=== PATIENT | male | born 1945 | race Caucasian/White ===

== ENCOUNTER → 2017-12-07 12:45 | Outpatient (CLI) | payer MEDICARE, OTHER, SELFPAY ==
--- NOTE | 2017-12-08 08:48 | PFT ---
INTRODUCTION: The patient is a 72-year-old male currently under the care of Ely Esqueda NP that presents for pulmonary function testing secondary to a diagnosis of COPD. Respiratory therapy reports good patient effort and reports no other concerns. Bronchodilators were used during testing. INTERPRETATION: Forced expiration spirometry demonstrates the presence of a moderately severe large airways obstructive ventilatory defect. There was no significant response to aerosolized bronchodilators, based upon strict ATS criteria. Spirograms do not plateau indicating slow emptying of the lungs. The respiratory flow volume loop reveals decreased expiratory flow rates at all lung volumes consistent with airways obstruction. Body plethysmography was performed and reveals an increased TLC and RV, indicative of hyperinflation and air-trapping. Diffusing capacity by single breath CO is severely reduced at 47% of predicted. When compared to previous pulmonary function studies dated July 2016, there has been a 10% drop in the patient's FEV1, along with worsening hyperinflation and air-trapping. Diffusing capacity has decreased by 8%. IMPRESSION: These pulmonary function studies demonstrate the presence of an irreversible moderately severe large airways obstructive ventilatory defect with associated hyperinflation, air trapping and reduction in diffusing capacity. There has been worsening in the patient's PFTs since they were last completed in 2015, as noted above.
--- NOTE | 2017-12-08 08:52 | PFT_ITS ---
INTRODUCTION: The patient is a 72-year-old male currently under the care of Ely Esqueda NP that presents for pulmonary function testing secondary to a diagnosis of COPD. Respiratory therapy reports good patient effort and reports no other concerns. Bronchodilators were used during testing. INTERPRETATION: Forced expiration spirometry demonstrates the presence of a moderately severe large airways obstructive ventilatory defect. There was no significant response to aerosolized bronchodilators, based upon strict ATS criteria. Spirograms do not plateau indicating slow emptying of the lungs. The respiratory flow volume loop reveals decreased expiratory flow rates at all lung volumes consistent with airways obstruction. Body plethysmography was performed and reveals an increased TLC and RV, indicative of hyperinflation and air-trapping. Diffusing capacity by single breath CO is severely reduced at 47 % of predicted. When compared to previous pulmonary function studies dated July 2016, there has been a 10% drop in the patient's FEV1, along with worsening hyperinflation and air-trapping. Diffusing capacity has decreased by 8%. IMPRESSION: These pulmonary function studies demonstrate the presence of an irreversible moderately severe large airways obstructive ventilatory defect with associated hyperinflation, air trapping and reduction in diffusing capacity. There has been worsening in the patient's PFTs since they were last completed in 2015, as noted above.
== END ==
PROVIDERS: Family Provider Family Medicine; PCP Family Medicine; Visit Provider Nurse Practitioner Acute Care
DX: R06.00 Dyspnea, unspecified (principal); J44.9 Chronic obstructive pulmonary disease, unspecified
CPT/HCPCS: 94060; 94726; 94729

== ENCOUNTER → 2018-03-07 10:36 | Outpatient (CLI) | payer MEDICARE, OTHER, SELFPAY ==
--- NOTE | 2018-03-07 10:38 | ECHOCS_ITS ---
Reason For Study: PULMONARY HTN Procedure This was a 2D Doppler, Color Flow transthoracic echocardiogram. Exam performed in department. Left Ventricle Normal LV size. Moderate concentric left ventricular hypertrophy. Left ventricular systolic function is normal. The estimated ejection fraction is 65 %. Transmitral diastolic flow velocities suggest mild (stage 1) diastolic dysfunction (reversed pattern). No regional wall motion abnormalities noted. Right Ventricle Normal RV size. Normal systolic function. Atria Normal left atrium. Normal right atrium. Mitral Valve Normal mitral valve. Tricuspid Valve Normal tricuspid valve. Unable to estimate RV systolic pressure, pulmonary artery pressure probably normal. Aortic Valve Normal aortic valve. Pulmonic Valve The pulmonic valve is not well visualized. Great Vessels Normal aortic root. The pulmonary artery is normal size. Normal inferior vena cava. Pericardium/Pleural No pericardial effusion. Medication 22 gauge I.V. with prn adaptor inserted into right arm. Diluted definity 3ml given slow IV push to enhance endocardial definition. MMode/2D Measurements & Calculations LVIDd: 4.0 cm IVSd: 1.7 cm Ao root diam: 3.3 cm LVIDs: 2.5 cm LVPWd: 1.4 cm RVDd: 3.1 cm FS: 35.8 % LAV(MOD-bp): 40.4 ml LAV(MOD-bp) Indexed: 17.3 ml/m2 LA A4 area: 14.1 cm2 RA A4 area: 10.7 cm2 LAV(MOD-sp2): 45.7 ml LAV(MOD-sp4): 32.1 ml Time Measurements MV dec time: 0.25 sec Doppler Measurements & Calculations MV E max alessio: 72.3 cm/sec Lat Peak E' Alessio: 9.4 cm/sec Med Peak E' Alessio: 8.0 cm/sec MV A max alessio: 92.8 cm/sec E/E' lat: 7.7 E/E' med: 9.0 MV E/A: 0.78 Ao V2 max: 155.7 cm/sec LV V1 max: 127.1 cm/sec PA V2 max: 114.5 cm/sec Ao max P.7 mmHg LV V1 max P.5 mmHg Interpretation Summary Normal LV size. Moderate concentric left ventricular hypertrophy. Left ventricular systolic function is normal. The estimated ejection fraction is 65 %. Transmitral diastolic flow velocities suggest mild (stage 1) diastolic dysfunction (reversed pattern). Contrast injection was performed. Ordering Physician: Scot Talavera Referring Physician: CHESTER STEWARD Performed By: Cassidy Shields RDCS
== END ==
PROVIDERS: Family Provider Family Medicine; PCP Family Medicine; Visit Provider Internal Medicine Critical Care Medicine
DX: J44.9 Chronic obstructive pulmonary disease, unspecified (principal); J96.11 Chronic respiratory failure with hypoxia; Z98.890 Other specified postprocedural states
CPT/HCPCS: 93306; Q9957; A4216; C8929

== ENCOUNTER → 2018-11-22 15:37 | Outpatient (CLI) | payer MEDICARE, OTHER, SELFPAY ==
[2018-09-15 13:07] VITALS: BMI 33.6
--- NOTE | 2018-11-22 15:41 | RAD_ITS ---
STUDY: X-RAY - RIGHT HAND, ATTENTION FINGER REASON FOR EXAM: Male, 73 years old. Possible foreign body at the tip of the thumb TECHNIQUE: 4 view(s) of the finger were obtained. COMPARISON: None. FINDINGS: There are no radiopaque foreign bodies at the tip of the thumb. A 3.8 mm calcific density is seen at the dorsal aspect of the interphalangeal joint of the thumb. There are no fractures RAD/Finger(s) Min 2 Views IMPRESSION: No radiopaque foreign bodies are seen in the soft tissues at the tip of the thumb Electronically Signed: John Rubio MD at 5:04 EST Tel , Service support ,
== END ==
PROVIDERS: Family Provider Family Medicine; PCP Family Medicine; Referring Provider Family Medicine; Visit Provider Family Medicine
DX: T14.8XXA Other injury of unspecified body region, initial encounter (principal)
CPT/HCPCS: 73140

== ENCOUNTER → 2018-12-05 12:10 | Outpatient (CLI) | payer MEDICARE, OTHER, SELFPAY ==
[2018-12-05 12:40] VITALS: PULSE 64; PULSE 68; PULSE 71; PULSE 79; PULSE 81; PULSE 82; O2SAT 87; O2SAT 89; O2SAT 90; O2SAT 92; O2SAT 94; O2SAT 95; O2SAT 96
--- NOTE | 2018-12-06 11:13 | WT_ITS ---
PSN 6 Minute Walk Test - 6 Minute Walk Test 6 Minute Walk Test: 6 Minute Walk Test PSN:6-Minute Walk Test Start: 12/05/18 12:40 Freq: Status: Active Protocol: [id number] Document 12/05/18 12:40 [facility] (Rec: 12/05/18 12:45 [facility] [id number]) 6 Minute Walk Test Date Performed 12/05/18 Time Performed 12:30 Height 6 ft Weight: 240 lb Weight in Pounds 240.[address]: Ely Esquead Assistive device used: None Pre-test Oxygen Delivery Method Room Air Pulse Ox (%) 95 Pulse Rate (60-100 beats/min) 64 Dyspnea Marky Scale (0-10) 2 1st minute Oxygen Delivery Method Room Air Pulse Ox (%) 94 Pulse Rate (60-100 beats/min) 68 Dyspnea Marky Scale (0-10) 2 2nd minute Oxygen Delivery Method Room Air Pulse Ox (%) 89 Pulse Rate (60-100 beats/min) 71 Dyspnea Marky Scale (0-10) 3 Reported Symptoms Increased Work of Breathing 3rd minute Oxygen Delivery Method Room Air Pulse Ox (%) 87 Pulse Rate (60-100 beats/min) 82 Dyspnea Marky Scale (0-10) 3 Number of Rests Taken 1 Reported Symptoms Increased Work of Breathing 4th minute Oxygen Flow Rate (L/min) (L/min) 2 Oxygen Delivery Method Nasal Cannula Pulse Ox (%) 92 Pulse Rate (60-100 beats/min) 71 Dyspnea Marky Scale (0-10) 3 Reported Symptoms Increased Work of Breathing 5th minute Oxygen Flow Rate (L/min) (L/min) 2 Oxygen Delivery Method Nasal Cannula Pulse Ox (%) 90 Pulse Rate (60-100 beats/min) 79 Dyspnea Marky Scale (0-10) 3 Reported Symptoms Increased Work of Breathing 6th minute Oxygen Flow Rate (L/min) (L/min) 2 Oxygen Delivery Method Nasal Cannula Pulse Ox (%) 89 Pulse Rate (60-100 beats/min) 81 Dyspnea Marky Scale (0-10) 3 Reported Symptoms Increased Work of Breathing Post-test Oxygen Delivery Method Room Air Pulse Ox (%) 96 Pulse Rate (60-100 beats/min) 64 Dyspnea Marky Scale (0-10) 2 Full Laps Walked 19 Partial Lap, Number of Tiles Walked 42 Total Distance Walked (ft) 1163 - Interpretation Interpretation: The patient ambulated 1163 feet over the course of 6 minutes beginning on room air without assistive devices or breaks. Pretesting oxygen saturation was noted to be 95% on room air. With ambulation the jaylon oxygen saturation was 87%. 2 L/min of supplemental oxygen was applied and the patient was able to complete the remainder of the testing while maintaining appropriate oxygen saturations. - Recommendations Recommendations: 2 L/min of supplemental oxygen should be utilized with exertion.
== END ==
PROVIDERS: Family Provider Family Medicine; PCP Family Medicine; Referring Provider Nurse Practitioner Acute Care; Visit Provider Nurse Practitioner Acute Care
DX: J44.9 Chronic obstructive pulmonary disease, unspecified (principal); J96.11 Chronic respiratory failure with hypoxia
CPT/HCPCS: 94618

== ENCOUNTER 2018-12-06 15:57 | Emergency (ER) | payer MEDICARE, OTHER, SELFPAY ==
[2018-12-06 15:57] VITALS: BP 189/78; PULSE 61; RESP 15; TEMP 36.5; O2SAT 98; BMI 34.0
--- NOTE | 2018-12-06 17:13 | CT_ITS ---
STUDY: CT BRAIN WITHOUT CONTRAST REASON FOR EXAM: Male, 73 years old. Fall on ice. Hit back of the head. RADIATION DOSAGE (If Supplied By Facility): CTDIvol = ( 60.81 ) mGy, DLP = ( 1158.30 ) mGycm TECHNIQUE: Transaxial CT imaging of the brain was performed without administration of intravenous contrast material. Individualized dose optimization techniques were used for this CT. COMPARISON: None. FINDINGS: Normal soft tissue structures. Normal calvarium. Normal size ventricles and extra-axial spaces for the patient's age. There are areas of decreased attenuation within the white matter tracts of the supratentorial brain, consistent with microvascular disease changes. Normal right basal ganglia and bilateral thalami. There is a remote lacunar infarct in the left basal ganglia. Normal brainstem. Normal cerebellum. There is no intracranial hemorrhage. There are no findings of an acute ischemic infarction. Normal visualized paranasal sinuses. CT/Brain/Head without Contrast IMPRESSION: Chronic involutional changes without evidence of acute intracranial or calvarial abnormality. Electronically Signed: Dave Sam DO at 18:07 EST Tel [phone], Service support ,
[2018-12-06] MEDS: traMADol 50 MG Tablet PO (17:26)
--- NOTE | 2018-12-06 17:32 | CT_ITS ---
STUDY: CT THORACIC SPINE WITHOUT CONTRAST REASON FOR EXAM: Male, 73 years old. Fall on ice hitting back. RADIATION DOSAGE (If Supplied By Facility): CTDIvol = ( 38.55 ) mGy, DLP = ( 1406.71 ) mGycm TECHNIQUE: The patient was scanned in a multi detector CT scanner. High resolution imaging was performed. Images were obtained from to . Sagittal and coronal images were reconstructed. Individualized dose optimization techniques were used for this CT. COMPARISON: CT chest 08/03/2017. X-ray 12/06/2018. FINDINGS: Normal visualized cervical spine. Normal kyphosis of the thoracic spine. There is no substantial scoliosis. Mild thoracic spurring, otherwise unremarkable thoracic vertebrae and endplates. Normal disc spaces heights. There is moderate consolidation in the right lung base which is new compared to the prior study. This may represent pneumonia, contusion in the setting of significant trauma, or malignancy. CT/Spine Thoracic without Contras IMPRESSION: 1. No acute osseous abnormality. 2. Right lower lobe consolidation. Differential considerations include pneumonia, contusion, or malignancy. Short interval follow-up is advised. Electronically Signed: Cira Brady MD at 18:36 EST Tel , Service support ,
--- NOTE | 2018-12-06 17:32 | ED.DCSUM_ITS ---
- ER Visit Summary Date of Service: 12/06/18 Chief Complaint: Back injury History of Present Illness: The patient is a 73 M presents to the emergency department with rib pain after fall. The patient was in his normal state of health. He states he was walking out to get his newspaper this morning. He slipped on ice. He fell on his upper back and struck his head. He did not lose consciousness. Since then, he had pain in his right posterior ribs. He is also had a mild headache. He denies any fevers or chills. He states every time he twists or moves, he will have pain. The patient was recently on antibiotics for sinusitis. He finished these about 7 days ago. He has had a scant cough for the past 4 days. He denies any other systemic symptoms. He is not on anticoagulants. Physical Examination: Vital signs reviewed General: Well-nourished, well-developed Head: Normocephalic, atraumatic Eyes: Pupils equal and reactive, extraocular muscles intact Neck, supple, no lymphadenopathy Heart: Regular rate and rhythm Respiratory: No distress, diminished in the bases bilaterally Abdomen: Soft, nontender, nondistended, no peritoneal signs Back: Tenderness in the thoracic spine and over the right posterior ribs. No step-off. No deformity. Extremities: Nontender, no edema, no cords Skin: Normal color no rash Neuro: Alert and oriented, no focal or lateralizing deficits Test Results: [] Emergency Department Course and Treatment: I did obtain a rib series, CT of the head, and thoracic spine CT. CT of the head was unremarkable. Rib series shows no evidence of acute fracture or pneumothorax. There was questionable consolidation in his right base. CT of the thoracic spine does demonstrate this consolidation. A long discussion with the patient. He had a persistent cough. Is not had hemoptysis. My suspicion for lung contusion is rather low especially given his mechanism. Is not on anticoagulants. He has not had any hemoptysis. The patient was able to ambulate with no hypoxia. I am going to cover him with doxycycline, but I do feel that this is more of a chronic finding especially given his underlying history of lung disease. He also given a short course of analgesics. I do want him to follow-up with his primary care within the next 24-48 hours. He was also counseled on concerning symptoms and reasons to return. Treatment Plan: [] Disposition: Discharge Impression: 1. Thoracic strain status post fall 2. Rib contusion status post fall This note was generated with [email or web address] dictation software. It may contain incorrect words, spelling, and punctuation that were not noted in review of the chart prior to signing ED Disposition - Plan for ED Patient: Chief Complaint: Fall Instructions: ED Contusion Rib Prescriptions: traMADol [Ultram] 50 mg PO Q4H PRN PRN 3 Days #10 tab PRN Reason: Pain Doxycycline 100 mg PO BID #20 cap Referrals: Hung Hummel MD [Primary Care Provider] - 2 Days
--- NOTE | 2018-12-06 17:42 | RAD_ITS ---
STUDY: X-RAY - BILATERAL RIBS WITH CHEST REASON FOR EXAM: Male, 73 years old. Pain after fall. TECHNIQUE - RIBS: 8 view(s) of the ribs. TECHNIQUE - CHEST: Single PA view of the chest. COMPARISON: Chest, July 16, 2017. FINDINGS - RIBS : Normal visualized ribs without a demonstrated fracture. FINDINGS - CHEST: The lungs are well expanded. There is questionable patchy infiltrate in the right perihilar region not seen on the prior study. Minimal dependent changes are seen at the right lung base. There is no pneumothorax. There is no demonstrated pleural abnormality. Normal size heart. Normal mediastinum and rick. Normal visualized pulmonary arteries. Normal visualized aortic arch and descending thoracic aorta. There are diffuse degenerative changes of the visualized thoracic spine. There is degenerative osteoarthritis of the bilateral shoulders. There is no demonstrated abnormality of the visualized soft tissue structures of the upper abdomen. RAD/Ribs Stiven Min 4V w/PA Chest IMPRESSION: RIBS: Normal x-ray examination of the bilateral ribs. CHEST: Infiltrate versus contusion of the right midlung with right basilar atelectasis. Electronically Signed: Dave Sam DO at 18:13 EST Tel [phone], Service support ,
[2018-12-06 18:58] VITALS: O2SAT 96
== END 2018-12-06 19:15 | disposition home or self-care (01) ==
LOC: ED 17:19
PROVIDERS: Emergency Provider Emergency Medicine; Family Provider Family Medicine; PCP Family Medicine
DX: S20.221A Contusion of right back wall of thorax, initial encounter (principal); S29.012A Strain of muscle and tendon of back wall of thorax, initial encounter; R51 Headache; R05 Cough; W00.0XXA Fall on same level due to ice and snow, initial encounter; Y93.01 Activity, walking, marching and hiking; Y92.9 Unspecified place or not applicable; I10 Essential (primary) hypertension; Z79.82 Long term (current) use of aspirin; Z79.899 Other long term (current) drug therapy; Z87.891 Personal history of nicotine dependence
CPT/HCPCS: 70450; 71111; 72128; 99283

== ENCOUNTER → 2019-02-10 12:10 | Outpatient (CLI) | payer MEDICARE, OTHER, SELFPAY ==
[2019-02-13 16:08] LABS: PROEL- A/G Ratio 1.2 (0.7-1.7); PROEL- Albumin 3.7 g/dL (2.9-4.4); PROEL- Alpha-1 Globulin 0.3 g/dL (0.0-0.4); PROEL- Alpha-2 Globulin 0.8 g/dL (0.4-1.0); PROEL- Globulin, Total 3.1 g/dL (2.2-3.9); PROEL- TOTAL PROTEIN 6.8 g/dL (6.0-8.5)
[2019-02-14 14:07] LABS: PROELU- Albumin, Urine 75.2 % (.); PROELU- Alpha-1-Globulin,Ur 4.4 % (.); PROELU- Alpha-2-Globulin,Ur 5.6 % (.); PROELU- Beta Globulin, Ur 9.8 % (.); PROELU- Gamma Globulin, Ur 5.1 % (.); Total Protein, Ur 59.4 mg/dL (Not Estab.)
[2019-02-14 15:26] LABS: Angiotensin Convert Enzyme 54 U/L (14-82)
== END ==
PROVIDERS: Family Provider Family Medicine; PCP Family Medicine; Referring Provider Family Medicine; Visit Provider Family Medicine
DX: J44.9 Chronic obstructive pulmonary disease, unspecified (principal)
CPT/HCPCS: 36415; 82164; 84165; 84166

== ENCOUNTER → 2019-03-23 | Outpatient (CLI) | payer MEDICARE, OTHER, SELFPAY ==
--- NOTE | 2019-03-23 16:23 | PFTCOMP_ITS ---
COMPLETE PULMONARY FUNCTION TEST INTERPRETATION Brief HPI: Patient is a 74 year old male, currently under the care of myself, who presents to [facility] for complete pulmonary function tests secondary to diagnosis of COPD. Respiratory therapist reports good effort and reproducible results. Interpretation: Forced expiration spirometry shows a moderately severe large airways obstructive ventilatory defect with an FEV1 of 66% predicted. There is a significant bronchodilator response in FVC and FEV1 by strict ATS criteria. Spirograms are of good quality and plateau slowly, indicating slowly emptying areas of the lungs. The respiratory flow volume loop shows decreased expiratory flow rates at all lung volumes consistent with airway obstruction. Lung volumes by body plethysmography show a normal total lung capacity at 7.65 L, 111% predicted. All other lung volumes are within normal limits. Diffusion capacity by carbon monoxide is decreased at 54% predicted. The airway resistance is elevated. Compared to previous pulmonary function tests from 12/07/2017, there is been a significant improvement in FVC and FEV1 by 21% and 12% respectively. Impression: Partially reversible moderately severe large airways obstructive ventilatory defect with symmetric reduction diffusing capacity, in a pattern consistent with COPD/asthma overlap syndrome.
== END | disposition home or self-care (01) ==
LOC: PSN 10:39
PROVIDERS: Family Provider Family Medicine; PCP Family Medicine; Referring Provider Nurse Practitioner Acute Care; Visit Provider Nurse Practitioner Acute Care
DX: J44.9 Chronic obstructive pulmonary disease, unspecified (principal); J96.11 Chronic respiratory failure with hypoxia
CPT/HCPCS: 94060; 94726; 94729

== ENCOUNTER → 2019-03-28 | Outpatient (CLI) | payer MEDICARE, OTHER, SELFPAY ==
[2019-03-28 11:05] VITALS: BMI 33.5
== END | disposition home or self-care (01) ==
LOC: LABSPEC 12:47
PROVIDERS: Family Provider Family Medicine; PCP Family Medicine; Referring Provider Nurse Practitioner Acute Care; Visit Provider Nurse Practitioner Acute Care
DX: R06.02 Shortness of breath (principal)
CPT/HCPCS: 87070; 87205

== ENCOUNTER → 2019-04-14 | Outpatient (CLI) | payer MEDICARE, OTHER, SELFPAY ==
[2019-03-28 11:05] VITALS: BMI 33.5
--- NOTE | 2019-04-14 12:37 | ECHOCS_ITS ---
Reason For Study: DYSPNEA/SOB Procedure This was a 2D Doppler, Color Flow transthoracic echocardiogram. Exam performed in department. Left Ventricle Normal LV size. Left ventricular systolic function is normal. The estimated ejection fraction is 65 %. Stage 1 diastolic dysfunction. No regional wall motion abnormalities noted. Right Ventricle Normal RV size. Normal systolic function. Atria Normal left atrium. Normal right atrium. Mitral Valve Normal mitral valve. Tricuspid Valve Normal tricuspid valve. Aortic Valve The aortic valve is not well visualized. Pulmonic Valve Normal pulmonic valve. Great Vessels Normal aortic root. The pulmonary artery is normal size. Normal inferior vena cava. Pericardium/Pleural No pericardial effusion. Medication 22 gauge I.V. with prn adaptor inserted into right arm. Diluted definity 6ml given slow IV push to enhance endocardial definition. MMode/2D Measurements & Calculations LVIDd: 4.5 cm IVSd: 1.1 cm Ao root diam: 3.3 cm LVIDs: 3.0 cm LVPWd: 1.00 cm RVDd: 3.7 cm FS: 34.4 % LAV(MOD-bp): 40.9 ml LVAd ap4: 30.3 cm2 SV(MOD-sp4): 59.0 ml LAV(MOD-bp) Indexed: 17.8 ml/m2 EDV(MOD-sp4): 90.6 ml LAV(MOD-sp2): 39.2 ml EDV(sp4-el): 91.0 ml LAV(MOD-sp4): 37.4 ml LVAs ap4: 15.8 cm2 ESV(MOD-sp4): 31.6 ml ESV(sp4-el): 30.0 ml EF(MOD-sp4): 65.1 % EF(sp4-el): 67.0 % SV(sp4-el): 61.0 ml LA A4 area: 16.2 cm2 LA dimension(2D): 3.9 cm RA A4 area: 17.9 cm2 Time Measurements MV dec time: 0.38 sec Doppler Measurements & Calculations MV E max alessio: 54.2 cm/sec Lat Peak E' Alessio: 10.8 cm/sec Med Peak E' Alessio: 8.8 cm/sec MV A max alessio: 74.2 cm/sec E/E' lat: 5.0 E/E' med: 6.1 MV E/A: 0.73 Ao V2 max: 153.9 cm/sec LV V1 max: 125.1 cm/sec PA V2 max: 117.2 cm/sec Ao max P.5 mmHg LV V1 max P.3 mmHg Interpretation Summary Normal LV size. Left ventricular systolic function is normal. The estimated ejection fraction is 65 %. Stage 1 diastolic dysfunction. Contrast injection was performed. Ordering Physician: Ely Esqueda Referring Physician: CHESTER STEWARD Performed By: Cassidy Shields RDCS
--- NOTE | 2019-04-14 13:34 | CT_ITS ---
We are attempting to reach an attending provider to discuss findings. An addendum with communication details will be sent when the communication is complete. HISTORY: Dyspnea, follow-up right lung nodule. COMPARISON: CT chest 08/03/2017, chest x-ray 12/06/2018 TECHNIQUE: Helical CT axial images of the thorax without IV contrast. Multiplanar reconstruction. A radiation dose optimization technique was used for this scan. # of images incl. paperwork: [id number] FINDINGS: LUNGS: There has been interval progression of abnormality within the posterior aspect of right lower lobe now involving the entire posterior right lower lobe with masslike consolidation measuring 6.2 x 3.2 x 6.0 cm in greatest TV/AP/CC dimensions. Subjacent areas of interstitial density/scarring with subjacent cystic bronchiectasis extending into the subjacent posterior right upper lobe. Mild centrilobular emphysema more pronounced within the upper lobes. Some small focus of posterior left lower lobe pleural based parenchymal scarring measuring less than 1 cm, unchanged. Remainder of the lungs demonstrate no consolidation, or other pulmonary masses/nodules. MEDIASTINUM: No abnormally enlarged mediastinal or hilar lymph nodes. Subcentimeter mediastinal lymph nodes remain unchanged. PLEURA: No pleural effusion. No pneumothorax. CARDIAC: Normal heart size. No pericardial effusion. VASCULAR: Thoracic aorta is normal in caliber without aneurysm. The pulmonary vasculature demonstrates no significant dilatation. CHEST WALL: Chest wall is intact. No abnormal axillary lymphadenopathy. BONES: No suspicious osseous lytic or blastic lesions seen. UPPER ABDOMEN: The visualized upper abdomen demonstrates no acute abnormality. CT/Chest without Contrast IMPRESSION: 1. Interval progression of posterior right lower lobe chronic lung changes now involving the entire posterior aspect of the right lung with a somewhat masslike appearance which is somewhat ill-defined and difficult to measure; but approximating 6.2 x 3.2 x 6.0 cm in a pattern suspicious for bronchoalveolar adenocarcinoma. Alternatively this may represent pneumonia superimposed on focal area of chronic interstitial changes. Clinical correlation and follow-up and if warranted histologic diagnosis may be necessary. 2. Mild pulmonary emphysema. 3. No abnormal mediastinal lymphadenopathy. Individualized dose optimization techniques were used for this CT. at 0316 Reported and signed by: Brennan Jara MD Electronically Signed: Brennan Jara MD at 3:15 EDT Tel , Service support ,
== END | disposition home or self-care (01) ==
LOC: CT 12:36
PROVIDERS: Family Provider Family Medicine; PCP Family Medicine; Referring Provider Nurse Practitioner Acute Care; Visit Provider Nurse Practitioner Acute Care
DX: R06.02 Shortness of breath (principal)
CPT/HCPCS: 71250; 93306; Q9957; A4216; C8929

== ENCOUNTER → 2019-05-01 | Outpatient (CLI) | payer MEDICARE, OTHER, SELFPAY ==
[2019-04-28 10:50] VITALS: BMI 33.5
== END | disposition home or self-care (01) ==
PROVIDERS: Family Provider Family Medicine; PCP Family Medicine; Referring Provider Nurse Practitioner Acute Care; Visit Provider Nurse Practitioner Acute Care
DX: J18.9 Pneumonia, unspecified organism (principal)
CPT/HCPCS: 87070; 87205

== ENCOUNTER → 2019-05-15 | Outpatient (CLI) | payer MEDICARE, OTHER, SELFPAY ==
[2019-04-28 10:50] VITALS: BMI 33.5
--- NOTE | 2019-05-15 15:42 | CT_ITS ---
STUDY: CT CHEST WITHOUT CONTRAST REASON FOR EXAM: Male, 74 years old. Pneumonia follow-up. RADIATION DOSAGE (If Supplied By Facility): CTDIvol = ( 17.73 ) mGy, DLP = ( 668.88 ) mGycm TECHNIQUE: Transaxial imaging was performed without the administration of intravenous contrast material. Individualized dose optimization techniques were used for this CT. COMPARISON: April 14, 2019 FINDINGS: There is stable dependent consolidation associated with groundglass opacities within the right lower lobe. There are left pronounced stable groundglass and ill-defined opacity within the right upper lobe as well. There is a stable focal subpleural groundglass opacity within the left lower lobe. There are emphysematous changes. There are calcifications of the coronary arteries. Normal mediastinum. Normal hilar regions. Normal unenhanced pulmonary arteries. There is atherosclerosis of the aortic arch and descending thoracic aorta. There are multi-level degenerative changes of the thoracic spine. The limited images of the upper abdomen demonstrate stable well-circumscribed low-attenuation foci within the liver that likely reflect cysts and/or hemangiomas. There is a stable partially visualized low-attenuation focus within the left retroperitoneum that likely reflects underlying cyst. CT/Chest without Contrast IMPRESSION: Stable right lower lobe consolidation that likely reflects underlying pneumonia however a neoplastic process cannot be entirely excluded. Recommend follow-up chest CT in 4-8 weeks. Atherosclerosis. Emphysema. Electronically Signed: Michell Kim MD at 16:08 EDT Tel , Service support ,
== END | disposition home or self-care (01) ==
PROVIDERS: Family Provider Family Medicine; PCP Family Medicine; Referring Provider Nurse Practitioner Acute Care; Visit Provider Nurse Practitioner Acute Care
DX: J18.9 Pneumonia, unspecified organism (principal)
CPT/HCPCS: 71250

== ENCOUNTER 2019-05-26 11:23 | Day surgery (SDC) | payer MEDICARE, OTHER, SELFPAY ==
[2019-05-18 14:30] VITALS: BMI 32.8
[2019-05-26] VITALS (14 sets, daily range): BP systolic 112–160; BP diastolic 64–112; PULSE 60–80; RESP 16–18; TEMP 36.1–36.4; O2SAT 90–97; BMI 32.5
--- NOTE | 2019-05-26 | FLU_PTH ---
PATIENT: THERESA HALL LOC: EN U#:[id number] AGE/SX: 74/M ROOM: RE05/26/[address]: Dr. Scot Talavera MD : 1945 BED: DIS: 05/26/2019 SPEC #: [id number] RECD: 05/26/19 13:49 STATUS: FRED RAYMOND #: [id number] SILVA: 05/26/19 00:[address]: Scot Talavera DEPT: CYTOLOGY RECD BY: Bucky Dale ENTERED: 05/29/19 08:02 SP TYPE: Fluid OTHR DR: Dr. Hung Hummel MD Tissues: A - Lung, NOS B - Lung, NOS C - Lung, NOS D - Lung, NOS Procedures: Special Stain Group II Surgery Specimen Level IV Cytospin Fluid Cytology Other HEADER OPERATION: Bronchoscopy PRE-OP DIAGNOSIS: Pneumonia, abnormal CT scan, COPD TISSUE SUBMITTED: A - WASH right lung for cytology, B - BAL RLL for cytology, C - BRUSH RLL, D - Brushing slides x3 DIAGNOSIS CYTOLOGY A. Right lung washings for cytology (cytospin and cell block): Negative for malignant cells. B. Bronchioalveolar lavage, right lower lobe of lung (cytospin and cell block): Negative for malignant cells. C. [place], right lower lobe (cell block): Negative for malignant cells. D. Lung brushings (smears): Negative for malignant cells. AM:ulices 05/30/19 CYTOLOGY STUDY Slides are reviewed. CYTOLOGY GROSS A - Received is 8 ml of cloudy red fluid labeled with the patient's name and and designated per the requisition as WASH right lung. Submitted for cytology preparation including cell block. B - Received is 12 ml of cloudy pink fluid labeled with the patient's name and and designated per the requisition as BAL RLL. Submitted for cytology preparation including cell block. C - Received labeled with the patient's name and designated BRUSH RLL. The specimen is totally submitted for cell block preparation. D - Received are three smears labeled with the patient's name and designated per the requisition as brushing. Submitted for staining. 05/29/19 TC:5 CPT: 99206 x3, 63833 x3
[2019-05-26 11:53] LABS: Hematocrit 44.1 % (40-54); Hemoglobin 15.4 g/dL (13.0-16.5); Mean Corp Hgb Conc 34.9 g/dL (32-36); Mean Corpuscular Hgb 31.6 pg (27.0-32.0); Mean Corpuscular Volume 90.6 fL (80-94); Platelet Count 172 K/mm3 (150-450); RBC Distribution Width CV 12.5 % (11.6-14.6); RBC Distribution Width SD 41.1 fl (35.1-43.9); Red Blood Count 4.87 M/mm3 (4.6-6.2); White Blood Count 7.5 K/mm3 (4.4-11.0)
[2019-05-26 12:02] LABS: Partial Thromboplast Time 30.2 Seconds (24.1-36.2)
--- NOTE | 2019-05-26 13:32 | OP.ENDO_ITS ---
Patient Name: Jens Mendoza Procedure Date: 05/26/2019 11:41 AM Date of : 1945 Age: 74 Procedure: Bronchoscopy Indications: Unresolving right lower lobe infiltrate, Chronic cough with abnormal CT Providers: Scot Talavera MD Referring MD: Scot Talavera MD Medicines: Midazolam 4 mg IV, Fentanyl 50 mcg IV, Lidocaine 2% Nebulizer 2.5 mL, Oxygen 5 L/min Complications: No immediate complications. Estimated blood loss: None. No pneumothorax Procedure: Pre-Anesthesia Assessment: - A History and Physical has been performed. The patient's medications, allergies and sensitivities have been reviewed. - The risks and benefits of the procedure and the sedation options and risks were discussed with the patient. All questions were answered and informed consent was obtained. - Patient identification and proposed procedure were verified prior to the procedure by the physician and the nurse. The procedure was verified in the endoscopy suite. - The anesthesia plan was to use moderate sedation/analgesia. - Only local anesthesia, not conscious sedation, was planned for the procedure. - Pre-procedure physical examination revealed no contraindications to sedation. - Airway Examination: normal oropharyngeal airway. - Respiratory Examination: poor air movement. - ASA Grade Assessment: II - A patient with mild systemic disease. After I obtained informed consent, the scope was passed under direct vision. Throughout the procedure, the patient's blood pressure, pulse, and oxygen saturations were monitored continuously. The bronchoscope was introduced through the right nostril and advanced to the tracheobronchial tree of both lungs. The procedure was accomplished without difficulty. The patient tolerated the procedure well. The total duration of the procedure was 20 minutes. Moderate Sedation: Moderate (conscious) sedation was administered by the endoscopy nurse and supervised by the endoscopist. The following parameters were monitored: oxygen saturation, heart rate, blood pressure, respiratory rate, EKG, adequacy of pulmonary ventilation, and response to care. Total physician intraservice time was 20 minutes. Findings: Trachea/Sandy Abnormalities: Nodular mucosa was found in the upper trachea. 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 Right Lung Abnormalities: Partially obstructing (about 50% obstructed) bronchomalacia was found throughout the right tracheobronchial tree. Left Lung Abnormalities: Partially obstructing (about 50% obstructed) bronchomalacia was found throughout the left tracheobronchial tree. Bronchoalveolar lavage was performed in the RML medial segment (B5) and in the RLL posterior basal segment (B10) of the lung and sent for cell count, bacterial culture, viral smears & culture, and fungal & AFB analysis and cytology, aerobic culture, AFB analysis & culture, Mycoplasma and fungal analysis. 100 mL of fluid were instilled. 25 mL were returned. The return was turbid. There were no mucoid plugs in the return fluid. Multiple specimens were obtained and pooled into one specimen, which was sent for analysis. Brushings of an area of infiltration were obtained in the posterior basal segment of the right lower lobe with a cytology brush and sent for routine cytology. One sample was obtained. Impression: - Unresolving right lower lobe infiltrate - Chronic cough with abnormal CT - Nodular mucosa was visualized in the upper trachea. - Bronchomalacia was visualized in the upper trachea. - Bronchomalacia was visualized throughout the tracheobronchial tree. - Bronchomalacia was visualized throughout the tracheobronchial tree. - Bronchoalveolar lavage was performed. - Brushings were obtained. - Bronchomalacia was visualized throughout the tracheobronchial tree and in the upper trachea. Recommendation: - The patient will be observed post-procedure, until all discharge criteria are met. - Await BAL, brushing, cytology and washing results. - Patient has a contact number available for emergencies. The signs and symptoms of potential delayed complications were discussed with the patient. Return to normal activities tomorrow. Written discharge instructions were provided to the patient. - Follow up with bronchoscopist as previously scheduled. Procedure Code(s): --- Professional --- 14913, Bronchoscopy, rigid or flexible, including fluoroscopic guidance, when performed; with bronchial alveolar lavage 84000, Bronchoscopy, rigid or flexible, including fluoroscopic guidance, when performed; with brushing or protected brushings 11933, Moderate sedation services provided by the same physician or other qualified health career services director performing the diagnostic or therapeutic service that the sedation supports, requiring the presence of an independent trained observer to assist in the monitoring of the patient's level of consciousness and physiological status; initial 15 minutes of intraservice time, patient age 5 years or older Diagnosis Code(s): --- Professional --- R91.8, Other nonspecific abnormal finding of lung field R05, Cough J39.8, Other specified diseases of upper respiratory tract J98.09, Other diseases of bronchus, not elsewhere classified CPT copyright 2017 [employer]. All rights reserved. The codes documented in this report are preliminary and upon rd manager review may be revised to meet current compliance requirements. MD Scot Rayo MD 05/26/2019 1:32:05 PM This report has been signed electronically. Number of Addenda: 0 Note Initiated On: 05/26/2019 11:41 AM
[2019-05-26] MEDS: Albuterol 2.5 MG/3 ML VIAL.NEB. INHALATION (13:46)
[2019-05-26 13:57] LABS: Cytology, Body Fluid / CSF SEE PATHOLOGY REPORT; Cytology, Washings SEE PATHOLOGY REPORT
[2019-05-26 14:52] LABS: Appearance/Body Fluid SL CLDY; Color/Body Fluid SLIGHTLY PINK; Source- Body Fluid BRONCHIAL LAVAGE
[2019-05-26 14:53] LABS: Red Cell Count/Body Fluid 1597 /mm3; White Blood Count/Body Fluid 105 /mm3
[2019-05-26 15:15] LABS: Lymphocytes 16 %; Monocytes 2 %; Neutrophil (Segs) 9 %; Other Cell Type/BF 73 %
[2019-05-26 15:16] LABS: Body Fluid QC Type(s) BF1Q,BF2Q
[2019-05-29 12:00] LABS: Pathologist Comment/Body Fluid Reviewed
== END 2019-05-26 14:46 | disposition home or self-care (01) ==
LOC: EN 11:24 → AC 11:44
PROVIDERS: Family Provider Family Medicine; PCP Family Medicine; Referring Provider Internal Medicine Critical Care Medicine; Visit Provider Internal Medicine Critical Care Medicine
PROC: 0BJ08ZZ Inspection of Tracheobronchial Tree, Via Natural or Artificial Opening Endoscopic (ICD-10-PCS; CPT 31622; principal; 2019-05-26 12:15)
DX: R91.8 Other nonspecific abnormal finding of lung field (principal); J98.09 Other diseases of bronchus, not elsewhere classified; J44.9 Chronic obstructive pulmonary disease, unspecified; J96.11 Chronic respiratory failure with hypoxia; E78.00 Pure hypercholesterolemia, unspecified; M19.90 Unspecified osteoarthritis, unspecified site; E03.9 Hypothyroidism, unspecified; G47.33 Obstructive sleep apnea (adult) (pediatric); K21.9 Gastro-esophageal reflux disease without esophagitis; Z87.01 Personal history of pneumonia (recurrent); Z87.19 Personal history of other diseases of the digestive system; Z99.81 Dependence on supplemental oxygen; Z79.82 Long term (current) use of aspirin; Z79.899 Other long term (current) drug therapy; Z87.891 Personal history of nicotine dependence
CPT/HCPCS: 31623; 31624; 36415; 85027; 85610; 85730; 87015; 87070; 87116; 87205; 87206; 88108; 88161; 88305; 88313; 89050; 94640; 99152; 99153; J7120

== ENCOUNTER → 2019-08-15 13:00 | Outpatient (CLI) | payer MEDICARE, OTHER, SELFPAY ==
[2019-08-02 11:08] VITALS: BMI 32.9
== END ==
PROVIDERS: Family Provider Family Medicine; PCP Family Medicine; Referring Provider Internal Medicine Critical Care Medicine; Visit Provider Internal Medicine Critical Care Medicine
DX: G47.30 Sleep apnea, unspecified (principal)
CPT/HCPCS: 98960; G0463

== ENCOUNTER → 2019-09-07 15:20 | Outpatient (CLI) | payer MEDICARE, OTHER, SELFPAY ==
[2019-09-07 14:43] VITALS: BMI 32.9
== END ==
PROVIDERS: Family Provider Family Medicine; PCP Family Medicine; Referring Provider Nurse Practitioner Acute Care; Visit Provider Nurse Practitioner Acute Care
DX: J06.9 Acute upper respiratory infection, unspecified (principal)
CPT/HCPCS: 87633

== ENCOUNTER 2019-09-11 10:34 | Inpatient (IN) | payer MEDICARE, OTHER, SELFPAY ==
[2019-09-07 14:43] VITALS: BMI 32.9
[2019-09-11] VITALS (14 sets, daily range): BP systolic 118–163; BP diastolic 55–73; PULSE 65–88; RESP 16–93; TEMP 36.5–36.7; O2SAT 91–95; BMI 32.8; BMI 32.4
--- NOTE | 2019-09-11 10:54 | EKG12_ITS ---
Test Reason : WEAKNESS Blood Pressure : / mmHG Vent. Rate : 063 BPM Atrial Rate : 063 BPM P-R Int : 184 ms QRS Dur : 104 ms QT Int : 432 ms P-R-T Axes : 057 042 045 degrees QTc Int : 442 ms Normal sinus rhythm Normal ECG Confirmed by DEMETRIUS KIRKPATRICK, JAMESON ([id number]), makeup editor PARADISE ARAMBULA ([id number]) on 09/13/2019 11:00:58 AM Referred By: Ely Esqueda Confirmed By:JAMESON ROMO MD
--- NOTE | 2019-09-11 10:54 | RAD_ITS ---
STUDY: X-RAY CHEST REASON FOR EXAM: Male, 74 years old. Shortness of breath, weakness TECHNIQUE: PA and lateral views of the chest. COMPARISON: 12/06/2018 FINDINGS: There is hyperinflation of the lungs consistent with chronic obstructive lung disease (COPD). Alveolar opacity in the lower right lung consistent with right lower lobe pneumonia. There is no demonstrated pleural abnormality. Normal size heart. Normal mediastinum and rick. Normal visualized pulmonary arteries. Normal visualized aortic arch and descending thoracic aorta. Normal visualized thoracic spine. Normal visualized ribs, clavicles, and shoulders. There is no demonstrated abnormality of the visualized soft tissue structures of the upper abdomen. RAD/Chest PA and Lateral IMPRESSION: Emphysema with right lower lobe pneumonia. Electronically Signed: Everardo Lopez MD at 12:29 EST Tel , Service support ,
[2019-09-11] MEDS: Albuterol 2.5 MG/3 ML VIAL.NEB. INHALATION ×5 (11:15→23:23)
--- NOTE | 2019-09-11 11:18 | ED.VIS.GEN ---
History of Present Illness Chief Complaint: Weakness Onset: Days Context: Gradual Onset Timing: Continuous Current Severity: Moderate Maximum Severity: Severe Narrative: The patient is a 74-year-old male with medical history significant for COPD who is on home oxygen. He presents with increasing cough, shortness of breath, productive sputum, and generalized malaise. He states his symptoms began last week. He was actually seen as an outpatient by his field counsel. He had a viral panel done which was negative. He was started on prednisone. He states despite prednisone, he feels like his symptoms are worsening. He had a fever of 102 at home. He is also had chills and myalgias. He continues to have increasing dyspnea and productive sputum. He denies any chest pain, but does have tightness when he coughs. He has not had increase his oxygen requirement. Prior similar symptoms: No Recent Illness/Hospitalization: No Past Medical History - Allergies and Home Meds Allergies/Adverse Reactions: Allergies cefaclor [From Ceclor] Allergy (Verified 09/11/19 10:36) Rash codeine Allergy (Verified 09/11/19 10:36) Itching Sulfa (Sulfonamide Antibiotics) Allergy (Verified 09/11/19 10:36) Rash amoxicillin trihydrate [From Augmentin] Adverse Reaction (Verified 09/11/19 10:40) Upset Stomach STOMACH PAIN clarithromycin [From Biaxin] Adverse Reaction (Verified 09/11/19 10:40) Upset Stomach diphenhydramine HCl [From Benadryl] Adverse Reaction (Verified 09/11/19 10:36) Other DRIES MOUTH AND THROAT OUT hydrocodone Adverse Reaction (Verified 09/11/19 10:36) Itching lactose Adverse Reaction (Verified 09/11/19 10:36) Abd cramps/diarrhea LACTOSE INTOLERANCE potassium clavulanate [From Augmentin] Adverse Reaction (Verified 09/11/19 10:36) Other STOMACH PAIN Primary Care Physician: Hung Hummel MD [Primary Care Provider] - Prior records reviewed: Yes Past Medical History: - - COPD, hypertension Surgical History: - - Hernia repair Tonsillectomy Right pupil hip replacement right foot 4th toe fusion Appendectomy turp Smoking Status: Former smoker Review of Systems General: Reports: Chills, Fever. Denies: Sweats Eyes: Denies: Visual changes - bilaterally, Diplopia ENT: Denies: Rhinorrhea, Sore throat Cardiovascular: Denies: Chest pain, Palpitations Respiratory: Reports: Dyspnea, Cough, Sputum. Denies: Dyspnea on exertion Gastrointestinal: Denies: Abdominal pain, Nausea, Vomiting, Diarrhea, Melena, Hematochezia Genitourinary: Denies: Dysuria, Hematuria, Frequency Musculoskeletal: Denies: Back pain, Extremity Pain Skin: Denies: Rash, Wounds Neurological: Denies: Headache, Weakness, Numbness Physical Exam Vital Signs/Narrative: Vital Signs Temp Pulse Resp BP Pulse Ox 09/11/19 10:36 98.0 F 70 20 H 163/72 H 91 Inital Vital Signs reviewed: Yes General: Well nourished, Well developed, No Acute Distress Head: Normocephalic, Atraumatic Eyes: Perrl, EOMI ENT: Moist mucous membranes, No rhinorrhea Neck: Supple, Nontender Cardiovascular: Regular rate, Regular rhythm, No murmurs Respiratory: No distress, Chest nontender, Wheezing, Decreased Air Movement Abdomen: Soft, Nontender, Nondistended, Normal bowel sounds Back: Nontender, Normal Inspection Extremities: Nontender, No edema Skin: Normal color, No rash Neurological: Alert, Oriented x3, Cranial nerves II-XII grossly intact, Normal Strength, Normal Sensation Psychological: Normal affect, Normal Mood Diagnostic/Tx/Re-eval Chest X-Ray - ED: 2 View, Chronic Changes, Right Infiltrate Clinical Impression(s) from Imaging Studies Chest X-Ray 09/11/19 10:54 IMPRESSION: Emphysema with right lower lobe pneumonia. Electronically Signed: Everardo Lopez MD at 12:29 EST Tel , Service support , Abnormal Lab Results 09/11/19 09/11/19 09/11/19 11:15 11:15 11:15 WBC 11.9 H RBC 4.40 L Hgb 13.7 Hct 39.9 L MCV 90.7 MCH 31.1 MCHC 34.3 RDW Std Deviation 41.7 RDW Coeff of Eliecer 12.6 Plt Count 225 MPV 9.2 Immature Gran % (Auto) 4.100 H Neut % (Auto) 77.2 H Lymph % (Auto) 8.8 L [place] % (Auto) 8.7 Eos % (Auto) 0.3 Baso % (Auto) 0.9 Absolute Neuts (auto) 9.2 H Absolute Lymphs (auto) 1.05 Nucleated RBC % 0 Sodium 138 Potassium 3.0 L Chloride 105 Carbon Dioxide 26.0 Anion Gap 7 BUN 21 H Creatinine 1.30 Estim Creat Clear Calc 53.06 Est GFR (MDRD) Af Amer 69 Est GFR (MDRD) Non-Af 57 L BUN/Creatinine Ratio 16.2 Glucose 159 H Lactic Acid 2.4 H Calcium 9.1 Troponin I < 0.015 B-Natriuretic Peptide 09/11/19 11:15 WBC RBC Hgb Hct MCV MCH MCHC RDW Std Deviation RDW Coeff of Eliecer Plt Count MPV Immature Gran % (Auto) Neut % (Auto) Lymph % (Auto) [place] % (Auto) Eos % (Auto) Baso % (Auto) Absolute Neuts (auto) Absolute Lymphs (auto) Nucleated RBC % Sodium Potassium Chloride Carbon Dioxide Anion Gap BUN Creatinine Estim Creat Clear Calc Est GFR (MDRD) Af Amer Est GFR (MDRD) Non-Af BUN/Creatinine Ratio Glucose Lactic Acid Calcium Troponin I B-Natriuretic Peptide 58.1 - Rhythm Strip Rhythm Strip: Sinus Rhythm Rate: 60 Ectopy: None - EKG Initial EKG Interpretation: Sinus Rhythm, No Acute Injury Pattern Prior: Unchanged - Medical Decision Making Patient has diminished lung sounds in his right base with wheezing. He does have productive sputum and fever. Metabolic work-up was pursued. His chest x-ray does show a right lower lobe infiltrative process. He has a leukocytosis and a mild elevation of his lactic acid. The patient does have evidence of severe sepsis, and is started on broad-spectrum antibiotics. He was hypokalemic which was replaced orally. After his treatments he is resting more comfortably. He is on his home oxygen. Given his pneumonia I do feel that he is going to require admission. The patient was discussed with the hospitalist who agrees with plan of care. Impression 1. Right lower lobe pneumonia 2. Sepsis 3. Hypokalemia ED Disposition - Plan for ED Patient: Referrals: Hung Hummel MD [Primary Care Provider] -
--- NOTE | 2019-09-11 11:20 | CPS ---
Addendum entered by Jerel Elliott 09/11/19 11:23: PATIENT INFORMED RT THAT HE HAS A REACTION TO ATROVENT. DR. PARKER INFORMED AND STATED HE WOULD DC [facility]. DR. PARKER STATED TO JUST GIVE THE 3 ALBUTEROL TX. Original Note: PATIENT INFORMED RT THAT HE HAS A REACTION TO ATROVENT. DR. CLEMONS INFORMED AND STATED HE WOULD DC [facility]. DR. CLEMONS STATED TO JUST GIVE THE 3 ALBUTEROL TREATMENTS
[2019-09-11] MEDS: MethylPREDNISolone 125 MG/2 ML Vial IV (11:27)
[2019-09-11 11:28] LABS: Absolute Lymphocyte Count 1.05 X10^3/uL (0.83-4.51); Absolute Neutrophil Count 9.2 X10^3/uL (2.0-7.7); Basophil# 0.11 X10^3/uL; Basophil% 0.9 % (0-1); Eosinophil# 0.04 X10^3/uL; Eosinophils% 0.3 % (0-5); Hematocrit 39.9 % (40-54); Hemoglobin 13.7 g/dL (13.0-16.5); Lymphocyte # 1.05 X10^3/ul (4.0); Lymphocyte % 8.8 % (19-41); Mean Corp Hgb Conc 34.3 g/dL (32-36); Mean Corpuscular Hgb 31.1 pg (27.0-32.0); Mean Corpuscular Volume 90.7 fL (80-94); Mean Platelet Vol. 9.2 fl (6.2-12.0); Monocyte# 1.04 X10^3/uL; Monocyte% 8.7 % (0-10); NRBC Flagged by Analyzer 0 % (0-5); Neutrophil # 9.18 X10^3/uL (2.7-7.7); Neutrophil % 77.2 % (47-70); Platelet Count 225 K/mm3 (150-450); RBC Distribution Width CV 12.6 % (11.6-14.6); RBC Distribution Width SD 41.7 fl (35.1-43.9); White Blood Count 11.9 K/mm3 (4.4-11.0)
[2019-09-11] MEDS: 0.9% Normal Saline 1,000 ML 150 ML IV (11:29)
[2019-09-11 11:43] LABS: Anion Gap 7 (5-15); BUN 21 mg/dL (7-18); BUN/Creat Ratio 16.2 RATIO (10-20); Calcium,Total 9.1 mg/dL (8.5-10.1); Chloride 105 mmol/L (98-107); EST Glomerular Filtration Rate 57 mL/min (>60); Est Glom Filt Rate - Afr Amer 69 mL/min (>60); Estimated Creatinine Clearance 53.06 ml/min; Glucose 159 mg/dL (74-106); Sodium Level 138 mmol/L (136-145)
[2019-09-11 11:59] LABS: Lactic Acid 2.4 mmol/L (0.4-2.0)
[2019-09-11 12:03] LABS: BNP,B-Type NATRIURETIC PEPTIDE 58.1 pg/mL (0-100)
--- NOTE | 2019-09-11 12:43 | NURSING ---
DR CASTILLO FOR DR SELF
--- NOTE | 2019-09-11 12:48 | NURSING ---
MED SURG PNEUMONIA ASHELFAH
[2019-09-11] MEDS: levoFLOXacin IV 750 MG/150 ML BAG 100 MG IV (12:49)
--- NOTE | 2019-09-11 13:30 | HP.PCM_ITS ---
Problem List (1) Bronchiectasis Status: Chronic Qualifiers: Bronchiectasis type: uncomplicated Qualified Code(s): J47.9 - Bronchiectasis, uncomplicated (2) Hypercholesterolemia Status: Chronic (3) Colitis Status: Chronic (4) Hypothyroidism Status: Chronic (5) BRADY (obstructive sleep apnea) Status: Chronic Comment: bipap 19/12 cm H20 (6) Stage 2 moderate COPD by GOLD classification Status: Chronic Comment: FEV1 55% (7) Chronic hypoxemic respiratory failure Status: Chronic History of Present Illness Date of Admission: 09/11/19 Chief Complaint: Shortness of breath, cough. The patient is a 74 year old M patient with past medical history as mentioned above presented to the emergency room because of productive cough, shortness of breath and fever. His illness started 6 days ago with cough, productive with blood in the sputum for couple of days and then turning to cough with green spu zohaib, associated with shortness of breath and fever as well as wheezing. He states that he has been getting short of breath on minimal exertion even bending forward make him short of breath, aggravated by any type of activity, relieved by rest, associated with wheezing and productive cough as mentioned above as well as fever of 102 Fahrenheit at home. 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 He took prednisone and he mentioned that his symptoms did not get any better. He denied chest pain, palpitation, dizziness or lightheadedness. He denied abdominal pain, nausea, vomiting, constipation or diarrhea. He denies urinary symptoms. In the emergency department, he was afebrile, blood pressure was stable, heart rate was stable, pulse ox was 92% on room air. His routine blood work was remarkable for mild leukocytosis, potassium of 3, otherwise normal. Lactic acid was 2.4. EKG revealed normal sinus rhythm without evidence of acute ischemic changes or cardiac arrhythmias. Troponin was negative as well as BNP. Chest x-ray revealed right lower lobe infiltrate with chronic COPD changes. He is being admitted for acute right lower lobe community-acquired pneumonia and hypokalemia. Past Medical History Past Medical History (Chronic Problems): Chronic Problems (Last Updated 09/11/19 @ 12:47 by Christofer Santiago MD) Bronchomalacia, acquired (Chronic) Bronchiectasis (Chronic) Hypercholesterolemia (Chronic) Colitis (Chronic) Arthritis (Chronic) Hypothyroidism (Chronic) Asthma (Chronic) Back pain (Chronic) Hemorrhoids (Chronic) BRADY (obstructive sleep apnea) (Chronic) bipap 19/12 cm H20 Asbestos exposure (Chronic) Tuberculosis exposure (Chronic) Stage 2 moderate COPD by GOLD classification (Chronic) FEV1 55% Acid reflux (Chronic) Chronic hypoxemic respiratory failure (Chronic) Medical History: Medical History (Last Updated 09/11/19 @ 12:47 by Christofer Santiago MD) Bronchomalacia, acquired (Chronic) J98.09 Bronchiectasis (Chronic) J47.9 Hypercholesterolemia (Chronic) E78.00 Colitis (Chronic) K52.9 Arthritis (Chronic) M19.90 Hypothyroidism (Chronic) E03.9 Asthma (Chronic) J45.909 Back pain (Chronic) M54.9 Hemorrhoids (Chronic) K64.9 BRADY (obstructive sleep apnea) (Chronic) G47.33 bipap 19/12 cm H20 Asbestos exposure (Chronic) Z77.090 Tuberculosis exposure (Chronic) Z20.1 Stage 2 moderate COPD by GOLD classification (Chronic) J44.9 FEV1 55% Acid reflux (Chronic) K21.9 Chronic hypoxemic respiratory failure (Chronic) J96.11 Laceration without foreign body of left index finger with damage to nail, initial encounter (Inactive) S61.311A Allergies cefaclor [From Ceclor] Allergy (Verified 09/11/19 10:36) Rash codeine Allergy (Verified 09/11/19 10:36) Itching Sulfa (Sulfonamide Antibiotics) Allergy (Verified 09/11/19 10:36) Rash amoxicillin trihydrate [From Augmentin] Adverse Reaction (Verified 09/11/19 10:40) Upset Stomach STOMACH PAIN clarithromycin [From Biaxin] Adverse Reaction (Verified 09/11/19 10:40) Upset Stomach diphenhydramine HCl [From Benadryl] Adverse Reaction (Verified 09/11/19 10:36) Other DRIES MOUTH AND THROAT OUT hydrocodone Adverse Reaction (Verified 09/11/19 10:36) Itching lactose Adverse Reaction (Verified 09/11/19 10:36) Abd cramps/diarrhea LACTOSE INTOLERANCE potassium clavulanate [From Augmentin] Adverse Reaction (Verified 09/11/19 10:36) Other STOMACH PAIN Home Medications: Ambulatory Orders Medication Instructions Recorded Albuterol Inhaler [Ventolin Hfa] 1 - 2 puff INHALATION Q4H PRN PRN 01/03/14 Mesalamine [Asacol] 1,200 mg PO BID 01/03/14 Metoprolol(XL)Succ [Toprol Xl 100 mg PO DAILY 01/03/14 (Beta Sukhi)] Omeprazole [Prilosec] 20 mg PO BID 01/03/14 Simvastatin [Zocor] 20 mg PO QHS 01/03/14 Tamsulosin HCl [Flomax] 0.4 mg PO DAILY 01/03/14 Albuterol Aerosols [Ventolin 2.5 mg INHALATION Q6H PRN PRN 10/18/15 Aerosols] Disability Placard 1 ea MISCELLANEOUS ONCE #1 10/27/17 dispunits Disability Placard 0 .ROUTE .MEDSUPPLY #1 ea 10/28/17 budesonide 0.25 mg/2 mL suspension 0.25 mg INHALATION Q12H 11/05/17 for nebulization indapamide 1.25 mg tablet 1.25 mg PO QAM 11/15/17 losartan 100 mg tablet 100 mg PO QDAY 11/15/17 fluticasone propionate 50 2 spray INTRANASAL QDAY 02/16/18 mcg/actuation nasal spray,suspension amlodipine 5 mg tablet 5 mg PO DAILY 04/28/19 prednisone 10 mg tablet 10 mg PO QDAY #30 tab 09/07/19 Montelukast Sodium [Singulair] 10 mg PO DAILY 09/11/19 Sertraline HCl 100 mg PO DAILY 09/11/19 Surgical History: Surgical History (Last Updated 09/11/19 @ 12:46 by Christofer Santiago MD) History of appendectomy (Inactive) Z98.890, Z90.49 History of hernia repair (Inactive) Z98.890, Z87.19 History of left knee replacement (Inactive) Z96.652 History of tonsillectomy (Inactive) Z98.890, Z90.89 S/P TURP (Inactive) Z90.79 Surgical History: appendectomy, total hip arthroplasty, total knee arthroplasty, - Psychiatric History: No pertinent psych hx Lives: Spouse/ Significant Other Smoking Status: Former smoker Alcohol: None Drugs: None - *Family History Maternal Family History: Family History (Last Reviewed 09/07/19 @ 14:43 by Shima Edwards) Mother Heart disease Brother Cancer COPD (chronic obstructive pulmonary disease) History Items: No pertinent history Paternal Family History: Family History (Last Reviewed 09/07/19 @ 14:43 by Shima Edwards) Mother Heart disease Brother Cancer COPD (chronic obstructive pulmonary disease) History Items: No pertinent history Review of Systems Constitutional: Reports: Fever, Weakness. Denies: Anorexia, Chills Eyes: Denies: Blurred vision, Double vision, Drainage, Redness HEENT: Reports: Nasal Congestion, Sinus Drainage. Denies: Difficulty Hearing, Ear Pain, Eye Pain, Sore Throat Cardiovascular: Denies: Chest Pain, Chest Pressure, Heaviness, Light Headedness, Palpitations, Syncope Respiratory: Reports: Cough, Hemoptysis, Shortness of breath upon exertion, Sputum production, Wheezing. Denies: Pleuritic Pain Gastrointestinal: Denies: Abdominal Pain, Constipation, Diarrhea, Nausea, Vomiting Genitourinary: Denies: Dysuria, Frequency, Hematuria Musculoskeletal: Denies: Arm Pain, Back Pain, Foot Pain Skin: Denies: Dryness, Rash Neurological: Denies: Balance problems, Blurred vision, Double vision, Change in Speech, Slurred speech, Confusion, Headaches, Incoordination, Numbness Psychiatric: Denies: Anxiety, Depression Endocrine: Denies: Change in Body Habitus, Polydipsia, Polyuria VTE Information - Inpt Only VTE Present on Admission: No VTE Mechan Device Prophylaxis: None VTE Pharm Prophylaxis ordered?: Yes - Physical Exam Vitals/I&O's: Vital Signs Temp Pulse Resp BP Pulse Ox 97.8 F 80 93 H 118/55 L 92 09/11/19 12:28 09/11/19 12:28 09/11/19 12:28 09/11/19 12:28 09/11/19 12:28 Oxygen Flow Rate (L/min) 2 Oxygen Delivery Method Nasal Cannula Weight: 242 lb 8.136 oz Body Mass Index (BMI) 32.8 Intake and Output for Last 24 Hours 09/10/19 09/10/19 09/11/19 00:59 23:59 23:59 Intake Total 200 / 200 Balance 200 / 200 General: Alert, Oriented x3, Cooperative, - - Mildly short of breath. HEENT: Atraumatic, PERRLA, EOMI, Normocephalic Oral: Moist Mucosa, No Gingival or Mucosal Lesions/ Ulcerations Neck: Supple, No JVD, Negative Carotid Bruits, Trachea Midline, Thyroid Normal Size and Texture Lungs: No rales, Diminished, Rhonchi, Short of Breath, Wheezes, - - Decreased with sounds bilateral, bilateral expiratory wheezes, scattered rhonchi. Cardiovascular: Regular rate, Regular Rhythm, Normal S1, Normal S2, No murmurs, PMI Normal Abdomen: Bowel Sounds Present, Soft, Non Tender, Non-Distended, No Hepato- splenomegaly, Obese Extremities: No clubbing, No cyanosis, No edema Skin: No rashes, No breakdown Lymphatic: No Cervical, Supraclavicular, or Inguinal Adenopathy Neurological: Cranial nerves II-XII grossly intact, Motor Exam 5/5 strength throughout Psych/Mental Status: Normal Affect, Appropriate, Alert and oriented to time, place, person, mood and affect Laboratory Results 09/11/19 11:15: WBC 11.9 H, RBC 4.40 L, Hgb 13.7, Hct 39.9 L, MCV 90.7, MCH 31.1, MCHC 34.3, RDW Std Deviation 41.7, RDW Coeff of Eliecer 12.6, Plt Count 225, MPV 9.2, Immature Gran % (Auto) 4.100 H, Neut % (Auto) 77.2 H, Lymph % (Auto) 8.8 L, [place] % (Auto) 8.7, Eos % (Auto) 0.3, Baso % (Auto) 0.9, Absolute Neuts (auto) 9.2 H, Absolute Lymphs (auto) 1.05, Nucleated RBC % 0 09/11/19 11:15: Sodium 138, Potassium 3.0 L, Chloride 105, Carbon Dioxide 26.0, Anion Gap 7, BUN 21 H, Creatinine 1.30, Estim Creat Clear Calc 53.06, Est GFR (MDRD) Af Amer 69, Est GFR (MDRD) Non-Af 57 L, BUN/Creatinine Ratio 16.2, Glucose 159 H, Calcium 9.1, Troponin I < 0.015 09/11/19 11:15: Lactic Acid 2.4 H 09/11/19 11:15: B-Natriuretic Peptide 58.1 Clinical Impression(s) from Imaging Studies Chest X-Ray 09/11/19 10:54 IMPRESSION: Emphysema with right lower lobe pneumonia. Electronically Signed: Everardo Lopez MD at 12:29 EST Tel , Service support , Current Medications Sodium Chloride () 1,000 mls @ 150 mls/hr IV .Q6H40M ONE Stop: 09/11/19 17:33 Last Infusion: 09/11/19 12:49 Dose: 0 mls/hr Documented by: Levofloxacin (Levaquin Iv) 750 mg in 150 mls @ 100 mls/hr IV X1 ONE Stop: 09/11/19 14:05 Last Admin: 09/11/19 12:49 Dose: 100 mls/hr Documented by: Assessment/Plan This is a 74 years old male patient presented to the medicine because of productive cough with hemoptysis, exertional shortness of breath and fever and he was found to have right lower lobe infiltrate consistent with community- acquired pneumonia as well as probable mild acute COPD exacerbation. #1 acute right lower lobe community-acquired pneumonia: Chest x-ray reviewed. Patient is afebrile, not tachycardic, WBC is less than 12,000. Lactic acid is elevated. No evidence of sepsis or severe sepsis. Respiratory panel for viruses were negative for days ago. Plan: Admit to [facility] floor, telemetry, blood culture, sputum culture, urinalysis, urine culture, start IV Levaquin, repeat respiratory panel for viruses, IV fluids, repeat lactic acid in 3 hours, bronchodilators, repeat CBC and BMP tomorrow morning, PT OT evaluation and treatment. #2 probable mild acute COPD exacerbation: Plan for IV steroids, IV Levaquin, DuoNeb every 6 hours, albuterol as needed, chest physiotherapy, incentive spirometer. #3 hypokalemia: Probably due to indapamide. He was given 60 mEq of oral potassium chloride in the ED. Plan to repeat BMP tomorrow morning. #4 COPD/chronic respiratory failure: On home oxygen at 2 L as needed during daytime and with CPAP at night. Plan as above. #5 obstructive sleep apnea: Continue CPAP at night with same previous home settings. #6 hypertension: Blood pressure stable, continue Norvasc, losartan, metoprolol and indapamide. #7 hyperlipidemia: Continue statins. #8 colitis: Stable, no diarrhea or bloody diarrhea. Continue mesalamine. #9 benign prostatic hypertrophy: Continue Flomax. #10 DVT prophylaxis: Subcu Lovenox. This note was generated with [employer] dictation software. It may contain incorrect words, spelling, and punctuation that were not noted in checking the note before signing. Code Visit Inpatient E&M: 51383 Init Hosp L3
[2019-09-11 15:22] LABS: Reflex Lactate? Y
[2019-09-11] MEDS: 0.9% Normal Saline 1,000 ML 100 ML IV (15:24)
[2019-09-11] MEDS: 0.9% Normal Saline 1,000 ML 999 ML IV ×3 (16:54→19:22)
[2019-09-11 17:05] LABS: Bacteria 0 SEEN /hpf (None Seen); Mucous, Urine 0 SEEN /hpf (<or=2+); Red Blood Cells-Urine 0 SEEN /hpf (0-5); Squamous Epithelial Cells - UA 0 SEEN /hpf (0-5)
[2019-09-11 17:08] LABS: Color, Urine Yellow (Yellow); Glucose, Dipstick Normal (Normal); Ketone-Dipstick Negative (Negative); Leukocyte Esterase-Dipstick Negative /ul (Negative); Nitrite-Dipstick Negative (Negative); Occult Blood-Urine 10 /ul (Negative); Protein-Dipstick 30 mg/dl (Negative); Urine Bilirubin Dipstick Negative (Negative); Urine Clarity Clear (Clear); Urine Urobilinogen Normal (Normal)
[2019-09-11 18:09] LABS: White Blood Cells 0-5 SEEN /hpf (0-5)
[2019-09-11 19:12] LABS: Lactic Acid 4.1 mmol/L (0.4-2.0)
--- NOTE | 2019-09-11 20:58 | NURSING ---
Carmen CHAIDEZ was in contact with Dr. Gonzalez at end of day shift and he is aware of pt's lactic acid. An order for another draw was ordered but no more fluids.
[2019-09-11] MEDS: Acetaminophen 325 MG Tablet 650 MG PO (21:32)
[2019-09-11] MEDS: guaiFENesin 1,200 MG Tablet 1200 MG PO (21:32)
[2019-09-11] MEDS: Pantoprazole Sodium 20 MG Tablet PO (21:32)
[2019-09-11] MEDS: Atorvastatin Calcium 10 MG Tablet PO (21:32)
[2019-09-11 22:51] LABS: Reflex Lactate? Y
[2019-09-12] VITALS (16 sets, daily range): BP systolic 140–170; BP diastolic 72–95; PULSE 70–94; RESP 16–18; TEMP 36.5–36.8; O2SAT 90–95
[2019-09-12] MEDS: 0.9% Saline Lock 10 ML Syringe IV ×5 (01:01→22:34)
[2019-09-12 03:22] LABS: Lactic Acid 2.5 mmol/L (0.4-2.0)
[2019-09-12] MEDS: Albuterol 2.5 MG/3 ML VIAL.NEB. INHALATION ×5 (04:38→23:58)
[2019-09-12 06:46] LABS: Hematocrit 37.6 % (40-54); Hemoglobin 12.6 g/dL (13.0-16.5); Mean Corp Hgb Conc 33.5 g/dL (32-36); Mean Corpuscular Hgb 30.8 pg (27.0-32.0); Mean Corpuscular Volume 91.9 fL (80-94); Mean Platelet Vol. 9.2 fl (6.2-12.0); POSITIVE COUNT YES; POSITIVE MORPHOLOGY YES; Platelet Count 204 K/mm3 (150-450); RBC Distribution Width CV 12.7 % (11.6-14.6); RBC Distribution Width SD 42.9 fl (35.1-43.9); Red Blood Count 4.09 M/mm3 (4.6-6.2); White Blood Count 10.7 K/mm3 (4.4-11.0)
[2019-09-12 07:02] LABS: Differential Indicated MANUAL DIFF
[2019-09-12 07:08] LABS: Anion Gap 9 (5-15); BUN 21 mg/dL (7-18); Calcium,Total 8.8 mg/dL (8.5-10.1); Chloride 109 mmol/L (98-107); Creatinine, Serum 1.31 mg/dL (0.70-1.30); EST Glomerular Filtration Rate 57 mL/min (>60); Est Glom Filt Rate - Afr Amer 68 mL/min (>60); Estimated Creatinine Clearance 52.65 ml/min; Glucose 170 mg/dL (74-106); Potassium 3.4 mmol/L (3.5-5.1); Sodium Level 144 mmol/L (136-145)
[2019-09-12 07:38] LABS: Lymphocyte 5 % (19-41); Monocyte 4 % (0-10); Neutrophil-Band 1 % (0-5); Neutrophil-Segmented 90 % (47-70); Total Cells Counted 100 (MANUAL DIFF)
[2019-09-12 07:40] LABS: Platelet Estimate ADEQUATE (ADEQ); Red Cell Morphology NORM C+C NORMAL (NORM C&C)
[2019-09-12 07:41] LABS: Platelet Morphology LARGE
[2019-09-12 07:43] LABS: Absolute Neutrophil Count 9.7 X10^3/uL (2.0-7.7)
[2019-09-12 07:44] LABS: Absolute Lymphocyte Count 0.54 X10^3/uL (0.83-4.51)
[2019-09-12 08:15] LABS: Lactic Acid 1.9 mmol/L (0.4-2.0)
[2019-09-12] MEDS: Tamsulosin HCl 0.4 MG Capsule PO (08:21)
[2019-09-12] MEDS: Indapamide 2.5 MG Tablet PO (08:21)
[2019-09-12] MEDS: Montelukast 10 MG Tablet PO (08:21)
[2019-09-12] MEDS: Metoprolol(XL)Succ 100 MG Tablet PO (08:21)
[2019-09-12] MEDS: guaiFENesin 1,200 MG Tablet 1200 MG PO ×2 (08:22→22:34)
[2019-09-12] MEDS: Enoxaparin 30 MG/0.3 ML Syringe SC (08:22)
[2019-09-12] MEDS: Pantoprazole Sodium 20 MG Tablet PO ×2 (08:23→22:34)
[2019-09-12] MEDS: Sertraline 100 MG Tablet PO (08:23)
[2019-09-12] MEDS: amLODIPine 5 MG Tablet PO ×2 (08:23→11:49)
[2019-09-12] MEDS: Losartan Potassium 100 MG Tablet PO (08:23)
--- NOTE | 2019-09-12 08:37 | PN_ITS ---
Subjective: Overall, patient feels better than yesterday. No fever or chills overnight. Patient still has cough, mucus sputum,postnasal drip. No chest pain. Patient on 2 L of home oxygen at night with BiPAP. Patient also uses portable oxygen on ambulation. Vitals/I&O's: Vital Signs Temp Pulse Resp BP Pulse Ox 97.7 F L 87 18 170/90 H 94 09/12/19 08:16 09/12/19 08:21 09/12/19 08:16 09/12/19 08:16 09/12/19 08:16 Oxygen Flow Rate (L/min) 3 Oxygen Delivery Method Nasal Cannula Weight: 239 lb 3.225 oz Body Mass Index (BMI) 32.4 Intake and Output for Last 24 Hours 09/10/19 09/11/19 09/12/19 23:59 23:59 23:59 Intake Total 4586.67 / 4586.67 813.33 / 813.33 Output Total 600 / 600 2700 / 2700 Balance 3986.67 / 3986.67 -1886.67 / -1886.67 General: Alert, Oriented x3, Cooperative HEENT: Atraumatic, PERRLA, EOMI, Normocephalic Neck: Supple, No JVD, Negative Carotid Bruits Lungs: Diminished - Air entry is diminished but bilaterally equal., Rhonchi, Short of Breath Cardiovascular: Regular rate, Regular Rhythm, Normal S1, Normal S2, No murmurs Abdomen: Bowel Sounds Present, Soft, Non Tender, Non-Distended Extremities: No edema, Capillary Refill Less than 3 Seconds Skin: No rashes, No breakdown Musculoskeletal: No Tenderness to Palpation of Joints or Extremities, Arthritic Changes Neurological: Cranial nerves II-XII grossly intact Psych/Mental Status: Normal Affect, Appropriate Microbiology Past 72 Hours 09/11/19 14:20 Mucosa - Nasopharyngeal Respiratory Panel (PCR) - Final 09/11/19 16:00 Urine, Clean Catch Streptococcus pneumoniae Antigen (M - Final 09/11/19 16:00 Urine, Clean Catch Legionella Antigen - Final Laboratory Results 09/11/19 11:15: WBC 11.9 H, RBC 4.40 L, Hgb 13.7, Hct 39.9 L, MCV 90.7, MCH 31.1, MCHC 34.3, RDW Std Deviation 41.7, RDW Coeff of Eliecer 12.6, Plt Count 225, MPV 9.2, Immature Gran % (Auto) 4.100 H, Neut % (Auto) 77.2 H, Lymph % (Auto) 8.8 L, [place] % (Auto) 8.7, Eos % (Auto) 0.3, Baso % (Auto) 0.9, Absolute Neuts (auto) 9.2 H, Absolute Lymphs (auto) 1.05, Nucleated RBC % 0 09/11/19 11:15: Sodium 138, Potassium 3.0 L, Chloride 105, Carbon Dioxide 26.0, Anion Gap 7, BUN 21 H, Creatinine 1.30, Estim Creat Clear Calc 53.06, Est GFR (MDRD) Af Amer 69, Est GFR (MDRD) Non-Af 57 L, BUN/Creatinine Ratio 16.2, Glucose 159 H, Calcium 9.1, Troponin I < 0.015 09/11/19 11:15: Lactic Acid 2.4 H 09/11/19 11:15: B-Natriuretic Peptide 58.1 09/11/19 15:34: Lactic Acid 4.0 H* 09/11/19 16:00: Urine Color Yellow, Urine Clarity Clear, Urine pH 6.0, Ur Specific [place] 1.010, Urine Protein 30 H, Urine Glucose (UA) Normal, Urine Ketones Negative, Urine Occult Blood 10 H, Urine Nitrite Negative, Urine Bilirubin Negative, Urine Urobilinogen Normal, Ur Leukocyte Esterase Negative, Urine RBC 0 SEEN, Urine WBC 0-5 SEEN, Ur Squamous Epith Cells 0 SEEN, Urine Bacteria 0 SEEN, Urine Mucus 0 SEEN 09/11/19 18:34: Lactic Acid 4.1 H* 09/11/19 22:38: Lactic Acid Cancelled 09/11/19 22:38: Lactic Acid 2.5 H 09/12/19 06:25: Sodium 144, Potassium 3.4 L, Chloride 109 H, Carbon Dioxide 26.0, Anion Gap 9, BUN 21 H, Creatinine 1.31 H, Estim Creat Clear Calc 52.65, Est GFR (MDRD) Af Amer 68, Est GFR (MDRD) Non-Af 57 L, BUN/Creatinine Ratio 16.0, Glucose 170 H, Calcium 8.8 09/12/19 06:25: WBC 10.7, RBC 4.09 L, Hgb 12.6 L, Hct 37.6 L, MCV 91.9, MCH 30.8, MCHC 33.5, RDW Std Deviation 42.9, RDW Coeff of Eliecer 12.7, Plt Count 204, MPV 9.2, Neut % (Auto) Not Reportable, Absolute Neuts (auto) 9.7 H, Absolute Lymphs (auto) 0.54 L, Total Counted 100, Neutrophils % (Manual) 90 H, Band Neutrophils % 1, Lymphocytes % (Manual) 5 L, Monocytes % (Manual) 4, Diff Path Review March, Platelet Estimate ADEQUATE, Plt Morphology Comment LARGE, RBC Morphology NORM C+C 09/12/19 07:43: Lactic Acid 1.9 Current Medications Acetaminophen (Tylenol) 650 mg PO Q6H PRN PRN PRN Reason: Pain Score 1-3/Temp > 100.7 F Last Admin: 09/11/19 21:32 Dose: 650 mg Documented by: Albuterol Sulfate (Ventolin Aerosols) 2.5 mg INHALATION Q2H PRN PRN PRN Reason: SHORTNESS OF BREATH Last Admin: 09/12/19 04:38 Dose: 2.5 mg Documented by: Albuterol Sulfate (Ventolin Aerosols) 2.5 mg INHALATION Q6H.RT [facility] Last Admin: 09/12/19 06:50 Dose: 2.5 mg Documented by: Amlodipine Besylate (Norvasc) 5 mg PO DAILY [facility] Last Admin: 09/12/19 08:23 Dose: 5 mg Documented by: Atorvastatin Calcium (Lipitor) 10 mg PO QHS [facility] Last Admin: 09/11/19 21:32 Dose: 10 mg Documented by: Docusate Sodium (Colace) 200 mg PO BID PRN PRN PRN Reason: Constipation Enoxaparin Sodium (Lovenox) 30 mg SC DAILY@1000 [facility] Last Admin: 09/12/19 08:22 Dose: 30 mg Documented by: Guaifenesin (Mucinex) 1,200 mg PO BID [facility] Last Admin: 09/12/19 08:22 Dose: 1,200 mg Documented by: Levofloxacin (Levaquin Iv) 750 mg in 150 mls @ 100 mls/hr IV Q24 [facility] Sodium Chloride () 250 mls @ 15 mls/hr IV .[id number] PRN PRN Reason: Saline Flush Indapamide (Lozol) 2.5 mg PO DAILY@0800 [facility] Last Admin: 09/12/19 08:21 Dose: 2.5 mg Documented by: Losartan Potassium (Cozaar) 100 mg PO DAILY [facility] Last Admin: 09/12/19 08:23 Dose: 100 mg Documented by: Methylprednisolone (Solu-Medrol) 40 mg IV Q8 [facility] Last Admin: 09/12/19 06:31 Dose: 40 mg Documented by: Metoprolol Succinate (Toprol Xl (Beta Sukhi)) 100 mg PO DAILY [facility] Last Admin: 09/12/19 08:21 Dose: 100 mg Documented by: Montelukast Sodium (Singulair) 10 mg PO DAILY [facility] Last Admin: 09/12/19 08:21 Dose: 10 mg Documented by: Non-Formulary Medication (Mesalamine [Asacol]) 1,200 mg PO BID [facility] Ondansetron HCl (Zofran) 4 mg IV Q8H PRN PRN PRN Reason: NAUSEA/VOMITING Pantoprazole Sodium (Protonix) 20 mg PO BID [facility] Last Admin: 09/12/19 08:23 Dose: 20 mg Documented by: Pseudoephedrine HCl (Sudafed) 30 mg PO Q6H PRN PRN PRN Reason: Sinus or nasal congestion Sertraline HCl (Zoloft) 100 mg PO DAILY [facility] Last Admin: 09/12/19 08:23 Dose: 100 mg Documented by: Sodium Chloride () 10 - 40 ml IV UD PRN PRN Reason: SALINE FLUSH Last Admin: 09/12/19 06:31 Dose: 10 ml Documented by: Tamsulosin HCl (Flomax) 0.4 mg PO DAILY@0830 [facility] Last Admin: 09/12/19 08:21 Dose: 0.4 mg Documented by: STROKE Vital Signs/Narrative: Vital Signs Temp Pulse Resp BP Pulse Ox 09/12/19 08:21 87 09/12/19 08:16 97.7 F L 87 18 170/90 H 94 09/12/19 06:50 79 18 90 09/12/19 04:38 75 16 Medical Necessity - Tobacco Use Smoking Status: Former smoker Tobacco Use: Cigarettes Assessment/Plan This is a 74 years old male patient who was admitted through ER because of productive cough with hemoptysis, exertional shortness of breath and fever and chest x-ray showed right lower lobe infiltrate consistent with community- acquired pneumonia as well and mild acute COPD exacerbation. #1 acute right lower lobe community-acquired pneumonia: On 09/12/2019: Chest x-ray reviewed. Patient is afebrile, not tachycardic, WBC is less than 12,000. Lactic acid was elevated but last 1 came normal 1.9. Patient received 2 L of IV fluid normal saline. No evidence of sepsis or severe sepsis. Repeat respiratory panel negative and was negative on 09/07. Continue bronchodilator, IV Levaquin, and Mucinex. Blood cultures x2 are pending. Previous sputum culture grew presumptive Reba albicans with mixed flavia. telemetry, blood culture, sputum culture, urinalysis, urine culture, start IV Levaquin, repeat respiratory panel for viruses, IV fluids, repeat lactic acid in 3 hours, bronchodilators, repeat CBC and BMP tomorrow morning, PT OT evaluation and treatment. #2 mild acute COPD exacerbation, mostly secondary to pneumonia: Continue IV Levaquin, DuoNeb every 6 hours, albuterol as needed, chest physiotherapy, incentive spirometer. #3 hypokalemia: Potassium is replaced. Repeat K3.4. Probably due to indapamide. Repeat BMP and magnesium tomorrow a.m. #4 COPD/chronic respiratory failure: Patient on 2 L oxygen at night with BiPAP and also portable oxygen during daytime. Need walking pulse oximetry before discharge. FEV1 55% suggestive of stage II COPD by gold classification #5 obstructive sleep apnea: As mentioned above. BiPAP at night. #6 hypertension: Blood pressure is elevated 170/90. continue Norvasc, losartan, metoprolol and indapamide. #7 hyperlipidemia: Continue statins. #8 Chronic colitis: Stable, no diarrhea or bloody diarrhea. Continue mesalamine. #9 benign prostatic hypertrophy: Continue Flomax. #10 DVT prophylaxis: Subcut Lovenox. Code Visit Inpatient E&M: 99672 [facility] Hosp L3
[2019-09-12] MEDS: levoFLOXacin IV 750 MG/150 ML BAG 100 MG IV (09:15)
--- NOTE | 2019-09-12 11:23 | CASEMGMT ---
RN CM Assessment Introduced role of RN CM to patient.? Patient is alert, oriented and able?to participate in RN CM Assessment. ?Care providers, pharmacy, and demographics verified. Presentation: Increased cough, SOB, Generalized Malaise, fever- symptoms began last week. Seen by outpatient Pulm and had a viral panel done-Negative and started on Prednisone. H/o COPD. Admit Dx: CAP Re-Admit: None Barriers/Issues: None. Patient is a and service connected- thinks 10%. Seen by Dr Hernandes (PCP) at [facility]. Refuses [facility] Transfer and wants insurance billed, [facility] declination form signed and faxed, patient given a copy. States that his is suppose to have knee surgery in a couple weeks and wants to get better so that he can help her. PCP: Hung Hummel Specialists: Pulm- Dr Talavera, ENT- Dr Rodriguez Preferred Pharmacy: [facility]. Does get some medications from the [facility]. Insurance: [employer], [employer] Benefit:?Yes ?LNOK: Paris Mendoza LW/HPOA: Yes both and will bring in to place on file. HPOA- Paris Mendoza Living Arrangements:? Lives with in a SS home, 1 step to enter ADL?s: Independent with ambulation and ADLs Transportation: Both patient and drive DME: Has a FWW with waist strap, cane and crutches- does not use any of these but has if ever needed. Nebulizer, Home O2 2L at night bled into [employer], Portable O2. HHC: None SNF: None Goal: Home and does not think will have any needs. Denies any issues, concerns, or questions with DC planning at this time. Aware CM remains available for any emerging needs. DC PLAN: Home, CM to follow ambulatory walking test to see if new O2 order is needed. CIERA Mccloud
--- NOTE | 2019-09-12 11:50 | CASEMGMT ---
As per admitting RN, pt has LW and POA forms but unable to bring them into the hospital. Pt had indicated his , Felisha Mendoza is his POA. CARLY Briggs
[2019-09-12 12:45] LABS: Pathologist Review Reviewed
--- NOTE | 2019-09-12 13:53 | CPS ---
PT STATES HE WEARS BIPAP AT HOME Q BUT DECLINING HOSPITALS DUE TO SOMEONE TELLING HIM IT IS TOO EXPENSIVE TO USE AND HE DOES NOT WANT TO BE STUCK WITH A BILL. ENCOURAGED PATIENT TO HAVE HIS BRING IN HOME PAP UNIT BUT DECLINING AT THIS TIME.
[2019-09-12] MEDS: hydrALAZINE 50 MG Tablet PO (22:34)
[2019-09-12] MEDS: Atorvastatin Calcium 10 MG Tablet PO (22:34)
[2019-09-13] VITALS (11 sets, daily range): BP systolic 153–173; BP diastolic 86–91; PULSE 70–87; RESP 12–20; TEMP 36.5–36.6; O2SAT 93–96
[2019-09-13] MEDS: 0.9% Saline Lock 10 ML Syringe IV ×2 (05:59→09:38)
[2019-09-13] MEDS: Albuterol 2.5 MG/3 ML VIAL.NEB. INHALATION (07:04)
[2019-09-13] MEDS: Indapamide 2.5 MG Tablet PO (08:13)
[2019-09-13] MEDS: guaiFENesin 1,200 MG Tablet 1200 MG PO (08:13)
[2019-09-13] MEDS: Montelukast 10 MG Tablet PO (08:13)
[2019-09-13] MEDS: Metoprolol(XL)Succ 100 MG Tablet PO (08:13)
[2019-09-13] MEDS: Pantoprazole Sodium 20 MG Tablet PO (08:13)
[2019-09-13] MEDS: Sertraline 100 MG Tablet PO (08:14)
[2019-09-13] MEDS: Enoxaparin 30 MG/0.3 ML Syringe SC (08:15)
[2019-09-13] MEDS: Tamsulosin HCl 0.4 MG Capsule PO (08:15)
[2019-09-13] MEDS: Losartan Potassium 100 MG Tablet PO (08:19)
[2019-09-13] MEDS: hydrALAZINE 50 MG Tablet PO (08:19)
[2019-09-13] MEDS: amLODIPine 10 MG Tablet PO (08:19)
[2019-09-13] MEDS: levoFLOXacin IV 750 MG/150 ML BAG 100 MG IV (09:38)
--- NOTE | 2019-09-13 11:20 | PCM.DC ---
You will use the following diet at home:: Cardiac Your food should be the consistency of: Regular Discharge Activity: May Not Drive Call your doctor if you observe: Fever of 101 or Higher, Coldness, Increased Pain, Numbness or Tingling, Inability to urinate, Inability to have a bowel movement, Shortness of breath, Dizziness, Swelling in the ankles, Prolonged hiccoughing, Increased palpitations (irregular heartbeat) Allergies/Adverse Reactions: Allergies cefaclor [From Ceclor] Allergy (Verified 09/11/19 10:36) Rash codeine Allergy (Verified 09/11/19 10:36) Itching Sulfa (Sulfonamide Antibiotics) Allergy (Verified 09/11/19 10:36) Rash amoxicillin trihydrate [From Augmentin] Adverse Reaction (Verified 09/11/19 10:40) Upset Stomach STOMACH PAIN clarithromycin [From Biaxin] Adverse Reaction (Verified 09/11/19 10:40) Upset Stomach diphenhydramine HCl [From Benadryl] Adverse Reaction (Verified 09/11/19 13:43) DRIES MOUTH AND THROAT OUT hydrocodone Adverse Reaction (Verified 09/11/19 10:36) Itching lactose Adverse Reaction (Verified 09/11/19 10:36) Abd cramps/diarrhea LACTOSE INTOLERANCE potassium clavulanate [From Augmentin] Adverse Reaction (Verified 09/11/19 13:43) STOMACH PAIN Medications to take at Discharge Albuterol Inhaler [Ventolin Hfa] 1 - 2 puff INHALATION Q4H PRN PRN 01/03/14 Mesalamine [Asacol] 1,200 mg PO BID 01/03/14 Metoprolol(XL)Succ [Toprol Xl (Beta Sukhi)] 100 mg PO DAILY 01/03/14 Omeprazole [Prilosec] 20 mg PO BID 01/03/14 Simvastatin [Zocor] 20 mg PO QHS 01/03/14 Tamsulosin HCl [Flomax] 0.4 mg PO DINNER 01/03/14 Albuterol Aerosols [Ventolin Aerosols] 2.5 mg INHALATION Q6H PRN PRN 10/18/15 Disability Placard 1 ea MISCELLANEOUS ONCE #1 dispunits 10/27/17 Disability Placard 0 .ROUTE .MEDSUPPLY #1 ea 10/28/17 budesonide 0.25 mg/2 mL suspension for nebulization 0.25 mg INHALATION Q12H 11/05/17 indapamide 1.25 mg tablet 1.25 mg PO QAM 11/15/17 losartan 100 mg tablet 100 mg PO QHS 11/15/17 fluticasone propionate 50 mcg/actuation nasal spray,suspension 2 spray INTRANASAL QDAY 02/16/18 Montelukast Sodium [Singulair] 10 mg PO DAILY 09/11/19 Sertraline HCl 100 mg PO DAILY 09/11/19 Amlodipine [Norvasc] 10 mg PO DAILY #30 tab 09/13/19 Levofloxacin [Levaquin] 500 mg PO DAILY #4 tab 09/13/19 Prednisone 10 mg PO QDAY #30 tab 09/13/19 hydrALAZINE [Apresoline] 50 mg PO TID #90 tab 09/13/19 The following prescriptions were given: hydrALAZINE [Apresoline] 50 mg PO TID #90 tab [id number] Levofloxacin [Levaquin] 500 mg PO DAILY #4 tab Transmission Status[id number] Amlodipine [Norvasc] 10 mg PO DAILY #30 tab Transmission Status[id number] Prednisone 10 mg PO QDAY #30 tab Prescription Printed Primary Care Physician: Hung Hummel MD [Primary Care Provider] - Please follow up with your Primary Care Physician in: IN 1-2 week Test Results: Test results from this visit will be discussed in further detail at your follow-up appointment, if applicable. Please Follow Up With: Scot Talavera MD When: in 3-4 weeks
--- NOTE | 2019-09-13 11:26 | DS.PCM_ITS ---
Discharge Date and Diagnosis Date of Admission: 09/11/19 Date of Discharge: 09/13/19 - Secondary Discharge Diagnosis Chronic Problems (Last Updated 09/11/19 @ 12:47 by Christofer Santiago MD) Bronchomalacia, acquired (Chronic) Bronchiectasis (Chronic) Hypercholesterolemia (Chronic) Colitis (Chronic) Arthritis (Chronic) Hypothyroidism (Chronic) Asthma (Chronic) Back pain (Chronic) Hemorrhoids (Chronic) BRADY (obstructive sleep apnea) (Chronic) bipap 19/12 cm H20 Asbestos exposure (Chronic) Tuberculosis exposure (Chronic) Stage 2 moderate COPD by GOLD classification (Chronic) FEV1 55% Acid reflux (Chronic) Chronic hypoxemic respiratory failure (Chronic) Hospital Course and Treatment Operations: None Summary of Care Provided: [] This is a 74 years old male patient who was admitted through ER because of productive cough with hemoptysis, exertional shortness of breath and fever and chest x-ray showed right lower lobe infiltrate consistent with community- acquired pneumonia as well and mild acute COPD exacerbation. #1 acute right lower lobe community-acquired pneumonia: On 09/12/2019: Chest x-ray reviewed. Patient is afebrile, not tachycardic, WBC is less than 12,000. Lactic acid was elevated but last 1 came normal 1.9. Patient received 2 L of IV fluid normal saline. No evidence of sepsis or severe sepsis. Repeat respiratory panel negative and was negative on 09/07. Continue bronchodilator, IV Levaquin, and Mucinex. Blood cultures x2 are pending. Previous sputum culture grew presumptive Reba albicans with mixed flavia. Continue telemetry, follow blood culture, sputum culture, urine culture, IV Levaquin, repeat respiratory panel for viruses, IV fluids, repeat lactic acid in 3 hours, bronchodilators, repeat CBC and BMP tomorrow morning, PT OT evaluation and treatment. 09/13/2019. Urinary antigens are negative. Respiratory panel is negative. Blood cultures negative for 48 hours preliminary Gram stain appears to be normal respiratory flavia. Urine culture pending. UA is negative. Patient had 3 days of IV antibiotic Levaquin. Discharged on 4 more days of Levaquin. #2 mild acute COPD exacerbation, mostly secondary to pneumonia: Continue IV Levaquin, DuoNeb every 6 hours, albuterol as needed, chest physiotherapy, incentive spirometer. 09/13/2019 COPD exacerbation is improved. Sitting on the chair on baseline oxygen 2 L. #3 hypokalemia: Potassium is replaced. Repeat K3.4. Probably due to indapamide. Repeat BMP and magnesium tomorrow a.m. #4 COPD/chronic respiratory failure: Patient on 2 L oxygen at night with BiPAP and also portable oxygen during daytime. Need walking pulse oximetry before discharge. FEV1 55% suggestive of stage II COPD by gold classification in 11/2017. As per PFT done on March [address] Talavera, FEV1 66% predicted and total lung capacity 311% predicted. DLCO 54% predicted. Airway resistance is elevated. Overall suggestive of partially reversible moderately severe large airways obstructive ventilatory defect with symmetric reduction diffusing capacity consistent with COPD/asthma overlap syndrome #5 obstructive sleep apnea: As mentioned above. BiPAP at night. #6 hypertension: Blood pressure is elevated 170/90. continue Norvasc, losartan, metoprolol and indapamide. #7 hyperlipidemia: Continue statins. #8 Chronic colitis: Stable, no diarrhea or bloody diarrhea. Continue mesalamine. #9 benign prostatic hypertrophy: Continue Flomax. #10 DVT prophylaxis: Subcut Lovenox. Discharge medication reconciliation done. Discharge follow-up instructions completed. Discharge process discussed with the patient and all questions were answered to patient's satisfaction. Prescription for Levaquin and tapering dose of prednisone given. Follow-up with Dr. Talavera in 2 to 4 weeks. Total time spent, exact 35 minutes on discharge meds reconciliation, examination, review of imaging and blood test and discussion with the patient on follow-up instructions. Subjective: Seen and examined. Patient sitting on the chair. Feels breathing comfortable. Used BiPAP at night. On baseline 2 L of oxygen. Patient has history of smoking cigarettes for about 20 to 30 years and quit 20 years ago. Objective: General: Alert, Oriented x3, Cooperative HEENT: Atraumatic, PERRLA, EOMI, Normocephalic Neck: Supple, No JVD, Negative Carotid Bruits Lungs: Air entry is diminished in all lung soares but bilaterally equal. Lateral rhonchi, Short of Breath resolved. Cardiovascular: Regular rate, Regular Rhythm, Normal S1, Normal S2, No murmurs Abdomen: Bowel Sounds Present, Soft, Non Tender, Non-Distended Extremities: No edema, Capillary Refill Less than 3 Seconds Skin: No rashes, No breakdown Musculoskeletal: No Tenderness to Palpation of Joints or Extremities, Arthritic Changes Neurological: Cranial nerves II-XII grossly intact Psych/Mental Status: Normal Affect, Appropriate - Physical Exam Vitals/I&O's: Vital Signs Temp Pulse Resp BP Pulse Ox 97.8 F 77 18 173/91 H 93 09/13/19 08:15 09/13/19 08:19 09/13/19 08:15 09/13/19 08:15 09/13/19 08:15 Oxygen Flow Rate (L/min) 2 Oxygen Delivery Method Nasal Cannula Weight: 239 lb 3.225 oz Body Mass Index (BMI) 32.4 Intake and Output for Last 24 Hours 09/11/19 09/12/19 09/13/19 23:59 23:59 23:59 Intake Total 4586.67 / 4586.67 2763.33 / 2963.33 300 / 300 Output Total 600 / 600 4250 / 5050 1950 / 1950 Balance 3986.67 / 3986.67 -1486.67 / -2086.67 -1650 / -1650 Microbiology Past 72 Hours 09/11/19 11:07 Blood Culture (Wb) #2 - Anticubital Left Blood Culture - Preliminary No growth in 48 hours. 09/11/19 11:15 Blood Culture (Wb) - Left Wrist Blood Culture - Preliminary No growth in 48 hours. 09/11/19 14:40 Sputum, Expectorated/Coughed Gram Stain - Final 09/11/19 14:40 Sputum, Expectorated/Coughed Respiratory Culture - Preliminary Appears to be normal respiratory flavia. Further studies to follow. 09/11/19 14:20 Mucosa - Nasopharyngeal Respiratory Panel (PCR) - Final 09/11/19 16:00 Urine, Clean Catch Streptococcus pneumoniae Antigen (M - Final 09/11/19 16:00 Urine, Clean Catch Legionella Antigen - Final Laboratory Results 09/12/19 06:25: Diff Path Review Reviewed Current Medications Acetaminophen (Tylenol) 650 mg PO Q6H PRN PRN PRN Reason: Pain Score 1-3/Temp > 100.7 F Last Admin: 09/11/19 21:32 Dose: 650 mg Documented by: Albuterol Sulfate (Ventolin Aerosols) 2.5 mg INHALATION Q2H PRN PRN PRN Reason: SHORTNESS OF BREATH Last Admin: 09/12/19 04:38 Dose: 2.5 mg Documented by: Albuterol Sulfate (Ventolin Aerosols) 2.5 mg INHALATION Q6H.RT [facility] [place] Last Admin: 09/13/19 07:04 Dose: 2.5 mg Documented by: Amlodipine Besylate (Norvasc) 10 mg PO DAILY [facility] [place] Last Admin: 09/13/19 08:19 Dose: 10 mg Documented by: Atorvastatin Calcium (Lipitor) 10 mg PO QHS [facility] [place] Last Admin: 09/12/19 22:34 Dose: 10 mg Documented by: Docusate Sodium (Colace) 200 mg PO BID PRN PRN PRN Reason: Constipation Enoxaparin Sodium (Lovenox) 30 mg SC DAILY@1000 [facility] [place] Last Admin: 09/13/19 08:15 Dose: 30 mg Documented by: Guaifenesin (Mucinex) 1,200 mg PO BID [facility] Last Admin: 09/13/19 08:13 Dose: 1,200 mg Documented by: Hydralazine HCl (Apresoline Iv) 10 mg IV Q4H PRN PRN PRN Reason: SBP>180 mmhg Hydralazine HCl (Apresoline) 50 mg PO BID [facility] Last Admin: 09/13/19 08:19 Dose: 50 mg Documented by: Levofloxacin (Levaquin Iv) 750 mg in 150 mls @ 100 mls/hr IV Q24 [facility] [place] Last Admin: 09/13/19 09:38 Dose: 100 mls/hr Documented by: Sodium Chloride () 250 mls @ 15 mls/hr IV .[id number] PRN PRN Reason: Saline Flush Last Infusion: 09/12/19 09:15 Dose: 0 mls/hr Documented by: Indapamide (Lozol) 2.5 mg PO DAILY@0800 [facility] [place] Last Admin: 09/13/19 08:13 Dose: 2.5 mg Documented by: Losartan Potassium (Cozaar) 100 mg PO DAILY [facility] Last Admin: 09/13/19 08:19 Dose: 100 mg Documented by: Methylprednisolone (Solu-Medrol) 40 mg IV Q8 [facility] Last Admin: 09/13/19 05:59 Dose: 40 mg Documented by: Metoprolol Succinate (Toprol Xl (Beta Sukhi)) 100 mg PO DAILY [facility] Last Admin: 09/13/19 08:13 Dose: 100 mg Documented by: Montelukast Sodium (Singulair) 10 mg PO DAILY [facility] [place] Last Admin: 09/13/19 08:13 Dose: 10 mg Documented by: Non-Formulary Medication (Mesalamine [Asacol]) 1,200 mg PO BID [facility] Ondansetron HCl (Zofran) 4 mg IV Q8H PRN PRN PRN Reason: NAUSEA/VOMITING Pantoprazole Sodium (Protonix) 20 mg PO BID [facility] [place] Last Admin: 09/13/19 08:13 Dose: 20 mg Documented by: Pseudoephedrine HCl (Sudafed) 30 mg PO Q6H PRN PRN PRN Reason: Sinus or nasal congestion Sertraline HCl (Zoloft) 100 mg PO DAILY [facility] Last Admin: 09/13/19 08:14 Dose: 100 mg Documented by: Sodium Chloride () 10 - 40 ml IV UD PRN PRN Reason: SALINE FLUSH Last Admin: 09/13/19 09:38 Dose: 10 ml Documented by: Tamsulosin HCl (Flomax) 0.4 mg PO DAILY@0830 [facility] Last Admin: 09/13/19 08:15 Dose: 0.4 mg Documented by: Discharge Activity: May Not Drive Call your doctor if you observe: Fever of 101 or Higher, Coldness, Increased Pain, Numbness or Tingling, Inability to urinate, Inability to have a bowel movement, Shortness of breath, Dizziness, Swelling in the ankles, Prolonged hiccoughing, Increased palpitations (irregular heartbeat) Home Medications: Medications to take at Discharge Albuterol Inhaler [Ventolin Hfa] 1 - 2 puff INHALATION Q4H PRN PRN 01/03/14 Mesalamine [Asacol] 1,200 mg PO BID 01/03/14 Metoprolol(XL)Succ [Toprol Xl (Beta Sukhi)] 100 mg PO DAILY 01/03/14 Omeprazole [Prilosec] 20 mg PO BID 01/03/14 Simvastatin [Zocor] 20 mg PO QHS 01/03/14 Tamsulosin HCl [Flomax] 0.4 mg PO DINNER 01/03/14 Albuterol Aerosols [Ventolin Aerosols] 2.5 mg INHALATION Q6H PRN PRN 10/18/15 Disability Placard 1 ea MISCELLANEOUS ONCE #1 dispunits 10/27/17 Disability Placard 0 .ROUTE .MEDSUPPLY #1 ea 10/28/17 budesonide 0.25 mg/2 mL suspension for nebulization 0.25 mg INHALATION Q12H 11/05/17 indapamide 1.25 mg tablet 1.25 mg PO QAM 11/15/17 losartan 100 mg tablet 100 mg PO QHS 11/15/17 fluticasone propionate 50 mcg/actuation nasal spray,suspension 2 spray INTRANASAL QDAY 02/16/18 Montelukast Sodium [Singulair] 10 mg PO DAILY 09/11/19 Sertraline HCl 100 mg PO DAILY 09/11/19 Amlodipine [Norvasc] 10 mg PO DAILY #30 tab 09/13/19 Levofloxacin [Levaquin] 500 mg PO DAILY #4 tab 09/13/19 Prednisone 10 mg PO QDAY #30 tab 09/13/19 hydrALAZINE [Apresoline] 50 mg PO TID #90 tab 09/13/19 Following Prescrptions Were Given to Patient: hydrALAZINE [Apresoline] 50 mg PO TID #90 tab [id number] Levofloxacin [Levaquin] 500 mg PO DAILY #4 tab Transmission Status: Received by [facility]12 Amlodipine [Norvasc] 10 mg PO DAILY #30 tab Transmission Status: Received by [facility] 1812 Prednisone 10 mg PO QDAY #30 tab Prescription Printed Primary Care Physician: Hung Hummel MD [Primary Care Provider] - Please follow up with your Primary Care Physician in: IN 1-2 week Please Follow Up With: Scot Talavera MD When: in 3-4 weeks Medical Necessity - Tobacco Use Smoking Status: Former smoker Tobacco Use: Cigarettes Meaningful Use Info Meaningful Use Diagnoses (Choose all that apply): None applicable Code Visit Inpatient E&M: 35983 Disch Hosp
--- NOTE | 2019-09-15 12:27 | CASEMGMT ---
DM CM Discharge Follow-up Phone Call: JALYN: Poonam Strata: 3 Call Date: 09/15/19 Discharge Date: 09/13/19 Time of Call: 1225 Duration: 0 ? Admitting Diagnosis: Pneumonia, COPD exac Discharge follow-up call attempted. Nondescript voicemail received. Message without patient identifying information left requesting a return call. Del Macedo RN
--- NOTE | 2019-09-15 15:29 | CASEMGMT ---
Pt returned discharge follow-up call. Pt states he has been doing well since discharge. Is feeling better today than yesterday with less fatigue. Denies any difficulty with breathing. States he has been wearing his O2 at 2l/min and has been wearing his home bipap at night. States he is working with Lex in the sleep lab on best mask type and fit. States he currently has a full face mask which makes it difficult when coughing. States he has also been using the pickle, IS, and percussion vest (2x/day for 30min each time). Pt states he received his medications without difficulty. Discussed new blood pressure medications. Pt states he has been taking his blood pressure three times a day and taking the hydralazine if the SBP is greater than 130 per his instructions. States his SBP has been around 137. Pt states he has made his follow-up appointments with Dr. Hummel and Dr. Talavera. Pt states he has been doing well with daily activities and denied any concerns. No further questions or concerns noted. Del Macedo RN
== END 2019-09-13 13:10 | disposition home or self-care (01) | DRG 190 ==
LOC: ED 11:19 → MS3 09-12 06:30
PROVIDERS: Admitting Provider Hospitalist; Emergency Provider Emergency Medicine; Family Provider Family Medicine; PCP Family Medicine; Visit Provider Internal Medicine
DX: J44.0 Chronic obstructive pulmonary disease with (acute) lower respiratory infection (principal); J18.9 Pneumonia, unspecified organism; J96.11 Chronic respiratory failure with hypoxia; Z99.81 Dependence on supplemental oxygen; J44.1 Chronic obstructive pulmonary disease with (acute) exacerbation; G47.33 Obstructive sleep apnea (adult) (pediatric); E78.5 Hyperlipidemia, unspecified; N40.0 Benign prostatic hyperplasia without lower urinary tract symptoms; E87.6 Hypokalemia; I10 Essential (primary) hypertension; Z77.090 Contact with and (suspected) exposure to asbestos; K21.9 Gastro-esophageal reflux disease without esophagitis; E03.9 Hypothyroidism, unspecified; E78.00 Pure hypercholesterolemia, unspecified; M19.90 Unspecified osteoarthritis, unspecified site; Z87.891 Personal history of nicotine dependence; K52.9 Noninfective gastroenteritis and colitis, unspecified
CPT/HCPCS: 36415; 71046; 80048; 81001; 83605; 83880; 84484; 85025; 87040; 87070; 87086; 87205; 87449; 87633; 93005; 94002; 94640; 94667; 94668; 97162; 97165; 97530; 99285; J7030; J7050; A4216

== ENCOUNTER → 2019-12-01 13:56 | Outpatient (CLI) | payer MEDICARE, OTHER, SELFPAY ==
[2019-11-30 15:15] VITALS: BMI 32.5
--- NOTE | 2019-12-01 14:20 | RAD_ITS ---
STUDY: X-RAY CHEST REASON FOR EXAM: Male, 74 years old. PERSISTENT COUGH, INCREASED SOB X 2 WEEKS; -- H/O RECENT PNEUMONIA TECHNIQUE: PA and lateral views of the chest. COMPARISON: Comparison is made with prior study dated September 11, 2019. FINDINGS: Since prior study, there has been progressive infiltrate in the superior segment of the right lower lobe. This is superimposed on chronic scarring. Hyperinflation. Normal size heart. Normal mediastinum and rick. Normal visualized pulmonary arteries. There is atherosclerotic calcification of the aortic arch with tortuosity. There are diffuse degenerative changes of the visualized thoracic spine. Normal visualized ribs, clavicles, and shoulders. There is no demonstrated abnormality of the visualized soft tissue structures of the upper abdomen. RAD/Chest PA and Lateral IMPRESSION: Progressive infiltrate in the superior segment of the right lower lobe superimposed on chronic scarring. Electronically Signed: Dereck Crum, at 15:01 EST , Service support ,
[2019-12-01 14:32] LABS: Hematocrit 45.6 % (40-54); Hemoglobin 14.6 g/dL (13.0-16.5); Mean Corpuscular Hgb 29.8 pg (27.0-32.0); Mean Corpuscular Volume 93.1 fL (80-94); Mean Platelet Vol. 9.4 fl (6.2-12.0); Platelet Count 177 K/mm3 (150-450); RBC Distribution Width SD 47.9 fl (35.1-43.9); White Blood Count 6.2 K/mm3 (4.4-11.0)
[2019-12-01 14:57] LABS: Anion Gap 6 (5-15); BUN 22 mg/dL (7-18); BUN/Creat Ratio 15.4 RATIO (10-20); Calcium,Total 9.5 mg/dL (8.5-10.1); Chloride 106 mmol/L (98-107); Creatinine, Serum 1.43 mg/dL (0.70-1.30); EST Glomerular Filtration Rate 51 mL/min (>60); Est Glom Filt Rate - Afr Amer 62 mL/min (>60); Glucose 127 mg/dL (74-106); Potassium 3.4 mmol/L (3.5-5.1); Sodium Level 140 mmol/L (136-145)
[2019-12-01 15:00] LABS: BNP,B-Type NATRIURETIC PEPTIDE 26.8 pg/mL (0-100)
[2019-12-04 17:09] LABS: Adrenocorticotropic Hormone 8.6 pg/mL (7.2-63.3)
== END ==
PROVIDERS: Internal Medicine Endocrinology, Diabetes & Metabolism; PCP Family Medicine; Referring Provider Nurse Practitioner Acute Care; Visit Provider Nurse Practitioner Acute Care
DX: R05 Cough (principal); E27.40 Unspecified adrenocortical insufficiency; R06.02 Shortness of breath
CPT/HCPCS: 36415; 71046; 80048; 82024; 82533; 83880; 85027; 87070; 87205

== ENCOUNTER → 2019-12-06 09:22 | Outpatient (CLI) | payer MEDICARE, OTHER, SELFPAY ==
[2019-11-30 15:15] VITALS: BMI 32.5
[2019-12-05 14:21] VITALS: BMI 32.5
[2019-12-06 09:33] VITALS: BP 161/73; PULSE 63; RESP 18; TEMP 36; O2SAT 94; BMI 30.6
[2019-12-06] MEDS: Cosyntropin 0.25 MG Vial IM (09:39)
== END ==
PROVIDERS: PCP Family Medicine; Referring Provider Internal Medicine Endocrinology, Diabetes & Metabolism; Visit Provider Internal Medicine Endocrinology, Diabetes & Metabolism
DX: E27.40 Unspecified adrenocortical insufficiency (principal)
CPT/HCPCS: 36415; 82533; 96372; J0834

== ENCOUNTER → 2019-12-21 | Outpatient (CLI) | payer MEDICARE, OTHER, SELFPAY ==
[2019-12-06 09:33] VITALS: BMI 30.6
== END | disposition home or self-care (01) ==
LOC: LABSPEC 15:41
PROVIDERS: PCP Family Medicine; Referring Provider Otolaryngology; Visit Provider Otolaryngology
DX: J01.90 Acute sinusitis, unspecified (principal)
CPT/HCPCS: 87070; 87205

== ENCOUNTER → 2020-04-23 16:43 | Outpatient (CLI) | payer MEDICARE, OTHER, SELFPAY ==
[2020-02-21 10:09] VITALS: BMI 30.6
--- NOTE | 2020-04-23 17:00 | RAD_ITS ---
STUDY: X-RAY CHEST REASON FOR EXAM: Male, 75 years old. Shortness of breath, Hx CHF TECHNIQUE: PA and lateral views of the chest. COMPARISON: 12/01/2019 FINDINGS: Lungs are expanded. Previous study described opacification in the inferior half of the right hemithorax is worsened since the previous study. Opacifications have become more dense and consolidated and there is an enlarged right pleural effusion with likely associated atelectasis. Left lung is free of superimposed process. There is no demonstrated pleural abnormality. Normal size heart. Normal mediastinum and rick. Normal visualized pulmonary arteries. Normal visualized aortic arch and descending thoracic aorta. There are diffuse degenerative changes of the visualized thoracic spine. There is degenerative osteoarthritis of the bilateral shoulders. There is no demonstrated abnormality of the visualized soft tissue structures of the upper abdomen. RAD/Chest PA and Lateral IMPRESSION: Worsening infiltrate/effusion/atelectasis in the right lung base since the previous study. Follow-up recommended to ensure resolution Electronically Signed: Roverto Flores MD at 17:19 EDT , Service support ,
[2020-04-23 17:29] LABS: BNP,B-Type NATRIURETIC PEPTIDE 15.9 pg/mL (0-100)
[2020-04-23 17:30] LABS: Anion Gap 8 (5-15); BUN 22 mg/dL (7-18); BUN/Creat Ratio 17.1 RATIO (10-20); Calcium,Total 9.3 mg/dL (8.5-10.1); Chloride 100 mmol/L (98-107); Creatinine, Serum 1.29 mg/dL (0.70-1.30); EST Glomerular Filtration Rate 57 mL/min (>60); Est Glom Filt Rate - Afr Amer 69 mL/min (>60); Glucose 150 mg/dL (74-106); Sodium Level 136 mmol/L (136-145)
== END ==
PROVIDERS: PCP Family Medicine; Referring Provider Nurse Practitioner Acute Care; Visit Provider Nurse Practitioner Acute Care
DX: R06.02 Shortness of breath (principal)
CPT/HCPCS: 36415; 71046; 80048; 83880; 87070; 87205

== ENCOUNTER 2020-04-25 12:21 | Inpatient (IN) | payer MEDICARE, OTHER, SELFPAY ==
[2020-02-21 10:09] VITALS: BMI 30.6
[2020-04-25] VITALS (22 sets, daily range): BP systolic 103–186; BP diastolic 50–107; PULSE 65–89; RESP 11–27; TEMP 36.5–36.9; O2SAT 83–94; BMI 32.6; BMI 32.2; BMI 32.7
--- NOTE | 2020-04-25 12:39 | EKG12_ITS ---
Test Reason : SOB Blood Pressure : / mmHG Vent. Rate : 083 BPM Atrial Rate : 083 BPM P-R Int : 166 ms QRS Dur : 100 ms QT Int : 372 ms P-R-T Axes : 053 040 039 degrees QTc Int : 437 ms Normal sinus rhythm Normal ECG Confirmed by CHAGO KIRKPATRICK, HARDIK ([id number]), online content editor PARADISE ARAMBULA ([id number]) on 04/30/2020 10:54:00 AM Referred By: RU Confirmed By:HARDIK ANDERS MD
--- NOTE | 2020-04-25 12:41 | ED.DCSUM_ITS ---
History of Present Illness Chief Complaint: Shortness of Breath Narrative: 75-year-old male with a history of severe COPD on 2 L of continuous nasal cannula oxygen at home and percussion vest as needed presents with essentially 3 weeks of worsening shortness of breath and wheezing. He has been on prednisone for 3 weeks, currently on 10 mg a day and is currently on Zithromax as well. No improvement. Continuing to get worse. Denies fever or chills. Cough is nonproductive. No lower extremity swelling. No history of DVT or PE. He reports severe shortness of breath now, worse with exertion. Capacity - Capacity Assessment Tool Can the patient make a choice & communicate that choice?: Yes Past Medical History - Allergies and Home Meds Allergies/Adverse Reactions: Allergies cefaclor [From Ceclor] Allergy (Verified 04/25/20 12:22) Rash codeine Allergy (Verified 04/25/20 12:22) Itching Sulfa (Sulfonamide Antibiotics) Allergy (Verified 04/25/20 12:22) Rash amoxicillin trihydrate [From Augmentin] Adverse Reaction (Verified 04/25/20 12:22) Upset Stomach STOMACH PAIN clarithromycin [From Biaxin] Adverse Reaction (Verified 04/25/20 12:22) Upset Stomach diphenhydramine HCl [From Benadryl] Adverse Reaction (Verified 04/25/20 12:22) DRIES MOUTH AND THROAT OUT hydrocodone Adverse Reaction (Verified 04/25/20 12:22) Itching lactose Adverse Reaction (Verified 04/25/20 12:22) Abd cramps/diarrhea LACTOSE INTOLERANCE potassium clavulanate [From Augmentin] Adverse Reaction (Verified 04/25/20 12:22) STOMACH PAIN Primary Care Physician: Hung Hummel MD [Primary Care Provider] - Prior records reviewed: Yes Surgical History: appendectomy, total hip arthroplasty, total knee arthroplasty, - Smoking Status: Former smoker - Family History Maternal Family History: Family History (Last Reviewed 03/28/20 @ 13:23 by GIULIANO Art) Mother Heart disease Brother Cancer COPD (chronic obstructive pulmonary disease) Family History: Reports: No pertinent history Paternal Family History: Family History (Last Reviewed 03/28/20 @ 13:23 by GIULIANO Art) Mother Heart disease Brother Cancer COPD (chronic obstructive pulmonary disease) Family History: Reports: No pertinent history Review of Systems General: Denies: Chills, Fever, Sweats Eyes: Denies: Visual changes - bilaterally, Diplopia ENT: Denies: Rhinorrhea, Sore throat Cardiovascular: Denies: Chest pain, Palpitations Respiratory: Reports: Dyspnea, Cough, Sputum. Denies: Dyspnea on exertion Gastrointestinal: Denies: Abdominal pain, Nausea, Vomiting, Diarrhea, Melena, Hematochezia Genitourinary: Denies: Dysuria, Hematuria, Frequency Musculoskeletal: Denies: Back pain, Extremity Pain Skin: Denies: Rash, Wounds Neurological: Denies: Headache, Weakness, Numbness Hematologic: Denies: Easy bleeding Physical Exam Vital Signs/Narrative: Vital Signs Temp Pulse Resp BP Pulse Ox 04/25/20 12:27 98.4 F 84 20 H 168/74 H 91 04/25/20 12:22 98.4 F 88 26 H 168/74 H 83 General: Acute Distress Head: Normocephalic, Atraumatic Eyes: Perrl, EOMI ENT: No rhinorrhea, Dry mucous membranes Neck: Supple, Nontender Cardiovascular: Regular rhythm, No murmurs, Tachycardia Respiratory: Wheezing, Decreased Air Movement Abdomen: Soft, Nontender, Nondistended, Normal bowel sounds Back: Nontender, Normal Inspection Extremities: Nontender, No edema Skin: Normal color, No rash Neurological: Alert, Oriented x3, Cranial nerves II-XII grossly intact, Normal Strength, Normal Sensation Psychological: Normal affect, Normal Mood Diagnostic/Tx/Re-eval - Medical Decision Making He has a worsening right lower lobe infiltrate on chest x-ray and new development of a left lower lobe infiltrate. He was treated with vancomycin and Zosyn since he is already on Zithromax, to add Pseudomonas coverage. He is requiring much more oxygen than his baseline but still protecting his airway and does not appear to require intubation or BiPAP. He does have an elevated lactic acid consistent with sepsis. He appears to require ICU admission. I spoke with Dr. Higginbotham and he was admitted to the ICU. - Critical Care Time Critical care time (excluding procedures): 30-74 minutes, Discussing w/Patient &/or Family/Digital Account Coordinator, Discussing w/Consultants, Arranging Admission or Transfer, Performing Direct Patient Care at Bedside ED Disposition - Plan for ED Patient: Disposition: Acute Care Hospital [facility] Diagnosis: Sepsis, Acute and chronic respiratory failure, Community acquired pneumonia Referrals: Hung Hummel MD [Primary Care Provider] -
[2020-04-25] MEDS: Ipratropium/Albuterol Sulfate 3 ML AMPUL.NEB INHALATION ×3 (12:57→22:19)
[2020-04-25 13:03] LABS: Absolute Lymphocyte Count 0.64 X10^3/uL (0.83-4.51); Absolute Neutrophil Count 7.9 X10^3/uL (2.0-7.7); Basophil# 0.04 X10^3/uL; Basophil% 0.4 % (0-1); Eosinophil# 0.04 X10^3/uL; Eosinophils% 0.4 % (0-5); Hemoglobin 14.2 g/dL (13.0-16.5); Lymphocyte # 0.64 X10^3/ul (4.0); Lymphocyte % 6.6 % (19-41); Mean Corp Hgb Conc 33.8 g/dL (32-36); Mean Corpuscular Hgb 31.6 pg (27.0-32.0); Mean Corpuscular Volume 93.3 fL (80-94); Mean Platelet Vol. 9.2 fl (6.2-12.0); Monocyte% 10.3 % (0-10); NRBC Flagged by Analyzer 0 % (0-5); Neutrophil # 7.92 X10^3/uL (2.7-7.7); Neutrophil % 81.4 % (47-70); Platelet Count 180 K/mm3 (150-450); RBC Distribution Width CV 13.9 % (11.6-14.6); RBC Distribution Width SD 47.4 fl (35.1-43.9); White Blood Count 9.7 K/mm3 (4.4-11.0)
[2020-04-25] MEDS: MethylPREDNISolone 125 MG/2 ML Vial IV (13:11)
[2020-04-25 13:21] LABS: BNP,B-Type NATRIURETIC PEPTIDE 17.4 pg/mL (0-100)
[2020-04-25 13:22] LABS: Anion Gap 6 (5-15); BUN 24 mg/dL (7-18); Calcium,Total 9.1 mg/dL (8.5-10.1); Chloride 104 mmol/L (98-107); Creatinine, Serum 1.33 mg/dL (0.70-1.30); EST Glomerular Filtration Rate 55 mL/min (>60); Est Glom Filt Rate - Afr Amer 67 mL/min (>60); Estimated Creatinine Clearance 51.05 ml/min; Glucose 160 mg/dL (74-106); Potassium 3.5 mmol/L (3.5-5.1); Sodium Level 136 mmol/L (136-145)
[2020-04-25 13:32] LABS: Lactic Acid 2.4 mmol/L (0.4-1.9)
--- NOTE | 2020-04-25 13:38 | RAD_ITS ---
STUDY: X-RAY CHEST REASON FOR EXAM: Male, 75 years old. COUGH and INCREASED SOB. HX OF COPD TECHNIQUE: Single AP portable view of the chest. COMPARISON: 07/16/2017, 09/11/2019, 12/01/2019, 04/23/2020. FINDINGS: There is hyperexpansion of the lungs. There is continuing increased infiltrate of the mid and lower right lung. There is a small right pleural effusion that is increasing. Mild atelectasis or infiltrate developing in the left lung base. Normal size heart. Normal mediastinum and rick. There is prominence of the pulmonary hilar arteries without peripheral pulmonary vascular congestion, suggesting pulmonary hypertension. Normal visualized aortic arch and descending thoracic aorta. There are diffuse degenerative changes of the visualized thoracic spine. There is degenerative osteoarthritis of the bilateral shoulders. There is no demonstrated abnormality of the visualized soft tissue structures of the upper abdomen. RAD/Chest 1 View (Portable) IMPRESSION: Worsening of infiltrate of the mid and lower right lung. Worsening of small right pleural effusion. Atelectasis or infiltrate developing in the left lung base. Electronically Signed: Dale Mendoza MD at 14:27 EDT , Service support ,
--- NOTE | 2020-04-25 14:20 | ED.RN ---
lactic 2.4, area is grayed out, unable to chart.
[2020-04-25 16:59] LABS: Reflex Lactate? Y
--- NOTE | 2020-04-25 17:20 | CT_ITS ---
STUDY: CT CHEST WITH CONTRAST REASON FOR EXAM: Male, 75 years old. SOB, COPD, BRONCHIECTASIS RADIATION DOSAGE (If Supplied By Facility): CTDIvol = ( 18.10 ) mGy, DLP = ( 786.14 ) mGycm TECHNIQUE: Transaxial imaging was performed following intravenous administration of IV 100mL Isovue-370. Individualized dose optimization techniques were used for this CT. COMPARISON: 05/15/2019. FINDINGS: Lungs are hyperexpanded with evidence of fibrotic COPD/centrilobular emphysema. There is a moderate right pleural effusion. There is prominent consolidation of most of the right lower lobe. There is primarily interstitial infiltrate in the posterior segment of the right upper lobe. Increased interstitial and nodular densities seen in the posterior aspect of the left lower lobe most suggestive of inflammatory process. Stable 1.3 cm nodule of the right thyroid lobe. Normal heart and pericardium. Normal mediastinum. Normal hilar regions. Normal enhanced pulmonary arteries. Normal aorta arch and descending thoracic aorta. There are multi-level degenerative changes of the thoracic spine. Stable appearance of probable 2.7 cm cyst left lobe of the liver. CT/Chest WITH Contrast IMPRESSION: Significant worsening. Moderate right pleural effusion. Almost complete consolidation of the right lower lobe. Prominent primarily interstitial infiltrate in the posterior segment of the right upper lobe. Cystic, nodular and interstitial changes in the posterior left lower lobe most consistent with inflammatory process. Electronically Signed: Dale Mendoza MD at 19:03 EDT , Service support ,
--- NOTE | 2020-04-25 17:30 | PCM.HP.STD ---
Problem List (1) SOB (shortness of breath) Status: Acute History of Present Illness Date of Admission: 04/25/20 Chief Complaint: Dyspnea The patient is a 75 year old M with a marked h/o COPD who at baseline requires 2 L nasal cannula and had been on BIPAP at HS until recently when he was placed on a trilogy, which he has not been tolerating. He states that over about the last 2 mos he has had to increase his home O2 to about 4 L and has been on prednisone which has been tapered slowly (no on 10 mg daily) and he was placed on Azithromycin for anti-inflammatory purposes 3 times per week by his model maker apprentice, Dr. Talavera. Pt has known COPD stage 2 per GOLD classification, Bronchiectasis and BRADY. He has been on aggressive therapy for postnasal ggt. He denies fever, chills, sig cough or sputum production. He is COVID-19 neg today. His VS are stable. He does not have a white count but has SWATI and an elevated lactic acid. His CXR shows worsening infiltrates R and atelectasis vs a ? developing LLL infiltrate. He was given Vanc and Zosyn in the ED and on 6 L O2.. Past Medical History Past Medical History (Chronic Problems): Chronic Problems (Last Reviewed 03/28/20 @ 13:23 by Ely Esqueda, AIR PUMPER-C) Acute and chronic respiratory failure (Chronic) Bronchomalacia, acquired (Chronic) Bronchiectasis (Chronic) Hypercholesterolemia (Chronic) Colitis (Chronic) Arthritis (Chronic) Hypothyroidism (Chronic) Asthma (Chronic) Back pain (Chronic) Hemorrhoids (Chronic) BRADY (obstructive sleep apnea) (Chronic) bipap 19/12 cm H20 Asbestos exposure (Chronic) Tuberculosis exposure (Chronic) Stage 2 moderate COPD by GOLD classification (Chronic) FEV1 55% Acid reflux (Chronic) Chronic hypoxemic respiratory failure (Chronic) Medical History: Medical History (Last Reviewed 04/25/20 @ 17:[address] Margarita Higginbotham DO) Bronchomalacia, acquired (Chronic) J98.09 Bronchiectasis (Chronic) J47.9 Hypercholesterolemia (Chronic) E78.00 Colitis (Chronic) K52.9 Arthritis (Chronic) M19.90 Hypothyroidism (Chronic) E03.9 Asthma (Chronic) J45.909 Back pain (Chronic) M54.9 Hemorrhoids (Chronic) K64.9 BRADY (obstructive sleep apnea) (Chronic) G47.33 bipap 19/12 cm H20 Asbestos exposure (Chronic) Z77.090 Tuberculosis exposure (Chronic) Z20.1 Stage 2 moderate COPD by GOLD classification (Chronic) J44.9 FEV1 55% Acid reflux (Chronic) K21.9 Chronic hypoxemic respiratory failure (Chronic) J96.11 Laceration without foreign body of left index finger with damage to nail, initial encounter (Inactive) S61.311A Allergies cefaclor [From Ceclor] Allergy (Verified 04/25/20 12:22) Rash codeine Allergy (Verified 04/25/20 12:22) Itching Sulfa (Sulfonamide Antibiotics) Allergy (Verified 04/25/20 12:22) Rash amoxicillin trihydrate [From Augmentin] Adverse Reaction (Verified 04/25/20 12:22) Upset Stomach STOMACH PAIN clarithromycin [From Biaxin] Adverse Reaction (Verified 04/25/20 12:22) Upset Stomach diphenhydramine HCl [From Benadryl] Adverse Reaction (Verified 04/25/20 12:22) DRIES MOUTH AND THROAT OUT hydrocodone Adverse Reaction (Verified 04/25/20 12:22) Itching lactose Adverse Reaction (Verified 04/25/20 12:22) Abd cramps/diarrhea LACTOSE INTOLERANCE potassium clavulanate [From Augmentin] Adverse Reaction (Verified 04/25/20 12:22) STOMACH PAIN Home Medications: Ambulatory Orders Medication Instructions Recorded Metoprolol(XL)Succ [Toprol Xl 100 mg PO DAILY 01/03/14 (Beta Sukhi)] Omeprazole [Prilosec] 20 mg PO DAILY 01/03/14 Simvastatin [Zocor] 20 mg PO QHS 01/03/14 Tamsulosin HCl [Flomax] 0.4 mg PO DINNER 01/03/14 indapamide 1.25 mg tablet 1.25 mg PO QAM 11/15/17 fluticasone propionate 50 2 spray INTRANASAL QHS 02/16/18 mcg/actuation nasal spray,suspension Montelukast Sodium [Singulair] 10 mg PO DAILY 09/11/19 Sertraline HCl 100 mg PO DAILY 09/11/19 amlodipine 5 mg tablet 5 mg PO DAILY 10/02/19 azelastine 137 mcg (0.1 %) nasal 1 spray INTRANASAL DAILY 10/02/19 spray aerosol albuterol sulfate 2.5 mg INHALATION Q6H PRN PRN #180 04/02/20 ml Albuterol IH (ProAir) [Proair Hfa 1 - 2 puff INHALATION Q4H PRN PRN 04/25/20 (SP)Vent Pts] Azithromycin 250 mg PO MOWEFR 04/25/20 Budesonide/Formoterol 160/4.5 2 puff INHALATION BID 04/25/20 [Symbicort 160/4.5 Mcg Inhaler (SP)] Losartan Potassium 100 mg PO QHS 04/25/20 Magnesium Oxide 400 mg PO DAILY 04/25/20 Mesalamine 1.2 gm PO BID 04/25/20 Potassium Citrate [Potassium 10 meq PO BID 04/25/20 Citrate ER] Prednisone 10 mg PO QDAY 04/25/20 Surgical History: Surgical History (Last Reviewed 04/25/20 @ 17:[address] Margarita Higginbotham DO) History of appendectomy (Inactive) Z98.890, Z90.49 History of hernia repair (Inactive) Z98.890, Z87.19 History of left knee replacement (Inactive) Z96.652 History of tonsillectomy (Inactive) Z98.890, Z90.89 S/P TURP (Inactive) Z90.79 Surgical History: appendectomy, total hip arthroplasty, total knee arthroplasty, - Psychiatric History: No pertinent psych hx Smoking Status: Former smoker - *Family History Maternal Family History: Family History (Last Reviewed 04/25/20 @ 17:[address] Margarita Higginbotham DO) Mother Heart disease Brother Cancer COPD (chronic obstructive pulmonary disease) History Items: No pertinent history Paternal Family History: Family History (Last Reviewed 04/25/20 @ 17:[address] Margarita Higginbotham DO) Mother Heart disease Brother Cancer COPD (chronic obstructive pulmonary disease) History Items: No pertinent history Review of Systems Constitutional: Denies: Anorexia, Chills, Fever, Night Sweats, Malaise, Weakness, Weight Change, Fatigue Eyes: Denies: Blurred vision, Cataracts, Conjunctivae Inflammation, Double vision, Drainage, Eyelid Inflammation, Pain, Redness, Vision Change HEENT: Reports: Nasal Congestion, Post Nasal Drip, Sinus Drainage. Denies: Difficulty Hearing, Dysphasia, Ear Pain, Head Aches, Sore Throat Cardiovascular: Denies: Chest Pain, Claudication, Chest Pressure, Chest Tightness, Edema, Heaviness, Light Headedness, Orthopnea, Palpitations, Paroxysmal Noc. Dyspnea, Syncope Respiratory: Reports: Shortness of Breath, Shortness of breath at rest, Shortness of breath upon exertion, Wheezing - intermittent. Denies: Cough, Hemoptysis, Pleuritic Pain, Sputum production Gastrointestinal: Denies: Abdominal Pain, Constipation, Diarrhea, Dyspepsia, Hematemesis, Hematochezia, Nausea, Melena, Vomiting Genitourinary: Denies: Dysuria, Frequency, Hematuria, Hesitancy, Incontinence, Nocturia, Retention, Urgency Musculoskeletal: Denies: Back Pain, Joint Pain, Joint stiffness, Joint swelling, Joint Tenderness, Muscle pain, Neck Pain Skin: Denies: Dryness, Jaundice, Lesions, Pruritis, Rash, Skin Changes, Wounds Neurological: Denies: Balance problems, Blurred vision, Double vision, Change in Speech, Slurred speech, Confusion, Difficulty swallowing, Focal weakness, Headaches, Incoordination, Tingling, Tremor, Seizures Psychiatric: Denies: Anxiety, Depression Endocrine: Denies: Change in Body Habitus, Heat/ Cold Intolerance, Polydipsia, Polyuria Hematologic/ Lymphatic: Denies: Adenopathy, Anemia, Easy Bruising, Easy Bleeding, Petechiae, Purpura VTE Information - Inpt Only VTE Present on Admission: No VTE Mechan Device Prophylaxis: None VTE Pharm Prophylaxis ordered?: Yes Patient Problems: Active and Suspected Problems (Last Reviewed 03/28/20 @ 13:23 by Ely Esqueda NP-C) Sepsis (Acute) Community acquired pneumonia (Acute) SOB (shortness of breath) (Acute) - Physical Exam Vitals/I&O's: Vital Signs Temp Pulse Resp BP Pulse Ox 97.8 F 69 19 H 132/60 H 92 04/25/20 16:17 04/25/20 17:02 04/25/20 17:02 04/25/20 17:02 04/25/20 16:47 Oxygen Flow Rate (L/min) 2 Oxygen Delivery Method Nasal Cannula Weight: 107.7 kg Body Mass Index (BMI) 32.2 Intake and Output for Last 24 Hours 06/16/20 06/17/20 06/18/20 23:59 23:59 23:59 Intake Total 600 / 600 Balance 600 / 600 General: Alert, Oriented x3, Cooperative, Well developed, Well nourished, - - dyspnea with conversation, WM sitting up on EOB, at bedside HEENT: Atraumatic, PERRLA, EOMI, Normocephalic, EAC Clear Oral: Moist Mucosa, No Gingival or Mucosal Lesions/ Ulcerations, - - no thrush, Mallampati 3 Neck: Supple, No JVD, Negative Carotid Bruits, Negative Hepatojugular Reflux, No Nodes, No Nuchal Rigidity, Trachea Midline, Thyroid Normal Size and Texture Lungs: No rhonchi, No wheeze, No rales, Diminished - B bases, Short of Breath, Tachypneic Cardiovascular: Regular rate, Regular Rhythm, Normal S1, Normal S2, No murmurs, No Ectopic Activity, No rub noted, No Gallop Abdomen: Bowel Sounds Present, Soft, Non Tender, Non-Distended, No Hepato-splenomegaly, Obese, No hernias noted Extremities: No clubbing, No cyanosis, No edema, Capillary Refill Less than 3 Seconds, Peripheral Pulses Normal Skin: No rashes, No breakdown Musculoskeletal: No Tenderness to Palpation of Joints or Extremities, No Muscle Wasting, Arthritic Changes Lymphatic: No Cervical, Supraclavicular, or Inguinal Adenopathy Neurological: Cranial nerves II-XII grossly intact, Deep Tendon Reflexes 2+/4 and Symmetrical, Neuro grossly intact, Motor Exam 5/5 strength throughout, Muscle tone normal, Sensory exam intact to light touch and pain, Coordination normal Psych/Mental Status: Normal Affect, Appropriate, Alert and oriented to time, place, person, mood and affect Laboratory Results 04/25/20 12:52: WBC 9.7, RBC 4.50 L, Hgb 14.2, Hct 42.0, MCV 93.3, MCH 31.6, MCHC 33.8, RDW Std Deviation 47.4 H, RDW Coeff of Eliecer 13.9, Plt Count 180, MPV 9.2, Immature Gran % (Auto) 0.900, Neut % (Auto) 81.4 H, Lymph % (Auto) 6.6 L, Thomas % (Auto) 10.3 H, Eos % (Auto) 0.4, Baso % (Auto) 0.4, Absolute Neuts (auto) 7.9 H, Absolute Lymphs (auto) 0.64 L, Nucleated RBC % 0 04/25/20 12:52: Sodium 136, Potassium 3.5, Chloride 104, Carbon Dioxide 26.0, Anion Gap 6, BUN 24 H, Creatinine 1.33 H, Estim Creat Clear Calc 51.05, Est GFR (MDRD) Af Amer 67, Est GFR (MDRD) Non-Af 55 L, BUN/Creatinine Ratio 18.0, Glucose 160 H, Calcium 9.1, Troponin I < 0.015 04/25/20 12:52: Lactic Acid 2.4 H* 04/25/20 12:52: B-Natriuretic Peptide 17.4 04/25/20 12:53: COVID-19 ([facility]ALL) Not Detected Current Medications Acetaminophen (Tylenol) 650 mg PO Q6H PRN PRN PRN Reason: Pain Score 1-10/Temp > 100.7 F Al Hydroxide/Mg Hydroxide (Mylanta Ii) 30 ml PO Q6H PRN PRN PRN Reason: Gastric Burning Albuterol Sulfate (Ventolin Aerosols) 2.5 mg INHALATION Q2H PRN PRN PRN Reason: SOB/Wheezing Albuterol/Ipratropium (Duoneb) 3 ml INHALATION Q4H.RT K[facility]LI Amlodipine Besylate (Norvasc) 5 mg PO DAILY KARLI Azelastine HCl (Astelin) 1 spray NASAL DAILY K[facility]LI Azithromycin (Zithromax) 250 mg PO MOWEFR [facility] Dextrose (D50w Syringe) 0 gm IV X1 PRN; Protocol PRN Reason: Hypoglycemia Fluticasone Propionate (Flonase Nasal [place]) 2 spray NASAL QHS KARLI Glucagon () 1 mg IM .X1 PRN PRN Reason: Hypoglycemia Heparin Sodium (Porcine) (Heparin Na) 5,000 unit SC Q8 KARLI Sodium Chloride () 500 mls @ 999 mls/hr IV .Q31M ONE Last Infusion: 04/25/20 15:37 Dose: Infused Documented by: Lactated Ringer's () 1,000 mls @ 100 mls/hr IV .Q10H KARLI Cefepime HCl 2 gm/ Sodium (Chloride) 100 mls @ 200 mls/hr IV Q8 [facility] Stop: 05/02/20 22:01 Vancomycin IV Pharmacy to Dose (1 ea/ Sodium Chloride) 500 mls @ 250 mls/hr IV X1 PRN; Protocol PRN Reason: Rx to Dose Iopamidol (Contrast Allergy Check) 0 ml IV X1 KARLI Losartan Potassium (Cozaar) 100 mg PO QHS KARLI Magnesium Oxide (Mag-Ox 400) 400 mg PO DAILY KARLI Melatonin (Melatonin) 3 mg PO QHS PRN PRN PRN Reason: INSOMNIA Mesalamine (Lialda) 1.2 gm PO BID K[facility] Methylprednisolone (Solu-Medrol) 40 mg IV Q8 KAR[facility] Metoprolol Succinate (Toprol Xl (Beta Sukhi)) 100 mg PO DAILY [facility] Montelukast Sodium (Singulair) 10 mg PO DAILY [facility] Non-Formulary Medication (Budesonide/Formoterol 160/4.5) 2 puff inhalation BID K[facility]LI Non-Formulary Medication (Indapamide) 1.25 mg PO QAM [facility] Non-Formulary Medication (Omeprazole) 20 mg PO DAILY [facility] Non-Formulary Medication (Simvastatin) 20 mg PO QHS [facility] Polyethylene Glycol (Miralax) 17 gm PO DAILY [facility] Sertraline HCl (Zoloft) 100 mg PO DAILY K[facility] Sodium Chloride () 10 - 40 ml IV UD PRN PRN Reason: SALINE FLUSH Tamsulosin HCl (Flomax) 0.4 mg PO DINNER [facility] Assessment/Plan All Active Problems (Last Reviewed 03/28/20 @ 13:23 by Ely Esqueda AIR PUMPER-C) Sepsis (Acute) Community acquired pneumonia (Acute) SOB (shortness of breath) (Acute) Acute on Chronic Hypoxic Respiratory Failure -baseline is on 2 L now on 6L--> will admit to ICU -wean as able -Start Cefepime and Vanc -vanc level in am -Solumedrol -Check CT chest with IV contrast as this has been a progressively worsening problem -consider ECHO if CT not helpful -BIPAP at hs--> 16/12 (pt thinks these are his settings) -urine antigens -sputum cx if able -Pulmonary toilet -continue home inhalers -Pulm consulted Severe Sepsis (lactate/SWATI/Source) -ABX as above -cx pending -cycle lactates--> suspect up 2/2 hypoxemia -IVF -check MRSA PCR SWATI -hydration with IVF -repeat in am Post Nasal GGT -continue home regimen HTN/HPL -continue BB/ARB/Norvasc -continue statin GERD -continue PPI Hypothyroidism -check TSH BRADY -BIPAP at HS H/O colitis -continue home meds DVT prophylaxis -heparin TID Code status -Full Procedures: 14846 Critial Care 1st Hr
[2020-04-25] MEDS: Lactated Ringers 1,000 ML 100 ML IV (19:51)
[2020-04-25] MEDS: Acetaminophen 325 MG Tablet 650 MG PO (20:14)
--- NOTE | 2020-04-25 20:45 | PCM.RX.CS ---
Consult Pharmacy has been consulted to manage selected antiobiotic: Vancomycin Type of Consult: New start Suspected Infection: Sepsis Prior Doses of Antibiotics Received/Current Regimen: Received 2000mg iv x 1 in ED. Labs: Sodium 136 mmol/L (136-145) 04/25/20 12:52 Potassium 3.5 mmol/L (3.5-5.1) 04/25/20 12:52 Chloride 104 mmol/L (98-107) 04/25/20 12:52 Carbon Dioxide 26.0 mmol/L (21.0-32.0) 04/25/20 12:52 Anion Gap 6 (5-15) 04/25/20 12:52 BUN 24 mg/dL (7-18) H 04/25/20 12:52 Creatinine 1.33 mg/dL (0.70-1.30) H 04/25/20 12:52 Est GFR (MDRD) Af Amer 67 mL/min (>60) 04/25/20 12:52 Est GFR (MDRD) Non-Af 55 mL/min (>60) L 04/25/20 12:52 BUN/Creatinine Ratio 18.0 RATIO (10-20) 04/25/20 12:52 Glucose 160 mg/dL (74-106) H 04/25/20 12:52 Weight used for dosin.7 kg Estimated Creatinine Clearance: 51 ml/min Goal Trough: 15-20 mcg/mL Pharmacy Plan for Drug Dosing: Will begin 1gm iv q12h starting 12 hrs after loading dose of 2gm. Trough level ordered for before 4th total dose on 04.27.20. Pharmacy Service will continue to monitor and adjust dosing as required. Follow-Up Labs: Trough Vancomycin - 04.27.20 @0330 before 0400 dose
[2020-04-25] MEDS: Atorvastatin Calcium 10 MG Tablet PO (21:03)
[2020-04-25] MEDS: Heparin Injection (Vial) 5,000 UNIT/ML VIAL 5000 UNIT SC (21:03)
[2020-04-25] MEDS: Losartan Potassium 100 MG Tablet PO (21:04)
[2020-04-25] MEDS: Fluticasone 0.05% 1 SPRAY NASAL.SRY 2 SPRAY NASAL (21:17)
[2020-04-25] MEDS: Mesalamine 1.2 GM Tablet PO (21:18)
[2020-04-25] MEDS: amLODIPine 5 MG Tablet PO (21:22)
[2020-04-25 22:13] LABS: M R Staph aureus DNA By PCR Negative (Negative); Probe Check PASS; Specimen Processing Control PASS
--- NOTE | 2020-04-25 23:33 | NURSING ---
Pt having c/o back pain that causes coughing spells. Pt assisted up to reclining chair, pillow placed at back, covers over legs; call light within reach. Pt instructed to call staff when ready for sleep and help placing home PAP unit on. Pt agrees.
[2020-04-26] VITALS (35 sets, daily range): BP systolic 104–179; BP diastolic 45–94; PULSE 76–107; RESP 10–29; TEMP 36.6–38.2; O2SAT 5–96
--- NOTE | 2020-04-26 | IMM_PTH ---
PATIENT: THERESA HALL LOC: PCU U#:[id number] AGE/SX: 75/M ROOM: [facility] RE04/25/[address]: Dr. Enmanuel Spencer MD : 1945 BED: 1 DIS: 05/10/2020 SPEC #: [id number] RECD: 04/30/20 11:29 STATUS: FRED REQ #: [id number] SILVA: 04/26/20 00:[address]: Yared Mckeon DEPT: IMMUNOHISTOCHEMISTRY RECD BY: Sandra Worthington ENTERED: 04/30/20 11:30 SP TYPE: IMMUNO OTHR DR: DO Dr. Hung Rojas MD Dr. Kathryn Lee, DO Tissues: THORACIC FLUID Procedures: Evangelista Ret (add) CK20 (add) CK8 (add) MACRO (add) TTF1 (add) Vimentin (add) CK7 (initial) PHYSICIAN & INSTITUTION [place] [address] SPECIMEN INFORMATION: Tissue Source: Thoracentesis fluid Clinical Info: Acute respiratory failure Specimen Number: [id number] CPT code: 36039, 55785 x6 METHODOLOGY: Deparaffinized sections of prefer/formalin-fixed tissue or PAP/DQ stained slides are incubated with monoclonal/polyclonal antibodies/oligonucleotide probes. Localization is made via biotin free immunoperoxidase method. Appropriate controls are performed and reacted as expected. Results on target cell population are indicated in the following table: RESULTS: ANTIBODY / CLONE RESULT CK7 (OV-TL12/30) positive CK8 ([id number]) positive CK20 (KS20.8) negative Vimentin (V9) negative Macro (HAM-56) negative TTF-1 (8G7G3/1) negative CALRET (polyclonal) negative These tests were developed and their performance characteristics determined by [facility]. They may not have been cleared or approved by the U.S. Food and Drug Administration. The FDA has determined that such clearance or approval is not necessary. The above immunohistochemical/dualISH markers are ordered and reviewed by the Pathologist. 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 See comment. SJ:ulices 05/01/20 Comment: Immunohistochemistry profile favors but not limited to upper gastrointestinal tract or pancreatic primary. Case has been reviewed in consultation with Dr. Alvarez who concurs with the above diagnosis. IDC:AM
--- NOTE | 2020-04-26 | FLU_PTH ---
PATIENT: THERESA HALL LOC: [facility] U#:[id number] AGE/SX: 75/M ROOM: [facility] RE04/25/[address]: Dr. Enmanuel Spencer MD : 1945 BED: 1 DIS: 05/10/2020 SPEC #: [id number] RECD: 04/26/20 14:23 STATUS: FRED REQ #: [id number] SILVA: 04/26/20 00:[address]: Yared Mckeon DEPT: CYTOLOGY RECD BY: Daniel Lane ENTERED: 04/29/20 09:07 SP TYPE: Fluid OTHR DR: DO Dr. Hung Rojas MD Dr. 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 See comment. ADRIANA:ulices 05/01/20 COMMENT Mucin stain with matched control is used in the evaluation of the specimen and shows a few cells positive for mucin. Immunohistochemistry ([id number]) supports the above diagnosis and favors but not limited to upper gastrointestinal tract or pancreatic primary. Correlation with clinical, radiologic findings and appropriate follow up are necessary. Case has been reviewed in consultation with Dr. Alvarez who concurs with the above diagnosis. IDC:AM CYTOLOGY STUDY Slides are reviewed. CYTOLOGY GROSS Received is 90 ml of dark red, turbid fluid labeled with the patient's name and and designated per the requisition as thoracentesis. Submitted for cytology preparation including cell block. / ulices 04/29/20 TC:0 CPT: 89448, 34841, 59922 ADDENDUM ADDENDUM ADDENDUM ADDENDUM ADDENDUM ADDENDUM ADDENDUM 05/30/2020 09:33 ADDENDUM 05/30/2020 09:33 ADDENDUM 05/30/2020 09:33 ADDENDUM 05/30/2020 09:33 ADDENDUM 05/30/2020 09:33 PD-L1 (KEYTRUDA) IMMUNOHISTOCHEMISTRY ANALYSIS FROM [facility] INTERPRETATION: Expression Tumor proportion score: 10% Please see complete report in e-chart or EMR for complete details
[2020-04-26] MEDS: Acetaminophen 325 MG Tablet 650 MG PO ×3 (02:04→19:50)
[2020-04-26] MEDS: Vancomycin IV 1,000 MG/200 ML BAG 200 MG IV ×2 (04:00→15:21)
[2020-04-26 04:59] LABS: Absolute Lymphocyte Count 0.78 X10^3/uL (0.83-4.51); Absolute Neutrophil Count 10.4 X10^3/uL (2.0-7.7); Basophil# 0.02 X10^3/uL; Basophil% 0.2 % (0-1); Hemoglobin 13.2 g/dL (13.0-16.5); Lymphocyte # 0.78 X10^3/ul (4.0); Lymphocyte % 6.5 % (19-41); Mean Corp Hgb Conc 33.8 g/dL (32-36); Mean Corpuscular Hgb 31.7 pg (27.0-32.0); Mean Corpuscular Volume 93.8 fL (80-94); Mean Platelet Vol. 9.3 fl (6.2-12.0); Monocyte# 0.66 X10^3/uL; Monocyte% 5.5 % (0-10); NRBC Flagged by Analyzer 0 % (0-5); Neutrophil # 10.39 X10^3/uL (2.7-7.7); POSITIVE MORPHOLOGY YES; Platelet Count 169 K/mm3 (150-450); RBC Distribution Width SD 47.6 fl (35.1-43.9); Red Blood Count 4.16 M/mm3 (4.6-6.2); White Blood Count 11.9 K/mm3 (4.4-11.0)
[2020-04-26 05:11] LABS: Differential Indicated SCAN CRITERIA MET
[2020-04-26 05:27] LABS: Anion Gap 10 (5-15); BUN 29 mg/dL (7-18); BUN/Creat Ratio 22.7 RATIO (10-20); Calcium,Total 9.3 mg/dL (8.5-10.1); Chloride 105 mmol/L (98-107); Creatinine, Serum 1.28 mg/dL (0.70-1.30); EST Glomerular Filtration Rate 58 mL/min (>60); Est Glom Filt Rate - Afr Amer 70 mL/min (>60); Estimated Creatinine Clearance 53.05 ml/min; Glucose 151 mg/dL (74-106); Magnesium 2.2 mg/dL (1.6-2.6); Phosphorus 3.1 mg/dL (2.5-4.9); Potassium 3.4 mmol/L (3.5-5.1); Sodium Level 139 mmol/L (136-145); Thyroid Stim Hormone (TSH) 0.25 uIU/mL (0.358-3.74)
[2020-04-26] MEDS: Lactated Ringers 1,000 ML 100 ML IV (06:22)
[2020-04-26] MEDS: 0.9% Saline Lock 10 ML Syringe IV ×4 (06:22→23:36)
[2020-04-26] MEDS: Heparin Injection (Vial) 5,000 UNIT/ML VIAL 5000 UNIT SC (06:23)
--- NOTE | 2020-04-26 06:40 | PCM.CON.CC ---
Reason for Consult Date of Consultation: 04/26/20 Reason for Consultation: Acute respiratory failure History of Present Illness: The patient is a 75-year-old male, with a history as outlined below, who presented to the emergency department on April 25 with complaints of shortness of breath. The patient is currently followed by Dr. Talavera in the pulmonary medicine clinic due to a history of bronchiectasis, obstructive sleep apnea, COPD and chronic hypoxemic respiratory failure. Pulmonary function studies from March 2019 revealed evidence of a partially reversible moderately severe large airways obstructive ventilatory defect. The patient has a baseline supplemental oxygen requirement of 2 L/min with exertion. He also has known obstructive sleep apnea, for which she is currently prescribed nocturnal BiPAP with a pressure support of 20/14 centimeters of water. The patient is on chronic prednisone 10 mg daily along with azithromycin 250 mg Wednesday, Wednesday and Wednesday each week. The patient also has known heart failure with preserved ejection fraction based upon echocardiogram from June 2019. On presentation to the emergency department, the patient was noted to be afebrile and hypertensive. He was saturating 83% on 5 L/min via nasal cannula. Initial laboratory evaluation revealed a normal white blood cell count. Chemistry profile was notable for a creatinine of 1.33. Lactate was elevated to 2.4. Troponin was negative. BNP was within normal limits. Coronavirus PCR was negative. MRSA screen was negative. Initial chest x-ray revealed infiltrate in the right mid and lower lung along with a pleural effusion. Follow-up chest CT revealed evidence of a moderate sized right-sided pleural effusion with associated consolidation and atelectasis. Past Medical History Past Medical History (Chronic Problems): Chronic Problems (Last Reviewed 04/25/20 @ 17:[address] Margarita Higginbotham DO) Acute and chronic respiratory failure (Chronic) Bronchomalacia, acquired (Chronic) Bronchiectasis (Chronic) Hypercholesterolemia (Chronic) Colitis (Chronic) Arthritis (Chronic) Hypothyroidism (Chronic) Asthma (Chronic) Back pain (Chronic) Hemorrhoids (Chronic) BRADY (obstructive sleep apnea) (Chronic) bipap 19/12 cm H20 Asbestos exposure (Chronic) Tuberculosis exposure (Chronic) Stage 2 moderate COPD by GOLD classification (Chronic) FEV1 55% Acid reflux (Chronic) Chronic hypoxemic respiratory failure (Chronic) Medical History: Medical History (Last Reviewed 04/25/20 @ 17:[address] 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) Z20.1 Stage 2 moderate COPD by GOLD classification (Chronic) J44.9 FEV1 55% Acid reflux (Chronic) K21.9 Chronic hypoxemic respiratory failure (Chronic) J96.11 Laceration without foreign body of left index finger with damage to nail, initial encounter (Inactive) S61.311A Allergies cefaclor [From Ceclor] Allergy (Verified 04/25/20 12:22) Rash codeine Allergy (Verified 04/25/20 12:22) Itching Sulfa (Sulfonamide Antibiotics) Allergy (Verified 04/25/20 12:22) Rash amoxicillin trihydrate [From Augmentin] Adverse Reaction (Verified 04/25/20 12:22) Upset Stomach STOMACH PAIN clarithromycin [From Biaxin] Adverse Reaction (Verified 04/25/20 12:22) Upset Stomach diphenhydramine HCl [From Benadryl] Adverse Reaction (Verified 04/25/20 12:22) DRIES MOUTH AND THROAT OUT hydrocodone Adverse Reaction (Verified 04/25/20 12:22) Itching lactose Adverse Reaction (Verified 04/25/20 12:22) Abd cramps/diarrhea LACTOSE INTOLERANCE potassium clavulanate [From Augmentin] Adverse Reaction (Verified 04/25/20 12:22) STOMACH PAIN Home Medications: Ambulatory Orders Medication Instructions Recorded Metoprolol(XL)Succ [Toprol Xl 100 mg PO DAILY 01/03/14 (Beta Sukhi)] Omeprazole [Prilosec] 20 mg PO DAILY 01/03/14 Simvastatin [Zocor] 20 mg PO QHS 01/03/14 Tamsulosin HCl [Flomax] 0.4 mg PO DINNER 01/03/14 indapamide 1.25 mg tablet 1.25 mg PO QAM 11/15/17 fluticasone propionate 50 2 spray INTRANASAL QHS 02/16/18 mcg/actuation nasal spray,suspension Montelukast Sodium [Singulair] 10 mg PO DAILY 09/11/19 Sertraline HCl 100 mg PO DAILY 09/11/19 amlodipine 5 mg tablet 5 mg PO DAILY 10/02/19 azelastine 137 mcg (0.1 %) nasal 1 spray INTRANASAL DAILY 10/02/19 spray aerosol albuterol sulfate 2.5 mg INHALATION Q6H PRN PRN #180 04/02/20 ml Albuterol IH (ProAir) [Proair Hfa 1 - 2 puff INHALATION Q4H PRN PRN 04/25/20 (SP)Vent Pts] Azithromycin 250 mg PO MOWEFR 04/25/20 Budesonide/Formoterol 160/4.5 2 puff INHALATION BID 04/25/20 [Symbicort 160/4.5 Mcg Inhaler (SP)] Losartan Potassium 100 mg PO QHS 04/25/20 Magnesium Oxide 400 mg PO DAILY 04/25/20 Mesalamine 1.2 gm PO BID 04/25/20 Potassium Citrate [Potassium 10 meq PO BID 04/25/20 Citrate ER] Prednisone 10 mg PO QDAY 04/25/20 Surgical History: Surgical History (Last Reviewed 04/25/20 @ 17:[address] Margarita Higginbotham DO) History of appendectomy (Inactive) Z98.890, Z90.49 History of hernia repair (Inactive) Z98.890, Z87.19 History of left knee replacement (Inactive) Z96.652 History of tonsillectomy (Inactive) Z98.890, Z90.89 S/P TURP (Inactive) Z90.79 Surgical History: appendectomy, total hip arthroplasty, total knee arthroplasty, - Psychiatric History: No pertinent psych hx Smoking Status: Former smoker - *Family History Maternal Family History: Family History (Last Reviewed 04/25/20 @ 17:[address] Margarita Higginbotham DO) Mother Heart disease Brother Cancer COPD (chronic obstructive pulmonary disease) History Items: No pertinent history Paternal Family History: Family History (Last Reviewed 04/25/20 @ 17:[address] Margarita Higginbotham DO) Mother Heart disease Brother Cancer COPD (chronic obstructive pulmonary disease) History Items: No pertinent history Review of Systems Constitutional: Denies: Chills, Fever, Night Sweats Eyes: Denies: Blurred vision, Double vision HEENT: Denies: Head Aches, Sinus Congestion, Sinus Drainage Cardiovascular: Denies: Chest Pain, Palpitations Respiratory: Reports: Cough, Shortness of Breath. Denies: Sputum production Gastrointestinal: Denies: Abdominal Pain, Nausea, Vomiting Genitourinary: Denies: Dysuria Musculoskeletal: Denies: Joint Pain, Joint Tenderness Skin: Denies: Rash, Wounds Neurological: Denies: Numbness, Tingling, Focal weakness Psychiatric: Denies: Anxiety, Depression, Homicidal Ideations, Suicidal Ideations Hematologic/ Lymphatic: Denies: Easy Bruising, Easy Bleeding Patient Problems: Active and Suspected Problems (Last Reviewed 04/25/20 @ 17:[address] Margarita Higginbotham DO) Sepsis (Acute) Community acquired pneumonia (Acute) SOB (shortness of breath) (Acute) Objective: The patient's most recent lab work, culture data and imaging studies have all been personally reviewed. Surface echocardiogram dated June 2019 revealed stage I diastolic dysfunction with an ejection fraction of 65%. Strep and urine Legionella antigens were negative. Respiratory viral panel was negative. - Physical Exam Vitals/I&O's: Vital Signs Temp Pulse Resp BP Pulse Ox 98 F 84 19 H 144/93 H 93 04/26/20 00:00 04/26/20 03:00 04/26/20 03:00 04/26/20 03:00 04/26/20 03:00 Oxygen Flow Rate (L/min) 4 Oxygen Delivery Method Nasal Cannula Weight: 239 lb 3.225 oz Body Mass Index (BMI) 32.2 Intake and Output for Last 24 Hours 04/24/20 04/25/20 04/26/20 23:59 23:59 23:59 Intake Total 2313.33 / 2438.33 995 / 995 Output Total 850 / 1075 425 / 425 Balance 1463.33 / 1363.33 570 / 570 General: Alert, Oriented x3, Cooperative, No apparent distress HEENT: Atraumatic, PERRLA, Normocephalic Oral: Moist Mucosa, - - Poor dentition Neck: Supple, No Nodes, Trachea Midline Lungs: - - Diminished bilaterally with wheezing noted on forced exhalation. No conversational dyspnea. Cardiovascular: Regular rate, Regular Rhythm Abdomen: Bowel Sounds Present, Soft, Non Tender, Obese Extremities: No clubbing, No cyanosis, No edema Skin: No breakdown Musculoskeletal: No Tenderness to Palpation of Joints or Extremities Lymphatic: No Cervical, Supraclavicular, or Inguinal Adenopathy Neurological: Cranial nerves II-XII grossly intact, Neuro grossly intact Psych/Mental Status: Alert and oriented to time, place, person, mood and affect L Labs (Last 48 Hours) 04/25/20 04/25/20 04/25/20 12:52 12:52 12:52 WBC 9.7 RBC 4.50 L Hgb 14.2 Hct 42.0 MCV 93.3 MCH 31.6 MCHC 33.8 RDW Std Deviation 47.4 H RDW Coeff of Eliecer 13.9 Plt Count 180 MPV 9.2 Immature Gran % (Auto) 0.900 Neut % (Auto) 81.4 H Lymph % (Auto) 6.6 L Evans % (Auto) 10.3 H Eos % (Auto) 0.4 Baso % (Auto) 0.4 Absolute Neuts (auto) 7.9 H Absolute Lymphs (auto) 0.64 L Nucleated RBC % 0 Sodium 136 Potassium 3.5 Chloride 104 Carbon Dioxide 26.0 Anion Gap 6 BUN 24 H Creatinine 1.33 H Estim Creat Clear Calc 51.05 Est GFR (MDRD) Af Amer 67 Est GFR (MDRD) Non-Af 55 L BUN/Creatinine Ratio 18.0 Glucose 160 H Lactic Acid 2.4 H* Calcium 9.1 Phosphorus Magnesium Troponin I < 0.015 B-Natriuretic Peptide TSH COVID-19 ([facility]) MRSA (PCR) 04/25/20 04/25/20 04/25/20 12:52 12:53 17:45 WBC RBC Hgb Hct MCV MCH MCHC RDW Std Deviation RDW Coeff of Eliecer Plt Count MPV Immature Gran % (Auto) Neut % (Auto) Lymph % (Auto) Evans % (Auto) Eos % (Auto) Baso % (Auto) Absolute Neuts (auto) Absolute Lymphs (auto) Nucleated RBC % Sodium Potassium Chloride Carbon Dioxide Anion Gap BUN Creatinine Estim Creat Clear Calc Est GFR (MDRD) Af Amer Est GFR (MDRD) Non-Af BUN/Creatinine Ratio Glucose Lactic Acid 1.0 Calcium Phosphorus Magnesium Troponin I B-Natriuretic Peptide 17.4 TSH COVID-19 ([facility]) Not Detected MRSA (PCR) 04/25/20 04/26/20 04/26/20 20:00 04:50 04:50 WBC 11.9 H RBC 4.16 L Hgb 13.2 Hct 39.0 L MCV 93.8 MCH 31.7 MCHC 33.8 RDW Std Deviation 47.6 H RDW Coeff of Eliecer 14.0 Plt Count 169 MPV 9.3 Immature Gran % (Auto) 0.800 Neut % (Auto) 87.0 H Lymph % (Auto) 6.5 L Evans % (Auto) 5.5 Eos % (Auto) 0.0 Baso % (Auto) 0.2 Absolute Neuts (auto) 10.4 H Absolute Lymphs (auto) 0.78 L Nucleated RBC % 0 Sodium 139 Potassium 3.4 L Chloride 105 Carbon Dioxide 24.0 Anion Gap 10 BUN 29 H Creatinine 1.28 Estim Creat Clear Calc 53.05 Est GFR (MDRD) Af Amer 70 Est GFR (MDRD) Non-Af 58 L BUN/Creatinine Ratio 22.7 H Glucose 151 H Lactic Acid Calcium 9.3 Phosphorus 3.1 Magnesium 2.2 Troponin I B-Natriuretic Peptide TSH 0.25 L COVID-19 ([facility]) MRSA (PCR) Negative Microbiology 04/25/20 17:40 Interface Orders Respiratory Panel (PCR) - Final 04/25/20 20:00 Urine, Clean Catch Legionella Antigen - Final 04/25/20 20:00 Urine, Clean Catch Streptococcus pneumoniae Antigen (M - Final Clinical Impression(s) from Imaging Studies Chest X-Ray 04/25/20 13:38 IMPRESSION: Worsening of infiltrate of the mid and lower right lung. Worsening of small right pleural effusion. Atelectasis or infiltrate developing in the left lung base. Electronically Signed: Dale Mendoza MD at 14:27 EDT , Service support , Chest CT 04/25/20 17:20 IMPRESSION: Significant worsening. Moderate right pleural effusion. Almost complete consolidation of the right lower lobe. Prominent primarily interstitial infiltrate in the posterior segment of the right upper lobe. Cystic, nodular and interstitial changes in the posterior left lower lobe most consistent with inflammatory process. Electronically Signed: Dale Mendoza MD at 19:03 EDT , Service support , Current Medications Acetaminophen (Tylenol) 650 mg PO Q6H PRN PRN PRN Reason: Pain Score 1-10/Temp > 100.7 F Last Admin: 04/26/20 02:04 Dose: 650 mg Documented by: Al Hydroxide/Mg Hydroxide (Mylanta Ii) 30 ml PO Q6H PRN PRN PRN Reason: Gastric Burning Albuterol Sulfate (Ventolin Aerosols) 2.5 mg INHALATION Q2H PRN PRN PRN Reason: SOB/Wheezing Albuterol/Ipratropium (Duoneb) 3 ml INHALATION Q4H.RT [facility] Last Admin: 04/26/20 03:05 Dose: Not Given Documented by: Amlodipine Besylate (Norvasc) 5 mg PO DAILY [facility] Last Admin: 04/25/20 21:22 Dose: 5 mg Documented by: Atorvastatin Calcium (Lipitor) 10 mg PO QHS [facility] Last Admin: 04/25/20 21:03 Dose: 10 mg Documented by: Azelastine HCl (Astelin) 1 spray NASAL DAILY [facility] Azithromycin (Zithromax) 250 mg PO MOWEFR [facility] Dextrose (D50w Syringe) 0 gm IV X1 PRN; Protocol PRN Reason: Hypoglycemia Fluticasone Propionate (Flonase Nasal Manti) 2 spray NASAL QHS [facility] Last Admin: 04/25/20 21:17 Dose: 2 spray Documented by: Glucagon () 1 mg IM .X1 PRN PRN Reason: Hypoglycemia Heparin Sodium (Porcine) (Heparin Na) 5,000 unit SC Q8 [facility] Last Admin: 04/26/20 06:23 Dose: 5,000 unit Documented by: Sodium Chloride () 500 mls @ 999 mls/hr IV .Q31M ONE Last Infusion: 04/25/20 15:37 Dose: Infused Documented by: Lactated Ringer's () 1,000 mls @ 100 mls/hr IV .Q10H [facility] Last Admin: 04/26/20 06:22 Dose: 100 mls/hr Documented by: Cefepime HCl 2 gm/ Sodium (Chloride) 100 mls @ 200 mls/hr IV Q8 [facility] Stop: 05/02/20 22:01 Last Admin: 04/26/20 06:22 Dose: 200 mls/hr Documented by: Vancomycin IV Pharmacy to Dose (1 ea/ Sodium Chloride) 500 mls @ 250 mls/hr IV PRN PRN; Protocol PRN Reason: Rx to Dose Vancomycin HCl (Vancomycin) 1,000 mg in 200 mls @ 200 mls/hr IV Q12H [facility] Last Admin: 04/26/20 04:00 Dose: 200 mls/hr Documented by: Indapamide (Lozol) 1.25 mg PO DAILYCM [facility] Losartan Potassium (Cozaar) 100 mg PO QHS [facility] Last Admin: 04/25/20 21:04 Dose: 100 mg Documented by: Magnesium Oxide (Mag-Ox 400) 400 mg PO DAILY [facility] Melatonin (Melatonin) 3 mg PO QHS PRN PRN PRN Reason: INSOMNIA Mesalamine (Lialda) 1.2 gm PO BID [facility] Last Admin: 04/25/20 21:18 Dose: 1.2 gm Documented by: Methylprednisolone (Solu-Medrol) 40 mg IV Q8 [facility] Last Admin: 04/26/20 06:23 Dose: 40 mg Documented by: Metoprolol Succinate (Toprol Xl (Beta Sukhi)) 100 mg PO DAILY [facility] Montelukast Sodium (Singulair) 10 mg PO DAILY [facility] Pantoprazole Sodium (Protonix) 20 mg PO DAILY [facility] Polyethylene Glycol (Miralax) 17 gm PO DAILY [facility] Sertraline HCl (Zoloft) 100 mg PO DAILY [facility] Sodium Chloride () 10 - 40 ml IV UD PRN PRN Reason: SALINE FLUSH Last Admin: 04/26/20 06:22 Dose: 10 ml Documented by: Tamsulosin HCl (Flomax) 0.4 mg PO DINNER [facility] Assessment/Plan Active and Suspected Problems (Last Reviewed 04/25/20 @ 17:[address] Margarita Higginbotham, DO) Sepsis (Acute) Community acquired pneumonia (Acute) SOB (shortness of breath) (Acute) RECOMMENDATIONS: 1. Check PT/INR. 2. Orders placed for ultrasound-guided thoracentesis. Pleural fluid studies have also been placed. 3. Continue empiric antimicrobials. 4. Continue scheduled bronchodilator therapy and IV steroids. 5. Wean supplemental oxygen as tolerated. IMPRESSIONS: 1. Acute on chronic hypoxemic respiratory failure The patient typically has a baseline oxygen requirement of 2 to 3 L/min. He has had progressive right sided interstitial changes on prior chest imaging, which appears to have progressed. CT scan did reveal evidence of a moderate size right-sided pleural effusion with associated consolidation and atelectasis. Accordingly, I would recommend that an ultrasound-guided thoracentesis be completed. Send pleural fluid studies for LDH, total protein, cell count, cytology and cultures. In the interim, plan to continue empiric antimicrobials. Continue bronchodilator therapy per home regimen along with IV steroids. Wean supplemental oxygen and mobilize patient as tolerated. 2. Hypokalemia Electrolyte repletion as indicated. Recheck levels in the morning. 3. History of obstructive sleep apnea Continue nocturnal Pap therapy as ordered. 4. Heart failure with preserved ejection fraction The patient does not appear overtly volume overloaded at this time. Continue outpatient medication regimen. 5. Obesity/hyperlipidemia/GERD/allergic rhinitis/hypertension/chronic steroid dependency Complicates care, management, recovery and prognosis. Continue home medications as indicated. The patient will need to resume his baseline 10 mg prednisone dose on a daily basis upon discharge from the hospital. This note was generated with [employer] dictation software. It may contain incorrect words, spelling, and punctuation that were not noted in checking the note before signing. Inpatient E&M: 14619 Init Hosp L3
--- NOTE | 2020-04-26 06:46 | US_ITS ---
PROCEDURE: ULTRASOUND GUIDED THORACENTESIS. DATE: April 26, 2020. INDICATION: Male, 75 years old. Right pleural effusion. PHYSICIAN: Dereck Crum M.D. PROCEDURE: The risks, benefits, and alternatives to the procedure were explained to the patient. The specific risks of bleeding, infection, and pneumothorax requiring chest tube insertion were discussed and accepted. Written informed consent was obtained. Ultrasonographic evaluation of the right lower pleural space was carried out. An adequate pocket was identified. The patient was placed in the sitting, upright position. The overlying skin was prepped and draped in sterile fashion. 1% lidocaine was administered subcutaneously for local anesthesia. Under ultrasound guidance, a 5 Mongolian thoracentesis needle/catheter system was advanced into the right posterior lower pleural fluid collection. Approximately 900 mL of bloody fluid was drained. The catheter was removed, and a sterile dressing was applied. A specimen was collected and sent to the laboratory for analysis, as requested by the referring clinician. The patient tolerated the procedure well. A chest x-ray was ordered. US/Thoracentesis W US IMPRESSION: Ultrasound-guided right thoracentesis. Electronically Signed: Dereck Crum, at 14:57 EDT , Service support ,
[2020-04-26 07:10] LABS: Differential Comment SCANNED
[2020-04-26] MEDS: Ipratropium/Albuterol Sulfate 3 ML AMPUL.NEB INHALATION ×5 (07:20→22:29)
--- NOTE | 2020-04-26 07:26 | PCM.PN.HOSP ---
Patient Problems: Active and Suspected Problems (Last Reviewed 04/25/20 @ 17:[address] Margarita Higginbotham, DO) Sepsis (Acute) Community acquired pneumonia (Acute) SOB (shortness of breath) (Acute) Reason for Visit: Acute on chronic hypoxic respiratory failure and severe sepsis Objective: Patient is admitted with progressive worsening of cough, shortness of breath, inability to cough or secretions for 2 weeks. Denies fever or chills at home. Patient had a history of chronic hypoxic respiratory failure on 2 L of oxygen, COPD, bronchiectasis and obstructive sleep apnea. He has home BiPAP machine, at 20/14 cm water pressure settings. PFT from March 2019 shows partially reversible moderately severe large airways obstructive ventilatory defect. Patient also had bronchoscopy in May 2019 which shows bronchomalacia from upper trachea to bronchial bronchial tree along with nodular mucosa. At that time, respiratory culture from BAL right lower lobe does not show growth. He is also on chronic prednisone 10 mg daily and azithromycin 250 mg 3 times a week. Patient also complains of mild right musculoskeletal superficial pain mostly from vest therapy Vitals/I&O's: Vital Signs Temp Pulse Resp BP Pulse Ox 98.3 F 76 19 H 147/51 H 92 04/26/20 04:00 04/26/20 06:00 04/26/20 06:00 04/26/20 06:00 04/26/20 06:00 Oxygen Flow Rate (L/min) 4 Oxygen Delivery Method Nasal Cannula Weight: 239 lb 3.225 oz Body Mass Index (BMI) 32.2 Intake and Output for Last 24 Hours 04/24/20 04/25/20 04/26/20 23:59 23:59 23:59 Intake Total 2313.33 / 2438.33 1050.00 / 1050.00 Output Total 850 / 1075 850 / 850 Balance 1463.33 / 1363.33 200.00 / 200.00 General: Alert, Oriented x3, Cooperative HEENT: Atraumatic, PERRLA, EOMI, Normocephalic Neck: Supple, No JVD, Negative Carotid Bruits Lungs: Diminished - Air entry diffusely diminished in all lung soares, predominantly in the right lung base, Rhonchi, Short of Breath Cardiovascular: Regular rate, Regular Rhythm, Normal S1, Normal S2, No murmurs, Tachycardic Abdomen: Bowel Sounds Present, Soft, Non Tender, Non-Distended Extremities: Capillary Refill Less than 3 Seconds, Edema - Mild pitting edema right ankle Skin: No rashes, No breakdown Musculoskeletal: No Tenderness to Palpation of Joints or Extremities, Arthritic Changes Neurological: Cranial nerves II-XII grossly intact Psych/Mental Status: Normal Affect, Appropriate Microbiology Past 72 Hours 04/25/20 17:40 Interface Orders Respiratory Panel (PCR) - Final 04/25/20 20:00 Urine, Clean Catch Legionella Antigen - Final 04/25/20 20:00 Urine, Clean Catch Streptococcus pneumoniae Antigen (M - Final Laboratory Results 04/25/20 12:52: WBC 9.7, RBC 4.50 L, Hgb 14.2, Hct 42.0, MCV 93.3, MCH 31.6, MCHC 33.8, RDW Std Deviation 47.4 H, RDW Coeff of Eliecer 13.9, Plt Count 180, MPV 9.2, Immature Gran % (Auto) 0.900, Neut % (Auto) 81.4 H, Lymph % (Auto) 6.6 L, [place] % (Auto) 10.3 H, Eos % (Auto) 0.4, Baso % (Auto) 0.4, Absolute Neuts (auto) 7.9 H, Absolute Lymphs (auto) 0.64 L, Nucleated RBC % 0 04/25/20 12:52: Sodium 136, Potassium 3.5, Chloride 104, Carbon Dioxide 26.0, Anion Gap 6, BUN 24 H, Creatinine 1.33 H, Estim Creat Clear Calc 51.05, Est GFR (MDRD) Af Amer 67, Est GFR (MDRD) Non-Af 55 L, BUN/Creatinine Ratio 18.0, Glucose 160 H, Calcium 9.1, Troponin I < 0.015 04/25/20 12:52: Lactic Acid 2.4 H* 04/25/20 12:52: B-Natriuretic Peptide 17.4 04/25/20 12:53: COVID-19 ([facility]) Not Detected 04/25/20 17:45: Lactic Acid 1.0 04/25/20 20:00: MRSA (PCR) Negative 04/26/20 04:50: WBC 11.9 H, RBC 4.16 L, Hgb 13.2, Hct 39.0 L, MCV 93.8, MCH 31.7, MCHC 33.8, RDW Std Deviation 47.6 H, RDW Coeff of Eliecer 14.0, Plt Count 169, MPV 9.3, Immature Gran % (Auto) 0.800, Neut % (Auto) 87.0 H, Lymph % (Auto) 6.5 L, [place] % (Auto) 5.5, Eos % (Auto) 0.0, Baso % (Auto) 0.2, Absolute Neuts (auto) 10.4 H, Absolute Lymphs (auto) 0.78 L, Nucleated RBC % 0, Differential Comment SCANNED 04/26/20 04:50: Sodium 139, Potassium 3.4 L, Chloride 105, Carbon Dioxide 24.0, Anion Gap 10, BUN 29 H, Creatinine 1.28, Estim Creat Clear Calc 53.05, Est GFR (MDRD) Af Amer 70, Est GFR (MDRD) Non-Af 58 L, BUN/Creatinine Ratio 22.7 H, Glucose 151 H, Calcium 9.3, Phosphorus 3.1, Magnesium 2.2, TSH 0.25 L Current Medications Acetaminophen (Tylenol) 650 mg PO Q6H PRN PRN PRN Reason: Pain Score 1-10/Temp > 100.7 F Last Admin: 04/26/20 02:04 Dose: 650 mg Documented by: Al Hydroxide/Mg Hydroxide (Mylanta Ii) 30 ml PO Q6H PRN PRN PRN Reason: Gastric Burning Albuterol Sulfate (Ventolin Aerosols) 2.5 mg INHALATION Q2H PRN PRN PRN Reason: SOB/Wheezing Albuterol/Ipratropium (Duoneb) 3 ml INHALATION Q4H.RT [facility] Last Admin: 04/26/20 07:20 Dose: 3 ml Documented by: Amlodipine Besylate (Norvasc) 5 mg PO DAILY [facility] Last Admin: 04/25/20 21:22 Dose: 5 mg Documented by: Atorvastatin Calcium (Lipitor) 10 mg PO QHS [facility] Last Admin: 04/25/20 21:03 Dose: 10 mg Documented by: Azelastine HCl (Astelin) 1 spray NASAL DAILY [facility] Dextrose (D50w Syringe) 0 gm IV X1 PRN; Protocol PRN Reason: Hypoglycemia Fluticasone Propionate (Flonase Nasal [place]) 2 spray NASAL QHS [facility] Last Admin: 04/25/20 21:17 Dose: 2 spray Documented by: Glucagon () 1 mg IM .X1 PRN PRN Reason: Hypoglycemia Heparin Sodium (Porcine) (Heparin Na) 5,000 unit SC Q8 [facility] Last Admin: 04/26/20 06:23 Dose: 5,000 unit Documented by: Cefepime HCl 2 gm/ Sodium (Chloride) 100 mls @ 200 mls/hr IV Q8 [facility] Stop: 05/02/20 22:01 Last Admin: 04/26/20 06:22 Dose: 200 mls/hr Documented by: Vancomycin IV Pharmacy to Dose (1 ea/ Sodium Chloride) 500 mls @ 250 mls/hr IV PRN PRN; Protocol PRN Reason: Rx to Dose Vancomycin HCl (Vancomycin) 1,000 mg in 200 mls @ 200 mls/hr IV Q12H [facility] Last Infusion: 04/26/20 05:05 Dose: Infused Documented by: [facility] Losartan Potassium (Cozaar) 100 mg PO QHS [facility] Last Admin: 04/25/20 21:04 Dose: 100 mg Documented by: Magnesium Oxide (Mag-Ox 400) 400 mg PO DAILY [facility] Mesalamine (Lialda) 1.2 gm PO BID [facility] Last Admin: 04/25/20 21:18 Dose: 1.2 gm Documented by: Methylprednisolone (Solu-Medrol) 40 mg IV Q8 [facility] Last Admin: 04/26/20 06:23 Dose: 40 mg Documented by: Metoprolol Succinate (Toprol Xl (Beta Sukhi)) 100 mg PO DAILY [facility] Montelukast Sodium (Singulair) 10 mg PO DAILY [facility] Pantoprazole Sodium (Protonix) 20 mg PO DAILY [facility] Polyethylene Glycol (Miralax) 17 gm PO DAILY [facility] Sertraline HCl (Zoloft) 100 mg PO DAILY [facility] Sodium Chloride () 10 - 40 ml IV UD PRN PRN Reason: SALINE FLUSH Last Admin: 04/26/20 06:22 Dose: 10 ml Documented by: Tamsulosin HCl (Flomax) 0.4 mg PO DINNER [facility] STROKE Vital Signs/Narrative: Vital Signs Temp Pulse Resp BP Pulse Ox 04/26/20 06:00 76 19 H 147/51 H 92 04/26/20 05:00 81 16 146/61 H 95 04/26/20 04:00 98.3 F 91 29 H 113/73 89 Medical Necessity - Tobacco Use Smoking Status: Former smoker Assessment/Plan All Active Problems (Last Reviewed 04/25/20 @ 17:[address] Margarita Higginbotham DO) Sepsis (Acute) Community acquired pneumonia (Acute) SOB (shortness of breath) (Acute) This is a 75-year-old male with history of severe COPD, bronchiectasis with bronchomalacia, shortness sleep apnea on home BiPAP, chronic hypoxic respiratory failure on 2 L of oxygen and home BiPAP and vest therapy admitted with worsening of shortness of breath, nonproductive cough and increased functional capacity. 1. Acute on chronic hypoxic respiratory failure secondary to pneumonia, moderate pleural effusion, COPD/bronchiectasis exacerbation: Patient is admitted in ICU on 6 L of oxygen, increased from 2 L of baseline requirement. On IV Solu-Medrol, bronchodilator, incentive spirometry, pep. Contact Center Director is consulted and discussed. Respiratory support on BiPAP. CT chest and chest x-ray shows moderate right pleural effusion, right lower lobe consolidation with underlying atelectasis, interstitial, cystic and nodular progression mainly in right upper lung. 2. Severe sepsis (tachypnea, hypoxia, increased creatinine and lactic acidosis 2.4) most probably from right lower lobe pneumonia: On IV cefepime and vancomycin. Urinary antigens are negative. Respiratory panel negative. Blood cultures x2 are pending. COVID-19 PCR negative and MRSA nasal screen negative. Repeat lactic acid normal. Blood pressure is elevated. Intake and output 3600/3000 mL. Discontinue IV fluid. 3. Mild dehydration with prerenal azotemia: Patient baseline creatinine is around 1.2 to 1.3 and admitted with creatinine 1.33. BUN elevated 24. CO2 24, anion gap 6. Patient was resuscitated. Patient creatinine and urine output does not meet criteria for SWATI. 4. Pulmonary conditions: COPD and bronchiectasis exacerbation, diffuse bronchomalacia, obstructive sleep apnea on BiPAP and right moderate pleural effusion: Patient has BiPAP machine. Patient going to have ultrasound-guided thoracocentesis and pleural fluid analysis 5. Hypothyroidism and history of colitis: TSH low at 0.25. Treat empirically ordered. Most probably, TSH low secondary to euthyroid sick syndrome. 6. Other comorbidities include hypertension, dyslipidemia, GERD and history of colitis: Home medication reconciliation done. 7. DVT prophylaxis: On Lovenox 40 mg subcu daily. Total time of the visit including total time spent in counseling or coordination of care, (more than 50% of the total time, spent in obtaining medical information from nurses and other ancillary care providers), discussion with assessment consultant, review of labs and imaging is 30 minutes Microbiology Past 72 Hours 04/25/20 17:40 Interface Orders Respiratory Panel (PCR) - Final 04/25/20 20:00 Urine, Clean Catch Legionella Antigen - Final 04/25/20 20:00 Urine, Clean Catch Streptococcus pneumoniae Antigen (M - Final Clinical Impression(s) from Imaging Studies Chest X-Ray 04/25/20 13:38 IMPRESSION: Worsening of infiltrate of the mid and lower right lung. Worsening of small right pleural effusion. Atelectasis or infiltrate developing in the left lung base. Chest CT 04/25/20 17:20 IMPRESSION: Significant worsening. Moderate right pleural effusion. Almost complete consolidation of the right lower lobe. Prominent primarily interstitial infiltrate in the posterior segment of the right upper lobe. Cystic, nodular and interstitial changes in the posterior left lower lobe most consistent with inflammatory process. Inpatient E&M: [id number] [facility] Hosp L3
[2020-04-26 08:21] LABS: International Normalized Ratio 1.1; Prothrombin Time (Protime)PT. 13.2 SECONDS (11.7-14.9)
[2020-04-26 08:32] LABS: Rheumatoid Factor < 10.0 IU/mL (<15)
[2020-04-26 08:34] LABS: ALB/GLOB Ratio 0.8 RATIO (0.9-2.4); Globulin 3.6 g/dL (2.2-4.2); LDH 154 U/L (87-241); Protein, Total 6.5 g/dL (6.4-8.2)
[2020-04-26 08:39] LABS: T4 Free Direct 1.11 ng/dL (0.76-1.46)
[2020-04-26] MEDS: Azelastine HCl NASAL.SRY 1 SPRAY NASAL (10:01)
[2020-04-26] MEDS: Pantoprazole Sodium 20 MG Tablet PO (10:02)
[2020-04-26] MEDS: Indapamide 2.5 MG Tablet 1.25 MG PO (10:02)
[2020-04-26] MEDS: Mesalamine 1.2 GM Tablet PO ×2 (10:02→21:06)
[2020-04-26] MEDS: Sertraline 100 MG Tablet PO (10:02)
[2020-04-26] MEDS: Montelukast 10 MG Tablet PO (10:02)
[2020-04-26] MEDS: Metoprolol(XL)Succ 100 MG Tablet PO (10:02)
[2020-04-26] MEDS: Magnesium Oxide 400 MG Tablet PO (10:02)
--- NOTE | 2020-04-26 11:41 | CASEMGMT ---
DM BALLESTEROS assessment: Face to Face with patient for initial transition planning/care coordination assessment. DM BALLESTEROS introduced self and role at [facility], pt voices understanding and consents to assessment at this time. Pt is lying in bed on 5liters nc at this time and pt awaiting thoracentesis at 1330 today. Pt is A/Ox4 at this time and answers all questions appropriately at this time. Care providers, pharmacy, and demographics verified at this time. Presentation: Increased SOB/cough over the last couple weeks-hx COPD-saw pulmonology on 04/23 Admitting dx: Acute resp failure PCP: Hung Hummel Specialists: edwardo Talavera Preferred [facility]acy: [facility] Insurance: MCR A/B, [employer] Prescription Benefit: Yes Living Will/HPOA: Pt states he has LW/HPOA and is aware that they are not on file at [facility] at this time. Pt states that his , Paris Mendoza, is HPOA. LNOK: Paris Mendoza, /HPOA; Polly Mendoza, daughter Living Arrangements: Pt states lives with in 1 story home and states no concerns at home at this time. Pt states is independent with ADL's. Transportation: Pt states drives self and states no transportation concerns at this time. DME/HHC: Pt states has the following DME: walker, grab bars, shower chair, NIV, and 3 liters home oxygen during sleep and with ambulation thru [employer]. Pt states no need for any further DME at this time. Pt states no hx of HHC or SNF at this time. Pt states no concerns with going home at time of discharge. Pt states is retired. Pt states quit smoking in 1993 and does not drink ETOH. Pt states no further concerns/needs at this time. CM to follow for home oxygen need and any further discharge planning/needs. Advised pt to ask for CM if any further discharge planning/needs arise, voices understanding. Pt Goal: Home Plan: [place] DM BALLE[place]
[2020-04-26] MEDS: Ketorolac 15 MG/ML Vial IV (13:25)
[2020-04-26] MEDS: BENZOCAINE/MENTHOL 1 LOZENGE MUCOUS MEM (13:27)
--- NOTE | 2020-04-26 14:00 | RAD_ITS ---
STUDY: X-RAY CHEST REASON FOR EXAM: Male, 75 years old. POST THORA TECHNIQUE: AP inspiration and expiration views. COMPARISON: Comparison is made with prior examination dated April 25, 2020. FINDINGS: The patient is status post right thoracentesis. There is no evidence of pneumothorax. Mild residual pleural parenchymal changes are seen at the right base. RAD/Chest Insp/Exp 2 View IMPRESSION: Status post right thoracentesis. No evidence of pneumothorax. Electronically Signed: Dereck Crum, at 14:41 EDT , Service support ,
[2020-04-26 14:52] LABS: Cytology, Body Fluid / CSF SEE PATHOLOGY REPORT
[2020-04-26 15:18] LABS: Body Fluid Mononuclear WBC # 0.407 10^3/uL; Body Fluid Polynuclear WBC # 1.051 10^3/uL; Body Fluid Total Cells Counted 1.521 10^3/ul; White Blood Count/Body Fluid 1.458 10^3/uL
[2020-04-26 16:06] LABS: Glucose, Body Fluid 86 mg/dL (40-70); LDH,Body Fluid 998 Units/l (Not Establ.); Protein, Body Fluid 4.8 g/dL (Not Establ.)
[2020-04-26 16:11] LABS: Appearance/Body Fluid TURBID; Auto B Fluid Analyzer BKGD Ct COUNTS W/IN LIMITS (W/IN LIMITS); Color/Body Fluid RED; Source- Body Fluid THORACENTESIS
[2020-04-26 16:33] LABS: Lymphocytes 1 %; Monocytes 7 %; Neutrophil (Segs) 70 %
[2020-04-26 16:34] LABS: Mesothelial Cells 6 %
[2020-04-26 16:35] LABS: Body Fluid QC Type(s) BF2Q
[2020-04-26 16:36] LABS: Other Cell Type/BF 16 %
[2020-04-26] MEDS: Atorvastatin Calcium 10 MG Tablet PO (21:06)
[2020-04-26] MEDS: Tamsulosin HCl 0.4 MG Capsule PO (21:06)
[2020-04-26] MEDS: Losartan Potassium 100 MG Tablet PO (21:06)
[2020-04-26] MEDS: Fluticasone 0.05% 1 SPRAY NASAL.SRY 2 SPRAY NASAL (21:07)
[2020-04-27] VITALS (36 sets, daily range): BP systolic 100–181; BP diastolic 45–94; PULSE 74–102; RESP 15–27; TEMP 36.7–37.7; O2SAT 88–96
[2020-04-27] MEDS: Ipratropium/Albuterol Sulfate 3 ML AMPUL.NEB INHALATION ×6 (03:35→22:50)
--- NOTE | 2020-04-27 04:29 | PCM.RX.CS ---
Consult Pharmacy has been consulted to manage selected antiobiotic: Vancomycin Type of Consult: Follow-up Suspected Infection: Sepsis Labs: Sodium 139 mmol/L (136-145) 04/26/20 04:50 Potassium 3.4 mmol/L (3.5-5.1) L 04/26/20 04:50 Chloride 105 mmol/L (98-107) 04/26/20 04:50 Carbon Dioxide 24.0 mmol/L (21.0-32.0) 04/26/20 04:50 Anion Gap 10 (5-15) 04/26/20 04:50 BUN 29 mg/dL (7-18) H 04/26/20 04:50 Creatinine 1.28 mg/dL (0.70-1.30) 04/26/20 04:50 Est GFR (MDRD) Af Amer 70 mL/min (>60) 04/26/20 04:50 Est GFR (MDRD) Non-Af 58 mL/min (>60) L 04/26/20 04:50 BUN/Creatinine Ratio 22.7 RATIO (10-20) H 04/26/20 04:50 Glucose 151 mg/dL (74-106) H 04/26/20 04:50 Vancomycin Trough 14.0 ug/mL (5.0-15.0) 04/27/20 03:15 Microbiology: Microbiology 04/26/20 14:50 Fluid - Thoracentesis Fluid Gram Stain - Preliminary 04/26/20 08:15 Sputum, Expectorated/Coughed Gram Stain - Final 04/25/20 17:40 Interface Orders Respiratory Panel (PCR) - Final 04/25/20 20:00 Urine, Clean Catch Legionella Antigen - Final 04/25/20 20:00 Urine, Clean Catch Streptococcus pneumoniae Antigen (M - Final Goal Trough: 15-20 mcg/mL Pharmacy Plan for Drug Dosing: Pharmacy Service will continue to monitor and adjust dosing as required. TROUGH 14 NO CHANGES Follow-Up Labs: Trough Vancomycin Labs to be done on [date and time ordered]: 05/01 @ 9937
[2020-04-27] MEDS: Vancomycin IV 1,000 MG/200 ML BAG 200 MG IV (05:10)
--- NOTE | 2020-04-27 06:07 | PN_ITS ---
Subjective: The patient was seen and examined at the bedside this morning. Events from the last 24 hours have been reviewed. The patient is currently afebrile, hemodynamically stable and maintaining appropriate oxygen saturations on 4 to 5 L/min via nasal cannula. The patient underwent successful right-sided ultrasound-guided thoracentesis yesterday with 900 mL's of bloody fluid drained. Autoimmune work-up is pending. Pleural fluid was exudative in nature and neutrophil predominant. The patient does report some improvement in his overall breathing quality following the thoracentesis. Objective: The patient's most recent lab work, culture data and imaging studies have all been personally reviewed. Surface echocardiogram dated June 2019 revealed stage I diastolic dysfunction with an ejection fraction of 65%. Strep and urine Legionella antigens were negative. Respiratory viral panel was negative. Sputum and pleural fluid cultures are pending. General: Alert, Cooperative, No apparent distress HEENT: Atraumatic, PERRLA, Normocephalic Oral: No Gingival or Mucosal Lesions/ Ulcerations Neck: Supple, No Nodes, Trachea Midline Lungs: Diminished Cardiovascular: Regular rate, Regular Rhythm Abdomen: Bowel Sounds Present, Soft, Non Tender, Obese Extremities: No clubbing, No cyanosis, No edema Skin: No breakdown Musculoskeletal: No Muscle Wasting Lymphatic: No Cervical, Supraclavicular, or Inguinal Adenopathy Neurological: Cranial nerves II-XII grossly intact, Neuro grossly intact Psych/Mental Status: Normal Affect, Appropriate Vital Signs Temp Pulse Resp BP Pulse Ox 98.4 F 82 20 H 146/68 H 92 04/27/20 04:00 04/27/20 05:00 04/27/20 05:00 04/27/20 05:00 04/27/20 05:00 Oxygen Flow Rate (L/min) [2] 5 Oxygen Flow Rate (L/min) [1 ( 5 Initial Baseline)] Oxygen Flow Rate (L/min) 5 Oxygen Delivery Method [2] Nasal Cannula Oxygen Delivery Method [1 ( Nasal Cannula Initial Baseline)] Oxygen Delivery Method CPAP Weight: 239 lb 3.225 oz Body Mass Index (BMI) 32.2 Intake and Output for Last 24 Hours 04/25/20 04/26/20 04/27/20 23:59 23:59 23:59 Intake Total 2313.33 / 2438.33 2111.67 / 2231.67 120 / 120 Output Total 850 / 1075 2900 / 3180 780 / 780 Balance 1463.33 / 1363.33 -788.33 / -948.33 -660 / -660 Labs (Last 48 Hours) 04/25/20 04/25/20 04/25/20 12:52 12:52 12:52 WBC 9.7 RBC 4.50 L Hgb 14.2 Hct 42.0 MCV 93.3 MCH 31.6 MCHC 33.8 RDW Std Deviation 47.4 H RDW Coeff of Eliecer 13.9 Plt Count 180 MPV 9.2 Immature Gran % (Auto) 0.900 Neut % (Auto) 81.4 H Lymph % (Auto) 6.6 L Dodge % (Auto) 10.3 H Eos % (Auto) 0.4 Baso % (Auto) 0.4 Absolute Neuts (auto) 7.9 H Absolute Lymphs (auto) 0.64 L Nucleated RBC % 0 Differential Comment PT INR Sodium 136 Potassium 3.5 Chloride 104 Carbon Dioxide 26.0 Anion Gap 6 BUN 24 H Creatinine 1.33 H Estim Creat Clear Calc 51.05 Est GFR (MDRD) Af Amer 67 Est GFR (MDRD) Non-Af 55 L BUN/Creatinine Ratio 18.0 Glucose 160 H Lactic Acid 2.4 H* Calcium 9.1 Phosphorus Magnesium Lactate Dehydrogenase Troponin I < 0.015 B-Natriuretic Peptide Total Protein Globulin Albumin/Globulin Ratio TSH Free T4 Fluid Source Fluid Color Fluid Appearance Fluid WBC Fluid RBC Fluid Tot Cell Count Fld Polynuclear WBCs # Fld Polynuclear WBCs % Fluid Mononuclear WBCs Fld Mononuclear WBCs % Fluid Neutrophils Fluid Lymphocytes Fluid Monocytes Fld Mesothelial Cells Fluid Other Cells Fl Pathologist Comment Fluid Glucose Fluid Total Protein Fluid LDH Fluid Comment 2 Vancomycin Trough Rheumatoid Factor Cycl Citrul Peptide IgG [place] Screen RASHAWN-1 Antibody SS-A/Ro IgG Antibody SS-B/La IgG Antibody Sm (Hummel) Antibody [employer] Antibody Scl-70 Scleroderma Ab Double Strand DNA Ab Centromere B Antibody COVID-19 (RANDALL) MRSA (PCR) Miscellaneous Cytology 04/25/20 04/25/20 04/25/20 12:52 12:53 17:45 WBC RBC Hgb Hct MCV MCH MCHC RDW Std Deviation RDW Coeff of Eliecer Plt Count MPV Immature Gran % (Auto) Neut % (Auto) Lymph % (Auto) Dodge % (Auto) Eos % (Auto) Baso % (Auto) Absolute Neuts (auto) Absolute Lymphs (auto) Nucleated RBC % Differential Comment PT INR Sodium Potassium Chloride Carbon Dioxide Anion Gap BUN Creatinine Estim Creat Clear Calc Est GFR (MDRD) Af Amer Est GFR (MDRD) Non-Af BUN/Creatinine Ratio Glucose Lactic Acid 1.0 Calcium Phosphorus Magnesium Lactate Dehydrogenase Troponin I B-Natriuretic Peptide 17.4 Total Protein Globulin Albumin/Globulin Ratio TSH Free T4 Fluid Source Fluid Color Fluid Appearance Fluid WBC Fluid RBC Fluid Tot Cell Count Fld Polynuclear WBCs # Fld Polynuclear WBCs % Fluid Mononuclear WBCs Fld Mononuclear WBCs % Fluid Neutrophils Fluid Lymphocytes Fluid Monocytes Fld Mesothelial Cells Fluid Other Cells Fl Pathologist Comment Fluid Glucose Fluid Total Protein Fluid LDH Fluid Comment 2 Vancomycin Trough Rheumatoid Factor Cycl Citrul Peptide IgG [place] Screen RASHAWN-1 Antibody SS-A/Ro IgG Antibody SS-B/La IgG Antibody Sm (Hummel) Antibody [employer] Antibody Scl-70 Scleroderma Ab Double Strand DNA Ab Centromere B Antibody COVID-19 (RANDALL) Not Detected MRSA (PCR) Miscellaneous Cytology 04/25/20 04/26/20 04/26/20 20:00 04:50 04:50 WBC 11.9 H RBC 4.16 L Hgb 13.2 Hct 39.0 L MCV 93.8 MCH 31.7 MCHC 33.8 RDW Std Deviation 47.6 H RDW Coeff of Eliecer 14.0 Plt Count 169 MPV 9.3 Immature Gran % (Auto) 0.800 Neut % (Auto) 87.0 H Lymph % (Auto) 6.5 L Dodge % (Auto) 5.5 Eos % (Auto) 0.0 Baso % (Auto) 0.2 Absolute Neuts (auto) 10.4 H Absolute Lymphs (auto) 0.78 L Nucleated RBC % 0 Differential Comment SCANNED PT INR Sodium 139 Potassium 3.4 L Chloride 105 Carbon Dioxide 24.0 Anion Gap 10 BUN 29 H Creatinine 1.28 Estim Creat Clear Calc 53.05 Est GFR (MDRD) Af Amer 70 Est GFR (MDRD) Non-Af 58 L BUN/Creatinine Ratio 22.7 H Glucose 151 H Lactic Acid Calcium 9.3 Phosphorus 3.1 Magnesium 2.2 Lactate Dehydrogenase Troponin I B-Natriuretic Peptide Total Protein Globulin Albumin/Globulin Ratio TSH 0.25 L Free T4 Fluid Source Fluid Color Fluid Appearance Fluid WBC Fluid RBC Fluid Tot Cell Count Fld Polynuclear WBCs # Fld Polynuclear WBCs % Fluid Mononuclear WBCs Fld Mononuclear WBCs % Fluid Neutrophils Fluid Lymphocytes Fluid Monocytes Fld Mesothelial Cells Fluid Other Cells Fl Pathologist Comment Fluid Glucose Fluid Total Protein Fluid LDH Fluid Comment 2 Vancomycin Trough Rheumatoid Factor Cycl Citrul Peptide IgG [place] Screen RASHAWN-1 Antibody SS-A/Ro IgG Antibody SS-B/La IgG Antibody Sm (Hummel) Antibody [employer] Antibody Scl-70 Scleroderma Ab Double Strand DNA Ab Centromere B Antibody COVID-19 (RANDALL) MRSA (PCR) Negative Miscellaneous Cytology 04/26/20 04/26/20 04/26/20 04:50 04:50 04:50 WBC RBC Hgb Hct MCV MCH MCHC RDW Std Deviation RDW Coeff of Eliecer Plt Count MPV Immature Gran % (Auto) Neut % (Auto) Lymph % (Auto) Dodge % (Auto) Eos % (Auto) Baso % (Auto) Absolute Neuts (auto) Absolute Lymphs (auto) Nucleated RBC % Differential Comment PT INR Sodium Potassium Chloride Carbon Dioxide Anion Gap BUN Creatinine Estim Creat Clear Calc Est GFR (MDRD) Af Amer Est GFR (MDRD) Non-Af BUN/Creatinine Ratio Glucose Lactic Acid Calcium Phosphorus Magnesium Lactate Dehydrogenase 154 Troponin I B-Natriuretic Peptide Total Protein 6.5 Globulin 3.6 Albumin/Globulin Ratio 0.8 L TSH Free T4 1.11 Fluid Source Fluid Color Fluid Appearance Fluid WBC Fluid RBC Fluid Tot Cell Count Fld Polynuclear WBCs # Fld Polynuclear WBCs % Fluid Mononuclear WBCs Fld Mononuclear WBCs % Fluid Neutrophils Fluid Lymphocytes Fluid Monocytes Fld Mesothelial Cells Fluid Other Cells Fl Pathologist Comment Fluid Glucose Fluid Total Protein Fluid LDH Fluid Comment 2 Vancomycin Trough Rheumatoid Factor < 10.0 Cycl Citrul Peptide IgG [place] Screen RASHAWN-1 Antibody SS-A/Ro IgG Antibody SS-B/La IgG Antibody Sm (Hummel) Antibody [employer] Antibody Scl-70 Scleroderma Ab Double Strand DNA Ab Centromere B Antibody COVID-19 (RANDALL) MRSA (PCR) Miscellaneous Cytology 04/26/20 04/26/20 04/26/20 07:55 09:55 09:55 WBC RBC Hgb Hct MCV MCH MCHC RDW Std Deviation RDW Coeff of Eliecer Plt Count MPV Immature Gran % (Auto) Neut % (Auto) Lymph % (Auto) Dodge % (Auto) Eos % (Auto) Baso % (Auto) Absolute Neuts (auto) Absolute Lymphs (auto) Nucleated RBC % Differential Comment PT 13.2 INR 1.1 Sodium Potassium Chloride Carbon Dioxide Anion Gap BUN Creatinine Estim Creat Clear Calc Est GFR (MDRD) Af Amer Est GFR (MDRD) Non-Af BUN/Creatinine Ratio Glucose Lactic Acid Calcium Phosphorus Magnesium Lactate Dehydrogenase Troponin I B-Natriuretic Peptide Total Protein Globulin Albumin/Globulin Ratio TSH Free T4 Fluid Source Fluid Color Fluid Appearance Fluid WBC Fluid RBC Fluid Tot Cell Count Fld Polynuclear WBCs # Fld Polynuclear WBCs % Fluid Mononuclear WBCs Fld Mononuclear WBCs % Fluid Neutrophils Fluid Lymphocytes Fluid Monocytes Fld Mesothelial Cells Fluid Other Cells Fl Pathologist Comment Fluid Glucose Fluid Total Protein Fluid LDH Fluid Comment 2 Vancomycin Trough Rheumatoid Factor Cycl Citrul Peptide IgG Pending LIBERTY Screen Pending RASHAWN-1 Antibody Pending SS-A/Ro IgG Antibody Pending SS-B/La IgG Antibody Pending Sm (Hummel) Antibody Pending [employer] Antibody Pending Scl-70 Scleroderma Ab Pending Double Strand DNA Ab Pending Centromere B Antibody Pending COVID-19 (RANDALL) MRSA (PCR) Miscellaneous Cytology 04/26/20 04/26/20 04/26/20 14:50 14:50 14:50 WBC RBC Hgb Hct MCV MCH MCHC RDW Std Deviation RDW Coeff of Eliecer Plt Count MPV Immature Gran % (Auto) Neut % (Auto) Lymph % (Auto) Dodge % (Auto) Eos % (Auto) Baso % (Auto) Absolute Neuts (auto) Absolute Lymphs (auto) Nucleated RBC % Differential Comment PT INR Sodium Potassium Chloride Carbon Dioxide Anion Gap BUN Creatinine Estim Creat Clear Calc Est GFR (MDRD) Af Amer Est GFR (MDRD) Non-Af BUN/Creatinine Ratio Glucose Lactic Acid Calcium Phosphorus Magnesium Lactate Dehydrogenase Troponin I B-Natriuretic Peptide Total Protein Globulin Albumin/Globulin Ratio TSH Free T4 Fluid Source THORACENTESIS Fluid Color RED Fluid Appearance TURBID Fluid WBC 1.458 Fluid RBC 0.600 Fluid Tot Cell Count 1.521 Fld Polynuclear WBCs # 1.051 Fld Polynuclear WBCs % 72.0 Fluid Mononuclear WBCs 0.407 Fld Mononuclear WBCs % 28.0 Fluid Neutrophils 70 Fluid Lymphocytes 1 Fluid Monocytes 7 Fld Mesothelial Cells 6 Fluid Other Cells 16 Fl Pathologist Comment May follow Fluid Glucose 86 H Fluid Total Protein 4.8 Fluid LDH 998 Fluid Comment 2 SEE COMMENT Vancomycin Trough Rheumatoid Factor Cycl Citrul Peptide IgG [place] Screen RASHAWN-1 Antibody SS-A/Ro IgG Antibody SS-B/La IgG Antibody Sm (Hummel) Antibody [employer] Antibody Scl-70 Scleroderma Ab Double Strand DNA Ab Centromere B Antibody COVID-19 (RANDALL) MRSA (PCR) Miscellaneous Cytology Pending 04/27/20 03:15 WBC RBC Hgb Hct MCV MCH MCHC RDW Std Deviation RDW Coeff of Eliecer Plt Count MPV Immature Gran % (Auto) Neut % (Auto) Lymph % (Auto) Dodge % (Auto) Eos % (Auto) Baso % (Auto) Absolute Neuts (auto) Absolute Lymphs (auto) Nucleated RBC % Differential Comment PT INR Sodium Potassium Chloride Carbon Dioxide Anion Gap BUN Creatinine Estim Creat Clear Calc Est GFR (MDRD) Af Amer Est GFR (MDRD) Non-Af BUN/Creatinine Ratio Glucose Lactic Acid Calcium Phosphorus Magnesium Lactate Dehydrogenase Troponin I B-Natriuretic Peptide Total Protein Globulin Albumin/Globulin Ratio TSH Free T4 Fluid Source Fluid Color Fluid Appearance Fluid WBC Fluid RBC Fluid Tot Cell Count Fld Polynuclear WBCs # Fld Polynuclear WBCs % Fluid Mononuclear WBCs Fld Mononuclear WBCs % Fluid Neutrophils Fluid Lymphocytes Fluid Monocytes Fld Mesothelial Cells Fluid Other Cells Fl Pathologist Comment Fluid Glucose Fluid Total Protein Fluid LDH Fluid Comment 2 Vancomycin Trough 14.0 Rheumatoid Factor Cycl Citrul Peptide IgG [place] Screen RASHAWN-1 Antibody SS-A/Ro IgG Antibody SS-B/La IgG Antibody Sm (Hummel) Antibody [employer] Antibody Scl-70 Scleroderma Ab Double Strand DNA Ab Centromere B Antibody COVID-19 (RANDALL) MRSA (PCR) Miscellaneous Cytology Microbiology 04/26/20 14:50 Fluid - Thoracentesis Fluid Gram Stain - Preliminary 04/26/20 08:15 Sputum, Expectorated/Coughed Gram Stain - Final 04/25/20 17:40 Interface Orders Respiratory Panel (PCR) - Final 04/25/20 20:00 Urine, Clean Catch Legionella Antigen - Final 04/25/20 20:00 Urine, Clean Catch Streptococcus pneumoniae Antigen (M - Final Clinical Impression(s) from Imaging Studies Chest X-Ray 04/25/20 13:38 IMPRESSION: Worsening of infiltrate of the mid and lower right lung. Worsening of small right pleural effusion. Atelectasis or infiltrate developing in the left lung base. Electronically Signed: Dale Mendoza MD at 14:27 EDT , Service support , Chest CT 04/25/20 17:20 IMPRESSION: Significant worsening. Moderate right pleural effusion. Almost complete consolidation of the right lower lobe. Prominent primarily interstitial infiltrate in the posterior segment of the right upper lobe. Cystic, nodular and interstitial changes in the posterior left lower lobe most consistent with inflammatory process. Electronically Signed: Dale Mendoza MD at 19:03 EDT , Service support , Thoracentesis Ultrasound 04/26/20 06:46 IMPRESSION: Ultrasound-guided right thoracentesis. Electronically Signed: Dereck Crum, at 14:57 EDT , Service support , Chest X-Ray 04/26/20 14:00 IMPRESSION: Status post right thoracentesis. No evidence of pneumothorax. Electronically Signed: Dereck Crum, at 14:41 EDT , Service support , Medical Necessity - Tobacco Use Smoking Status: Former smoker Assessment/Plan All Active Problems (Last Reviewed 04/25/20 @ 17:[address] Margarita Higginbotham, DO) Sepsis (Acute) Community acquired pneumonia (Acute) SOB (shortness of breath) (Acute) RECOMMENDATIONS: 1. Continue empiric antimicrobial therapy, while awaiting finalized infectious work-up. However, vancomycin can be discontinued. 2. Continue scheduled bronchodilators and IV steroids. 3. Wean oxygen to maintain saturations at or above 90%. 4. Given improvement in pleural effusion, obtain high-resolution chest CT. 5. Autoimmune work-up is pending. IMPRESSIONS: 1. Acute on chronic hypoxemic respiratory failure The patient typically has a baseline oxygen requirement of 2 to 3 L/min. He has had progressive right sided interstitial changes on prior chest imaging, which appears to have progressed. CT scan did reveal evidence of a moderate size right-sided pleural effusion with associated consolidation and atelectasis. The patient subsequently underwent an ultrasound-guided thoracentesis on April 26 with just under 1 L of fluid removed. Per traditional Light's criteria, if at least one of the following three is fulfilled, the fluid would be considered an exudate: 1. Pleural fluid protein/serum protein ratio greater than 0.5 2. Pleural fluid LDH/serum LDH ratio greater than 0.6 3. Pleural fluid LDH greater than two thirds the upper limits of the laboratories normal serum LDH Based upon my review of the patient's pleural fluid analysis, along with serum LDH and total protein levels, the pleural fluid would be considered exudative in nature. At this time, given improvement in the patient's effusion, I would recommend that a high-resolution chest CT be obtained to evaluate for progression in the right sided interstitial changes that were being followed on an outpatient basis in the pulmonary medicine clinic. Empiric antimicrobials will be continued, pending infectious work-up. 2. History of obstructive sleep apnea Continue nocturnal Pap therapy as ordered. 3. Heart failure with preserved ejection fraction The patient does not appear overtly volume overloaded at this time. Continue outpatient medication regimen. 4. Obesity/hyperlipidemia/GERD/allergic rhinitis/hypertension/chronic steroid dependency Complicates care, management, recovery and prognosis. Continue home medications as indicated. The patient will need to resume his baseline 10 mg prednisone dose on a daily basis upon discharge from the hospital. This note was generated with MD-ITation software. It may contain incorrect words, spelling, and punctuation that were not noted in checking the note before signing. Inpatient E&M: 32394 [facility] Hosp L3
[2020-04-27 06:29] LABS: Absolute Lymphocyte Count 0.48 X10^3/uL (0.83-4.51); Absolute Neutrophil Count 11.3 X10^3/uL (2.0-7.7); Anion Gap 7 (5-15); BUN 34 mg/dL (7-18); BUN/Creat Ratio 26.4 RATIO (10-20); Basophil# 0.02 X10^3/uL; Basophil% 0.2 % (0-1); Calcium,Total 9.6 mg/dL (8.5-10.1); Chloride 105 mmol/L (98-107); Creatinine, Serum 1.29 mg/dL (0.70-1.30); Differential Indicated SCAN CRITERIA MET; EST Glomerular Filtration Rate 57 mL/min (>60); Est Glom Filt Rate - Afr Amer 69 mL/min (>60); Estimated Creatinine Clearance 52.64 ml/min; Glucose 156 mg/dL (74-106); Hematocrit 39.3 % (40-54); Lymphocyte # 0.48 X10^3/ul (4.0); Lymphocyte % 3.8 % (19-41); Magnesium 2.4 mg/dL (1.6-2.6); Mean Corp Hgb Conc 33.1 g/dL (32-36); Mean Corpuscular Hgb 31.8 pg (27.0-32.0); Mean Corpuscular Volume 96.1 fL (80-94); Mean Platelet Vol. 9.9 fl (6.2-12.0); Monocyte# 0.83 X10^3/uL; Monocyte% 6.5 % (0-10); NRBC Flagged by Analyzer 0 % (0-5); Neutrophil # 11.32 X10^3/uL (2.7-7.7); Neutrophil % 88.7 % (47-70); POSITIVE DIFFERENTIAL YES; Platelet Count 180 K/mm3 (150-450); Potassium 3.6 mmol/L (3.5-5.1); RBC Distribution Width CV 13.7 % (11.6-14.6); RBC Distribution Width SD 48.8 fl (35.1-43.9); Red Blood Count 4.09 M/mm3 (4.6-6.2); Sodium Level 138 mmol/L (136-145); White Blood Count 12.8 K/mm3 (4.4-11.0)
--- NOTE | 2020-04-27 07:14 | CT_ITS ---
STUDY: CT CHEST WITHOUT CONTRAST REASON FOR EXAM: Male, 75 years old with shortness of breath. Patient has asthma and/or COPD. Recent thoracentesis on April 26, 2020. RADIATION DOSAGE (If Supplied By Facility): CTDIvol = ( 23.58 ) mGy, DLP = ( 945.25 ) mGycm TECHNIQUE: Transaxial imaging was performed without the administration of intravenous contrast material. Multiplanar coronal and sagittal images were reformatted. Individualized dose optimization techniques were used for this CT. COMPARISON: CT of the chest dated April 25, 2020. FINDINGS: CT of the chest dated April 25, 2020. The lungs are hyperexpanded. There is right lower lobe airspace consolidation with air bronchograms. There is a right-sided pleural effusion. There are peripheral interstitial opacities within the left lower lobe and additional may represent some patchy airspace disease. There is lingular airspace disease. There is no evidence for pneumothorax. Normal heart and pericardium. There are calcifications of the coronary arteries. There are multiple small lymph nodes within the mediastinum, which are normal in size and morphology. Normal hilar regions. There is prominence of the pulmonary hilar arteries without peripheral pulmonary vascular congestion, suggesting pulmonary hypertension. There is mild atherosclerotic calcification of the aortic arch with tortuosity and elongation of the aortic arch and descending thoracic aorta. There is an increased kyphosis of the thoracic spine. The bones appear osteopenic. There are multilevel degenerative changes of the thoracic spine. There is a hepatic cyst in the right lobe of the liver measuring approximately 2.4 cm. This is unchanged since the previous study. There are smaller cysts in the right lobe of the liver as well. There is a mass located posterior to the left kidney that may represent a cyst. This mass measures approximately at least 5.9 cm in cephalocaudal dimension by 6.5 cm in transverse dimension by 3.8 cm in AP dimension. This is incompletely imaged on the current study and appears unchanged since the previous CT. This is also unchanged since previous CT dated May 15, 2019. This has attenuation of -11.3 Hounsfield units suggesting enhancement may represent a cyst. There are multiple colonic diverticula. CT/Chest without Contrast IMPRESSION: 1. Essentially unchanged appearance to right lower lobe airspace consolidation possibly representing a pneumonia and pleural effusion. 2. Mild patchy left basilar airspace disease appears unchanged. 3. Hepatic cyst and left-sided pararenal cyst. Electronically Signed: Fernanda London MD at 9:46 EDT , Service support ,
[2020-04-27 07:25] LABS: Atypical Lymphocyte RARE %; Differential Comment SCANNED
[2020-04-27] MEDS: Magnesium Oxide 400 MG Tablet PO (09:22)
[2020-04-27] MEDS: Indapamide 2.5 MG Tablet 1.25 MG PO (09:23)
[2020-04-27] MEDS: Sertraline 100 MG Tablet PO (09:24)
[2020-04-27] MEDS: Pantoprazole Sodium 20 MG Tablet PO (09:24)
[2020-04-27] MEDS: Mesalamine 1.2 GM Tablet PO ×2 (09:24→21:08)
[2020-04-27] MEDS: Montelukast 10 MG Tablet PO (09:24)
[2020-04-27] MEDS: amLODIPine 5 MG Tablet PO (09:24)
[2020-04-27] MEDS: Metoprolol(XL)Succ 100 MG Tablet PO (09:24)
[2020-04-27] MEDS: Azelastine HCl NASAL.SRY 1 SPRAY NASAL (09:27)
--- NOTE | 2020-04-27 11:26 | PCM.PN.HOSP ---
Patient Problems: Active and Suspected Problems (Last Reviewed 04/25/20 @ 17:[address] Margarita Higginbotham DO) Sepsis (Acute) Community acquired pneumonia (Acute) SOB (shortness of breath) (Acute) Subjective: Feeling better after the thoracentesis. Breathing little bit better. Vitals/I&O's: Vital Signs Temp Pulse Resp BP Pulse Ox 98.8 F 93 15 151/65 H 92 04/27/20 07:44 04/27/20 10:49 04/27/20 10:49 04/27/20 09:24 04/27/20 08:00 Oxygen Flow Rate (L/min) [2] 5 Oxygen Flow Rate (L/min) [1 ( 5 Initial Baseline)] Oxygen Flow Rate (L/min) 5 Oxygen Delivery Method [2] Nasal Cannula Oxygen Delivery Method [1 ( Nasal Cannula Initial Baseline)] Oxygen Delivery Method Nasal Cannula Weight: 239 lb 13.807 oz Body Mass Index (BMI) 32.2 Intake and Output for Last 24 Hours 04/25/20 04/26/20 04/27/20 23:59 23:59 23:59 Intake Total 2313.33 / 2438.33 2111.67 / 2231.67 420 / 420 Output Total 850 / 1075 2900 / 3180 1205 / 1205 Balance 1463.33 / 1363.33 -788.33 / -948.33 -785 / -785 General: Alert, Oriented x3, Cooperative, No apparent distress HEENT: Atraumatic, PERRLA, EOMI, Normocephalic Oral: Moist Mucosa Neck: Supple, No JVD Lungs: Normal air movement, No rhonchi, No wheeze, No rales, Diminished - Right base greater than left Cardiovascular: Regular rate, Regular Rhythm, Normal S1, Normal S2, No murmurs Abdomen: Soft, Non Tender, Non-Distended, No Hepato-splenomegaly Extremities: No edema, Capillary Refill Less than 3 Seconds Skin: No rashes, No breakdown Neurological: Neuro grossly intact, Sensory exam intact to light touch and pain Psych/Mental Status: Normal Affect, Appropriate Microbiology Past 72 Hours 04/25/20 12:55 Blood Culture (Wb) #2 - Right Forearm Blood Culture - Preliminary No growth in 48 hours. 04/25/20 12:52 Blood Culture (Wb) - Left Forearm Blood Culture - Preliminary No growth in 48 hours. 04/26/20 14:50 Fluid - Thoracentesis Fluid Gram Stain - Preliminary 04/26/20 08:15 Sputum, Expectorated/Coughed Gram Stain - Final 04/25/20 17:40 Interface Orders Respiratory Panel (PCR) - Final 04/25/20 20:00 Urine, Clean Catch Legionella Antigen - Final 04/25/20 20:00 Urine, Clean Catch Streptococcus pneumoniae Antigen (M - Final Laboratory Results 04/26/20 14:50: Fluid Glucose 86 H, Fluid Total Protein 4.8, Fluid LDH 998 04/26/20 14:50: Fluid Source THORACENTESIS, Fluid Color RED, Fluid Appearance TURBID, Fluid WBC 1.458, Fluid RBC 0.600, Fluid Tot Cell Count 1.521, Fld Polynuclear WBCs # 1.051, Fld Polynuclear WBCs % 72.0, Fluid Mononuclear WBCs 0.407, Fld Mononuclear WBCs % 28.0, Fluid Neutrophils 70, Fluid Lymphocytes 1, Fluid Monocytes 7, Fld Mesothelial Cells 6, Fluid Other Cells 16, Fl Pathologist Comment May follow, Fluid Comment 2 SEE COMMENT 04/26/20 14:50: Miscellaneous Cytology Pending 04/27/20 03:15: Vancomycin Trough 14.0 04/27/20 03:15: WBC 12.8 H, RBC 4.09 L, Hgb 13.0, Hct 39.3 L, MCV 96.1 H, MCH 31.8, MCHC 33.1, RDW Std Deviation 48.8 H, RDW Coeff of Eliecer 13.7, Plt Count 180, MPV 9.9, Immature Gran % (Auto) 0.800, Neut % (Auto) 88.7 H, Lymph % (Auto) 3.8 L, [place] % (Auto) 6.5, Eos % (Auto) 0.0, Baso % (Auto) 0.2, Absolute Neuts (auto) 11.3 H, Absolute Lymphs (auto) 0.48 L, Nucleated RBC % 0, Differential Comment SCANNED, Atypical Lymphocytes RARE 04/27/20 03:15: Sodium 138, Potassium 3.6, Chloride 105, Carbon Dioxide 26.0, Anion Gap 7, BUN 34 H, Creatinine 1.29, Estim Creat Clear Calc 52.64, Est GFR (MDRD) Af Amer 69, Est GFR (MDRD) Non-Af 57 L, BUN/Creatinine Ratio 26.4 H, Glucose 156 H, Calcium 9.6, Magnesium 2.4 Current Medications Acetaminophen (Tylenol) 650 mg PO Q6H PRN PRN PRN Reason: Pain Score 1-10/Temp > 100.7 F Last Admin: 04/26/20 19:50 Dose: 650 mg Documented by: Al Hydroxide/Mg Hydroxide (Mylanta Ii) 30 ml PO Q6H PRN PRN PRN Reason: Gastric Burning Albuterol Sulfate (Ventolin Aerosols) 2.5 mg INHALATION Q2H PRN PRN PRN Reason: SOB/Wheezing Albuterol/Ipratropium (Duoneb) 3 ml INHALATION Q4H.RT [facility] Last Admin: 04/27/20 10:49 Dose: 3 ml Documented by: Amlodipine Besylate (Norvasc) 5 mg PO DAILY [facility] Last Admin: 04/27/20 09:24 Dose: 5 mg Documented by: Atorvastatin Calcium (Lipitor) 10 mg PO QHS [facility] Last Admin: 04/26/20 21:06 Dose: 10 mg Documented by: Azelastine HCl (Astelin) 1 spray NASAL DAILY [facility] Last Admin: 04/27/20 09:27 Dose: 1 spray Documented by: Dextrose (D50w Syringe) 0 gm IV X1 PRN; Protocol PRN Reason: Hypoglycemia Enoxaparin Sodium (Lovenox) 40 mg SC DAILY [facility] Last Admin: 04/27/20 09:28 Dose: Not Given Documented by: Fluticasone Propionate (Flonase Nasal [place]) 2 spray NASAL QHS [facility] Last Admin: 04/26/20 21:07 Dose: 2 spray Documented by: Glucagon () 1 mg IM .X1 PRN PRN Reason: Hypoglycemia Cefepime HCl 2 gm/ Sodium (Chloride) 100 mls @ 200 mls/hr IV Q8 [facility] Stop: 05/02/20 22:01 Last Infusion: 04/27/20 06:54 Dose: Infused Documented by: Indapamide (Lozol) 1.25 mg PO DAILYCM [facility] Last Admin: 04/27/20 09:23 Dose: 1.25 mg Documented by: Losartan Potassium (Cozaar) 100 mg PO QHS [facility] Last Admin: 04/26/20 21:06 Dose: 100 mg Documented by: Magnesium Oxide (Mag-Ox 400) 400 mg PO DAILY [facility] Last Admin: 04/27/20 09:22 Dose: 400 mg Documented by: Mesalamine (Lialda) 1.2 gm PO BID [facility] Last Admin: 04/27/20 09:24 Dose: 1.2 gm Documented by: Methylprednisolone (Solu-Medrol) 40 mg IV Q8 [facility] Last Admin: 04/27/20 06:15 Dose: 40 mg Documented by: Metoprolol Succinate (Toprol Xl (Beta Sukhi)) 100 mg PO DAILY [facility] Last Admin: 04/27/20 09:24 Dose: 100 mg Documented by: Montelukast Sodium (Singulair) 10 mg PO DAILY [facility] Last Admin: 04/27/20 09:24 Dose: 10 mg Documented by: Pantoprazole Sodium (Protonix) 20 mg PO DAILY [facility] Last Admin: 04/27/20 09:24 Dose: 20 mg Documented by: Polyethylene Glycol (Miralax) 17 gm PO DAILY [facility] Last Admin: 04/27/20 09:27 Dose: Not Given Documented by: Sertraline HCl (Zoloft) 100 mg PO DAILY [facility] Last Admin: 04/27/20 09:24 Dose: 100 mg Documented by: Sodium Chloride () 10 - 40 ml IV UD PRN PRN Reason: SALINE FLUSH Last Admin: 04/26/20 23:36 Dose: 10 ml Documented by: Tamsulosin HCl (Flomax) 0.4 mg PO DINNER [facility] Last Admin: 04/26/20 21:06 Dose: 0.4 mg Documented by: Throat Lozenges (Cepacol Sore Throat Lozenge) 1 lozenge MUCOUS MEM Q2H PRN PRN PRN Reason: SORE THROAT Last Admin: 04/26/20 13:27 Dose: 1 lozenge Documented by: STROKE Vital Signs/Narrative: Vital Signs Temp Pulse Resp BP BP Pulse Ox 04/27/20 10:49 93 15 04/27/20 09:24 94 151/65 H 04/27/20 08:00 92 04/27/20 07:44 98.8 F 97 15 165/74 H 88 Medical Necessity - Tobacco Use Smoking Status: Former smoker Assessment/Plan All Active Problems (Last Reviewed 04/25/20 @ 17:[address] Margarita Higginbotham DO) Sepsis (Acute) Community acquired pneumonia (Acute) SOB (shortness of breath) (Acute) 1. Acute on chronic hypoxic respiratory failure secondary to right sedated pleural effusion and COPD with possible pneumonia and severe sepsis/possible interstitial lung disease/BRADY -Pleural fluid is exudative, however negative for any bacteria -Still awaiting evaluation by pathologist to determine if there are any malignant cells -Continue with antibiotics as well as steroids and breathing treatments -CT scan this morning is fairly unchanged from prior -Continue with nocturnal CPAP -Sepsis has resolved, continue with cefepime -He will have a prolonged taper back down to his baseline prednisone of 10 as well as continue with his azithromycin -Autoimmune work-up is pending 2. Chronic diastolic CHF/HLD/HTN -Blood pressure is stable, continue with his home blood pressure medications -Continue with his indapamide with diuresis as well as his metoprolol -Continue with his statin 3. GERD -Stable -Continue with PPI 4. Anxiety/depression -Stable -Continue with Zoloft 5. BPH -Stable -Continue with Flomax DVT: Lovenox Inpatient E&M: 48767 Subs Hosp L2
[2020-04-27] MEDS: Tamsulosin HCl 0.4 MG Capsule PO (21:08)
[2020-04-27] MEDS: Fluticasone 0.05% 1 SPRAY NASAL.SRY 2 SPRAY NASAL (21:09)
[2020-04-27] MEDS: 0.9% Saline Lock 10 ML Syringe IV (21:09)
[2020-04-27] MEDS: Losartan Potassium 100 MG Tablet PO (21:09)
[2020-04-27] MEDS: Atorvastatin Calcium 10 MG Tablet PO (21:09)
[2020-04-27] MEDS: Acetaminophen 325 MG Tablet 650 MG PO (23:27)
[2020-04-28] VITALS (31 sets, daily range): BP systolic 128–188; BP diastolic 62–100; PULSE 71–97; RESP 14–24; TEMP 36.8–37.3; O2SAT 87–94
[2020-04-28] MEDS: Ipratropium/Albuterol Sulfate 3 ML AMPUL.NEB INHALATION ×6 (03:48→22:41)
[2020-04-28] MEDS: 0.9% Saline Lock 10 ML Syringe IV (05:05)
--- NOTE | 2020-04-28 06:05 | PCM.PN.PUL ---
Patient Problems: Active and Suspected Problems (Last Reviewed 04/25/20 @ 17:[address] Margarita Higginbotham, DO) Sepsis (Acute) Community acquired pneumonia (Acute) SOB (shortness of breath) (Acute) Subjective: The patient was seen and examined at the bedside this morning. Events from the last 24 hours have been reviewed. The patient is currently afebrile, hemodynamically stable and maintaining appropriate oxygen saturations on 5 L/min via nasal cannula. The patient did complete a CT chest yesterday which revealed some residual right-sided effusion along with a right lower lobe consolidation with air bronchograms and left lower lobe peripheral ground glass changes. The patient tolerated his home BiPAP without issue overnight. While he does report some interval improvement in his overall breathing quality, he does admit that he readily desaturates with exertion and movement. He does have a residual cough, but has not produced any further sputum. Objective: The patient's most recent lab work, culture data and imaging studies have all been personally reviewed. Surface echocardiogram dated June 2019 revealed stage I diastolic dysfunction with an ejection fraction of 65%. Strep and urine Legionella antigens were negative. Respiratory viral panel was negative. Sputum and pleural fluid cultures are pending. - Physical Exam Vitals/I&O's: Vital Signs Temp Pulse Resp BP Pulse Ox 98.8 F 79 20 H 153/69 H 92 04/28/20 04:00 04/28/20 06:00 04/28/20 06:00 04/28/20 06:00 04/28/20 06:00 Oxygen Flow Rate (L/min) [2] 5 Oxygen Flow Rate (L/min) [1 ( 5 Initial Baseline)] Oxygen Flow Rate (L/min) 5 Oxygen Delivery Method [2] Nasal Cannula Oxygen Delivery Method [1 ( Nasal Cannula Initial Baseline)] Oxygen Delivery Method CPAP Weight: 240 lb 8.389 oz Body Mass Index (BMI) 32.2 Intake and Output for Last 24 Hours 04/26/20 04/27/20 04/28/20 23:59 23:59 23:59 Intake Total 2111.67 / 2231.67 2220 / 2220 100 / 100 Output Total 2900 / 3180 4845 / 4845 785 / 785 Balance -788.33 / -948.33 -2625 / -2625 -685 / -685 General: Alert, Cooperative, No apparent distress HEENT: Atraumatic, PERRLA, Normocephalic Oral: Moist Mucosa, No Gingival or Mucosal Lesions/ Ulcerations Neck: Supple, No Nodes, Trachea Midline Lungs: Diminished, - - Wheezing noted on forced exhalation. Residual right basilar rales present. Cardiovascular: Regular rate, Regular Rhythm Abdomen: Bowel Sounds Present, Soft, Non Tender, Obese Extremities: No clubbing, No cyanosis, No edema Skin: No breakdown Musculoskeletal: No Tenderness to Palpation of Joints or Extremities, No Muscle Wasting Lymphatic: No Cervical, Supraclavicular, or Inguinal Adenopathy Neurological: Cranial nerves II-XII grossly intact, Neuro grossly intact Psych/Mental Status: Alert and oriented to time, place, person, mood and affect Labs (Last 48 Hours) 04/26/20 04/26/20 04/26/20 04:50 04:50 04:50 WBC RBC Hgb Hct MCV MCH MCHC RDW Std Deviation RDW Coeff of Eliecer Plt Count MPV Immature Gran % (Auto) Neut % (Auto) Lymph % (Auto) [place] % (Auto) Eos % (Auto) Baso % (Auto) Absolute Neuts (auto) Absolute Lymphs (auto) Nucleated RBC % Differential Comment SCANNED Atypical Lymphocytes PT INR Sodium Potassium Chloride Carbon Dioxide Anion Gap BUN Creatinine Estim Creat Clear Calc Est GFR (MDRD) Af Amer Est GFR (MDRD) Non-Af BUN/Creatinine Ratio Glucose Calcium Magnesium Lactate Dehydrogenase 154 Total Protein 6.5 Globulin 3.6 Albumin/Globulin Ratio 0.8 L Free T4 Fluid Source Fluid Color Fluid Appearance Fluid WBC Fluid RBC Fluid Tot Cell Count Fld Polynuclear WBCs # Fld Polynuclear WBCs % Fluid Mononuclear WBCs Fld Mononuclear WBCs % Fluid Neutrophils Fluid Lymphocytes Fluid Monocytes Fld Mesothelial Cells Fluid Other Cells Fl Pathologist Comment Fluid Glucose Fluid Total Protein Fluid LDH Fluid Comment 2 Vancomycin Trough Rheumatoid Factor < 10.0 Cycl Citrul Peptide IgG LIBERTY Screen RASHAWN-1 Antibody SS-A/Ro IgG Antibody SS-B/La IgG Antibody Sm (Hummel) Antibody [employer] GARMENT Antibody Scl-70 Scleroderma Ab Double Strand DNA Ab Centromere B Antibody Miscellaneous Cytology 04/26/20 04/26/20 04/26/20 04:50 07:55 09:55 WBC RBC Hgb Hct MCV MCH MCHC RDW Std Deviation RDW Coeff of Eliecer Plt Count MPV Immature Gran % (Auto) Neut % (Auto) Lymph % (Auto) [place] % (Auto) Eos % (Auto) Baso % (Auto) Absolute Neuts (auto) Absolute Lymphs (auto) Nucleated RBC % Differential Comment Atypical Lymphocytes PT 13.2 INR 1.1 Sodium Potassium Chloride Carbon Dioxide Anion Gap BUN Creatinine Estim Creat Clear Calc Est GFR (MDRD) Af Amer Est GFR (MDRD) Non-Af BUN/Creatinine Ratio Glucose Calcium Magnesium Lactate Dehydrogenase Total Protein Globulin Albumin/Globulin Ratio Free T4 1.11 Fluid Source Fluid Color Fluid Appearance Fluid WBC Fluid RBC Fluid Tot Cell Count Fld Polynuclear WBCs # Fld Polynuclear WBCs % Fluid Mononuclear WBCs Fld Mononuclear WBCs % Fluid Neutrophils Fluid Lymphocytes Fluid Monocytes Fld Mesothelial Cells Fluid Other Cells Fl Pathologist Comment Fluid Glucose Fluid Total Protein Fluid LDH Fluid Comment 2 Vancomycin Trough Rheumatoid Factor Cycl Citrul Peptide IgG LIBERTY Screen Pending RASHAWN-1 Antibody Pending SS-A/Ro IgG Antibody Pending SS-B/La IgG Antibody Pending Sm (Hummel) Antibody Pending [employer] Antibody Pending Scl-70 Scleroderma Ab Pending Double Strand DNA Ab Pending Centromere B Antibody Pending Miscellaneous Cytology 04/26/20 04/26/20 04/26/20 09:55 14:50 14:50 WBC RBC Hgb Hct MCV MCH MCHC RDW Std Deviation RDW Coeff of Eliecer Plt Count MPV Immature Gran % (Auto) Neut % (Auto) Lymph % (Auto) [place] % (Auto) Eos % (Auto) Baso % (Auto) Absolute Neuts (auto) Absolute Lymphs (auto) Nucleated RBC % Differential Comment Atypical Lymphocytes PT INR Sodium Potassium Chloride Carbon Dioxide Anion Gap BUN Creatinine Estim Creat Clear Calc Est GFR (MDRD) Af Amer Est GFR (MDRD) Non-Af BUN/Creatinine Ratio Glucose Calcium Magnesium Lactate Dehydrogenase Total Protein Globulin Albumin/Globulin Ratio Free T4 Fluid Source THORACENTESIS Fluid Color RED Fluid Appearance TURBID Fluid WBC 1.458 Fluid RBC 0.600 Fluid Tot Cell Count 1.521 Fld Polynuclear WBCs # 1.051 Fld Polynuclear WBCs % 72.0 Fluid Mononuclear WBCs 0.407 Fld Mononuclear WBCs % 28.0 Fluid Neutrophils 70 Fluid Lymphocytes 1 Fluid Monocytes 7 Fld Mesothelial Cells 6 Fluid Other Cells 16 Fl Pathologist Comment May follow Fluid Glucose 86 H Fluid Total Protein 4.8 Fluid LDH 998 Fluid Comment 2 SEE COMMENT Vancomycin Trough Rheumatoid Factor Cycl Citrul Peptide IgG Pending LIBERTY Screen RASHAWN-1 Antibody SS-A/Ro IgG Antibody SS-B/La IgG Antibody Sm (Hummel) Antibody [employer]MENT Antibody Scl-70 Scleroderma Ab Double Strand DNA Ab Centromere B Antibody Miscellaneous Cytology 04/26/20 04/27/20 04/27/20 14:50 03:15 03:15 WBC 12.8 H RBC 4.09 L Hgb 13.0 Hct 39.3 L MCV 96.1 H MCH 31.8 MCHC 33.1 RDW Std Deviation 48.8 H RDW Coeff of Eliecer 13.7 Plt Count 180 MPV 9.9 Immature Gran % (Auto) 0.800 Neut % (Auto) 88.7 H Lymph % (Auto) 3.8 L [place] % (Auto) 6.5 Eos % (Auto) 0.0 Baso % (Auto) 0.2 Absolute Neuts (auto) 11.3 H Absolute Lymphs (auto) 0.48 L Nucleated RBC % 0 Differential Comment SCANNED Atypical Lymphocytes RARE PT INR Sodium Potassium Chloride Carbon Dioxide Anion Gap BUN Creatinine Estim Creat Clear Calc Est GFR (MDRD) Af Amer Est GFR (MDRD) Non-Af BUN/Creatinine Ratio Glucose Calcium Magnesium Lactate Dehydrogenase Total Protein Globulin Albumin/Globulin Ratio Free T4 Fluid Source Fluid Color Fluid Appearance Fluid WBC Fluid RBC Fluid Tot Cell Count Fld Polynuclear WBCs # Fld Polynuclear WBCs % Fluid Mononuclear WBCs Fld Mononuclear WBCs % Fluid Neutrophils Fluid Lymphocytes Fluid Monocytes Fld Mesothelial Cells Fluid Other Cells Fl Pathologist Comment Fluid Glucose Fluid Total Protein Fluid LDH Fluid Comment 2 Vancomycin Trough 14.0 Rheumatoid Factor Cycl Citrul Peptide IgG [place] Screen RASHAWN-1 Antibody SS-A/Ro IgG Antibody SS-B/La IgG Antibody Sm (Hummel) Antibody [employer]MENT Antibody Scl-70 Scleroderma Ab Double Strand DNA Ab Centromere B Antibody Miscellaneous Cytology Pending 04/27/20 03:15 WBC RBC Hgb Hct MCV MCH MCHC RDW Std Deviation RDW Coeff of Eliecer Plt Count MPV Immature Gran % (Auto) Neut % (Auto) Lymph % (Auto) [place] % (Auto) Eos % (Auto) Baso % (Auto) Absolute Neuts (auto) Absolute Lymphs (auto) Nucleated RBC % Differential Comment Atypical Lymphocytes PT INR Sodium 138 Potassium 3.6 Chloride 105 Carbon Dioxide 26.0 Anion Gap 7 BUN 34 H Creatinine 1.29 Estim Creat Clear Calc 52.64 Est GFR (MDRD) Af Amer 69 Est GFR (MDRD) Non-Af 57 L BUN/Creatinine Ratio 26.4 H Glucose 156 H Calcium 9.6 Magnesium 2.4 Lactate Dehydrogenase Total Protein Globulin Albumin/Globulin Ratio Free T4 Fluid Source Fluid Color Fluid Appearance Fluid WBC Fluid RBC Fluid Tot Cell Count Fld Polynuclear WBCs # Fld Polynuclear WBCs % Fluid Mononuclear WBCs Fld Mononuclear WBCs % Fluid Neutrophils Fluid Lymphocytes Fluid Monocytes Fld Mesothelial Cells Fluid Other Cells Fl Pathologist Comment Fluid Glucose Fluid Total Protein Fluid LDH Fluid Comment 2 Vancomycin Trough Rheumatoid Factor Cycl Citrul Peptide IgG [place]ERTY Screen RASHAWN-1 Antibody SS-A/Ro IgG Antibody SS-B/La IgG Antibody Sm (Hummel) Antibody [employer]MENT Antibody Scl-70 Scleroderma Ab Double Strand DNA Ab Centromere B Antibody Miscellaneous Cytology Microbiology 04/26/20 14:50 Fluid - Thoracentesis Fluid Gram Stain - Final 04/26/20 14:50 Fluid - Thoracentesis Fluid Body Fluid Culture - Preliminary No growth-Final to follow 04/26/20 08:15 Sputum, Expectorated/Coughed Gram Stain - Final 04/26/20 08:15 Sputum, Expectorated/Coughed Respiratory Culture - Preliminary Appears to be normal respiratory flavia. Further studies to follow. 04/25/20 12:55 Blood Culture (Wb) #2 - Right Forearm Blood Culture - Preliminary No growth in 48 hours. 04/25/20 12:52 Blood Culture (Wb) - Left Forearm Blood Culture - Preliminary No growth in 48 hours. Clinical Impression(s) from Imaging Studies Chest X-Ray 04/25/20 13:38 IMPRESSION: Worsening of infiltrate of the mid and lower right lung. Worsening of small right pleural effusion. Atelectasis or infiltrate developing in the left lung base. Electronically Signed: Dale Mendoza MD at 14:27 EDT , Service support , Chest CT 04/25/20 17:20 IMPRESSION: Significant worsening. Moderate right pleural effusion. Almost complete consolidation of the right lower lobe. Prominent primarily interstitial infiltrate in the posterior segment of the right upper lobe. Cystic, nodular and interstitial changes in the posterior left lower lobe most consistent with inflammatory process. Electronically Signed: Dale Mendoza MD at 19:03 EDT , Service support , Thoracentesis Ultrasound 04/26/20 06:46 IMPRESSION: Ultrasound-guided right thoracentesis. Electronically Signed: Dereck Radames, at 14:57 EDT , Service support , Chest X-Ray 04/26/20 14:00 IMPRESSION: Status post right thoracentesis. No evidence of pneumothorax. Electronically Signed: Dereck Crum, at 14:41 EDT , Service support , Chest CT 04/27/20 07:14 IMPRESSION: 1. Essentially unchanged appearance to right lower lobe airspace consolidation possibly representing a pneumonia and pleural effusion. 2. Mild patchy left basilar airspace disease appears unchanged. 3. Hepatic cyst and left-sided pararenal cyst. Electronically Signed: Fernanda London MD at 9:46 EDT , Service support , Current Medications Acetaminophen (Tylenol) 650 mg PO Q6H PRN PRN PRN Reason: Pain Score 1-10/Temp > 100.7 F Last Admin: 04/27/20 23:27 Dose: 650 mg Documented by: Al Hydroxide/Mg Hydroxide (Mylanta Ii) 30 ml PO Q6H PRN PRN PRN Reason: Gastric Burning Albuterol Sulfate (Ventolin Aerosols) 2.5 mg INHALATION Q2H PRN PRN PRN Reason: SOB/Wheezing Albuterol/Ipratropium (Duoneb) 3 ml INHALATION Q4H.RT [facility] Last Admin: 04/28/20 03:48 Dose: 3 ml Documented by: Amlodipine Besylate (Norvasc) 5 mg PO DAILY [facility] Last Admin: 04/27/20 09:24 Dose: 5 mg Documented by: Atorvastatin Calcium (Lipitor) 10 mg PO QHS [facility] Last Admin: 04/27/20 21:09 Dose: 10 mg Documented by: Azelastine HCl (Astelin) 1 spray NASAL DAILY [facility] Last Admin: 04/27/20 09:27 Dose: 1 spray Documented by: Dextrose (D50w Syringe) 0 gm IV X1 PRN; Protocol PRN Reason: Hypoglycemia Enoxaparin Sodium (Lovenox) 40 mg SC DAILY [facility] Last Admin: 04/27/20 09:28 Dose: Not Given Documented by: Fluticasone Propionate (Flonase Nasal Moira) 2 spray NASAL QHS [facility] Last Admin: 04/27/20 21:09 Dose: 2 spray Documented by: Glucagon () 1 mg IM .X1 PRN PRN Reason: Hypoglycemia Cefepime HCl 2 gm/ Sodium (Chloride) 100 mls @ 200 mls/hr IV Q8 [facility] Stop: 05/02/20 22:01 Last Infusion: 04/28/20 05:35 Dose: Infused Documented by: [facility]apamide ([facility]) [facility] Last Admin: 04/27/20 09:23 Dose: 1.25 mg Documented by: Losartan Potassium (Cozaar) 100 mg PO QHS [facility] Last Admin: 04/27/20 21:09 Dose: 100 mg Documented by: Magnesium Oxide (Mag-Ox 400) 400 mg PO DAILY [facility] Last Admin: 04/27/20 09:22 Dose: 400 mg Documented by: Mesalamine (Lialda) 1.2 gm PO BID [facility] Last Admin: 04/27/20 21:08 Dose: 1.2 gm Documented by: Methylprednisolone (Solu-Medrol) 40 mg IV Q8 [facility] Last Admin: 04/28/20 05:05 Dose: 40 mg Documented by: Metoprolol Succinate (Toprol Xl (Beta Sukhi)) 100 mg PO DAILY [facility] Last Admin: 04/27/20 09:24 Dose: 100 mg Documented by: Montelukast Sodium (Singulair) 10 mg PO DAILY [facility] Last Admin: 04/27/20 09:24 Dose: 10 mg Documented by: Pantoprazole Sodium (Protonix) 20 mg PO DAILY [facility] Last Admin: 04/27/20 09:24 Dose: 20 mg Documented by: Polyethylene Glycol (Miralax) 17 gm PO DAILY [facility] Last Admin: 04/27/20 09:27 Dose: Not Given Documented by: Sertraline HCl (Zoloft) 100 mg PO DAILY [facility] Last Admin: 04/27/20 09:24 Dose: 100 mg Documented by: Sodium Chloride () 10 - 40 ml IV UD PRN PRN Reason: SALINE FLUSH Last Admin: 04/28/20 05:05 Dose: 10 ml Documented by: Tamsulosin HCl (Flomax) 0.4 mg PO DINNER [facility] Last Admin: 04/27/20 21:08 Dose: 0.4 mg Documented by: Throat Lozenges (Cepacol Sore Throat Lozenge) 1 lozenge MUCOUS MEM Q2H PRN PRN PRN Reason: SORE THROAT Last Admin: 04/26/20 13:27 Dose: 1 lozenge Documented by: Medical Necessity - Tobacco Use Smoking Status: Former smoker Assessment/Plan All Active Problems (Last Reviewed 04/25/20 @ 17:[address] Margarita Higginbotham, DO) Sepsis (Acute) Community acquired pneumonia (Acute) SOB (shortness of breath) (Acute) RECOMMENDATIONS: 1. Continue empiric antimicrobial therapy. 2. Continue scheduled bronchodilators and IV steroids. 3. Wean oxygen to maintain saturations at or above 90%. 4. Autoimmune work-up is pending. 5. Encourage incentive spirometer use and mobilize patient as tolerated. 6. Await pleural fluid cytology results. IMPRESSIONS: 1. Acute on chronic hypoxemic respiratory failure The patient typically has a baseline oxygen requirement of 2 to 3 L/min. He has had progressive right sided interstitial changes on prior chest imaging, which appears to have progressed. CT scan did reveal evidence of a moderate size right-sided pleural effusion with associated consolidation and atelectasis. The patient subsequently underwent an ultrasound-guided thoracentesis on April 26 with just under 1 L of fluid removed. Per traditional Light's criteria, if at least one of the following three is fulfilled, the fluid would be considered an exudate: 1. Pleural fluid protein/serum protein ratio greater than 0.5 2. Pleural fluid LDH/serum LDH ratio greater than 0.6 3. Pleural fluid LDH greater than two thirds the upper limits of the laboratories normal serum LDH Based upon my review of the patient's pleural fluid analysis, along with serum LDH and total protein levels, the pleural fluid would be considered exudative in nature. Follow-up chest CT did reveal some residual right-sided pleural effusion following thoracentesis along with a right basilar airspace consolidation with air bronchograms. There is also some left lower lobe peripheral ground glass changes noted. For now, empiric antimicrobials will be continued, pending infectious work-up. Autoimmune work-up is pending. Pleural fluid cytology results are pending. 2. History of obstructive sleep apnea Continue nocturnal Pap therapy as ordered. 3. Heart failure with preserved ejection fraction The patient does not appear overtly volume overloaded at this time. Continue outpatient medication regimen. 4. Obesity/hyperlipidemia/GERD/allergic rhinitis/hypertension/chronic steroid dependency Complicates care, management, recovery and prognosis. Continue home medications as indicated. The patient will need to resume his baseline 10 mg prednisone dose on a daily basis upon discharge from the hospital. This note was generated with [employer] dictation software. It may contain incorrect words, spelling, and punctuation that were not noted in checking the note before signing. Inpatient E&M: 07716 Subs Hosp L2
--- NOTE | 2020-04-28 09:21 | PN_ITS ---
Patient Problems: Active and Suspected Problems (Last Reviewed 04/25/20 @ 17:[address] Margarita Higginbotham, DO) Sepsis (Acute) Community acquired pneumonia (Acute) SOB (shortness of breath) (Acute) Subjective: Feeling better, breathing a little bit better Vitals/I&O's: Vital Signs Temp Pulse Resp BP Pulse Ox 98.8 F 88 18 149/71 H 89 04/28/20 04:00 04/28/20 07:06 04/28/20 07:06 04/28/20 07:00 04/28/20 07:06 Oxygen Flow Rate (L/min) [2] 5 Oxygen Flow Rate (L/min) [1 ( 5 Initial Baseline)] Oxygen Flow Rate (L/min) 5 Oxygen Delivery Method [2] Nasal Cannula Oxygen Delivery Method [1 ( Nasal Cannula Initial Baseline)] Oxygen Delivery Method Nasal Cannula Weight: 240 lb 8.389 oz Body Mass Index (BMI) 32.2 Intake and Output for Last 24 Hours 04/26/20 04/27/20 04/28/20 23:59 23:59 23:59 Intake Total 2111.67 / 2231.67 2220 / 2220 100 / 100 Output Total 2900 / 3180 4845 / 4845 785 / 785 Balance -788.33 / -948.33 -2625 / -2625 -685 / -685 General: Alert, Oriented x3, Cooperative, No apparent distress HEENT: Atraumatic, PERRLA, EOMI, Normocephalic Oral: Moist Mucosa Neck: Supple, No JVD Lungs: Normal air movement, No rhonchi, bilateral wheezing greater on the right than on the left, much improved air movement on the right Cardiovascular: Regular rate, Regular Rhythm, Normal S1, Normal S2, No murmurs Abdomen: Soft, Non Tender, Non-Distended, No Hepato-splenomegaly Extremities: No edema, Capillary Refill Less than 3 Seconds Skin: No rashes, No breakdown Neurological: Neuro grossly intact, Sensory exam intact to light touch and pain Psych/Mental Status: Normal Affect, Appropriate Microbiology Past 72 Hours 04/26/20 08:15 Sputum, Expectorated/Coughed Gram Stain - Final 04/26/20 08:15 Sputum, Expectorated/Coughed Respiratory Culture - Final Presumptive C albicans 04/26/20 14:50 Fluid - Thoracentesis Fluid Gram Stain - Final 04/26/20 14:50 Fluid - Thoracentesis Fluid Body Fluid Culture - Preliminary No growth-Final to follow 04/25/20 12:55 Blood Culture (Wb) #2 - Right Forearm Blood Culture - Preliminary No growth in 48 hours. 04/25/20 12:52 Blood Culture (Wb) - Left Forearm Blood Culture - Preliminary No growth in 48 hours. 04/25/20 17:40 Interface Orders Respiratory Panel (PCR) - Final 04/25/20 20:00 Urine, Clean Catch Legionella Antigen - Final 04/25/20 20:00 Urine, Clean Catch Streptococcus pneumoniae Antigen (M - Final Current Medications Acetaminophen (Tylenol) 650 mg PO Q6H PRN PRN PRN Reason: Pain Score 1-10/Temp > 100.7 F Last Admin: 04/27/20 23:27 Dose: 650 mg Documented by: Al Hydroxide/Mg Hydroxide (Mylanta Ii) 30 ml PO Q6H PRN PRN PRN Reason: Gastric Burning Albuterol Sulfate (Ventolin Aerosols) 2.5 mg INHALATION Q2H PRN PRN PRN Reason: SOB/Wheezing Albuterol/Ipratropium (Duoneb) 3 ml INHALATION Q4H.RT [facility] Last Admin: 04/28/20 07:06 Dose: 3 ml Documented by: Amlodipine Besylate (Norvasc) 5 mg PO DAILY [facility] Last Admin: 04/27/20 09:24 Dose: 5 mg Documented by: Atorvastatin Calcium (Lipitor) 10 mg PO QHS [facility] Last Admin: 04/27/20 21:09 Dose: 10 mg Documented by: Azelastine HCl (Astelin) 1 spray NASAL DAILY [facility] Last Admin: 04/27/20 09:27 Dose: 1 spray Documented by: Dextrose (D50w Syringe) 0 gm IV X1 PRN; Protocol PRN Reason: Hypoglycemia Enoxaparin Sodium (Lovenox) 40 mg SC DAILY [facility] Last Admin: 04/27/20 09:28 Dose: Not Given Documented by: Fluticasone Propionate (Flonase Nasal [place]) 2 spray NASAL QHS [facility] Last Admin: 04/27/20 21:09 Dose: 2 spray Documented by: Glucagon () 1 mg IM .X1 PRN PRN Reason: Hypoglycemia Cefepime HCl 2 gm/ Sodium (Chloride) 100 mls @ 200 mls/hr IV Q8 [facility] Stop: 05/02/20 22:01 Last Infusion: 04/28/20 05:35 Dose: Infused Documented by: Indapamide (Lozol) 1.25 mg PO DAILYCM [facility] Last Admin: 04/27/20 09:23 Dose: 1.25 mg Documented by: Losartan Potassium (Cozaar) 100 mg PO QHS [facility] Last Admin: 04/27/20 21:09 Dose: 100 mg Documented by: Magnesium Oxide (Mag-Ox 400) 400 mg PO DAILY [facility] Last Admin: 04/27/20 09:22 Dose: 400 mg Documented by: Mesalamine (Lialda) 1.2 gm PO BID [facility] Last Admin: 04/27/20 21:08 Dose: 1.2 gm Documented by: Methylprednisolone (Solu-Medrol) 40 mg IV Q8 [facility] Last Admin: 04/28/20 05:05 Dose: 40 mg Documented by: Metoprolol Succinate (Toprol Xl (Beta Sukhi)) 100 mg PO DAILY [facility] Last Admin: 04/27/20 09:24 Dose: 100 mg Documented by: Montelukast Sodium (Singulair) 10 mg PO DAILY [facility] Last Admin: 04/27/20 09:24 Dose: 10 mg Documented by: Pantoprazole Sodium (Protonix) 20 mg PO DAILY [facility] Last Admin: 04/27/20 09:24 Dose: 20 mg Documented by: Polyethylene Glycol (Miralax) 17 gm PO DAILY [facility] Last Admin: 04/27/20 09:27 Dose: Not Given Documented by: Sertraline HCl (Zoloft) 100 mg PO DAILY [facility] Last Admin: 04/27/20 09:24 Dose: 100 mg Documented by: Sodium Chloride () 10 - 40 ml IV UD PRN PRN Reason: SALINE FLUSH Last Admin: 04/28/20 05:05 Dose: 10 ml Documented by: Tamsulosin HCl (Flomax) 0.4 mg PO DINNER [facility] Last Admin: 04/27/20 21:08 Dose: 0.4 mg Documented by: Throat Lozenges (Cepacol Sore Throat Lozenge) 1 lozenge MUCOUS MEM Q2H PRN PRN PRN Reason: SORE THROAT Last Admin: 04/26/20 13:27 Dose: 1 lozenge Documented by: STROKE Vital Signs/Narrative: Vital Signs Pulse Resp BP Pulse Ox 04/28/20 07:06 88 18 89 04/28/20 07:00 80 19 H 149/71 H 87 04/28/20 06:00 79 20 H 153/69 H 92 Medical Necessity - Tobacco Use Smoking Status: Former smoker Assessment/Plan All Active Problems (Last Reviewed 04/25/20 @ 17:[address] Margarita Higginbotham, DO) Sepsis (Acute) Community acquired pneumonia (Acute) SOB (shortness of breath) (Acute) 1. Acute on chronic hypoxic respiratory failure secondary to right sedated pleural effusion and COPD with possible pneumonia and severe sepsis/possible interstitial lung disease/BRADY -Pleural fluid is exudative, however negative for any bacteria -Still awaiting evaluation by pathologist to determine if there are any malignant cells -Continue with antibiotics as well as steroids and breathing treatments -CT scan yesterday was fairly unchanged from prior -Continue with nocturnal CPAP -Sepsis has resolved, continue with cefepime -He will have a prolonged taper back down to his baseline prednisone of 10 as well as continue with his azithromycin -Autoimmune work-up is pending 2. Chronic diastolic CHF/HLD/HTN -Blood pressure is stable, continue with his home blood pressure medications -Continue with his indapamide with diuresis as well as his metoprolol -Continue with his statin 3. GERD -Stable -Continue with PPI 4. Anxiety/depression -Stable -Continue with Zoloft 5. BPH -Stable -Continue with Flomax DVT: Lovenox Inpatient E&M: 15044 Subs Hosp L2
[2020-04-28] MEDS: Pantoprazole Sodium 20 MG Tablet PO (10:05)
[2020-04-28] MEDS: amLODIPine 5 MG Tablet PO (10:05)
[2020-04-28] MEDS: Mesalamine 1.2 GM Tablet PO ×2 (10:05→21:16)
[2020-04-28] MEDS: Indapamide 2.5 MG Tablet 1.25 MG PO (10:06)
[2020-04-28] MEDS: Sertraline 100 MG Tablet PO (10:07)
[2020-04-28] MEDS: Metoprolol(XL)Succ 100 MG Tablet PO (10:07)
[2020-04-28] MEDS: Montelukast 10 MG Tablet PO (10:07)
[2020-04-28] MEDS: Magnesium Oxide 400 MG Tablet PO (10:08)
[2020-04-28] MEDS: Enoxaparin 40 MG/0.4 ML Syringe SC (10:08)
[2020-04-28] MEDS: Azelastine HCl NASAL.SRY 1 SPRAY NASAL (10:08)
[2020-04-28] MEDS: Acetaminophen 325 MG Tablet 650 MG PO (21:14)
[2020-04-28] MEDS: Tamsulosin HCl 0.4 MG Capsule PO (21:15)
[2020-04-28] MEDS: Fluticasone 0.05% 1 SPRAY NASAL.SRY 2 SPRAY NASAL (21:15)
[2020-04-28] MEDS: Losartan Potassium 100 MG Tablet PO (21:16)
[2020-04-28] MEDS: Atorvastatin Calcium 10 MG Tablet PO (21:16)
--- NOTE | 2020-04-28 21:55 | NURSING ---
Patient taken to PCU 109 and Report given to Nirali CHAIDEZ.
[2020-04-29] VITALS (16 sets, daily range): BP systolic 132–151; BP diastolic 63–73; PULSE 72–93; RESP 18–20; TEMP 36.5–36.7; O2SAT 88–93
[2020-04-29] MEDS: Ipratropium/Albuterol Sulfate 3 ML AMPUL.NEB INHALATION ×6 (03:30→23:22)
[2020-04-29] MEDS: 0.9% Saline Lock 10 ML Syringe IV ×2 (05:35→21:33)
[2020-04-29 05:54] LABS: Absolute Lymphocyte Count 0.51 X10^3/uL (0.83-4.51); Absolute Neutrophil Count 10.1 X10^3/uL (2.0-7.7); Basophil# 0.02 X10^3/uL; Basophil% 0.2 % (0-1); Hemoglobin 12.4 g/dL (13.0-16.5); Lymphocyte # 0.51 X10^3/ul (4.0); Lymphocyte % 4.3 % (19-41); Mean Corp Hgb Conc 33.5 g/dL (32-36); Mean Corpuscular Hgb 31.4 pg (27.0-32.0); Mean Corpuscular Volume 93.7 fL (80-94); Mean Platelet Vol. 9.4 fl (6.2-12.0); Monocyte# 0.96 X10^3/uL; Monocyte% 8.1 % (0-10); NRBC Flagged by Analyzer 0 % (0-5); Neutrophil # 10.14 X10^3/uL (2.7-7.7); Neutrophil % 85.8 % (47-70); POSITIVE DIFFERENTIAL YES; Platelet Count 174 K/mm3 (150-450); RBC Distribution Width CV 13.5 % (11.6-14.6); RBC Distribution Width SD 46.2 fl (35.1-43.9); Red Blood Count 3.95 M/mm3 (4.6-6.2); White Blood Count 11.8 K/mm3 (4.4-11.0)
[2020-04-29 06:41] LABS: Differential Indicated SCAN CRITERIA MET
[2020-04-29 07:14] LABS: Differential Comment SCANNED
--- NOTE | 2020-04-29 07:34 | PN_ITS ---
Patient Problems: Active and Suspected Problems (Last Reviewed 04/25/20 @ 17:[address] Margarita Higginbotham, DO) Sepsis (Acute) Community acquired pneumonia (Acute) SOB (shortness of breath) (Acute) Subjective: Patient feels improved compared to yesterday. Patient still requiring increased oxygen to maintain saturations. Patient tolerated CPAP overnight. Patient reports the cough is improving. No epistaxis or worsening sinus congestion reported. - Physical Exam Vitals/I&O's: Vital Signs Temp Pulse Resp BP Pulse Ox 36.6 C 79 18 140/73 H 93 04/29/20 03:42 04/29/20 03:42 04/29/20 03:42 04/29/20 03:42 04/29/20 03:42 Oxygen Flow Rate (L/min) [2] 5 Oxygen Flow Rate (L/min) [1 ( 5 Initial Baseline)] Oxygen Flow Rate (L/min) 5 Oxygen Delivery Method [2] Nasal Cannula Oxygen Delivery Method [1 ( Nasal Cannula Initial Baseline)] Oxygen Delivery Method CPAP Weight: 109 kg Body Mass Index (BMI) 32.2 Intake and Output for Last 24 Hours 04/27/20 04/28/20 04/29/20 23:59 23:59 23:59 Intake Total 2220 / 2220 900 / 900 310 / 310 Output Total 4845 / 4845 3235 / 3235 600 / 600 Balance -2625 / -2625 -2335 / -2335 -290 / -290 General: Alert, Oriented x3, Cooperative, No apparent distress, - - Obese. Speaking in full sentences. HEENT: Atraumatic, PERRLA, EOMI, Normocephalic, - - No scleral icterus or injection Oral: Moist Mucosa, No Gingival or Mucosal Lesions/ Ulcerations Neck: Supple, No JVD, No Nodes, Trachea Midline Lungs: Diminished, Rales - Right base, Wheezes Cardiovascular: Regular rate, Regular Rhythm, Normal S1, Normal S2, No murmurs, No rub noted, No Gallop Abdomen: Bowel Sounds Present, Soft, Non Tender, Non-Distended Extremities: No clubbing, No cyanosis, No edema, Capillary Refill Less than 3 Seconds Skin: No rashes, No breakdown Musculoskeletal: No Tenderness to Palpation of Joints or Extremities Lymphatic: No Cervical, Supraclavicular, or Inguinal Adenopathy Neurological: Cranial nerves II-XII grossly intact, Neuro grossly intact, Motor Exam 5/5 strength throughout Psych/Mental Status: Alert and oriented to time, place, person, mood and affect Microbiology Past 72 Hours 04/26/20 08:15 Sputum, Expectorated/Coughed Gram Stain - Final 04/26/20 08:15 Sputum, Expectorated/Coughed Respiratory Culture - Final Presumptive C albicans 04/26/20 14:50 Fluid - Thoracentesis Fluid Gram Stain - Final 04/26/20 14:50 Fluid - Thoracentesis Fluid Body Fluid Culture - Preliminary No growth-Final to follow 04/25/20 12:55 Blood Culture (Wb) #2 - Right Forearm Blood Culture - Preliminary No growth in 48 hours. 04/25/20 12:52 Blood Culture (Wb) - Left Forearm Blood Culture - Preliminary No growth in 48 hours. Laboratory Results 04/29/20 05:40: WBC 11.8 H, RBC 3.95 L, Hgb 12.4 L, Hct 37.0 L, MCV 93.7, MCH 31.4, MCHC 33.5, RDW Std Deviation 46.2 H, RDW Coeff of Eliecer 13.5, Plt Count 174, MPV 9.4, Immature Gran % (Auto) 1.600 H, Neut % (Auto) 85.8 H, Lymph % (Auto) 4.3 L, [place] % (Auto) 8.1, Eos % (Auto) 0.0, Baso % (Auto) 0.2, Absolute Neuts (auto) 10.1 H, Absolute Lymphs (auto) 0.51 L, Nucleated RBC % 0, Differential Comment SCANNED Current Medications Acetaminophen (Tylenol) 650 mg PO Q6H PRN PRN PRN Reason: Pain Score 1-10/Temp > 100.7 F Last Admin: 04/28/20 21:14 Dose: 650 mg Documented by: Al Hydroxide/Mg Hydroxide (Mylanta Ii) 30 ml PO Q6H PRN PRN PRN Reason: Gastric Burning Albuterol Sulfate (Ventolin Aerosols) 2.5 mg INHALATION Q2H PRN PRN PRN Reason: SOB/Wheezing Albuterol/Ipratropium (Duoneb) 3 ml INHALATION Q4H.RT [facility] Last Admin: 04/29/20 07:01 Dose: 3 ml Documented by: Amlodipine Besylate (Norvasc) 5 mg PO DAILY [facility] Last Admin: 04/28/20 10:05 Dose: 5 mg Documented by: Atorvastatin Calcium (Lipitor) 10 mg PO QHS [facility] Last Admin: 04/28/20 21:16 Dose: 10 mg Documented by: Azelastine HCl (Astelin) 1 spray NASAL DAILY [facility] Last Admin: 04/28/20 10:08 Dose: 1 spray Documented by: Dextrose (D50w Syringe) 0 gm IV X1 PRN; Protocol PRN Reason: Hypoglycemia Enoxaparin Sodium (Lovenox) 40 mg SC DAILY [facility] Last Admin: 04/28/20 10:08 Dose: 40 mg Documented by: Fluticasone Propionate (Flonase Nasal [place]) 2 spray NASAL QHS [facility] Last Admin: 04/28/20 21:15 Dose: 2 spray Documented by: Glucagon () 1 mg IM .X1 PRN PRN Reason: Hypoglycemia Cefepime HCl 2 gm/ Sodium (Chloride) 100 mls @ 200 mls/hr IV Q8 [facility] Stop: 05/02/20 22:01 Last Infusion: 04/29/20 06:02 Dose: Infused Documented by: [facility] Last Admin: 04/28/20 10:06 Dose: 1.25 mg Documented by: Losartan Potassium (Cozaar) 100 mg PO QHS [facility] Last Admin: 04/28/20 21:16 Dose: 100 mg Documented by: Magnesium Oxide (Mag-Ox 400) 400 mg PO DAILY [facility] Last Admin: 04/28/20 10:08 Dose: 400 mg Documented by: Mesalamine (Lialda) 1.2 gm PO BID [facility] Last Admin: 04/28/20 21:16 Dose: 1.2 gm Documented by: Methylprednisolone (Solu-Medrol) 40 mg IV Q8 [facility] Last Admin: 04/29/20 05:35 Dose: 40 mg Documented by: Metoprolol Succinate (Toprol Xl (Beta Sukhi)) 100 mg PO DAILY [facility] Last Admin: 04/28/20 10:07 Dose: 100 mg Documented by: Montelukast Sodium (Singulair) 10 mg PO DAILY [facility] Last Admin: 04/28/20 10:07 Dose: 10 mg Documented by: Pantoprazole Sodium (Protonix) 20 mg PO DAILY [facility] Last Admin: 04/28/20 10:05 Dose: 20 mg Documented by: Polyethylene Glycol (Miralax) 17 gm PO DAILY [facility] Last Admin: 04/28/20 10:08 Dose: Not Given Documented by: Sertraline HCl (Zoloft) 100 mg PO DAILY [facility] Last Admin: 04/28/20 10:07 Dose: 100 mg Documented by: Sodium Chloride () 10 - 40 ml IV UD PRN PRN Reason: SALINE FLUSH Last Admin: 04/29/20 05:35 Dose: 30 ml Documented by: Sodium Chloride ([place] Nasal [place]) 2 spray NASAL TID PRN PRN PRN Reason: NASAL DRYNESS Tamsulosin HCl (Flomax) 0.4 mg PO DINNER [facility] Last Admin: 04/28/20 21:15 Dose: 0.4 mg Documented by: Throat Lozenges (Cepacol Sore Throat Lozenge) 1 lozenge MUCOUS MEM Q2H PRN PRN PRN Reason: SORE THROAT Last Admin: 04/26/20 13:27 Dose: 1 lozenge Documented by: Medical Necessity - Tobacco Use Smoking Status: Former smoker Assessment/Plan All Active Problems (Last Reviewed 04/25/20 @ 17:[address] Margarita Higginbotham, DO) Sepsis (Acute) Community acquired pneumonia (Acute) SOB (shortness of breath) (Acute) RECOMMENDATIONS: 1. Continue empiric antimicrobial therapy. 2. Continue scheduled bronchodilators and IV steroids. 3. Wean oxygen to maintain saturations at or above 90%. 4. Autoimmune work-up is pending. 5. Encourage incentive spirometer use and mobilize patient as tolerated. 6. Await pleural fluid cytology results. IMPRESSIONS: 1. Acute on chronic hypoxemic respiratory failure The patient typically has a baseline oxygen requirement of 2 to 3 L/min. Significant pleural effusion noted on original presentation. Thoracentesis with 1 L fluid removed is consistent with an exudate. Continues on empiric antimicrobials. Cytology and cultures are still pending. Continue to wean oxygen as tolerated. Will attempt to wean steroids today. Repeat CT scan shows significant infiltrate of the right lower lobe. Parapneumonic effusion is suspected. 2. History of obstructive sleep apnea Continue nocturnal Pap therapy as ordered. 3. Heart failure with preserved ejection fraction The patient does not appear overtly volume overloaded at this time. Continue outpatient medication regimen. 4. Obesity/hyperlipidemia/GERD/allergic rhinitis/hypertension/chronic steroid dependency Complicates care, management, recovery and prognosis. Continue home medications as indicated. The patient will need to resume his baseline 10 mg prednisone dose on a daily basis upon discharge from the hospital. Inpatient E&M: 62994 Subs Hosp L2
[2020-04-29] MEDS: Polyethylene Glycol 3350 17 GM PACKET PO (08:29)
[2020-04-29] MEDS: Metoprolol(XL)Succ 100 MG Tablet PO (08:29)
[2020-04-29] MEDS: Enoxaparin 40 MG/0.4 ML Syringe SC (08:29)
[2020-04-29] MEDS: Sertraline 100 MG Tablet PO (08:30)
[2020-04-29] MEDS: Indapamide 2.5 MG Tablet 1.25 MG PO (08:30)
[2020-04-29] MEDS: Montelukast 10 MG Tablet PO (08:30)
[2020-04-29] MEDS: Mesalamine 1.2 GM Tablet PO ×2 (08:31→21:33)
[2020-04-29] MEDS: Magnesium Oxide 400 MG Tablet PO (08:31)
[2020-04-29] MEDS: amLODIPine 5 MG Tablet PO (08:32)
[2020-04-29] MEDS: Pantoprazole Sodium 20 MG Tablet PO (08:32)
--- NOTE | 2020-04-29 12:30 | PCM.PN.HOSP ---
Patient Problems: Active and Suspected Problems (Last Reviewed 04/25/20 @ 17:[address] Margarita Higginbotham DO) Sepsis (Acute) Community acquired pneumonia (Acute) SOB (shortness of breath) (Acute) Subjective: Doing well, feels little better today though he needed 9 L on ambulation Vitals/I&O's: Vital Signs Temp Pulse Resp BP Pulse Ox 98.0 F 87 19 H 132/63 H 88 04/29/20 10:15 04/29/20 10:15 04/29/20 11:33 04/29/20 10:15 04/29/20 10:20 Oxygen Flow Rate (L/min) [2] 5 Oxygen Flow Rate (L/min) [1 ( 5 Initial Baseline)] Oxygen Flow Rate (L/min) [ 9 AMBULATION with Oxygen] Oxygen Flow Rate (L/min) 6 Oxygen Delivery Method [2] Nasal Cannula Oxygen Delivery Method [1 ( Nasal Cannula Initial Baseline)] Oxygen Delivery Method Nasal Cannula Weight: 240 lb 4.862 oz Body Mass Index (BMI) 32.2 Intake and Output for Last 24 Hours 04/27/20 04/28/20 04/29/20 23:59 23:59 23:59 Intake Total 2220 / 2220 900 / 900 310 / 310 Output Total 4845 / 4845 3235 / 3235 600 / 600 Balance -2625 / -2625 -2335 / -2335 -290 / -290 General: Alert, Oriented x3, Cooperative, No apparent distress HEENT: Atraumatic, PERRLA, EOMI, Normocephalic Oral: Moist Mucosa Neck: Supple, No JVD Lungs: Normal air movement, No rhonchi, bilateral wheezing greater on the right than on the left, much improved air movement on the right Cardiovascular: Regular rate, Regular Rhythm, Normal S1, Normal S2, No murmurs Abdomen: Soft, Non Tender, Non-Distended, No Hepato-splenomegaly Extremities: No edema, Capillary Refill Less than 3 Seconds Skin: No rashes, No breakdown Neurological: Neuro grossly intact, Sensory exam intact to light touch and pain Psych/Mental Status: Normal Affect, Appropriate Microbiology Past 72 Hours 04/26/20 14:50 Fluid - Thoracentesis Fluid Gram Stain - Final 04/26/20 14:50 Fluid - Thoracentesis Fluid Body Fluid Culture - Final No growth aerobically. 04/26/20 14:50 Fluid - Thoracentesis Fluid Anaerobic Culture - Preliminary No growth in 48 hours. 04/26/20 08:15 Sputum, Expectorated/Coughed Gram Stain - Final 04/26/20 08:15 Sputum, Expectorated/Coughed Respiratory Culture - Final Presumptive C albicans 04/25/20 12:55 Blood Culture (Wb) #2 - Right Forearm Blood Culture - Preliminary No growth in 48 hours. 04/25/20 12:52 Blood Culture (Wb) - Left Forearm Blood Culture - Preliminary No growth in 48 hours. Laboratory Results 04/29/20 05:40: WBC 11.8 H, RBC 3.95 L, Hgb 12.4 L, Hct 37.0 L, MCV 93.7, MCH 31.4, MCHC 33.5, RDW Std Deviation 46.2 H, RDW Coeff of Eliecer 13.5, Plt Count 174, MPV 9.4, Immature Gran % (Auto) 1.600 H, Neut % (Auto) 85.8 H, Lymph % (Auto) 4.3 L, [place] % (Auto) 8.1, Eos % (Auto) 0.0, Baso % (Auto) 0.2, Absolute Neuts (auto) 10.1 H, Absolute Lymphs (auto) 0.51 L, Nucleated RBC % 0, Differential Comment SCANNED Current Medications Acetaminophen (Tylenol) 650 mg PO Q6H PRN PRN PRN Reason: Pain Score 1-10/Temp > 100.7 F Last Admin: 04/28/20 21:14 Dose: 650 mg Documented by: Al Hydroxide/Mg Hydroxide (Mylanta Ii) 30 ml PO Q6H PRN PRN PRN Reason: Gastric Burning Albuterol Sulfate (Ventolin Aerosols) 2.5 mg INHALATION Q2H PRN PRN PRN Reason: SOB/Wheezing Albuterol/Ipratropium (Duoneb) 3 ml INHALATION Q4H.RT [facility] Last Admin: 04/29/20 11:33 Dose: 3 ml Documented by: Amlodipine Besylate (Norvasc) 5 mg PO DAILY [facility] Last Admin: 04/29/20 08:32 Dose: 5 mg Documented by: Atorvastatin Calcium (Lipitor) 10 mg PO QHS [facility] Last Admin: 04/28/20 21:16 Dose: 10 mg Documented by: Azelastine HCl (Astelin) 1 spray NASAL DAILY [facility] Last Admin: 04/29/20 08:31 Dose: Not Given Documented by: Dextrose (D50w Syringe) 0 gm IV X1 PRN; Protocol PRN Reason: Hypoglycemia Enoxaparin Sodium (Lovenox) 40 mg SC DAILY [facility] Last Admin: 04/29/20 08:29 Dose: 40 mg Documented by: Fluticasone Propionate (Flonase Nasal [place]) 2 spray NASAL QHS [facility] Last Admin: 04/28/20 21:15 Dose: 2 spray Documented by: Glucagon () 1 mg IM .X1 PRN PRN Reason: Hypoglycemia Cefepime HCl 2 gm/ Sodium (Chloride) 100 mls @ 200 mls/hr IV Q8 [facility] Stop: 05/02/20 22:01 Last Infusion: 04/29/20 06:02 Dose: Infused Documented by: [facility] Last Admin: 04/29/20 08:30 Dose: 1.25 mg Documented by: Losartan Potassium (Cozaar) 100 mg PO QHS [facility] Last Admin: 04/28/20 21:16 Dose: 100 mg Documented by: Magnesium Oxide (Mag-Ox 400) 400 mg PO DAILY [facility] Last Admin: 04/29/20 08:31 Dose: 400 mg Documented by: Mesalamine (Lialda) 1.2 gm PO BID [facility] Last Admin: 04/29/20 08:31 Dose: 1.2 gm Documented by: Methylprednisolone (Solu-Medrol) 40 mg IV Q12 [facility] Metoprolol Succinate (Toprol Xl (Beta Sukhi)) 100 mg PO DAILY [facility] Last Admin: 04/29/20 08:29 Dose: 100 mg Documented by: Montelukast Sodium (Singulair) 10 mg PO DAILY [facility] Last Admin: 04/29/20 08:30 Dose: 10 mg Documented by: Pantoprazole Sodium (Protonix) 20 mg PO DAILY [facility] Last Admin: 04/29/20 08:32 Dose: 20 mg Documented by: Polyethylene Glycol (Miralax) 17 gm PO DAILY [facility] Last Admin: 04/29/20 08:29 Dose: 17 gm Documented by: Sertraline HCl (Zoloft) 100 mg PO DAILY [facility] Last Admin: 04/29/20 08:30 Dose: 100 mg Documented by: Sodium Chloride () 10 - 40 ml IV UD PRN PRN Reason: SALINE FLUSH Last Admin: 04/29/20 05:35 Dose: 30 ml Documented by: Sodium Chloride ([place] Nasal [place]) 2 spray NASAL TID PRN PRN PRN Reason: NASAL DRYNESS Tamsulosin HCl (Flomax) 0.4 mg PO DINNER [facility] Last Admin: 04/28/20 21:15 Dose: 0.4 mg Documented by: Throat Lozenges (Cepacol Sore Throat Lozenge) 1 lozenge MUCOUS MEM Q2H PRN PRN PRN Reason: SORE THROAT Last Admin: 04/26/20 13:27 Dose: 1 lozenge Documented by: STROKE Vital Signs/Narrative: Vital Signs Temp Pulse Resp BP Pulse Ox Pulse Ox 04/29/20 11:33 19 H 04/29/20 10:20 88 04/29/20 10:15 98.0 F 87 20 H 132/63 H 92 Medical Necessity - Tobacco Use Smoking Status: Former smoker Assessment/Plan All Active Problems (Last Reviewed 04/25/20 @ 17:[address] Margarita Higginbotham, DO) Sepsis (Acute) Community acquired pneumonia (Acute) SOB (shortness of breath) (Acute) 1. Acute on chronic hypoxic respiratory failure secondary to right sedated pleural effusion and COPD with possible pneumonia and severe sepsis/possible interstitial lung disease/BRADY -Pleural fluid is exudative, however negative for any bacteria -Still awaiting evaluation by pathologist to determine if there are any malignant cells -Continue with antibiotics as well as steroids and breathing treatments -CT scan yesterday was fairly unchanged from prior -Continue with nocturnal CPAP -Sepsis has resolved, continue with cefepime -He will have a prolonged taper back down to his baseline prednisone of 10 as well as continue with his azithromycin -Autoimmune work-up is pending 2. Chronic diastolic CHF/HLD/HTN -Blood pressure is stable, continue with his home blood pressure medications -Continue with his indapamide with diuresis as well as his metoprolol -Continue with his statin 3. GERD -Stable -Continue with PPI 4. Anxiety/depression -Stable -Continue with Zoloft 5. BPH -Stable -Continue with Flomax DVT: Lovenox Inpatient E&M: 54752 Subs Hosp L2
[2020-04-29] MEDS: Atorvastatin Calcium 10 MG Tablet PO (21:33)
[2020-04-29] MEDS: Tamsulosin HCl 0.4 MG Capsule PO (21:33)
[2020-04-29] MEDS: Losartan Potassium 100 MG Tablet PO (21:33)
[2020-04-30] VITALS (20 sets, daily range): BP systolic 127–156; BP diastolic 63–85; PULSE 69–95; RESP 16–20; TEMP 36.4–36.7; O2SAT 88–93
[2020-04-30] MEDS: Ipratropium/Albuterol Sulfate 3 ML AMPUL.NEB INHALATION ×6 (03:42→22:37)
[2020-04-30 04:50] LABS: ANTINUCLEAR ANTIBODIES DIRECT Negative (Negative)
[2020-04-30] MEDS: 0.9% Saline Lock 10 ML Syringe IV ×2 (05:16→21:42)
--- NOTE | 2020-04-30 07:34 | PCM.PN.PUL ---
Patient Problems: Active and Suspected Problems (Last Reviewed 04/25/20 @ 17:[address] Margarita Higginbotham, DO) Sepsis (Acute) Community acquired pneumonia (Acute) SOB (shortness of breath) (Acute) Subjective: Patient did okay overnight. No hemodynamic instability is been reported. Patient's discharge was delayed secondary to high oxygen requirements. Patient continues to report some shortness of breath on exertion, but feels subjectively improved compared to previous. - Physical Exam Vitals/I&O's: Vital Signs Temp Pulse Resp BP Pulse Ox 36.4 C L 95 20 H 142/73 H 92 04/30/20 03:30 04/30/20 06:56 04/30/20 03:42 04/30/20 03:30 04/30/20 03:30 Oxygen Flow Rate (L/min) [2] 5 Oxygen Flow Rate (L/min) [1 ( 5 Initial Baseline)] Oxygen Flow Rate (L/min) [ 9 AMBULATION with Oxygen] Oxygen Flow Rate (L/min) 7 Oxygen Delivery Method [2] Nasal Cannula Oxygen Delivery Method [1 ( Nasal Cannula Initial Baseline)] Oxygen Delivery Method CPAP Weight: 108.3 kg Body Mass Index (BMI) 32.2 Intake and Output for Last 24 Hours 04/28/20 04/29/20 04/30/20 23:59 23:59 23:59 Intake Total 900 / 900 2110 / 2110 200 / 200 Output Total 3235 / 3235 600 / 600 900 / 900 Balance -2335 / -2335 1510 / 1510 -700 / -700 General: Alert, Oriented x3, Cooperative, No apparent distress, - - Mild conversational dyspnea. Obese. HEENT: Atraumatic, PERRLA, EOMI, Normocephalic, - - No scleral icterus or injection noted. Glasses in place. Oral: Moist Mucosa, No Gingival or Mucosal Lesions/ Ulcerations, - - Carotid posterior pharynx Neck: Supple, No JVD, No Nodes, Trachea Midline Lungs: Diminished, Rhonchi - Improved with cough, Wheezes, - - Symmetric expansion. No dullness to percussion. Cardiovascular: Regular rate, Regular Rhythm, Normal S1, Normal S2, No murmurs, No rub noted, No Gallop Abdomen: Bowel Sounds Present, Soft, Non Tender, Non-Distended, Obese Extremities: No clubbing, No cyanosis, No edema Skin: No rashes, No breakdown Musculoskeletal: No Tenderness to Palpation of Joints or Extremities Lymphatic: No Cervical, Supraclavicular, or Inguinal Adenopathy Neurological: Cranial nerves II-XII grossly intact, Neuro grossly intact, Motor Exam 5/5 strength throughout Psych/Mental Status: Alert and oriented to time, place, person, mood and affect Microbiology Past 72 Hours 04/26/20 14:50 Fluid - Thoracentesis Fluid Gram Stain - Final 04/26/20 14:50 Fluid - Thoracentesis Fluid Body Fluid Culture - Final No growth aerobically. 04/26/20 14:50 Fluid - Thoracentesis Fluid Anaerobic Culture - Preliminary No growth in 48 hours. 04/26/20 08:15 Sputum, Expectorated/Coughed Gram Stain - Final 04/26/20 08:15 Sputum, Expectorated/Coughed Respiratory Culture - Final Presumptive C albicans 04/25/20 12:55 Blood Culture (Wb) #2 - Right Forearm Blood Culture - Preliminary No growth in 48 hours. 04/25/20 12:52 Blood Culture (Wb) - Left Forearm Blood Culture - Preliminary No growth in 48 hours. Laboratory Results 04/26/20 09:55: [facility] Screen Negative Current Medications Acetaminophen (Tylenol) 650 mg PO Q6H PRN PRN PRN Reason: Pain Score 1-10/Temp > 100.7 F Last Admin: 04/28/20 21:14 Dose: 650 mg Documented by: Al Hydroxide/Mg Hydroxide (Mylanta Ii) 30 ml PO Q6H PRN PRN PRN Reason: Gastric Burning Albuterol Sulfate (Ventolin Aerosols) 2.5 mg INHALATION Q2H PRN PRN PRN Reason: SOB/Wheezing Albuterol/Ipratropium (Duoneb) 3 ml INHALATION Q4H.RT [facility] Last Admin: 04/30/20 07:00 Dose: 3 ml Documented by: Amlodipine Besylate (Norvasc) 5 mg PO DAILY@2200 [facility] Atorvastatin Calcium (Lipitor) 10 mg PO QHS [facility] Last Admin: 04/29/20 21:33 Dose: 10 mg Documented by: Azelastine HCl (Astelin) 1 spray NASAL DAILY [facility] Last Admin: 04/29/20 08:31 Dose: Not Given Documented by: Dextrose (D50w Syringe) 0 gm IV X1 PRN; Protocol PRN Reason: Hypoglycemia Enoxaparin Sodium (Lovenox) 40 mg SC DAILY [facility] Last Admin: 04/29/20 08:29 Dose: 40 mg Documented by: Fluticasone Propionate (Flonase Nasal [place]) 2 spray NASAL QHS [facility] Last Admin: 04/29/20 21:33 Dose: Not Given Documented by: Glucagon () 1 mg IM .X1 PRN PRN Reason: Hypoglycemia Cefepime HCl 2 gm/ Sodium (Chloride) 100 mls @ 200 mls/hr IV Q8 [facility] Stop: 05/02/20 22:01 Last Infusion: 04/30/20 05:46 Dose: Infused Documented by: [facility] ([facility]) [facility] Last Admin: 04/29/20 08:30 Dose: 1.25 mg Documented by: Losartan Potassium (Cozaar) 100 mg PO QHS [facility] Last Admin: 04/29/20 21:33 Dose: 100 mg Documented by: Magnesium Oxide (Mag-Ox 400) 400 mg PO DAILY [facility] Last Admin: 04/29/20 08:31 Dose: 400 mg Documented by: Mesalamine (Lialda) 1.2 gm PO BID [facility] Last Admin: 04/29/20 21:33 Dose: 1.2 gm Documented by: Methylprednisolone (Solu-Medrol) 40 mg IV Q12 [facility] Last Admin: 04/29/20 21:33 Dose: 40 mg Documented by: Metoprolol Succinate (Toprol Xl (Beta Sukhi)) 100 mg PO DAILY [facility] Last Admin: 04/29/20 08:29 Dose: 100 mg Documented by: Montelukast Sodium (Singulair) 10 mg PO DAILY [facility] Last Admin: 04/29/20 08:30 Dose: 10 mg Documented by: Pantoprazole Sodium (Protonix) 20 mg PO DAILY [facility] Last Admin: 04/29/20 08:32 Dose: 20 mg Documented by: Polyethylene Glycol (Miralax) 17 gm PO DAILY [facility] Last Admin: 04/29/20 08:29 Dose: 17 gm Documented by: Sertraline HCl (Zoloft) 100 mg PO DAILY [facility] Last Admin: 04/29/20 08:30 Dose: 100 mg Documented by: Sodium Chloride () 10 - 40 ml IV UD PRN PRN Reason: SALINE FLUSH Last Admin: 04/30/20 05:16 Dose: 10 ml Documented by: Sodium Chloride ([place] Nasal [place]) 2 spray NASAL TID PRN PRN PRN Reason: NASAL DRYNESS Tamsulosin HCl (Flomax) 0.4 mg PO 2200 KARLI Last Admin: 04/29/20 21:33 Dose: 0.4 mg Documented by: Throat Lozenges (Cepacol Sore Throat Lozenge) 1 lozenge MUCOUS MEM Q2H PRN PRN PRN Reason: SORE THROAT Last Admin: 04/26/20 13:27 Dose: 1 lozenge Documented by: Medical Necessity - Tobacco Use Smoking Status: Former smoker Assessment/Plan All Active Problems (Last Reviewed 04/25/20 @ 17:[address] Margarita Higginbotham, DO) Sepsis (Acute) Community acquired pneumonia (Acute) SOB (shortness of breath) (Acute) RECOMMENDATIONS: 1. Continue empiric antimicrobial therapy. 2. Continue scheduled bronchodilators, but transition to p.o. steroids. 3. Wean oxygen to maintain saturations at or above 90%. 4. Autoimmune work-up is pending. 5. Encourage incentive spirometer use and mobilize patient as tolerated. 6. Await pleural fluid cytology results. IMPRESSIONS: 1. Acute on chronic hypoxemic respiratory failure The patient typically has a baseline oxygen requirement of 2 to 3 L/min. Significant pleural effusion noted on original presentation. Thoracentesis with 1 L fluid removed is consistent with an exudate. Continues on empiric antimicrobials. Cytology is still pending. Cultures have come back negative. Continue to wean oxygen as tolerated. Will attempt transition to p.o. steroids today. Anticipate weaning over the next 12 to 14 days to baseline 10 mg prednisone daily. Repeat CT scan shows significant infiltrate of the right lower lobe. Parapneumonic effusion is suspected. Anticipate discharge once patient can tolerate 6 L or less with ambulation. 2. History of obstructive sleep apnea Continue nocturnal Pap therapy as ordered. 3. Heart failure with preserved ejection fraction The patient does not appear overtly volume overloaded at this time. Continue outpatient medication regimen. 4. Obesity/hyperlipidemia/GERD/allergic rhinitis/hypertension/chronic steroid dependency Complicates care, management, recovery and prognosis. Continue home medications as indicated. The patient will need to resume his baseline 10 mg prednisone dose on a daily basis upon discharge from the hospital. Inpatient E&M: 83524 [facility] Hosp L2
[2020-04-30] MEDS: Enoxaparin 40 MG/0.4 ML Syringe SC (08:57)
[2020-04-30] MEDS: Azelastine HCl NASAL.SRY 1 SPRAY NASAL (08:57)
[2020-04-30] MEDS: Magnesium Oxide 400 MG Tablet PO (08:58)
[2020-04-30] MEDS: Pantoprazole Sodium 20 MG Tablet PO (08:58)
[2020-04-30] MEDS: Montelukast 10 MG Tablet PO (08:58)
[2020-04-30] MEDS: Indapamide 2.5 MG Tablet 1.25 MG PO (08:59)
[2020-04-30] MEDS: Metoprolol(XL)Succ 100 MG Tablet PO (08:59)
[2020-04-30] MEDS: Sertraline 100 MG Tablet PO (08:59)
[2020-04-30] MEDS: Mesalamine 1.2 GM Tablet PO ×2 (08:59→21:41)
[2020-04-30] MEDS: Polyethylene Glycol 3350 17 GM PACKET PO (09:00)
[2020-04-30] MEDS: predniSONE 20 MG Tablet 40 MG PO (09:02)
--- NOTE | 2020-04-30 10:14 | PN_ITS ---
Patient Problems: Active and Suspected Problems (Last Reviewed 04/25/20 @ 17:[address] Margarita Higginbotham DO) Sepsis (Acute) Community acquired pneumonia (Acute) SOB (shortness of breath) (Acute) Subjective: He is about the same as he has been, still with shortness of breath on exertion. Vitals/I&O's: Vital Signs Temp Pulse Resp BP Pulse Ox 97.8 F 84 18 140/63 H 91 04/30/20 08:55 04/30/20 08:59 04/30/20 08:55 04/30/20 08:55 04/30/20 08:55 Oxygen Flow Rate (L/min) [2] 5 Oxygen Flow Rate (L/min) [1 ( 5 Initial Baseline)] Oxygen Flow Rate (L/min) [ 9 AMBULATION with Oxygen] Oxygen Flow Rate (L/min) 6 Oxygen Delivery Method [2] Nasal Cannula Oxygen Delivery Method [1 ( Nasal Cannula Initial Baseline)] Oxygen Delivery Method Nasal Cannula Weight: 238 lb 12.17 oz Body Mass Index (BMI) 32.2 Intake and Output for Last 24 Hours 04/28/20 04/29/20 04/30/20 23:59 23:59 23:59 Intake Total 900 / 900 2110 / 2110 200 / 200 Output Total 3235 / 3235 600 / 600 900 / 900 Balance -2335 / -2335 1510 / 1510 -700 / -700 General: Alert, Oriented x3, Cooperative, No apparent distress HEENT: Atraumatic, PERRLA, EOMI, Normocephalic Oral: Moist Mucosa Neck: Supple, No JVD Lungs: Normal air movement, No rhonchi, bilateral wheezing greater on the right than on the left, much improved air movement on the right Cardiovascular: Regular rate, Regular Rhythm, Normal S1, Normal S2, No murmurs Abdomen: Soft, Non Tender, Non-Distended, No Hepato-splenomegaly Extremities: No edema, Capillary Refill Less than 3 Seconds Skin: No rashes, No breakdown Neurological: Neuro grossly intact, Sensory exam intact to light touch and pain Psych/Mental Status: Normal Affect, Appropriate Microbiology Past 72 Hours 04/26/20 14:50 Fluid - Thoracentesis Fluid Gram Stain - Final 04/26/20 14:50 Fluid - Thoracentesis Fluid Body Fluid Culture - Final No growth aerobically. 04/26/20 14:50 Fluid - Thoracentesis Fluid Anaerobic Culture - Preliminary No growth in 48 hours. 04/26/20 08:15 Sputum, Expectorated/Coughed Gram Stain - Final 04/26/20 08:15 Sputum, Expectorated/Coughed Respiratory Culture - Final Presumptive C albicans 04/25/20 12:55 Blood Culture (Wb) #2 - Right Forearm Blood Culture - Preliminary No growth in 48 hours. 04/25/20 12:52 Blood Culture (Wb) - Left Forearm Blood Culture - Preliminary No growth in 48 hours. Laboratory Results 04/26/20 09:55: [facility] Screen Negative 04/26/20 14:50: Fl Pathologist Comment Reviewed, Fluid Comment 2 Current Medications Acetaminophen (Tylenol) 650 mg PO Q6H PRN PRN PRN Reason: Pain Score 1-10/Temp > 100.7 F Last Admin: 04/28/20 21:14 Dose: 650 mg Documented by: Al Hydroxide/Mg Hydroxide (Mylanta Ii) 30 ml PO Q6H PRN PRN PRN Reason: Gastric Burning Albuterol Sulfate (Ventolin Aerosols) 2.5 mg INHALATION Q2H PRN PRN PRN Reason: SOB/Wheezing Albuterol/Ipratropium (Duoneb) 3 ml INHALATION Q4H.RT [facility] Last Admin: 04/30/20 07:00 Dose: 3 ml Documented by: Amlodipine Besylate (Norvasc) 5 mg PO DAILY@2200 [facility] Atorvastatin Calcium (Lipitor) 10 mg PO QHS [facility] Last Admin: 04/29/20 21:33 Dose: 10 mg Documented by: Azelastine HCl (Astelin) 1 spray NASAL DAILY [facility] Last Admin: 04/30/20 08:57 Dose: 1 spray Documented by: Dextrose (D50w Syringe) 0 gm IV X1 PRN; Protocol PRN Reason: Hypoglycemia Enoxaparin Sodium (Lovenox) 40 mg SC DAILY [facility] Last Admin: 04/30/20 08:57 Dose: 40 mg Documented by: Fluticasone Propionate (Flonase Nasal [place]) 2 spray NASAL QHS [facility] Last Admin: 04/29/20 21:33 Dose: Not Given Documented by: Glucagon () 1 mg IM .X1 PRN PRN Reason: Hypoglycemia Cefepime HCl 2 gm/ Sodium (Chloride) 100 mls @ 200 mls/hr IV Q8 [facility] Stop: 05/02/20 22:01 Last Infusion: 04/30/20 05:46 Dose: Infused Documented by: Indapamide (Lozol) 1.25 mg PO DAILYCM [facility] Last Admin: 04/30/20 08:59 Dose: 1.25 mg Documented by: Losartan Potassium (Cozaar) 100 mg PO QHS [facility] Last Admin: 04/29/20 21:33 Dose: 100 mg Documented by: Magnesium Oxide (Mag-Ox 400) 400 mg PO DAILY [facility] Last Admin: 04/30/20 08:58 Dose: 400 mg Documented by: Mesalamine (Lialda) 1.2 gm PO BID [facility] Last Admin: 04/30/20 08:59 Dose: 1.2 gm Documented by: Metoprolol Succinate (Toprol Xl (Beta Sukhi)) 100 mg PO DAILY [facility] Last Admin: 04/30/20 08:59 Dose: 100 mg Documented by: Montelukast Sodium (Singulair) 10 mg PO DAILY [facility] Last Admin: 04/30/20 08:58 Dose: 10 mg Documented by: Pantoprazole Sodium (Protonix) 20 mg PO DAILY [facility] Last Admin: 04/30/20 08:58 Dose: 20 mg Documented by: Polyethylene Glycol (Miralax) 17 gm PO DAILY [facility] Last Admin: 04/30/20 09:00 Dose: 17 gm Documented by: Prednisone () 40 mg PO DAILY@0800 [facility] Last Admin: 04/30/20 09:02 Dose: 40 mg Documented by: Sertraline HCl (Zoloft) 100 mg PO DAILY [facility] Last Admin: 04/30/20 08:59 Dose: 100 mg Documented by: Sodium Chloride () 10 - 40 ml IV UD PRN PRN Reason: SALINE FLUSH Last Admin: 04/30/20 05:16 Dose: 10 ml Documented by: Sodium Chloride ([place] Nasal [place]) 2 spray NASAL TID PRN PRN PRN Reason: NASAL DRYNESS Tamsulosin HCl (Flomax) 0.4 mg PO 2200 [facility] Last Admin: 04/29/20 21:33 Dose: 0.4 mg Documented by: Throat Lozenges (Cepacol Sore Throat Lozenge) 1 lozenge MUCOUS MEM Q2H PRN PRN PRN Reason: SORE THROAT Last Admin: 04/26/20 13:27 Dose: 1 lozenge Documented by: STROKE Vital Signs/Narrative: Vital Signs Temp Pulse Resp BP Pulse Ox 04/30/20 08:59 84 04/30/20 08:55 97.8 F 84 18 140/63 H 91 04/30/20 07:00 79 16 90 04/30/20 06:56 95 Medical Necessity - Tobacco Use Smoking Status: Former smoker Assessment/Plan All Active Problems (Last Reviewed 04/25/20 @ 17:[address] Margarita Higginbotham, DO) Sepsis (Acute) Community acquired pneumonia (Acute) SOB (shortness of breath) (Acute) 1. Acute on chronic hypoxic respiratory failure secondary to right sedated pleural effusion and COPD with possible pneumonia and severe sepsis/possible interstitial lung disease/BRADY -Pleural fluid is exudative, however negative for any bacteria -Still awaiting evaluation by pathologist to determine if there are any malignant cells -Continue with antibiotics as well as steroids and breathing treatments, was transitioned to oral steroids today and he is on day 5 of cefepime -CT scan was fairly unchanged from prior -Continue with nocturnal CPAP -Sepsis has resolved, continue with cefepime -He will have a prolonged taper back down to his baseline prednisone of 10 as well as continue with his azithromycin -Autoimmune work-up is pending -We will continue with ambulatory pulse ox is daily to evaluate his oxygen need with ambulation. Discharge will occur when he is needing less than 6 L 2. Chronic diastolic CHF/HLD/HTN -Blood pressure is stable, continue with his home blood pressure medications -Continue with his indapamide with diuresis as well as his metoprolol -Continue with his statin 3. GERD -Stable -Continue with PPI 4. Anxiety/depression -Stable -Continue with Zoloft 5. BPH -Stable -Continue with Flomax DVT: Lovenox Inpatient E&M: [id number] Subs Hosp L2
--- NOTE | 2020-04-30 11:24 | NURSING ---
Updated patient's daughter, Polly, on current status
[2020-04-30 16:00] LABS: CCP IgG Antibodies 6 units (0-19)
[2020-04-30] MEDS: Acetaminophen 325 MG Tablet 650 MG PO (20:17)
[2020-04-30] MEDS: Fluticasone 0.05% 1 SPRAY NASAL.SRY 2 SPRAY NASAL (21:40)
[2020-04-30] MEDS: Losartan Potassium 100 MG Tablet PO (21:40)
[2020-04-30] MEDS: Tamsulosin HCl 0.4 MG Capsule PO (21:40)
[2020-04-30] MEDS: Atorvastatin Calcium 10 MG Tablet PO (21:41)
[2020-04-30] MEDS: amLODIPine 5 MG Tablet PO (21:41)
[2020-05-01] VITALS (23 sets, daily range): BP systolic 115–162; BP diastolic 41–83; PULSE 64–94; RESP 16–24; TEMP 36.4–36.7; O2SAT 88–95
--- NOTE | 2020-05-01 02:22 | NURSING ---
Report received, this RN resuming care at this time
[2020-05-01] MEDS: Ipratropium/Albuterol Sulfate 3 ML AMPUL.NEB INHALATION ×6 (02:58→22:51)
[2020-05-01 04:17] LABS: Anion Gap 9 (5-15); BUN 37 mg/dL (7-18); BUN/Creat Ratio 25.5 RATIO (10-20); Calcium,Total 9.4 mg/dL (8.5-10.1); Chloride 102 mmol/L (98-107); Creatinine, Serum 1.45 mg/dL (0.70-1.30); EST Glomerular Filtration Rate 50 mL/min (>60); Est Glom Filt Rate - Afr Amer 61 mL/min (>60); Estimated Creatinine Clearance 46.83 ml/min; Glucose 144 mg/dL (74-106); Potassium 3.3 mmol/L (3.5-5.1); Sodium Level 138 mmol/L (136-145)
[2020-05-01 04:21] LABS: Vancomycin, Trough Level 2.1 ug/mL (5.0-15.0)
[2020-05-01] MEDS: 0.9% Saline Lock 10 ML Syringe IV ×2 (05:21→21:46)
[2020-05-01] MEDS: Acetaminophen 325 MG Tablet 650 MG PO (07:52)
--- NOTE | 2020-05-01 08:45 | PN_ITS ---
Patient Problems: Active and Suspected Problems (Last Reviewed 04/25/20 @ 17:[address] Margarita Higginbotham, DO) Sepsis (Acute) Community acquired pneumonia (Acute) SOB (shortness of breath) (Acute) Subjective: Patient reports subjective improvement in overall condition, but still requiring significant amounts of oxygen to maintain saturations. Patient does report a productive cough, especially in the morning. - Physical Exam Vitals/I&O's: Vital Signs Temp Pulse Resp BP Pulse Ox 36.6 C 74 22 H 141/83 H 91 05/01/20 03:30 05/01/20 07:30 05/01/20 07:30 05/01/20 03:30 05/01/20 07:30 Oxygen Flow Rate (L/min) [2] 5 Oxygen Flow Rate (L/min) [1 ( 5 Initial Baseline)] Oxygen Flow Rate (L/min) [ 7 AMBULATION with Oxygen] Oxygen Flow Rate (L/min) 6 Oxygen Delivery Method [2] Nasal Cannula Oxygen Delivery Method [1 ( Nasal Cannula Initial Baseline)] Oxygen Delivery Method Nasal Cannula Weight: 108.8 kg Body Mass Index (BMI) 32.2 Intake and Output for Last 24 Hours 04/29/20 04/30/20 05/01/20 23:59 23:59 23:59 Intake Total 2110 / 2110 1440 / 1940 600 / 600 Output Total 600 / 600 900 / 900 350 / 350 Balance 1510 / 1510 540 / 1040 250 / 250 General: Alert, Oriented x3, Cooperative, - - Mild conversational dyspnea. Obese. HEENT: Atraumatic, PERRLA, EOMI, Normocephalic, - - No scleral icterus or injection noted. Glasses in place. Oral: Moist Mucosa, No Gingival or Mucosal Lesions/ Ulcerations Neck: Supple, No JVD, No Nodes, Trachea Midline Lungs: No rhonchi, No wheeze, No rales, Diminished - Right base Cardiovascular: Regular rate, Regular Rhythm, Normal S1, Normal S2, No murmurs, No rub noted, No Gallop Abdomen: Bowel Sounds Present, Soft, Non Tender, Non-Distended, Obese Extremities: No clubbing, No cyanosis, Edema - Trace to 1+ Skin: No rashes, No breakdown Musculoskeletal: No Tenderness to Palpation of Joints or Extremities Lymphatic: No Cervical, Supraclavicular, or Inguinal Adenopathy Neurological: Cranial nerves II-XII grossly intact, Neuro grossly intact, Motor Exam 5/5 strength throughout Psych/Mental Status: Alert and oriented to time, place, person, mood and affect Microbiology Past 72 Hours 04/25/20 12:55 Blood Culture (Wb) #2 - Right Forearm Blood Culture - Final No growth in 5 days. 04/25/20 12:52 Blood Culture (Wb) - Left Forearm Blood Culture - Final No growth in 5 days. 04/26/20 14:50 Fluid - Thoracentesis Fluid Gram Stain - Final 04/26/20 14:50 Fluid - Thoracentesis Fluid Body Fluid Culture - Final No growth aerobically. 04/26/20 14:50 Fluid - Thoracentesis Fluid Anaerobic Culture - Preliminary No growth in 48 hours. 04/26/20 08:15 Sputum, Expectorated/Coughed Gram Stain - Final 04/26/20 08:15 Sputum, Expectorated/Coughed Respiratory Culture - Final Presumptive C albicans Laboratory Results 04/26/20 09:55: RASHAWN-1 Antibody Not Reportable, SS-A/Ro IgG Antibody Not Reportable, SS-B/La IgG Antibody Not Reportable, Sm (Hummel) Antibody Not Reportable, MOLD INSPECTOR Antibody Not Reportable, Scl-70 Scleroderma Ab Not Reportable, Double Strand DNA Ab Not Reportable, Centromere B Antibody Not Reportable 04/26/20 09:55: Cycl Citrul Peptide IgG 6 04/26/20 14:50: Fl Pathologist Comment Reviewed, Fluid Comment 2 05/01/20 03:30: Vancomycin Trough 2.1 L 05/01/20 03:30: Sodium 138, Potassium 3.3 L, Chloride 102, Carbon Dioxide 27.0, Anion Gap 9, BUN 37 H, Creatinine 1.45 H, Estim Creat Clear Calc 46.83, Est GFR (MDRD) Af Amer 61, Est GFR (MDRD) Non-Af 50 L, BUN/Creatinine Ratio 25.5 H, Glucose 144 H, Calcium 9.4 Current Medications Acetaminophen (Tylenol) 650 mg PO Q6H PRN PRN PRN Reason: Pain Score 1-10/Temp > 100.7 F Last Admin: 05/01/20 07:52 Dose: 650 mg Documented by: Al Hydroxide/Mg Hydroxide (Mylanta Ii) 30 ml PO Q6H PRN PRN PRN Reason: Gastric Burning Albuterol Sulfate (Ventolin Aerosols) 2.5 mg INHALATION Q2H PRN PRN PRN Reason: SOB/Wheezing Albuterol/Ipratropium (Duoneb) 3 ml INHALATION Q4H.RT [facility] Last Admin: 05/01/20 07:30 Dose: 3 ml Documented by: Amlodipine Besylate (Norvasc) 5 mg PO DAILY@2200 [facility] Last Admin: 04/30/20 21:41 Dose: 5 mg Documented by: Atorvastatin Calcium (Lipitor) 10 mg PO QHS [facility] Last Admin: 04/30/20 21:41 Dose: 10 mg Documented by: Azelastine HCl (Astelin) 1 spray NASAL DAILY [facility] Last Admin: 04/30/20 08:57 Dose: 1 spray Documented by: Dextrose (D50w Syringe) 0 gm IV X1 PRN; Protocol PRN Reason: Hypoglycemia Enoxaparin Sodium (Lovenox) 40 mg SC DAILY [facility] Last Admin: 04/30/20 08:57 Dose: 40 mg Documented by: Fluticasone Propionate (Flonase Nasal [place]) 2 spray NASAL QHS [facility] Last Admin: 04/30/20 21:40 Dose: 2 spray Documented by: Glucagon () 1 mg IM .X1 PRN PRN Reason: Hypoglycemia Cefepime HCl 2 gm/ Sodium (Chloride) 100 mls @ 200 mls/hr IV Q8 [facility] Stop: 05/02/20 22:01 Last Infusion: 05/01/20 06:05 Dose: Infused Documented by: [facility] ([facility]) [facility] Last Admin: 04/30/20 08:59 Dose: 1.25 mg Documented by: Losartan Potassium (Cozaar) 100 mg PO QHS [facility] Last Admin: 04/30/20 21:40 Dose: 100 mg Documented by: Magnesium Oxide (Mag-Ox 400) 400 mg PO DAILY [facility] Last Admin: 04/30/20 08:58 Dose: 400 mg Documented by: Mesalamine (Lialda) 1.2 gm PO BID [facility] Last Admin: 04/30/20 21:41 Dose: 1.2 gm Documented by: Metoprolol Succinate (Toprol Xl (Beta Sukhi)) 100 mg PO DAILY [facility] Last Admin: 04/30/20 08:59 Dose: 100 mg Documented by: Montelukast Sodium (Singulair) 10 mg PO DAILY [facility] Last Admin: 04/30/20 08:58 Dose: 10 mg Documented by: Pantoprazole Sodium (Protonix) 20 mg PO DAILY [facility] Last Admin: 04/30/20 08:58 Dose: 20 mg Documented by: Polyethylene Glycol (Miralax) 17 gm PO DAILY [facility] Last Admin: 04/30/20 09:00 Dose: 17 gm Documented by: Prednisone () 40 mg PO DAILY@0800 [facility] Last Admin: 04/30/20 09:02 Dose: 40 mg Documented by: Sertraline HCl (Zoloft) 100 mg PO DAILY [facility] Last Admin: 04/30/20 08:59 Dose: 100 mg Documented by: Sodium Chloride () 10 - 40 ml IV UD PRN PRN Reason: SALINE FLUSH Last Admin: 05/01/20 05:21 Dose: 10 ml Documented by: Sodium Chloride ([place] Nasal [place]) 2 spray NASAL TID PRN PRN PRN Reason: NASAL DRYNESS Tamsulosin HCl (Flomax) 0.4 mg PO 0 [facility] Last Admin: 04/30/20 21:40 Dose: 0.4 mg Documented by: Throat Lozenges (Cepacol Sore Throat Lozenge) 1 lozenge MUCOUS MEM Q2H PRN PRN PRN Reason: SORE THROAT Last Admin: 04/26/20 13:27 Dose: 1 lozenge Documented by: Medical Necessity - Tobacco Use Smoking Status: Former smoker Assessment/Plan All Active Problems (Last Reviewed 04/25/20 @ 17:[address] Margarita Higginbotham, DO) Sepsis (Acute) Community acquired pneumonia (Acute) SOB (shortness of breath) (Acute) RECOMMENDATIONS: 1. Continue empiric antimicrobial therapy. 2. Continue scheduled bronchodilators and p.o. steroids. 3. Wean oxygen to maintain saturations at or above 90%. 4. Obtain chest x-rays 5. Encourage incentive spirometer use and mobilize patient as tolerated. 6. Possible repeat thoracentesis IMPRESSIONS: 1. Acute on chronic hypoxemic respiratory failure The patient typically has a baseline oxygen requirement of 2 to 3 L/min. Significant pleural effusion noted on original presentation. Thoracentesis with 1 L fluid removed is consistent with an exudate. Continues on empiric antimicrobials. Cytology is negative. Cultures have come back negative. Continue to wean oxygen as tolerated. On p.o. steroids, but continues to require significant amounts of oxygen. Will obtain a chest x-ray for evaluation of recurrence of the pleural effusion. Patient may require a repeat thoracentesis if significant. Anticipate weaning over the next 12 to 14 days to baseline 10 mg prednisone daily. Repeat CT scan shows significant infiltrate of the right lower lobe. Parapneumonic effusion is suspected. Anticipate discharge once patient can tolerate 6 L or less with ambulation. 2. History of obstructive sleep apnea Continue nocturnal Pap therapy as ordered. 3. Heart failure with preserved ejection fraction The patient does not appear overtly volume overloaded at this time. Co ntinue outpatient medication regimen. 4. Obesity/hyperlipidemia/GERD/allergic rhinitis/hypertension/chronic steroid dependency Complicates care, management, recovery and prognosis. Continue home medications as indicated. The patient will need to resume his baseline 10 mg prednisone dose on a daily basis upon discharge from the hospital. Addendum 1324: Noted positive cytology in pathology report. Spoke with Dr. Alvarez for verification. Patient, patient's and hospitalist informed. Patient has some knowledge of Dr. Marques and would like to follow with him. Will continue with plans for thoracentesis. Inpatient E&M: 75907 Subs Hosp L2
[2020-05-01] MEDS: Sertraline 100 MG Tablet PO (09:04)
[2020-05-01] MEDS: Montelukast 10 MG Tablet PO (09:04)
[2020-05-01] MEDS: Mesalamine 1.2 GM Tablet PO ×2 (09:04→21:40)
[2020-05-01] MEDS: Pantoprazole Sodium 20 MG Tablet PO (09:04)
[2020-05-01] MEDS: Indapamide 2.5 MG Tablet 1.25 MG PO (09:04)
[2020-05-01] MEDS: Metoprolol(XL)Succ 100 MG Tablet PO (09:04)
[2020-05-01] MEDS: Magnesium Oxide 400 MG Tablet PO (09:04)
[2020-05-01] MEDS: predniSONE 20 MG Tablet 40 MG PO (09:04)
[2020-05-01] MEDS: Enoxaparin 40 MG/0.4 ML Syringe SC (09:05)
[2020-05-01] MEDS: Polyethylene Glycol 3350 17 GM PACKET PO (09:05)
--- NOTE | 2020-05-01 10:00 | RAD_ITS ---
STUDY: X-RAY CHEST REASON FOR EXAM: Male, 75 years old. Hypoxia TECHNIQUE: PA and lateral views of the chest. COMPARISON: 04/26/2020 FINDINGS: EKG leads overlie the chest Left lung remains expanded with chronic interstitial changes but no superimposed process. Reaccumulation of a previously noted right pleural effusion which is likely loculated and affects the inferior third of the right hemithorax. Additionally, there is new right perihilar opacification and an early infiltrate cannot be excluded. Normal size heart. Normal mediastinum and rick. Normal visualized pulmonary arteries. Normal visualized aortic arch and descending thoracic aorta. There are diffuse degenerative changes of the visualized thoracic spine. Normal visualized ribs, clavicles, and shoulders. There is no demonstrated abnormality of the visualized soft tissue structures of the upper abdomen. RAD/Chest PA and Lateral IMPRESSION: Significant change in the right hemithorax since the previous study with reaccumulation of a likely loculated right pleural effusion and development of airspace opacification the right infrahilar region. Follow-up recommended to assure resolution Left lung shows chronic interstitial changes without a superimposed acute pulmonary process Electronically Signed: Roverto Flores MD at 10:16 EDT , Service support ,
--- NOTE | 2020-05-01 11:22 | PN_ITS ---
Patient Problems: Active and Suspected Problems (Last Reviewed 04/25/20 @ 17:[address] Margarita Higginbotham, DO) Sepsis (Acute) Community acquired pneumonia (Acute) SOB (shortness of breath) (Acute) Subjective: Feels more short of breath today with ambulation. Vitals/I&O's: Vital Signs Temp Pulse Resp BP Pulse Ox 98.1 F 64 18 141/74 H 90 05/01/20 10:28 05/01/20 11:01 05/01/20 10:28 05/01/20 10:28 05/01/20 10:28 Oxygen Flow Rate (L/min) [2] 5 Oxygen Flow Rate (L/min) [1 ( 5 Initial Baseline)] Oxygen Flow Rate (L/min) [ 7 AMBULATION with Oxygen] Oxygen Flow Rate (L/min) 6 Oxygen Delivery Method [2] Nasal Cannula Oxygen Delivery Method [1 ( Nasal Cannula Initial Baseline)] Oxygen Delivery Method Nasal Cannula Weight: 239 lb 13.807 oz Body Mass Index (BMI) 32.2 Intake and Output for Last 24 Hours 04/29/20 04/30/20 05/01/20 23:59 23:59 23:59 Intake Total 2110 / 2110 1440 / 1940 600 / 600 Output Total 600 / 600 900 / 900 350 / 350 Balance 1510 / 1510 540 / 1040 250 / 250 General: Alert, Oriented x3, Cooperative, No apparent distress HEENT: Atraumatic, PERRLA, EOMI, Normocephalic Oral: Moist Mucosa Neck: Supple, No JVD Lungs: Normal air movement, No rhonchi, more diminished on the right than he was yesterday Cardiovascular: Regular rate, Regular Rhythm, Normal S1, Normal S2, No murmurs Abdomen: Soft, Non Tender, Non-Distended, No Hepato-splenomegaly Extremities: No edema, Capillary Refill Less than 3 Seconds Skin: No rashes, No breakdown Neurological: Neuro grossly intact, Sensory exam intact to light touch and pain Psych/Mental Status: Normal Affect, Appropriate Microbiology Past 72 Hours 04/26/20 14:50 Fluid - Thoracentesis Fluid Gram Stain - Final 04/26/20 14:50 Fluid - Thoracentesis Fluid Body Fluid Culture - Final No growth aerobically. 04/26/20 14:50 Fluid - Thoracentesis Fluid Anaerobic Culture - Final No anaerobic bacteria isolated. 04/25/20 12:55 Blood Culture (Wb) #2 - Right Forearm Blood Culture - Final No growth in 5 days. 04/25/20 12:52 Blood Culture (Wb) - Left Forearm Blood Culture - Final No growth in 5 days. 04/26/20 08:15 Sputum, Expectorated/Coughed Gram Stain - Final 04/26/20 08:15 Sputum, Expectorated/Coughed Respiratory Culture - Final Presumptive C albicans Laboratory Results 04/26/20 09:55: RASHAWN-1 Antibody Not Reportable, SS-A/Ro IgG Antibody Not Reportable, SS-B/La IgG Antibody Not Reportable, Sm (Hummel) Antibody Not Reportable, CHIMNEY SUPERVISOR BRICK Antibody Not Reportable, Scl-70 Scleroderma Ab Not Reportable, Double Strand DNA Ab Not Reportable, Centromere B Antibody Not Reportable 04/26/20 09:55: Cycl Citrul Peptide IgG 6 05/01/20 03:30: Vancomycin Trough 2.1 L 05/01/20 03:30: Sodium 138, Potassium 3.3 L, Chloride 102, Carbon Dioxide 27.0, Anion Gap 9, BUN 37 H, Creatinine 1.45 H, Estim Creat Clear Calc 46.83, Est GFR (MDRD) Af Amer 61, Est GFR (MDRD) Non-Af 50 L, BUN/Creatinine Ratio 25.5 H, Glucose 144 H, Calcium 9.4 Current Medications Acetaminophen (Tylenol) 650 mg PO Q6H PRN PRN PRN Reason: Pain Score 1-10/Temp > 100.7 F Last Admin: 05/01/20 07:52 Dose: 650 mg Documented by: Al Hydroxide/Mg Hydroxide (Mylanta Ii) 30 ml PO Q6H PRN PRN PRN Reason: Gastric Burning Albuterol Sulfate (Ventolin Aerosols) 2.5 mg INHALATION Q2H PRN PRN PRN Reason: SOB/Wheezing Albuterol/Ipratropium (Duoneb) 3 ml INHALATION Q4H.RT [facility] Last Admin: 05/01/20 07:30 Dose: 3 ml Documented by: Amlodipine Besylate (Norvasc) 5 mg PO DAILY@2200 [facility] Last Admin: 04/30/20 21:41 Dose: 5 mg Documented by: Atorvastatin Calcium (Lipitor) 10 mg PO QHS [facility] Last Admin: 04/30/20 21:41 Dose: 10 mg Documented by: Azelastine HCl (Astelin) 1 spray NASAL DAILY [facility] Last Admin: 05/01/20 09:05 Dose: Not Given Documented by: Dextrose (D50w Syringe) 0 gm IV X1 PRN; Protocol PRN Reason: Hypoglycemia Enoxaparin Sodium (Lovenox) 40 mg SC DAILY [facility] Last Admin: 05/01/20 09:05 Dose: 40 mg Documented by: Fluticasone Propionate (Flonase Nasal [place]) 2 spray NASAL QHS [facility] Last Admin: 04/30/20 21:40 Dose: 2 spray Documented by: Glucagon () 1 mg IM .X1 PRN PRN Reason: Hypoglycemia Cefepime HCl 2 gm/ Sodium (Chloride) 100 mls @ 200 mls/hr IV Q8 [facility] Stop: 05/02/20 22:01 Last Infusion: 05/01/20 06:05 Dose: Infused Documented by: Indapamide (Lozol) 1.25 mg PO DAILYCM [facility] Last Admin: 05/01/20 09:04 Dose: 1.25 mg Documented by: Losartan Potassium (Cozaar) 100 mg PO QHS [facility] Last Admin: 04/30/20 21:40 Dose: 100 mg Documented by: Magnesium Oxide (Mag-Ox 400) 400 mg PO DAILY [facility] Last Admin: 05/01/20 09:04 Dose: 400 mg Documented by: Mesalamine (Lialda) 1.2 gm PO BID [facility] Last Admin: 05/01/20 09:04 Dose: 1.2 gm Documented by: Metoprolol Succinate (Toprol Xl (Beta Sukhi)) 100 mg PO DAILY [facility] Last Admin: 05/01/20 09:04 Dose: 100 mg Documented by: Montelukast Sodium (Singulair) 10 mg PO DAILY [facility] Last Admin: 05/01/20 09:04 Dose: 10 mg Documented by: Pantoprazole Sodium (Protonix) 20 mg PO DAILY [facility] Last Admin: 05/01/20 09:04 Dose: 20 mg Documented by: Polyethylene Glycol (Miralax) 17 gm PO DAILY [facility] Last Admin: 05/01/20 09:05 Dose: 17 gm Documented by: Prednisone () 40 mg PO DAILY@0800 [facility] Last Admin: 05/01/20 09:04 Dose: 40 mg Documented by: Sertraline HCl (Zoloft) 100 mg PO DAILY [facility] Last Admin: 05/01/20 09:04 Dose: 100 mg Documented by: Sodium Chloride () 10 - 40 ml IV UD PRN PRN Reason: SALINE FLUSH Last Admin: 05/01/20 05:21 Dose: 10 ml Documented by: Sodium Chloride ([place] Nasal [place]) 2 spray NASAL TID PRN PRN PRN Reason: NASAL DRYNESS Tamsulosin HCl (Flomax) 0.4 mg PO 2200 [facility] Last Admin: 04/30/20 21:40 Dose: 0.4 mg Documented by: Throat Lozenges (Cepacol Sore Throat Lozenge) 1 lozenge MUCOUS MEM Q2H PRN PRN PRN Reason: SORE THROAT Last Admin: 04/26/20 13:27 Dose: 1 lozenge Documented by: STROKE Vital Signs/Narrative: Vital Signs Temp Pulse Resp BP Pulse Ox 05/01/20 11:01 64 05/01/20 10:28 98.1 F 73 18 141/74 H 90 05/01/20 09:04 89 05/01/20 09:02 97.9 F 89 18 122/64 H 90 05/01/20 07:30 74 22 H 91 Medical Necessity - Tobacco Use Smoking Status: Former smoker Assessment/Plan All Active Problems (Last Reviewed 04/25/20 @ 17:[address] Margarita Higginbotham, DO) Sepsis (Acute) Community acquired pneumonia (Acute) SOB (shortness of breath) (Acute) 1. Acute on chronic hypoxic respiratory failure secondary to right sided pleural effusion and COPD with possible pneumonia and severe sepsis/possible interstitial lung disease/BRADY -Pleural fluid is exudative, however negative for any bacteria -No malignant cells were seen in the previous thoracentesis -Continue with antibiotics for a total of 10 days -CT scan was fairly unchanged from prior, however repeat chest x-ray this morning demonstrates reaccumulation likely he will undergo a repeat thoracentesis -Continue with nocturnal CPAP -Sepsis has resolved, continue with cefepime -He will have a prolonged taper back down to his baseline prednisone of 10 as well as continue with his azithromycin -Autoimmune work-up is pending -We will continue with ambulatory pulse ox is daily to evaluate his oxygen need with ambulation. Discharge will occur when he is needing less than 6 L 2. Chronic diastolic CHF/HLD/HTN -Blood pressure is stable, continue with his home blood pressure medications -Continue with his indapamide with diuresis as well as his metoprolol -Continue with his statin 3. GERD -Stable -Continue with PPI 4. Anxiety/depression -Stable -Continue with Zoloft 5. BPH -Stable -Continue with Flomax DVT: Lovenox Inpatient E&M: 17239 Subs Hosp L2
--- NOTE | 2020-05-01 11:46 | NURSING ---
Updated patient's daughter, Polly, on patient's status and POC at this time.
--- NOTE | 2020-05-01 12:38 | US_ITS ---
STUDY: ULTRASOUND GUIDED RIGHT THORACENTESIS REASON FOR EXAM: Male, 75 years old. PLEURAL EFFUSION TECHNIQUE: Ultrasound guidance COMPARISON: None. FINDINGS: After informed consent was obtained, the patient was placed sitting on the bedside leaning over the bedside table, and an appropriate site for thoracentesis was determined using sonographic guidance. The area was marked, then prepped and draped in a sterile manner. 2% Xylocaine was used as local anesthetic Under sonographic guidance, a Valved 15-gauge drainage catheter was advanced into the right hemithorax without difficulty, and blood-tinged serous fluid was withdrawn from the right hemithorax under suction. Approximately 1550 mL of fluid was withdrawn. Patient tolerated the procedure well with no immediate complications. Postprocedural chest x-ray showed no pneumothorax US/Thoracentesis W US IMPRESSION: Successful sonographically guided thoracentesis Electronically Signed: Roverto Flores MD at 14:33 EDT , Service support ,
[2020-05-01 13:44] LABS: Absolute Lymphocyte Count 1.25 X10^3/uL (0.83-4.51); Absolute Neutrophil Count 8.7 X10^3/uL (2.0-7.7); Basophil# 0.08 X10^3/uL; Basophil% 0.7 % (0-1); Eosinophil# 0.18 X10^3/uL; Eosinophils% 1.5 % (0-5); Hematocrit 39.2 % (40-54); Hemoglobin 12.7 g/dL (13.0-16.5); Lymphocyte # 1.25 X10^3/ul (4.0); Lymphocyte % 10.3 % (19-41); Mean Corp Hgb Conc 32.4 g/dL (32-36); Mean Corpuscular Hgb 31.3 pg (27.0-32.0); Mean Corpuscular Volume 96.6 fL (80-94); Mean Platelet Vol. 10.3 fl (6.2-12.0); Monocyte# 1.47 X10^3/uL; Monocyte% 12.1 % (0-10); NRBC Flagged by Analyzer 0 % (0-5); Neutrophil # 8.74 X10^3/uL (2.7-7.7); Platelet Count 196 K/mm3 (150-450); RBC Distribution Width CV 13.6 % (11.6-14.6); RBC Distribution Width SD 48.6 fl (35.1-43.9); Red Blood Count 4.06 M/mm3 (4.6-6.2); White Blood Count 12.1 K/mm3 (4.4-11.0)
[2020-05-01 13:47] LABS: Pathologist Comment/Body Fluid Reviewed
--- NOTE | 2020-05-01 13:50 | RAD_ITS ---
STUDY: X-RAY CHEST REASON FOR EXAM: Male, 75 years old. POST THORA TECHNIQUE: Respiratory and expiratory upright films COMPARISON: Earlier today FINDINGS: EKG leads overlie the chest. No postprocedural pneumothorax noted. Significant decrease in size of the previously noted right pleural effusion since the previous study. There is a small loculated effusion in the right lung base. Chronic interstitial changes again noted in both lung soares, the opacification in the right cardiophrenic angle has significantly improved since earlier today so this likely represented atelectatic lung. Normal size heart. Normal mediastinum and rick. Normal visualized pulmonary arteries. There is atherosclerotic calcification of the aortic arch with tortuosity. There are diffuse degenerative changes of the visualized thoracic spine. Normal visualized ribs, clavicles, and shoulders. There is no demonstrated abnormality of the visualized soft tissue structures of the upper abdomen. RAD/Chest Insp/Exp 2 View IMPRESSION: No postprocedural pneumothorax Significant decrease in size of a previously noted right pleural effusion after thoracentesis small right pleural effusion remains. Previously noted opacification in the right cardiophrenic angle has decreased since the previous study and likely representing atelectasis Left lung is free of a superimposed acute process Electronically Signed: Roverto Flores MD at 14:30 EDT , Service support ,
--- NOTE | 2020-05-01 14:42 | CON.PCM_ITS ---
Subjective Date of Service:: 05/01/20 Chief Complaint: Abnormal cytology History of Present Illness: Mr. Jeff is a very pleasant gentleman with a PMH significant for COPD, hypertension, hyperlipidemia, GERD and a remote history of ulcerative colitis () who presented to [facility] emergency department on 04/25/2020 with complaints of acute shortness of breath. COVID-19 negative but found to be in SWATI with an elevated lactic acid. Chest x-ray showed worsening right lower lobe infiltrate and atelectasis. He was subsequently admitted for management of acute on chronic respiratory failure, severe sepsis. CT chest obtained on 04/25/2020 demonstrated moderate right pleural effusion, nearly complete consolidation of the right lower lobe, interstitial infiltrate right upper lobe. Patient underwent thoracentesis on 04/26/20. 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 Upon entering the room the patient is sitting upright in bed. Reports history of GERD has been on PPI for years. Estimates his last EGD and colonoscopy were done by Dr. Holland greater than 10 years ago. Reports he does have a remote history of ulcerative colitis occurring in the has been on Asacol since. Patient specifically denies unintentional weight loss, headaches, dysphagia, nausea vomiting, and any changes in his bowel habits. Admits to intermittent bloating after meals and occasional left lower quad pain of late. Describes pain as sharp, lasting less than a minute and occurs less than daily. Family history is significant for 2 brothers with lung cancer-now 2 sisters with a history of breast cancer-now and 1 sister with a history of breast and pancreatic cancer-now . Past Medical History: Chronic Problems (Last Reviewed 04/25/20 @ 17:[address] Margarita Higginbotham, DO) Acute and chronic respiratory failure (Chronic) Bronchomalacia, acquired (Chronic) Bronchiectasis (Chronic) Hypercholesterolemia (Chronic) Colitis (Chronic) Arthritis (Chronic) Hypothyroidism (Chronic) Asthma (Chronic) Back pain (Chronic) Hemorrhoids (Chronic) BRADY (obstructive sleep apnea) (Chronic) bipap 19/12 cm H20 Asbestos exposure (Chronic) Tuberculosis exposure (Chronic) Stage 2 moderate COPD by GOLD classification (Chronic) FEV1 55% Acid reflux (Chronic) Chronic hypoxemic respiratory failure (Chronic) Past Medical/Surgical History: Past Medical History - Most Recent Inpatient Visit Past Medical History Start: 04/25/20 16:17 Text: Status: Complete Freq: ONCE Protocol: Document 04/25/20 16:17 LW (Rec: 04/25/20 16:36 LW [id number]) BMI Required to complete PMH What is Patient's BMI 32.7 Past Medical History Unable History Recalled Yes Query Text:Pt Unable/Family Not Present Neurologic Medical History Hx Stroke/TIA No Hx Dementia/Alzheimer's No Hx Parkinson's Disease No Hx Seizures No Hx Multiple Sclerosis No Hx Migraines No Cardiac Medical History VTE Present on Admission No Hx of Deep Vein Thrombosis/VTE/PE No Hx Hypertension Yes Hx Chest Pain/Angina No Hx Heart Attack No Hx Cardiac Surgery/Stents/Etc. No Hx Heart Failure No Hx Pacemaker/AICD No Hx Irregular Heartbeat and/or Afib No Hx Anticoagulant Therapy No Query Text:(Coumadin, Aspirin, Plavix, Xarelto, etc.) Hx Pain in Legs when Walking/Leg Cramps No Respiratory Medical History Hx COPD Yes Hx Emphysema No Hx Smoking Yes: QUIT 1993 Smoking Status Former smoker Hx Smoking Cessation Date 11/08/93 Hx Tobacco Use in last 12 months No Hx Sleep Apnea Yes: BIPAP CPAP No BIPAP No STOP Results Positive GI Medical History Hx Ulcer No Hx Hepatitis No Hx Cirrhosis No Hx GI Bleed No Hx Unplanned Weight Loss No Genitourinary Medical History Indwelling Catheter in Place on Arrival/ No Admission Hx Renal Disease No Hx Dialysis No Musculoskeletal History Hx Arthritis Yes Hx Rheumatoid Arthritis No Endocrine Medical History Hx Diabetes No Hx Thyroid Disease No Hematologic Medical History Hx of Blood Transfusion No Hx of Transfusion in last 3 Months No Ever experience any problems with No transfusion(s)? Hx of Preganancy in last 3 Months N/A Nurse Filling Out Transfusion & LWOHLFORD Questions: Date: 04/25/20 Time: 16:25 Psycho/Social Medical History Hx Depression Yes Hx Anxiety No Hx Behavior Disorder No Hx Alcohol Use No Hx Substance Use No Other Medical History Hx Blood Disorders No Hx Anemia Yes: 1969 Hx Cancer No Hx Drug Resistant Organism No Wound/Pressure Injury Present on Arrival No /Admission Query Text:If yes, chart assessment in Shift/Clinical Findings Central Line/PICC/VAD Present on Arrival No /Admission Risk for Readmission Number of Risk Factors 4 At Risk for Readmission Patient is At Risk For Readmission Patient is eligible for Call Back Y Past Medical History (Last Reviewed 04/25/20 @ 17:[address] Margarita Higginbotham DO) Bronchomalacia, acquired (Chronic) Bronchiectasis (Chronic) Hypercholesterolemia (Chronic) Colitis (Chronic) Arthritis (Chronic) Hypothyroidism (Chronic) Asthma (Chronic) Back pain (Chronic) Hemorrhoids (Chronic) BRADY (obstructive sleep apnea) (Chronic) Asbestos exposure (Chronic) Tuberculosis exposure (Chronic) Stage 2 moderate COPD by GOLD classification (Chronic) Acid reflux (Chronic) Chronic hypoxemic respiratory failure (Chronic) Laceration without foreign body of left index finger with damage to nail, initial encounter (Inactive) Past Surgical History (Last Reviewed 04/25/20 @ 17:[address] Margarita Higginbotham DO) History of appendectomy (Inactive) History of hernia repair (Inactive) History of left knee replacement (Inactive) History of tonsillectomy (Inactive) S/P TURP (Inactive) Maternal Family History: Family History (Last Reviewed 04/25/20 @ 17:[address] Margarita Higginbotham DO) Mother Heart disease Brother Cancer COPD (chronic obstructive pulmonary disease) Family History: No pertinent history Paternal Family History: Family History (Last Reviewed 04/25/20 @ 17:[address] Margarita Higginbotham DO) Mother Heart disease Brother Cancer COPD (chronic obstructive pulmonary disease) Family History: No pertinent history - Social History Smoking Status: Former smoker Allergies/Adverse Reactions: Allergy/AdvReac Type Severity Reaction Status Date / Time cefaclor [From Ceclor] Allergy Rash Verified 04/25/20 12:22 codeine Allergy Itching Verified 04/25/20 12:22 Sulfa (Sulfonamide Allergy Rash Verified 04/25/20 12:22 Antibiotics) amoxicillin trihydrate AdvReac Upset Verified 04/25/20 12:22 [From Augmentin] Stomach clarithromycin [From Biaxin] AdvReac Upset Verified 04/25/20 12:22 Stomach diphenhydramine HCl AdvReac DRIES Verified 04/25/20 12:22 [From Benadryl] MOUTH AND THROAT OUT hydrocodone AdvReac Itching Verified 04/25/20 12:22 lactose AdvReac Abd Verified 04/25/20 12:22 cramps/diarrhea potassium clavulanate AdvReac STOMACH Verified 04/25/20 12:22 [From Augmentin] PAIN Review of Systems Constitutional:: Reports: Fatigue. Denies: Fever, Sweats, Weight loss, Appetite change, Chills Cardiovascular:: Denies: Chest pain, Palpitations, Dyspnea on exertion, Orthopnea, PND, Shortness of breath Respiratory: Denies: Cough, Hemoptysis, Shortness of Breath, Wheezing Gastrointestinal:: Reports: Abdominal pain - See HPI, Reflux. Denies: Nausea, Vomiting, Diarrhea, Constipation, Melena, Hematochezia Genitourinary: Denies: Dysuria, Hematuria, 15, Flank pain Musculoskeletal:: Denies: Back pain, Myalgia, Arthralgia Skin: Denies: Rash, Skin Changes, Wounds Neurological:: Denies: Headache, Dizziness, Visual changes, Tinnitus, Hearing loss Psychiatric: Denies: Anxiety, Depression, Homicidal Ideations, Suicidal Ideations Vital Signs Temperature 97.8 F 05/01/20 14:28 Temperature Source Oral 05/01/20 14:28 Pulse Rate 82 05/01/20 14:28 Pulse Strength Weak (1+) 05/01/20 07:43 Respiratory Rate 18 05/01/20 14:28 Respiratory Effort Non-Labored 05/01/20 14:08 Respiratory Depth Deep 05/01/20 12:43 Respiratory Pattern Tachypnea 05/01/20 14:08 Blood Pressure 115/41 L 05/01/20 14:28 Blood Pressure Mean 65 05/01/20 14:28 Blood Pressure Source Monitor 05/01/20 14:28 Blood Pressure Position Semi-Fowlers 05/01/20 14:28 Blood Pressure Location Left Arm 05/01/20 14:28 Pulse Ox 90 05/01/20 14:28 Oxygen Delivery Method Nasal Cannula 05/01/20 14:28 Oxygen Flow Rate (L/min) 6 05/01/20 14:28 - Physical Exam General: Alert, Oriented x3, No apparent distress HEENT: Atraumatic, Normocephalic, - - Wears glasses Oropharynx:: Negative for: Dry mucosa Neck:: Supple, Trachea midline. Negative for: JVD, bilateral Cardiac:: Regular rate, Regular rhythm, Normal S1, Normal S2. Negative for: Murmur Lungs: Diminished, Excusion symmetrical. Negative for: Rhonchi, Wheezes, Tachypneic, Increased respiratory effort Abdomen:: Bowel sounds x 4, Soft, Non-tender, Non-distended, Obese. Negative for: Hepatosplenomegaly Extremities:: Negative for: Cyanosis, Edema Neurological: Neuro grossly intact Skin:: Ecchymosis - Bilateral upper extremities in various stages of healing, right upper quadrant abdomen. Negative for: Lesions, Rash, Petechiae Psychiatric:: Appropriate affect, Euthymic Lymphatics:: Negative for: Cervical lymphadenopathy, Supraclavicular lymphadenopathy, Axillary lymphadenopathy Laboratory Data: Microbiology 04/26/20 14:50 Gram Stain - Final Fluid - Thoracentesis Fluid Body Fluid Culture - Final No growth aerobically. Anaerobic Culture - Final No anaerobic bacteria isolated. 04/25/20 12:55 Blood Culture - Final Blood Culture (Wb) #2 - Right Forearm No growth in 5 days. 04/25/20 12:52 Blood Culture - Final Blood Culture (Wb) - Left Forearm No growth in 5 days. Laboratory Tests 05/01/20 05/01/20 05/01/20 Range/Units Unknown 03:30 03:30 WBC 12.1 H (4.4-11.0) K/mm3 RBC 4.06 L (4.6-6.2) M/mm3 Hgb 12.7 L (13.0-16.5) g/dL Hct 39.2 L (40-54) % MCV 96.6 H (80-94) fL MCH 31.3 (27.0-32.0) pg MCHC 32.4 (32-36) g/dL RDW Std Deviation 48.6 H (35.1-43.9) fl RDW Coeff of Eliecer 13.6 (11.6-14.6) % Plt Count 196 (150-450) K/mm3 MPV 10.3 (6.2-12.0) fl Immature Gran % (Auto) 3.400 H (0.0-0.9) % Neut % (Auto) 72.0 H (47-70) % Lymph % (Auto) 10.3 L (19-41) % Kings % (Auto) 12.1 H (0-10) % Eos % (Auto) 1.5 (0-5) % Baso % (Auto) 0.7 (0-1) % Absolute Neuts (auto) 8.7 H (2.0-7.7) X10^3/uL Absolute Lymphs (auto) 1.25 (0.83-4.51) X10^3/uL Nucleated RBC % 0 (0-5) % Sodium 138 (136-145) mmol/L Potassium 3.3 L (3.5-5.1) mmol/L Chloride 102 (98-107) mmol/L Carbon Dioxide 27.0 (21.0-32.0) mmol/L Anion Gap 9 (5-15) BUN 37 H (7-18) mg/dL Creatinine 1.45 H (0.70-1.30) mg/dL Estim Creat Clear Calc 46.83 ml/min Est GFR (MDRD) Af Amer 61 (>60) mL/min Est GFR (MDRD) Non-Af 50 L (>60) mL/min BUN/Creatinine Ratio 25.5 H (10-20) RATIO Glucose 144 H (74-106) mg/dL Calcium 9.4 (8.5-10.1) mg/dL Fl Pathologist Comment Vancomycin Trough 2.1 L (5.0-15.0) ug/mL Cycl Citrul Peptide IgG (0-19) units RASHAWN-1 Antibody SS-A/Ro IgG Antibody SS-B/La IgG Antibody Sm (Hummel) Antibody SHIRT PRESSER Antibody Scl-70 Scleroderma Ab Double Strand DNA Ab Centromere B Antibody 04/26/20 04/26/20 04/26/20 Range/Units 14:50 09:55 09:55 WBC (4.4-11.0) K/mm3 RBC (4.6-6.2) M/mm3 Hgb (13.0-16.5) g/dL Hct (40-54) % MCV (80-94) fL MCH (27.0-32.0) pg MCHC (32-36) g/dL RDW Std Deviation (35.1-43.9) fl RDW Coeff of Eliecer (11.6-14.6) % Plt Count (150-450) K/mm3 MPV (6.2-12.0) fl Immature Gran % (Auto) (0.0-0.9) % Neut % (Auto) (47-70) % Lymph % (Auto) (19-41) % Kings % (Auto) (0-10) % Eos % (Auto) (0-5) % Baso % (Auto) (0-1) % Absolute Neuts (auto) (2.0-7.7) X10^3/uL Absolute Lymphs (auto) (0.83-4.51) X10^3/uL Nucleated RBC % (0-5) % Sodium (136-145) mmol/L Potassium (3.5-5.1) mmol/L Chloride (98-107) mmol/L Carbon Dioxide (21.0-32.0) mmol/L Anion Gap (5-15) BUN (7-18) mg/dL Creatinine (0.70-1.30) mg/dL Estim Creat Clear Calc ml/min Est GFR (MDRD) Af Amer (>60) mL/min Est GFR (MDRD) Non-Af (>60) mL/min BUN/Creatinine Ratio (10-20) RATIO Glucose (74-106) mg/dL Calcium (8.5-10.1) mg/dL Fl Pathologist Comment Reviewed Vancomycin Trough (5.0-15.0) ug/mL Cycl Citrul Peptide IgG 6 (0-19) units RASHAWN-1 Antibody Not Reportable SS-A/Ro IgG Antibody Not Reportable SS-B/La IgG Antibody Not Reportable Sm (Hummel) Antibody Not Reportable SHIRT PRESSER Antibody Not Reportable Scl-70 Scleroderma Ab Not Reportable Double Strand DNA Ab Not Reportable Centromere B Antibody Not Reportable Diagnostic Data: Diagnostic Data Chest CT 04/27/20 07:14 IMPRESSION: 1. Essentially unchanged appearance to right lower lobe airspace consolidation possibly representing a pneumonia and pleural effusion. 2. Mild patchy left basilar airspace disease appears unchanged. 3. Hepatic cyst and left-sided pararenal cyst. Electronically Signed: Fernanda London MD at 9:46 EDT , Service support , Thoracentesis Ultrasound 05/01/20 12:38 IMPRESSION: Successful sonographically guided thoracentesis Electronically Signed: Roverto Flores MD at 14:33 EDT , Service support , Chest X-Ray 05/01/20 13:50 IMPRESSION: No postprocedural pneumothorax Significant decrease in size of a previously noted right pleural effusion after thoracentesis small right pleural effusion remains. Previously noted opacification in the right cardiophrenic angle has decreased since the previous study and likely representing atelectasis Left lung is free of a superimposed acute process Electronically Signed: Roverto Flores MD at 14:30 EDT , Service support , Assessment and Plan Mr. Huitron is a very pleasant 75-year-old gentleman admitted to [facility] on 04/25/2020 for management of acute on chronic respiratory failure and sepsis. Cytology performed on right-sided pleural fluid obtained 04/26/2020 during thoracentesis confirmed presence of non-small cell carcinoma, adenocarcinoma histology with signet ring features. Family history is significant for breast, lung and pancreatic malignancies. 1. Non-small cell carcinoma, adenocarcinoma histology with signet ring features- Primary unknown. Stage IV disease given the presence of malignant effusion. Signet ring features raise suspicion for GI primary. Advise surgery consult for consideration of EGD & colonoscopy. Patient endorsing new onset abd bloating and LLQ discomfort- albeit pain is mild. Orders placed for CT A/P, Cr 1.45. Will need oral and IV contrast. Case discussed with Dr. Martinez, who was in agreement with the aforementioned plan. Will continue to follow. Paz Phan, CARL, SENIOR TECHNICAL EDITOR-C, AOCNP Medications: Prescriptions This Visit Medication Instructions Recorded Albuterol IH (ProAir) [Proair Hfa 1 - 2 puff INHALATION Q4H PRN PRN 04/25/20 (SP)Vent Pts] Azithromycin 250 mg PO MOWEFR 04/25/20 Budesonide/Formoterol 160/4.5 2 puff INHALATION BID 04/25/20 [Symbicort 160/4.5 Mcg Inhaler (SP)] Losartan Potassium 100 mg PO QHS 04/25/20 Magnesium Oxide 400 mg PO DAILY 04/25/20 Mesalamine 1.2 gm PO BID 04/25/20 Potassium Citrate [Potassium 10 meq PO BID 04/25/20 Citrate ER] Prednisone 10 mg PO QDAY 04/25/20 Primary Care Provider: Dr. Hung Hummel MD Referring Provider: - Problem List (1) Carcinoma of unknown primary Status: Acute
--- NOTE | 2020-05-01 15:43 | CT_ITS ---
STUDY: CT ABDOMEN AND PELVIS WITH CONTRAST REASON FOR EXAM: Male, 75 years old. Adenocarcinoma. UNKNOWN PRIMARY, ARF, RECENT THORACENTESIS, APPY, HERNIA Repair, asthma, COPD, ASBESTOS EXPOSURE, TUBERCULOSIS RADIATION DOSAGE (If Supplied By Facility): CTDIvol = ( 22.58 ) mGy, DLP = ( 2657.85 ) mGycm TECHNIQUE: Transaxial images were obtained from the dome of the diaphragm to the symphysis pubis without oral contrast. Oral and amp; IV Breeza and amp; 100mL Isovue-370 was administered. Sagittal and coronal images were reconstructed. Individualized dose optimization techniques were used for this CT. COMPARISON: CT of the chest dated April 25 and 2019 FINDINGS: There is a persistent right pleural effusion associated with dependent consolidation most pronounced within the right lower lobe. There are stable tree-in-bud opacities within the left lower lobe associated with a stable subpleural groundglass opacity. There are stable scattered well-circumscribed low attenuation foci within the liver which may reflect underlying cysts and/or hemangiomas. Normal gallbladder and extrahepatic biliary system. Normal spleen. Normal pancreas. Normal bilateral adrenal glands. There are bilateral renal cysts present. Arising from the lower pole the right kidney there is a 9 mm high in attenuation rounded focus. Normal visualized stomach. Normal small intestine. There are multiple colonic diverticula consistent with diverticulosis. There is a moderate amount of stool throughout the colon. There are surgical clips in the region of the appendix consistent with a prior appendectomy. There is diffuse atherosclerotic calcification of the abdominal aorta, without a demonstrated aneurysm. Normal inferior vena cava. Normal retroperitoneum. Normal urinary bladder. Normal abdominal wall. There is a right hip arthroplasty in place creating beam hardening artifact and obscuring anatomic detail within the pelvis. There are degenerative changes of the visualized thoracic and lumbar spine. CT/Abdomen/Pelvis WITH Contrast IMPRESSION: Right pleural effusion associated with dependent consolidation within the lung base most pronounced within the right lower lobe. Colonic diverticulosis. Moderate amount of stool throughout the colon. Bilateral renal cysts. Indeterminate 9 mm rounded focus arising from the right kidney that likely reflects a proteinaceous cyst. Scattered tree-in-bud opacities within the left lower lobe. Atherosclerosis. Electronically Signed: Michell Kim MD at 19:14 EDT Tel , Service support ,
[2020-05-01] MEDS: Tamsulosin HCl 0.4 MG Capsule PO (21:40)
[2020-05-01] MEDS: Losartan Potassium 100 MG Tablet PO (21:40)
[2020-05-01] MEDS: Atorvastatin Calcium 10 MG Tablet PO (21:41)
[2020-05-01] MEDS: amLODIPine 5 MG Tablet PO (21:41)
[2020-05-01] MEDS: Sodium Chloride 0.65% 1 SPRAY SPRAY.BTL 2 SPRAY NASAL (21:42)
[2020-05-01] MEDS: BENZOCAINE/MENTHOL 1 LOZENGE MUCOUS MEM (21:47)
[2020-05-02] VITALS (18 sets, daily range): BP systolic 114–153; BP diastolic 58–72; PULSE 64–86; RESP 16–22; TEMP 36.2–36.9; O2SAT 90–94
[2020-05-02] MEDS: Ipratropium/Albuterol Sulfate 3 ML AMPUL.NEB INHALATION ×6 (03:06→22:49)
[2020-05-02] MEDS: 0.9% Saline Lock 10 ML Syringe IV ×3 (05:06→21:20)
[2020-05-02 05:42] LABS: Anion Gap 6 (5-15); BUN 36 mg/dL (7-18); BUN/Creat Ratio 26.9 RATIO (10-20); Calcium,Total 9.3 mg/dL (8.5-10.1); Chloride 104 mmol/L (98-107); Creatinine, Serum 1.34 mg/dL (0.70-1.30); EST Glomerular Filtration Rate 55 mL/min (>60); Est Glom Filt Rate - Afr Amer 66 mL/min (>60); Estimated Creatinine Clearance 50.67 ml/min; Glucose 134 mg/dL (74-106); Potassium 3.6 mmol/L (3.5-5.1); Sodium Level 139 mmol/L (136-145)
--- NOTE | 2020-05-02 07:40 | RAD_ITS ---
STUDY: X-RAY CHEST REASON FOR EXAM: Male, 75 years old. Worsening shortness of breath TECHNIQUE: PA and lateral views of the chest. COMPARISON: 05/01/2020 FINDINGS: EKG leads overlie the chest. Left lung is expanded and free of superimposed acute process. Stable loculated right pleural effusion with persistent opacification in the inferior half the right lung which if anything is slightly worsened since the previous study. Normal size heart. Normal mediastinum and rick. Normal visualized pulmonary arteries. Normal visualized aortic arch and descending thoracic aorta. There are diffuse degenerative changes of the visualized thoracic spine. There is degenerative osteoarthritis of the bilateral shoulders. There is no demonstrated abnormality of the visualized soft tissue structures of the upper abdomen. RAD/Chest PA and Lateral IMPRESSION: Stable loculated right pleural effusion Slight increase in airspace opacification in the inferior half of the right lung since the previous study Left lung is free of a superimposed process and shows no change since the previous study Degenerative bony changes Electronically Signed: Roverto Flores MD at 9:48 EDT , Service support ,
--- NOTE | 2020-05-02 08:43 | PN_ITS ---
Patient Problems: Active and Suspected Problems (Last Reviewed 04/25/20 @ 17:[address] Margarita Higginbotham, DO) Sepsis (Acute) Community acquired pneumonia (Acute) SOB (shortness of breath) (Acute) Carcinoma of unknown primary (Acute) Subjective: Patient feels subjectively improved today compared to yesterday. Less conversational dyspnea noted, but patient has required increased oxygen despite having 1.5 L of fluid removed yesterday. Patient is not reporting any chest pain - Physical Exam Vitals/I&O's: Vital Signs Temp Pulse Resp BP Pulse Ox 36.2 C L 73 16 124/70 H 90 05/02/20 05:00 05/02/20 07:23 05/02/20 07:23 05/02/20 05:00 05/02/20 07:23 Oxygen Flow Rate (L/min) [4] 6 Oxygen Flow Rate (L/min) [3] 6 Oxygen Flow Rate (L/min) [2] 6 Oxygen Flow Rate (L/min) [1 ( 6 Initial Baseline)] Oxygen Flow Rate (L/min) [ 7 AMBULATION with Oxygen] Oxygen Flow Rate (L/min) 8 Oxygen Delivery Method [4] Nasal Cannula Oxygen Delivery Method [3] Nasal Cannula Oxygen Delivery Method [2] Nasal Cannula Oxygen Delivery Method [1 ( Nasal Cannula Initial Baseline)] Oxygen Delivery Method Nasal Cannula Weight: 107.1 kg Body Mass Index (BMI) 32.2 Intake and Output for Last 24 Hours 04/30/20 05/01/20 05/02/20 23:59 23:59 23:59 Intake Total 1440 / 1940 1633 / 1633 100 / 100 Output Total 900 / 900 2550 / 2550 Balance 540 / 1040 -917 / -917 100 / 100 General: Alert, Oriented x3, Cooperative, No apparent distress, - - Speaking in full sentences HEENT: Atraumatic, PERRLA, EOMI, Normocephalic, - - No scleral icterus or injection noted. Glasses in place. Oral: Moist Mucosa, No Gingival or Mucosal Lesions/ Ulcerations Neck: Supple, No JVD, No Nodes, Trachea Midline Lungs: No rhonchi, No rales, Diminished, Wheezes Cardiovascular: Regular rate, Regular Rhythm, Normal S1, Normal S2, No murmurs, No rub noted, No Gallop Abdomen: Bowel Sounds Present, Soft, Non Tender, Non-Distended Extremities: No clubbing, No cyanosis, Edema - Trace lower extremity Skin: No rashes, No breakdown Musculoskeletal: No Tenderness to Palpation of Joints or Extremities Lymphatic: No Cervical, Supraclavicular, or Inguinal Adenopathy Neurological: Cranial nerves II-XII grossly intact, Neuro grossly intact, Motor Exam 5/5 strength throughout Psych/Mental Status: Alert and oriented to time, place, person, mood and affect Microbiology Past 72 Hours 04/26/20 14:50 Fluid - Thoracentesis Fluid Gram Stain - Final 04/26/20 14:50 Fluid - Thoracentesis Fluid Body Fluid Culture - Final No growth aerobically. 04/26/20 14:50 Fluid - Thoracentesis Fluid Anaerobic Culture - Final No anaerobic bacteria isolated. 04/25/20 12:55 Blood Culture (Wb) #2 - Right Forearm Blood Culture - Final No growth in 5 days. 04/25/20 12:52 Blood Culture (Wb) - Left Forearm Blood Culture - Final No growth in 5 days. Laboratory Results 04/26/20 14:50: Fl Pathologist Comment Reviewed 05/01/20 : WBC 12.1 H, RBC 4.06 L, Hgb 12.7 L, Hct 39.2 L, MCV 96.6 H, MCH 31.3, MCHC 32.4, RDW Std Deviation 48.6 H, RDW Coeff of Eliecer 13.6, Plt Count 196, MPV 10.3, Immature Gran % (Auto) 3.400 H, Neut % (Auto) 72.0 H, Lymph % (Auto) 10.3 L, [place] % (Auto) 12.1 H, Eos % (Auto) 1.5, Baso % (Auto) 0.7, Absolute Neuts (auto) 8.7 H, Absolute Lymphs (auto) 1.25, Nucleated RBC % 0 05/02/20 05:10: Sodium 139, Potassium 3.6, Chloride 104, Carbon Dioxide 29.0, Anion Gap 6, BUN 36 H, Creatinine 1.34 H, Estim Creat Clear Calc 50.67, Est GFR (MDRD) Af Amer 66, Est GFR (MDRD) Non-Af 55 L, BUN/Creatinine Ratio 26.9 H, Glucose 134 H, Calcium 9.3 Current Medications Acetaminophen (Tylenol) 650 mg PO Q6H PRN PRN PRN Reason: Pain Score 1-10/Temp > 100.7 F Last Admin: 05/01/20 07:52 Dose: 650 mg Documented by: Al Hydroxide/Mg Hydroxide (Mylanta Ii) 30 ml PO Q6H PRN PRN PRN Reason: Gastric Burning Albuterol Sulfate (Ventolin Aerosols) 2.5 mg INHALATION Q2H PRN PRN PRN Reason: SOB/Wheezing Albuterol/Ipratropium (Duoneb) 3 ml INHALATION Q4H.RT [facility] Last Admin: 05/02/20 07:23 Dose: 3 ml Documented by: Amlodipine Besylate (Norvasc) 5 mg PO DAILY@2200 [facility] Last Admin: 05/01/20 21:41 Dose: 5 mg Documented by: Atorvastatin Calcium (Lipitor) 10 mg PO QHS [facility] Last Admin: 05/01/20 21:41 Dose: 10 mg Documented by: Azelastine HCl (Astelin) 1 spray NASAL DAILY [facility] Last Admin: 05/01/20 09:05 Dose: Not Given Documented by: Dextrose (D50w Syringe) 0 gm IV X1 PRN; Protocol PRN Reason: Hypoglycemia Enoxaparin Sodium (Lovenox) 40 mg SC DAILY [facility] Last Admin: 05/01/20 09:05 Dose: 40 mg Documented by: Fluticasone Propionate (Flonase Nasal [place]) 2 spray NASAL QHS [facility] Last Admin: 05/01/20 21:40 Dose: Not Given Documented by: Glucagon () 1 mg IM .X1 PRN PRN Reason: Hypoglycemia Cefepime HCl 2 gm/ Sodium (Chloride) 100 mls @ 200 mls/hr IV Q8 [facility] Stop: 05/02/20 22:01 Last Infusion: 05/02/20 05:36 Dose: Infused Documented by: Indapamide (Lozol) 1.25 mg PO DAILYCM [facility] Last Admin: 05/01/20 09:04 Dose: 1.25 mg Documented by: Losartan Potassium (Cozaar) 100 mg PO QHS [facility] Last Admin: 05/01/20 21:40 Dose: 100 mg Documented by: Magnesium Oxide (Mag-Ox 400) 400 mg PO DAILY [facility] Last Admin: 05/01/20 09:04 Dose: 400 mg Documented by: Mesalamine (Lialda) 1.2 gm PO BID [facility] Last Admin: 05/01/20 21:40 Dose: 1.2 gm Documented by: Metoprolol Succinate (Toprol Xl (Beta Sukhi)) 100 mg PO DAILY [facility] Last Admin: 05/01/20 09:04 Dose: 100 mg Documented by: Montelukast Sodium (Singulair) 10 mg PO DAILY [facility] Last Admin: 05/01/20 09:04 Dose: 10 mg Documented by: Pantoprazole Sodium (Protonix) 20 mg PO DAILY [facility] Last Admin: 05/01/20 09:04 Dose: 20 mg Documented by: Polyethylene Glycol (Miralax) 17 gm PO DAILY [facility] Last Admin: 05/01/20 09:05 Dose: 17 gm Documented by: Prednisone () 40 mg PO DAILY@0800 [facility] Last Admin: 05/01/20 09:04 Dose: 40 mg Documented by: Sertraline HCl (Zoloft) 100 mg PO DAILY [facility] Last Admin: 05/01/20 09:04 Dose: 100 mg Documented by: Sodium Chloride () 10 - 40 ml IV UD PRN PRN Reason: SALINE FLUSH Last Admin: 05/02/20 05:06 Dose: 10 ml Documented by: Sodium Chloride ([place] Nasal [place]) 2 spray NASAL TID PRN PRN PRN Reason: NASAL DRYNESS Last Admin: 05/01/20 21:42 Dose: 2 spray Documented by: Tamsulosin HCl (Flomax) 0.4 mg PO 2200 [facility] Last Admin: 05/01/20 21:40 Dose: 0.4 mg Documented by: Throat Lozenges (Cepacol Sore Throat Lozenge) 1 lozenge MUCOUS MEM Q2H PRN PRN PRN Reason: SORE THROAT Last Admin: 05/01/20 21:47 Dose: 1 lozenge Documented by: Clinical Impression(s) from Imaging Studies Chest X-Ray 05/01/20 10:00 IMPRESSION: Significant change in the right hemithorax since the previous study with reaccumulation of a likely loculated right pleural effusion and development of airspace opacification the right infrahilar region. Follow-up recommended to assure resolution Left lung shows chronic interstitial changes without a superimposed acute pulmonary process Electronically Signed: Roverto Flores MD at 10:16 EDT , Service support , Thoracentesis Ultrasound 05/01/20 12:38 IMPRESSION: Successful sonographically guided thoracentesis Electronically Signed: Roverto Flores MD at 14:33 EDT , Service support , Chest X-Ray 05/01/20 13:50 IMPRESSION: No postprocedural pneumothorax Significant decrease in size of a previously noted right pleural effusion after thoracentesis small right pleural effusion remains. Previously noted opacification in the right cardiophrenic angle has decreased since the previous study and likely representing atelectasis Left lung is free of a superimposed acute process Electronically Signed: Roverto Flores MD at 14:30 EDT , Service support , Abdomen/Pelvis CT 05/01/20 15:43 IMPRESSION: Right pleural effusion associated with dependent consolidation within the lung base most pronounced within the right lower lobe. Colonic diverticulosis. Moderate amount of stool throughout the colon. Bilateral renal cysts. Indeterminate 9 mm rounded focus arising from the right kidney that likely reflects a proteinaceous cyst. Scattered tree-in-bud opacities within the left lower lobe. Atherosclerosis. Electronically Signed: Michell Kim MD at 19:14 EDT Tel , Service support , Medical Necessity - Tobacco Use Smoking Status: Former smoker Assessment/Plan All Active Problems (Last Reviewed 04/25/20 @ 17:[address] Margarita Higginbotham, DO) Sepsis (Acute) Community acquired pneumonia (Acute) SOB (shortness of breath) (Acute) Carcinoma of unknown primary (Acute) RECOMMENDATIONS: 1. Continue empiric antimicrobial therapy. 2. Continue scheduled bronchodilators and p.o. steroids. 3. Wean oxygen to maintain saturations at or above 90%. 4. Obtain chest x-ray. If no pneumothorax, CT PE could be considered. 5. Encourage incentive spirometer use and mobilize patient as tolerated. 6. Oncology work-up as reported IMPRESSIONS: 1. Acute on chronic hypoxemic respiratory failure secondary to malignant pleural effusion The patient typically has a baseline oxygen requirement of 2 to 3 L/min. Significant pleural effusion noted on original presentation. Thoracentesis with 1 L fluid removed is consistent with an exudate and cytology is come back positive with signet ring cells. Continues on empiric antimicrobials. Cultures have come back negative. Continue to wean oxygen as tolerated. On p.o. steroids, but continues to require significant amounts of oxygen. Will obtain a chest x-ray for evaluation of complication of thoracentesis. Been concurrent malignancy, pulmonary embolism would also be a consideration. Anticipate weaning over the next 12 to 14 days to baseline 10 mg prednisone daily. Repeat CT scan shows significant infiltrate of the right lower lobe. Concomitant parapneumonic effusion is suspected. Anticipate discharge once patient can tolerate 6 L or less with ambulation. 2. History of obstructive sleep apnea Continue nocturnal Pap therapy as ordered. 3. Heart failure with preserved ejection fraction The patient does not appear overtly volume overloaded at this time. Continue outpatient medication regimen. 4. Obesity/hyperlipidemia/GERD/allergic rhinitis/hypertension/chronic steroid dependency Complicates care, management, recovery and prognosis. Continue home medications as indicated. The patient will need to resume his baseline 10 mg prednisone dose on a daily basis upon discharge from the hospital. Inpatient E&M: [id number] [facility] L3
--- NOTE | 2020-05-02 09:10 | PCM.CONS.GEN ---
Problem List (1) Carcinoma of unknown primary Status: Acute (2) Colitis Status: Chronic (3) Acid reflux Status: Chronic Reason for Consult Date of Consultation: 05/02/20 Reason for Consultation: Abnormal cytology of paracentesis. Malignant primary of unknown source. History of Present Illness: The patient is a 75 year old M who presented to the ED with COPD exacerbation on 04/25/20. Patient was admitted to the ICU for symptom management. Patient uses oxygen via nasal canula at home on 2L 24 hours a day. CXR was completed in the ED which demonstrated left lower lobe infiltrate. Patient states he was treated for increased shortness of breath x 3 weeks as an outpatient with prednisone. The medication was not helping and he presented to the ED. Dr. Talavera is his chromosomal disorders counselor, who is currently on consult. May 01, patient had increased shortness of breath with increased pleural effusion. Thoracentesis was completed. Cytology demonstrated positive for non-small cell carcinoma favoring adenocarcinoma. Oncology was consulted yesterday who recommended upper/lower scope to assist with determining source of primary. Patient notes his last scope was with Dr. Holland, possibly 10 years ago. Records are not available for review. He notes also having a scope with Dr. Gómez previously. Patient states he has a history of ulcerative colitis which he was diagnosed with in the . He is/has currently been maintained on Asacol. He denies change in bowel habits however he becomes more constipated if he does not drink enough water. He denies blood in his stool, melena. He notes intermittent short stabbing localized pain in the left lower quadrant. Patient notes last year he weighed between 250-260 pounds. He notes losing weight when he was helping his daughter move at the beginning of this year unintentionally. Patient notes he gained a little weight recently and now is weighing 230's. Patient notes he has reflux disease. He is maintained on PPI, omeprazole. He notes the medication somewhat works. He does continue to have reflux symptoms. Patient has stopped smoking in 1993. He also notes family history is significant for 2 brothers with lung cancer-now , 2 sisters with a history of breast cancer-now and 1 sister with a history of breast and pancreatic cancer-now . His Hgb has decreased from 14.2 to 12.4. Patient also had a CT scan of the abdomen/pelvis which demonstrated IMPRESSION: Right pleural effusion associated with dependent consolidation within the lung base most pronounced within the right lower lobe. Colonic diverticulosis. Moderate amount of stool throughout the colon. Bilateral renal cysts. Indeterminate 9 mm rounded focus arising from the right kidney that likely reflects a proteinaceous cyst. Scattered tree-in-bud opacities within the left lower lobe. Atherosclerosis. Electronically Signed: Michell Kim MD at 19:14 EDT Past Medical History Past Medical History (Chronic Problems): Chronic Problems (Last Reviewed 04/25/20 @ 17:[address] Margarita Higginbotham, DO) Acute and chronic respiratory failure (Chronic) Bronchomalacia, acquired (Chronic) Bronchiectasis (Chronic) Hypercholesterolemia (Chronic) Colitis (Chronic) Arthritis (Chronic) Hypothyroidism (Chronic) Asthma (Chronic) Back pain (Chronic) Hemorrhoids (Chronic) BRADY (obstructive sleep apnea) (Chronic) bipap 19/12 cm H20 Asbestos exposure (Chronic) Tuberculosis exposure (Chronic) Stage 2 moderate COPD by GOLD classification (Chronic) FEV1 55% Acid reflux (Chronic) Chronic hypoxemic respiratory failure (Chronic) Medical History: Medical History (Last Reviewed 04/25/20 @ 17:[address] Margarita Higginbotham, DO) Bronchomalacia, acquired (Chronic) J98.09 Bronchiectasis (Chronic) J47.9 Hypercholesterolemia (Chronic) E78.00 Colitis (Chronic) K52.9 Arthritis (Chronic) M19.90 Hypothyroidism (Chronic) E03.9 Asthma (Chronic) J45.909 Back pain (Chronic) M54.9 Hemorrhoids (Chronic) K64.9 BRADY (obstructive sleep apnea) (Chronic) G47.33 bipap 19/12 cm H20 Asbestos exposure (Chronic) Z77.090 Tuberculosis exposure (Chronic) Z20.1 Stage 2 moderate COPD by GOLD classification (Chronic) J44.9 FEV1 55% Acid reflux (Chronic) K21.9 Chronic hypoxemic respiratory failure (Chronic) J96.11 Laceration without foreign body of left index finger with damage to nail, initial encounter (Inactive) S61.311A Allergies cefaclor [From Ceclor] Allergy (Verified 04/25/20 12:22) Rash codeine Allergy (Verified 04/25/20 12:22) Itching Sulfa (Sulfonamide Antibiotics) Allergy (Verified 04/25/20 12:22) Rash amoxicillin trihydrate [From Augmentin] Adverse Reaction (Verified 04/25/20 12:22) Upset Stomach STOMACH PAIN clarithromycin [From Biaxin] Adverse Reaction (Verified 04/25/20 12:22) Upset Stomach diphenhydramine HCl [From Benadryl] Adverse Reaction (Verified 04/25/20 12:22) DRIES MOUTH AND THROAT OUT hydrocodone Adverse Reaction (Verified 04/25/20 12:22) Itching lactose Adverse Reaction (Verified 04/25/20 12:22) Abd cramps/diarrhea LACTOSE INTOLERANCE potassium clavulanate [From Augmentin] Adverse Reaction (Verified 04/25/20 12:22) STOMACH PAIN Home Medications: Ambulatory Orders Medication Instructions Recorded Metoprolol(XL)Succ [Toprol Xl 100 mg PO DAILY 01/03/14 (Beta Sukhi)] Omeprazole [Prilosec] 20 mg PO DAILY 01/03/14 Simvastatin [Zocor] 20 mg PO QHS 01/03/14 Tamsulosin HCl [Flomax] 0.4 mg PO DINNER 01/03/14 indapamide 1.25 mg tablet 1.25 mg PO QAM 11/15/17 fluticasone propionate 50 2 spray INTRANASAL QHS 02/16/18 mcg/actuation nasal spray,suspension Montelukast Sodium [Singulair] 10 mg PO DAILY 09/11/19 Sertraline HCl 100 mg PO DAILY 09/11/19 amlodipine 5 mg tablet 5 mg PO DAILY 10/02/19 azelastine 137 mcg (0.1 %) nasal 1 spray INTRANASAL DAILY 10/02/19 spray aerosol albuterol sulfate 2.5 mg INHALATION Q6H PRN PRN #180 04/02/20 ml Albuterol IH (ProAir) [Proair Hfa 1 - 2 puff INHALATION Q4H PRN PRN 04/25/20 (SP)Vent Pts] Azithromycin 250 mg PO MOWEFR 04/25/20 Budesonide/Formoterol 160/4.5 2 puff INHALATION BID 04/25/20 [Symbicort 160/4.5 Mcg Inhaler (SP)] Losartan Potassium 100 mg PO QHS 04/25/20 Magnesium Oxide 400 mg PO DAILY 04/25/20 Mesalamine 1.2 gm PO BID 04/25/20 Potassium Citrate [Potassium 10 meq PO BID 04/25/20 Citrate ER] Prednisone 10 mg PO QDAY 04/25/20 Surgical History: Surgical History (Last Reviewed 05/02/20 @ 09:28 by Sveta Bedoya PA-C) History of appendectomy (Inactive) Z98.890, Z90.49 History of hernia repair (Inactive) Z98.890, Z87.19 History of left knee replacement (Inactive) Z96.652 History of tonsillectomy (Inactive) Z98.890, Z90.89 S/P TURP (Inactive) Z90.79 Surgical History: appendectomy, herniorrhaphy - umbilical incisional hernia, total hip arthroplasty, total knee arthroplasty Psychiatric History: No pertinent psych hx Smoking Status: Former smoker - *Family History Maternal Family History: Family History (Last Reviewed 05/02/20 @ 09:28 by Sveta Bedoya PA-C) Mother Heart disease Brother Cancer COPD (chronic obstructive pulmonary disease) History Items: No pertinent history Paternal Family History: Family History (Last Reviewed 05/02/20 @ 09:28 by Sveta Bedoya PA-C) Mother Heart disease Brother Cancer COPD (chronic obstructive pulmonary disease) History Items: No pertinent history Review of Systems Constitutional: Reports: Fatigue HEENT: Denies: Head Aches, Sinus Congestion, Sinus Drainage Cardiovascular: Denies: Chest Pain, Palpitations Respiratory: Reports: Cough, Shortness of breath upon exertion. Denies: Shortness of Breath, Wheezing Gastrointestinal: Reports: Abdominal Pain Genitourinary: Denies: Dysuria Musculoskeletal: Denies: Joint Pain, Joint Tenderness Skin: Denies: Rash, Wounds Neurological: Denies: Numbness, Tingling, Focal weakness Psychiatric: Reports: Depression Hematologic/ Lymphatic: Denies: Hx of blood clot Patient Problems: Active and Suspected Problems (Last Reviewed 04/25/20 @ 17:[address] Margarita Higginbotham, DO) Sepsis (Acute) Community acquired pneumonia (Acute) SOB (shortness of breath) (Acute) Carcinoma of unknown primary (Acute) - Physical Exam Vitals/I&O's: Vital Signs Temp Pulse Resp BP Pulse Ox 97.1 F L 73 16 124/70 H 90 05/02/20 05:00 05/02/20 07:23 05/02/20 07:23 05/02/20 05:00 05/02/20 07:23 Oxygen Flow Rate (L/min) [4] 6 Oxygen Flow Rate (L/min) [3] 6 Oxygen Flow Rate (L/min) [2] 6 Oxygen Flow Rate (L/min) [1 ( 6 Initial Baseline)] Oxygen Flow Rate (L/min) [ 7 AMBULATION with Oxygen] Oxygen Flow Rate (L/min) 8 Oxygen Delivery Method [4] Nasal Cannula Oxygen Delivery Method [3] Nasal Cannula Oxygen Delivery Method [2] Nasal Cannula Oxygen Delivery Method [1 ( Nasal Cannula Initial Baseline)] Oxygen Delivery Method Nasal Cannula Weight: 236 lb 1.841 oz Body Mass Index (BMI) 32.2 Intake and Output for Last 24 Hours 04/30/20 05/01/20 05/02/20 23:59 23:59 23:59 Intake Total 1440 / 1940 1633 / 1633 100 / 100 Output Total 900 / 900 2550 / 2550 Balance 540 / 1040 -917 / -917 100 / 100 General: Alert, Oriented x3, Cooperative HEENT: Atraumatic, PERRLA, EOMI, Normocephalic Neck: Supple, No JVD, Negative Carotid Bruits Lungs: Clear to auscultation, Normal air movement Cardiovascular: Regular rate, No murmurs Abdomen: Soft, Obese, Tender - Pinpoint localized discomfort in the LLQ Extremities: No edema, Capillary Refill Less than 3 Seconds Skin: No rashes, No breakdown Musculoskeletal: No Tenderness to Palpation of Joints or Extremities Neurological: Neuro grossly intact Psych/Mental Status: Normal Affect, Appropriate Microbiology Past 72 Hours 04/26/20 14:50 Fluid - Thoracentesis Fluid Gram Stain - Final 04/26/20 14:50 Fluid - Thoracentesis Fluid Body Fluid Culture - Final No growth aerobically. 04/26/20 14:50 Fluid - Thoracentesis Fluid Anaerobic Culture - Final No anaerobic bacteria isolated. 04/25/20 12:55 Blood Culture (Wb) #2 - Right Forearm Blood Culture - Final No growth in 5 days. 04/25/20 12:52 Blood Culture (Wb) - Left Forearm Blood Culture - Final No growth in 5 days. Laboratory Results 04/26/20 14:50: Fl Pathologist Comment Reviewed 05/01/20 : WBC 12.1 H, RBC 4.06 L, Hgb 12.7 L, Hct 39.2 L, MCV 96.6 H, MCH 31.3, MCHC 32.4, RDW Std Deviation 48.6 H, RDW Coeff of Eliecer 13.6, Plt Count 196, MPV 10.3, Immature Gran % (Auto) 3.400 H, Neut % (Auto) 72.0 H, Lymph % (Auto) 10.3 L, [place] % (Auto) 12.1 H, Eos % (Auto) 1.5, Baso % (Auto) 0.7, Absolute Neuts (auto) 8.7 H, Absolute Lymphs (auto) 1.25, Nucleated RBC % 0 05/02/20 05:10: Sodium 139, Potassium 3.6, Chloride 104, Carbon Dioxide 29.0, Anion Gap 6, BUN 36 H, Creatinine 1.34 H, Estim Creat Clear Calc 50.67, Est GFR (MDRD) Af Amer 66, Est GFR (MDRD) Non-Af 55 L, BUN/Creatinine Ratio 26.9 H, Glucose 134 H, Calcium 9.3 Current Medications Acetaminophen (Tylenol) 650 mg PO Q6H PRN PRN PRN Reason: Pain Score 1-10/Temp > 100.7 F Last Admin: 05/01/20 07:52 Dose: 650 mg Documented by: Al Hydroxide/Mg Hydroxide (Mylanta Ii) 30 ml PO Q6H PRN PRN PRN Reason: Gastric Burning Albuterol Sulfate (Ventolin Aerosols) 2.5 mg INHALATION Q2H PRN PRN PRN Reason: SOB/Wheezing Albuterol/Ipratropium (Duoneb) 3 ml INHALATION Q4H.RT [facility] Last Admin: 05/02/20 07:23 Dose: 3 ml Documented by: Amlodipine Besylate (Norvasc) 5 mg PO DAILY@2200 [facility] Last Admin: 05/01/20 21:41 Dose: 5 mg Documented by: Atorvastatin Calcium (Lipitor) 10 mg PO QHS [facility] Last Admin: 05/01/20 21:41 Dose: 10 mg Documented by: Azelastine HCl (Astelin) 1 spray NASAL DAILY [facility] Last Admin: 05/01/20 09:05 Dose: Not Given Documented by: Dextrose (D50w Syringe) 0 gm IV X1 PRN; Protocol PRN Reason: Hypoglycemia Enoxaparin Sodium (Lovenox) 40 mg SC DAILY [facility] Last Admin: 05/01/20 09:05 Dose: 40 mg Documented by: Fluticasone Propionate (Flonase Nasal [place]) 2 spray NASAL QHS [facility] Last Admin: 05/01/20 21:40 Dose: Not Given Documented by: Glucagon () 1 mg IM .X1 PRN PRN Reason: Hypoglycemia Cefepime HCl 2 gm/ Sodium (Chloride) 100 mls @ 200 mls/hr IV Q8 [facility] Stop: 05/02/20 22:01 Last Infusion: 05/02/20 05:36 Dose: Infused Documented by: Indapamide (Lozol) 1.25 mg PO DAILYCM [facility] Last Admin: 05/01/20 09:04 Dose: 1.25 mg Documented by: Losartan Potassium (Cozaar) 100 mg PO QHS [facility] Last Admin: 05/01/20 21:40 Dose: 100 mg Documented by: Magnesium Oxide (Mag-Ox 400) 400 mg PO DAILY [facility] Last Admin: 05/01/20 09:04 Dose: 400 mg Documented by: Mesalamine (Lialda) 1.2 gm PO BID [facility] Last Admin: 05/01/20 21:40 Dose: 1.2 gm Documented by: Metoprolol Succinate (Toprol Xl (Beta Sukhi)) 100 mg PO DAILY [facility] Last Admin: 05/01/20 09:04 Dose: 100 mg Documented by: Montelukast Sodium (Singulair) 10 mg PO DAILY [facility] Last Admin: 05/01/20 09:04 Dose: 10 mg Documented by: Pantoprazole Sodium (Protonix) 20 mg PO DAILY [facility] Last Admin: 05/01/20 09:04 Dose: 20 mg Documented by: Polyethylene Glycol (Miralax) 17 gm PO DAILY [facility] Last Admin: 05/01/20 09:05 Dose: 17 gm Documented by: Prednisone () 40 mg PO DAILY@0800 [facility] Last Admin: 05/01/20 09:04 Dose: 40 mg Documented by: Sertraline HCl (Zoloft) 100 mg PO DAILY [facility] Last Admin: 05/01/20 09:04 Dose: 100 mg Documented by: Sodium Chloride () 10 - 40 ml IV UD PRN PRN Reason: SALINE FLUSH Last Admin: 05/02/20 05:06 Dose: 10 ml Documented by: Sodium Chloride ([place] Nasal [place]) 2 spray NASAL TID PRN PRN PRN Reason: NASAL DRYNESS Last Admin: 05/01/20 21:42 Dose: 2 spray Documented by: Sodium Chloride/Electrolytes (Nulytely) 4,000 ml PO X1 ONE Stop: 05/02/20 15:01 Tamsulosin HCl (Flomax) 0.4 mg PO 2200 [facility] Last Admin: 05/01/20 21:40 Dose: 0.4 mg Documented by: Throat Lozenges (Cepacol Sore Throat Lozenge) 1 lozenge MUCOUS MEM Q2H PRN PRN PRN Reason: SORE THROAT Last Admin: 05/01/20 21:47 Dose: 1 lozenge Documented by: Assessment/Plan All Active Problems (Last Reviewed 04/25/20 @ 17:[address] Margarita Higginbotham, DO) Sepsis (Acute) Community acquired pneumonia (Acute) SOB (shortness of breath) (Acute) Carcinoma of unknown primary (Acute) I have been consulted in conjunction with Dr. Boogie. He will independently evaluate this patient. Impression: Adenocarcinoma of unknown source. Hx ulcerative colitis, GERD symptoms. Plan: I have discussed this patient in conjunction with Dr. Boogie. Dr. Boogie will plan to perform an upper and lower scope. Procedure details, risks and benefits have been explained. Patient has ahd the opportunity to ask and have questions answered. Patient verbally understands and agrees with the plan. Thank you for allowing us to participate in this patient's care. Office Visits / Consults: [id number] IP Consult L3
[2020-05-02] MEDS: Indapamide 2.5 MG Tablet 1.25 MG PO (09:15)
[2020-05-02] MEDS: predniSONE 20 MG Tablet 40 MG PO (09:15)
[2020-05-02] MEDS: Mesalamine 1.2 GM Tablet PO ×2 (09:15→21:18)
[2020-05-02] MEDS: Magnesium Oxide 400 MG Tablet PO (09:15)
[2020-05-02] MEDS: Enoxaparin 40 MG/0.4 ML Syringe SC (09:15)
[2020-05-02] MEDS: Montelukast 10 MG Tablet PO (09:16)
[2020-05-02] MEDS: Pantoprazole Sodium 20 MG Tablet PO (09:16)
[2020-05-02] MEDS: Metoprolol(XL)Succ 100 MG Tablet PO (09:16)
[2020-05-02] MEDS: Sertraline 100 MG Tablet PO (09:16)
--- NOTE | 2020-05-02 11:08 | PCM.PN.HOSP ---
Patient Problems: Active and Suspected Problems (Last Reviewed 04/25/20 @ 17:[address] Margarita Higginbotham, DO) Sepsis (Acute) Community acquired pneumonia (Acute) SOB (shortness of breath) (Acute) Carcinoma of unknown primary (Acute) Subjective: A little bit more short of breath today after his procedure yesterday. He is now requiring 8 L to maintain his oxygenation Vitals/I&O's: Vital Signs Temp Pulse Resp BP Pulse Ox 98.5 F 72 17 114/58 L 91 05/02/20 10:19 05/02/20 10:46 05/02/20 10:46 05/02/20 10:19 05/02/20 10:19 Oxygen Flow Rate (L/min) [4] 6 Oxygen Flow Rate (L/min) [3] 6 Oxygen Flow Rate (L/min) [2] 6 Oxygen Flow Rate (L/min) [1 ( 6 Initial Baseline)] Oxygen Flow Rate (L/min) [ 7 AMBULATION with Oxygen] Oxygen Flow Rate (L/min) 8 Oxygen Delivery Method [4] Nasal Cannula Oxygen Delivery Method [3] Nasal Cannula Oxygen Delivery Method [2] Nasal Cannula Oxygen Delivery Method [1 ( Nasal Cannula Initial Baseline)] Oxygen Delivery Method Nasal Cannula Weight: 236 lb 1.841 oz Body Mass Index (BMI) 32.2 Intake and Output for Last 24 Hours 04/30/20 05/01/20 05/02/20 23:59 23:59 23:59 Intake Total 1440 / 1940 1633 / 1633 100 / 100 Output Total 900 / 900 2550 / 2550 Balance 540 / 1040 -917 / -917 100 / 100 General: Alert, Oriented x3, Cooperative, No apparent distress HEENT: Atraumatic, PERRLA, EOMI, Normocephalic Oral: Moist Mucosa Neck: Supple, No JVD Lungs: Normal air movement, No rhonchi, more diminished on the right than the left, slight wheezing Cardiovascular: Regular rate, Regular Rhythm, Normal S1, Normal S2, No murmurs Abdomen: Soft, Non Tender, Non-Distended, No Hepato-splenomegaly Extremities: No edema, Capillary Refill Less than 3 Seconds Skin: No rashes, No breakdown Neurological: Neuro grossly intact, Sensory exam intact to light touch and pain Psych/Mental Status: Normal Affect, Appropriate Microbiology Past 72 Hours 04/26/20 14:50 Fluid - Thoracentesis Fluid Gram Stain - Final 04/26/20 14:50 Fluid - Thoracentesis Fluid Body Fluid Culture - Final No growth aerobically. 04/26/20 14:50 Fluid - Thoracentesis Fluid Anaerobic Culture - Final No anaerobic bacteria isolated. 04/25/20 12:55 Blood Culture (Wb) #2 - Right Forearm Blood Culture - Final No growth in 5 days. 04/25/20 12:52 Blood Culture (Wb) - Left Forearm Blood Culture - Final No growth in 5 days. Laboratory Results 04/26/20 14:50: Fl Pathologist Comment Reviewed 04/26/20 14:50: Miscellaneous Cytology SEE PATHOLOGY REPORT 05/01/20 : WBC 12.1 H, RBC 4.06 L, Hgb 12.7 L, Hct 39.2 L, MCV 96.6 H, MCH 31.3, MCHC 32.4, RDW Std Deviation 48.6 H, RDW Coeff of Eliecer 13.6, Plt Count 196, MPV 10.3, Immature Gran % (Auto) 3.400 H, Neut % (Auto) 72.0 H, Lymph % (Auto) 10.3 L, [place] % (Auto) 12.1 H, Eos % (Auto) 1.5, Baso % (Auto) 0.7, Absolute Neuts (auto) 8.7 H, Absolute Lymphs (auto) 1.25, Nucleated RBC % 0 05/02/20 05:10: Sodium 139, Potassium 3.6, Chloride 104, Carbon Dioxide 29.0, Anion Gap 6, BUN 36 H, Creatinine 1.34 H, Estim Creat Clear Calc 50.67, Est GFR (MDRD) Af Amer 66, Est GFR (MDRD) Non-Af 55 L, BUN/Creatinine Ratio 26.9 H, Glucose 134 H, Calcium 9.3 Current Medications Acetaminophen (Tylenol) 650 mg PO Q6H PRN PRN PRN Reason: Pain Score 1-10/Temp > 100.7 F Last Admin: 05/01/20 07:52 Dose: 650 mg Documented by: Al Hydroxide/Mg Hydroxide (Mylanta Ii) 30 ml PO Q6H PRN PRN PRN Reason: Gastric Burning Albuterol Sulfate (Ventolin Aerosols) 2.5 mg INHALATION Q2H PRN PRN PRN Reason: SOB/Wheezing Albuterol/Ipratropium (Duoneb) 3 ml INHALATION Q4H.RT [facility] Last Admin: 05/02/20 10:33 Dose: 3 ml Documented by: Amlodipine Besylate (Norvasc) 5 mg PO DAILY@2200 [facility] Last Admin: 05/01/20 21:41 Dose: 5 mg Documented by: Atorvastatin Calcium (Lipitor) 10 mg PO QHS [facility] Last Admin: 05/01/20 21:41 Dose: 10 mg Documented by: Azelastine HCl (Astelin) 1 spray NASAL DAILY [facility] Last Admin: 05/02/20 09:13 Dose: Not Given Documented by: Dextrose (D50w Syringe) 0 gm IV X1 PRN; Protocol PRN Reason: Hypoglycemia Enoxaparin Sodium (Lovenox) 40 mg SC DAILY [facility] Last Admin: 05/02/20 09:15 Dose: 40 mg Documented by: Fluticasone Propionate (Flonase Nasal [place]) 2 spray NASAL QHS [facility] Last Admin: 05/01/20 21:40 Dose: Not Given Documented by: Glucagon () 1 mg IM .X1 PRN PRN Reason: Hypoglycemia Cefepime HCl 2 gm/ Sodium (Chloride) 100 mls @ 200 mls/hr IV Q8 [facility] Stop: 05/02/20 22:01 Last Infusion: 05/02/20 05:36 Dose: Infused Documented by: Indapamide (Lozol) 1.25 mg PO DAILYCM [facility] Last Admin: 05/02/20 09:15 Dose: 1.25 mg Documented by: Losartan Potassium (Cozaar) 100 mg PO QHS [facility] Last Admin: 05/01/20 21:40 Dose: 100 mg Documented by: Magnesium Oxide (Mag-Ox 400) 400 mg PO DAILY [facility] Last Admin: 05/02/20 09:15 Dose: 400 mg Documented by: Mesalamine (Lialda) 1.2 gm PO BID [facility] Last Admin: 05/02/20 09:15 Dose: 1.2 gm Documented by: Metoprolol Succinate (Toprol Xl (Beta Sukhi)) 100 mg PO DAILY [facility] Last Admin: 05/02/20 09:16 Dose: 100 mg Documented by: Montelukast Sodium (Singulair) 10 mg PO DAILY [facility] Last Admin: 05/02/20 09:16 Dose: 10 mg Documented by: Pantoprazole Sodium (Protonix) 20 mg PO DAILY [facility] Last Admin: 05/02/20 09:16 Dose: 20 mg Documented by: Polyethylene Glycol (Miralax) 17 gm PO DAILY [facility] Last Admin: 05/02/20 09:13 Dose: Not Given Documented by: Prednisone () 40 mg PO DAILY@0800 [facility] Last Admin: 05/02/20 09:15 Dose: 40 mg Documented by: Sertraline HCl (Zoloft) 100 mg PO DAILY [facility] Last Admin: 05/02/20 09:16 Dose: 100 mg Documented by: Sodium Chloride () 10 - 40 ml IV UD PRN PRN Reason: SALINE FLUSH Last Admin: 05/02/20 05:06 Dose: 10 ml Documented by: Sodium Chloride ([place] Nasal [place]) 2 spray NASAL TID PRN PRN PRN Reason: NASAL DRYNESS Last Admin: 05/01/20 21:42 Dose: 2 spray Documented by: Sodium Chloride/Electrolytes (Nulytely) 4,000 ml PO X1 ONE Stop: 05/02/20 15:01 Tamsulosin HCl (Flomax) 0.4 mg PO 2200 [facility] Last Admin: 05/01/20 21:40 Dose: 0.4 mg Documented by: Throat Lozenges (Cepacol Sore Throat Lozenge) 1 lozenge MUCOUS MEM Q2H PRN PRN PRN Reason: SORE THROAT Last Admin: 05/01/20 21:47 Dose: 1 lozenge Documented by: STROKE Vital Signs/Narrative: Vital Signs Temp Pulse Resp BP Pulse Ox 05/02/20 10:46 72 17 05/02/20 10:19 98.5 F 82 16 114/58 L 91 05/02/20 09:16 65 05/02/20 07:23 73 16 90 Medical Necessity - Tobacco Use Smoking Status: Former smoker Assessment/Plan All Active Problems (Last Reviewed 04/25/20 @ 17:[address] Margarita Higginbotham DO) Sepsis (Acute) Community acquired pneumonia (Acute) SOB (shortness of breath) (Acute) Carcinoma of unknown primary (Acute) 1. 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 -General surgery was consulted for an EGD and colonoscopy as signet cell adenocarcinoma generally is a GI primary -Chest x-ray was obtained this morning to evaluate for possible pneumo given his increased oxygen demand, if normal may need to proceed with a CTA of his chest -Continue with antibiotics for a total of 10 days -Continue with nocturnal CPAP -Sepsis has resolved, continue with cefepime -He will have a prolonged taper back down to his baseline prednisone of 10 as well as continue with his azithromycin -Autoimmune work-up is pending -We will continue with ambulatory pulse ox is daily to evaluate his oxygen need with ambulation. Discharge will occur when he is needing less than 6 L 2. Chronic diastolic CHF/HLD/HTN -Blood pressure is stable, continue with his home blood pressure medications -Continue with his indapamide with diuresis as well as his metoprolol -Continue with his statin 3. GERD -Stable -Continue with PPI 4. Anxiety/depression -Stable -Continue with Zoloft 5. BPH -Stable -Continue with Flomax DVT: Lovenox Inpatient E&M: 38211 Subs Hosp L2
--- NOTE | 2020-05-02 11:17 | CT_ITS ---
STUDY: CTA CHEST REASON FOR EXAM: Male, 75 years old. INCREASING SOB/HX ADENOCARCINOMA RADIATION DOSAGE (If Supplied By Facility): CTDIvol = ( 16.15 ) mGy, DLP = ( 576.62 ) mGycm TECHNIQUE: The examination was performed with the intravenous administration of Isovue 370 100. Post-processing of the angiographic images was performed, with multiplanar reformation and 3D reconstruction. Individualized dose optimization techniques were used for this CT. COMPARISON: None. FINDINGS: Normal enhancement of the main pulmonary artery and right and left pulmonary arteries. Normal enhancement of the bilateral peripheral pulmonary arteries. There is no demonstrated pulmonary embolism. There is atherosclerotic calcification of the aortic arch with tortuosity. There is no demonstrated aortic dissection. Normal heart and pericardium. There are calcifications of the coronary arteries. Normal mediastinum. Normal hilar regions. There is peribronchial thickening. The lungs are well expanded. There are loculated effusions in the right hemithorax, largest is in the dependent portion of the right hemithorax but there is loculated fluid along the lateral hemithorax and along the right heart border. There is significant atelectasis in the right lung base. The visualized lung soares show chronic interstitial changes in both lung soares. There are tree-in-bud opacifications in the left lung base suggesting small airways inflammation as well as approximately 7 subcentimeter noncalcified nodules which likely represent metastasis. Normal chest wall structures. There are degenerative changes of thoracic spine. Limited cuts of the upper abdomen show simple left renal cyst CT/CTA Chest W/WO Contrast IMPRESSION: No demonstrated PE, or thoracic aortic aneurysm or dissection Prominent loculated right pleural effusions with associated atelectasis Tree in bud opacifications in the left lung base consistent with small airways inflammation. There are subcentimeter noncalcified nodules in the left lung base as well suspicious for metastasis. Calcified coronary vessels Degenerative bony changes Electronically Signed: Roverto Flores MD at 12:38 EDT , Service support ,
[2020-05-02] MEDS: BENZOCAINE/MENTHOL 1 LOZENGE MUCOUS MEM (12:55)
[2020-05-02] MEDS: Losartan Potassium 100 MG Tablet PO (21:18)
[2020-05-02] MEDS: Tamsulosin HCl 0.4 MG Capsule PO (21:18)
[2020-05-02] MEDS: amLODIPine 5 MG Tablet PO (21:19)
[2020-05-02] MEDS: Atorvastatin Calcium 10 MG Tablet PO (21:19)
[2020-05-03] VITALS (22 sets, daily range): BP systolic 115–152; BP diastolic 61–86; PULSE 63–98; RESP 16–20; TEMP 36.3–37.1; O2SAT 90–98; BMI 31.8
[2020-05-03] MEDS: Ipratropium/Albuterol Sulfate 3 ML AMPUL.NEB INHALATION ×5 (03:33→22:23)
[2020-05-03] MEDS: Acetaminophen 325 MG Tablet 650 MG PO (04:12)
--- NOTE | 2020-05-03 08:09 | PN.SURG_ITS ---
Patient Problems: Active and Suspected Problems (Last Reviewed 04/25/20 @ 17:[address] Margarita Higginbotham, DO) Sepsis (Acute) Community acquired pneumonia (Acute) SOB (shortness of breath) (Acute) Carcinoma of unknown primary (Acute) Subjective: Patient had no changes since yesterday no issues overnight. - Physical Exam Vitals/I&O's: Vital Signs Temp Pulse Resp BP Pulse Ox 97.7 F L 68 17 115/86 H 94 05/03/20 07:43 05/03/20 07:43 05/03/20 07:43 05/03/20 07:43 05/03/20 07:43 Oxygen Flow Rate (L/min) [4] 6 Oxygen Flow Rate (L/min) [3] 6 Oxygen Flow Rate (L/min) [2] 6 Oxygen Flow Rate (L/min) [1 ( 6 Initial Baseline)] Oxygen Flow Rate (L/min) [ 7 AMBULATION with Oxygen] Oxygen Flow Rate (L/min) 9 Oxygen Delivery Method [4] Nasal Cannula Oxygen Delivery Method [3] Nasal Cannula Oxygen Delivery Method [2] Nasal Cannula Oxygen Delivery Method [1 ( Nasal Cannula Initial Baseline)] Oxygen Delivery Method CPAP Weight: 234 lb 5.622 oz Body Mass Index (BMI) 31.8 Intake and Output for Last 24 Hours 05/01/20 05/02/20 05/03/20 23:59 23:59 23:59 Intake Total 1633 / 1633 1550 / 1550 250 / 250 Output Total 2550 / 2550 825 / 825 Balance -917 / -917 1550 / 1550 -575 / -575 General: Alert, Oriented x3 Lungs: Normal air movement Abdomen: Soft, Non Tender, Non-Distended Microbiology Past 72 Hours 04/26/20 14:50 Fluid - Thoracentesis Fluid Gram Stain - Final 04/26/20 14:50 Fluid - Thoracentesis Fluid Body Fluid Culture - Final No growth aerobically. 04/26/20 14:50 Fluid - Thoracentesis Fluid Anaerobic Culture - Final No anaerobic bacteria isolated. 04/25/20 12:55 Blood Culture (Wb) #2 - Right Forearm Blood Culture - Final No growth in 5 days. 04/25/20 12:52 Blood Culture (Wb) - Left Forearm Blood Culture - Final No growth in 5 days. Laboratory Results 04/26/20 14:50: Miscellaneous Cytology SEE PATHOLOGY REPORT Current Medications Acetaminophen (Tylenol) 650 mg PO Q6H PRN PRN PRN Reason: Pain Score 1-10/Temp > 100.7 F Last Admin: 05/03/20 04:12 Dose: 650 mg Documented by: Al Hydroxide/Mg Hydroxide (Mylanta Ii) 30 ml PO Q6H PRN PRN PRN Reason: Gastric Burning Albuterol Sulfate (Ventolin Aerosols) 2.5 mg INHALATION Q2H PRN PRN PRN Reason: SOB/Wheezing Albuterol/Ipratropium (Duoneb) 3 ml INHALATION Q4H.RT [facility] Last Admin: 05/03/20 07:05 Dose: 3 ml Documented by: Amlodipine Besylate (Norvasc) 5 mg PO DAILY@2200 [facility] Last Admin: 05/02/20 21:19 Dose: 5 mg Documented by: Atorvastatin Calcium (Lipitor) 10 mg PO QHS [facility] Last Admin: 05/02/20 21:19 Dose: 10 mg Documented by: Azelastine HCl (Astelin) 1 spray NASAL DAILY [facility] Last Admin: 05/02/20 09:13 Dose: Not Given Documented by: Dextrose (D50w Syringe) 0 gm IV X1 PRN; Protocol PRN Reason: Hypoglycemia Enoxaparin Sodium (Lovenox) 40 mg SC DAILY [facility] Last Admin: 05/02/20 09:15 Dose: 40 mg Documented by: Fluticasone Propionate (Flonase Nasal Ar[place]) 2 spray NASAL QHS [facility] Last Admin: 05/02/20 21:19 Dose: Not Given Documented by: Glucagon () 1 mg IM .X1 PRN PRN Reason: Hypoglycemia Indapamide (Lozol) 1.25 mg PO DAILYCM [facility] Last Admin: 05/02/20 09:15 Dose: 1.25 mg Documented by: Iopamidol (Contrast Allergy Check) 0 ml IV X1 [facility] Last Admin: 05/02/20 12:36 Dose: Not Given Documented by: Losartan Potassium (Cozaar) 100 mg PO QHS [facility] Last Admin: 05/02/20 21:18 Dose: 100 mg Documented by: Magnesium Oxide (Mag-Ox 400) 400 mg PO DAILY [facility] Last Admin: 05/02/20 09:15 Dose: 400 mg Documented by: Mesalamine (Lialda) 1.2 gm PO BID [facility] Last Admin: 05/02/20 21:18 Dose: 1.2 gm Documented by: Metoprolol Succinate (Toprol Xl (Beta Sukhi)) 100 mg PO DAILY [facility] Last Admin: 05/02/20 09:16 Dose: 100 mg Documented by: Montelukast Sodium (Singulair) 10 mg PO DAILY [facility] Last Admin: 05/02/20 09:16 Dose: 10 mg Documented by: Pantoprazole Sodium (Protonix) 20 mg PO DAILY [facility] Last Admin: 05/02/20 09:16 Dose: 20 mg Documented by: Polyethylene Glycol (Miralax) 17 gm PO DAILY [facility] Last Admin: 05/02/20 09:13 Dose: Not Given Documented by: Prednisone () 40 mg PO DAILY@0800 [facility] Last Admin: 05/02/20 09:15 Dose: 40 mg Documented by: Sertraline HCl (Zoloft) 100 mg PO DAILY [facility] Last Admin: 05/02/20 09:16 Dose: 100 mg Documented by: Sodium Chloride () 10 - 40 ml IV UD PRN PRN Reason: SALINE FLUSH Last Admin: 05/02/20 21:20 Dose: 10 ml Documented by: Sodium Chloride (Clifford Nasal Arnot) 2 spray NASAL TID PRN PRN PRN Reason: NASAL DRYNESS Last Admin: 05/01/20 21:42 Dose: 2 spray Documented by: Tamsulosin HCl (Flomax) 0.4 mg PO 2200 [facility] Last Admin: 05/02/20 21:18 Dose: 0.4 mg Documented by: Throat Lozenges (Cepacol Sore Throat Lozenge) 1 lozenge MUCOUS MEM Q2H PRN PRN PRN Reason: SORE THROAT Last Admin: 05/02/20 12:55 Dose: 1 lozenge Documented by: Medical Necessity - Tobacco Use Smoking Status: Former smoker Assessment/Plan All Active Problems (Last Reviewed 04/25/20 @ 17:[address] Margarita Higginbotham DO) Sepsis (Acute) Community acquired pneumonia (Acute) SOB (shortness of breath) (Acute) Carcinoma of unknown primary (Acute) 75-year-old male with malignant effusion 1. Plan for EGD this morning. Patient is still on high flow nasal cannula. Colonoscopy as outpatient once patient's oxygenation improves. I explained endoscopy in detail to the patient. I explained the risks including but not limited to stroke or heart attack with anesthesia, perforation of the GI tract, bleeding, infection. I explained that any of these could necessitate further emergency surgery. The patient understands and all questions were answered sufficiently. The patient wishes to proceed with procedure. Wayne Boogie MD Pager: [facility] [address] [place] [address] [address] [place] [address] Office:
[2020-05-03] MEDS: Lactated Ringers 1,000 ML 100 ML IV (09:13)
--- NOTE | 2020-05-03 09:43 | PCM.PN.HOSP ---
Patient Problems: Active and Suspected Problems (Last Reviewed 04/25/20 @ 17:[address] Margarita Higginbotham, DO) Sepsis (Acute) Community acquired pneumonia (Acute) SOB (shortness of breath) (Acute) Carcinoma of unknown primary (Acute) Subjective: Breathing okay when at rest however he says that he does need more oxygen when he is walking. His oxygen requirements are slowly been increasing, he is currently at 9 L via nasal cannula Vitals/I&O's: Vital Signs Temp Pulse Resp BP Pulse Ox 97.7 F L 68 17 115/86 H 94 05/03/20 07:43 05/03/20 07:43 05/03/20 07:43 05/03/20 07:43 05/03/20 07:43 Oxygen Flow Rate (L/min) [4] 6 Oxygen Flow Rate (L/min) [3] 6 Oxygen Flow Rate (L/min) [2] 6 Oxygen Flow Rate (L/min) [1 ( 6 Initial Baseline)] Oxygen Flow Rate (L/min) [ 7 AMBULATION with Oxygen] Oxygen Flow Rate (L/min) 9 Oxygen Delivery Method [4] Nasal Cannula Oxygen Delivery Method [3] Nasal Cannula Oxygen Delivery Method [2] Nasal Cannula Oxygen Delivery Method [1 ( Nasal Cannula Initial Baseline)] Oxygen Delivery Method CPAP Weight: 234 lb 5.622 oz Body Mass Index (BMI) 31.8 Intake and Output for Last 24 Hours 05/01/20 05/02/20 05/03/20 23:59 23:59 23:59 Intake Total 1633 / 1633 1550 / 1550 250 / 250 Output Total 2550 / 2550 825 / 825 Balance -917 / -917 1550 / 1550 -575 / -575 General: Alert, Oriented x3, Cooperative, No apparent distress HEENT: Atraumatic, PERRLA, EOMI, Normocephalic Oral: Moist Mucosa Neck: Supple, No JVD Lungs: Normal air movement, No rhonchi, more diminished on the right than the left Cardiovascular: Regular rate, Regular Rhythm, Normal S1, Normal S2, No murmurs Abdomen: Soft, Non Tender, Non-Distended, No Hepato-splenomegaly Extremities: No edema, Capillary Refill Less than 3 Seconds Skin: No rashes, No breakdown Neurological: Neuro grossly intact, Sensory exam intact to light touch and pain Psych/Mental Status: Normal Affect, Appropriate Microbiology Past 72 Hours 04/26/20 14:50 Fluid - Thoracentesis Fluid Gram Stain - Final 04/26/20 14:50 Fluid - Thoracentesis Fluid Body Fluid Culture - Final No growth aerobically. 04/26/20 14:50 Fluid - Thoracentesis Fluid Anaerobic Culture - Final No anaerobic bacteria isolated. 04/25/20 12:55 Blood Culture (Wb) #2 - Right Forearm Blood Culture - Final No growth in 5 days. 04/25/20 12:52 Blood Culture (Wb) - Left Forearm Blood Culture - Final No growth in 5 days. Current Medications Acetaminophen (Tylenol) 650 mg PO Q6H PRN PRN PRN Reason: Pain Score 1-10/Temp > 100.7 F Last Admin: 05/03/20 04:12 Dose: 650 mg Documented by: Al Hydroxide/Mg Hydroxide (Mylanta Ii) 30 ml PO Q6H PRN PRN PRN Reason: Gastric Burning Albuterol Sulfate (Ventolin Aerosols) 2.5 mg INHALATION Q2H PRN PRN PRN Reason: SOB/Wheezing Albuterol/Ipratropium (Duoneb) 3 ml INHALATION Q4H.RT [facility] Last Admin: 05/03/20 07:05 Dose: 3 ml Documented by: Amlodipine Besylate (Norvasc) 5 mg PO DAILY@2200 [facility] Last Admin: 05/02/20 21:19 Dose: 5 mg Documented by: Atorvastatin Calcium (Lipitor) 10 mg PO QHS [facility] Last Admin: 05/02/20 21:19 Dose: 10 mg Documented by: Azelastine HCl (Astelin) 1 spray NASAL DAILY [facility] Last Admin: 05/02/20 09:13 Dose: Not Given Documented by: Dextrose (D50w Syringe) 0 gm IV X1 PRN; Protocol PRN Reason: Hypoglycemia Enoxaparin Sodium (Lovenox) 40 mg SC DAILY [facility] Last Admin: 05/02/20 09:15 Dose: 40 mg Documented by: Fluticasone Propionate (Flonase Nasal [place]) 2 spray NASAL QHS [facility] Last Admin: 05/02/20 21:19 Dose: Not Given Documented by: Glucagon () 1 mg IM .X1 PRN PRN Reason: Hypoglycemia Lactated Ringer's () 1,000 mls @ 100 mls/hr IV .Q10H [facility] Stop: 05/03/20 19:14 Last Admin: 05/03/20 09:13 Dose: 100 mls/hr Documented by: Indapamide (Lozol) 1.25 mg PO DAILYCM [facility] Last Admin: 05/02/20 09:15 Dose: 1.25 mg Documented by: Iopamidol (Contrast Allergy Check) 0 ml IV X1 [facility] Last Admin: 05/02/20 12:36 Dose: Not Given Documented by: Losartan Potassium (Cozaar) 100 mg PO QHS [facility] Last Admin: 05/02/20 21:18 Dose: 100 mg Documented by: Magnesium Oxide (Mag-Ox 400) 400 mg PO DAILY [facility] Last Admin: 05/02/20 09:15 Dose: 400 mg Documented by: Mesalamine (Lialda) 1.2 gm PO BID [facility] Last Admin: 05/02/20 21:18 Dose: 1.2 gm Documented by: Metoprolol Succinate (Toprol Xl (Beta Sukhi)) 100 mg PO DAILY [facility] Last Admin: 05/02/20 09:16 Dose: 100 mg Documented by: Montelukast Sodium (Singulair) 10 mg PO DAILY [facility] Last Admin: 05/02/20 09:16 Dose: 10 mg Documented by: Pantoprazole Sodium (Protonix) 20 mg PO DAILY [facility] Last Admin: 05/02/20 09:16 Dose: 20 mg Documented by: Polyethylene Glycol (Miralax) 17 gm PO DAILY [facility] Last Admin: 05/02/20 09:13 Dose: Not Given Documented by: Prednisone () 40 mg PO DAILY@0800 [facility] Last Admin: 05/02/20 09:15 Dose: 40 mg Documented by: Sertraline HCl (Zoloft) 100 mg PO DAILY [facility] Last Admin: 05/02/20 09:16 Dose: 100 mg Documented by: Sodium Chloride () 10 - 40 ml IV UD PRN PRN Reason: SALINE FLUSH Last Admin: 05/02/20 21:20 Dose: 10 ml Documented by: Sodium Chloride (Marana Nasal [place]) 2 spray NASAL TID PRN PRN PRN Reason: NASAL DRYNESS Last Admin: 05/01/20 21:42 Dose: 2 spray Documented by: Tamsulosin HCl (Flomax) 0.4 mg PO 2200 [facility] Last Admin: 06/25/20 21:18 Dose: 0.4 mg Documented by: Throat Lozenges (Cepacol Sore Throat Lozenge) 1 lozenge MUCOUS MEM Q2H PRN PRN PRN Reason: SORE THROAT Last Admin: 05/02/20 12:55 Dose: 1 lozenge Documented by: [facility] Vital Signs/Narrative: Vital Signs Temp Pulse Resp BP Pulse Ox 05/03/20 07:43 97.7 F L 68 17 115/86 H 94 05/03/20 07:30 89 05/03/20 07:05 68 16 90 Medical Necessity - Tobacco Use Smoking Status: Former smoker Assessment/Plan All Active Problems (Last Reviewed 04/25/20 @ 17:[address] Margarita Higginbotham, DO) Sepsis (Acute) Community acquired pneumonia (Acute) SOB (shortness of breath) (Acute) Carcinoma of unknown primary (Acute) 1. 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 Discharge will occur when he is needing less than 6 L 2. Chronic diastolic CHF/HLD/HTN -Blood pressure is stable, continue with his home blood pressure medications -Continue with his indapamide with diuresis as well as his metoprolol -Continue with his statin 3. GERD -Stable -Continue with PPI 4. Anxiety/depression -Stable -Continue with Zoloft 5. BPH -Stable -Continue with Flomax DVT: Lovenox Inpatient E&M: 70770 Subs Hosp L2
--- NOTE | 2020-05-03 11:12 | PN_ITS ---
Progress Note EGD was normal with no signs of malignancy. Patient will still need colonoscopy once his respiratory status has improved as it will require deeper sedation. Signet ring cancer of the colon is extremely rare. Bladder may want to be investigated as well as this can come from bladder primary. Wayne Boogie MD Pager: [facility] [address] [place] [address], [address] [place] [address] Office: [facility] Vital Signs/Narrative: Vital Signs Temp Pulse Resp BP Pulse Ox 05/03/20 11:10 65 18 135/73 H 97 05/03/20 11:05 73 18 136/73 H 98 05/03/20 11:03 98.1 F 66 18 143/71 H 94 05/03/20 07:43 97.7 F L 68 17 115/86 H 94 05/03/20 07:30 89
--- NOTE | 2020-05-03 11:57 | NURSING ---
[facility] late d/t pt off floor for EGD.
[2020-05-03] MEDS: Azelastine HCl NASAL.SRY 1 SPRAY NASAL (12:10)
[2020-05-03] MEDS: Sertraline 100 MG Tablet PO (12:11)
[2020-05-03] MEDS: Montelukast 10 MG Tablet PO (12:11)
[2020-05-03] MEDS: predniSONE 20 MG Tablet 40 MG PO (12:12)
[2020-05-03] MEDS: Indapamide 2.5 MG Tablet 1.25 MG PO (12:12)
[2020-05-03] MEDS: Mesalamine 1.2 GM Tablet PO ×2 (12:12→22:44)
[2020-05-03] MEDS: Pantoprazole Sodium 20 MG Tablet PO (12:12)
[2020-05-03] MEDS: Magnesium Oxide 400 MG Tablet PO (12:34)
[2020-05-03] MEDS: Metoprolol(XL)Succ 100 MG Tablet PO (12:43)
--- NOTE | 2020-05-03 12:43 | PN_ITS ---
Patient Problems: Active and Suspected Problems (Last Reviewed 04/25/20 @ 17:[address] Margarita Higginbotham, DO) Sepsis (Acute) Community acquired pneumonia (Acute) SOB (shortness of breath) (Acute) Carcinoma of unknown primary (Acute) Subjective: Patient reports that he did well overnight. Patient did successfully tolerate an EGD that was reportedly unremarkable. Patient states he has no symptoms of dyspnea at rest, but still has some dyspnea on exertion. Patient is still requiring significant amounts of supplemental oxygen to maintain saturations. - Physical Exam Vitals/I&O's: Vital Signs Temp Pulse Resp BP Pulse Ox 36.3 C L 71 16 152/63 H 92 05/03/20 12:00 05/03/20 12:00 05/03/20 12:00 05/03/20 12:00 05/03/20 12:00 Oxygen Flow Rate (L/min) [4] 6 Oxygen Flow Rate (L/min) [3] 6 Oxygen Flow Rate (L/min) [2] 6 Oxygen Flow Rate (L/min) [1 ( 6 Initial Baseline)] Oxygen Flow Rate (L/min) [ 7 AMBULATION with Oxygen] Oxygen Flow Rate (L/min) 6 Oxygen Delivery Method [4] Nasal Cannula Oxygen Delivery Method [3] Nasal Cannula Oxygen Delivery Method [2] Nasal Cannula Oxygen Delivery Method [1 ( Nasal Cannula Initial Baseline)] Oxygen Delivery Method Nasal Cannula Weight: 106.3 kg Body Mass Index (BMI) 31.8 Intake and Output for Last 24 Hours 05/01/20 05/02/20 05/03/20 23:59 23:59 23:59 Intake Total 1633 / 1633 1550 / 1550 650 / 650 Output Total 2550 / 2550 825 / 825 Balance -917 / -917 1550 / 1550 -175 / -175 General: Alert, Oriented x3, Cooperative, No apparent distress, Well developed, Well nourished, - - Obese. Speaking in full sentences. HEENT: Atraumatic, PERRLA, EOMI, Normocephalic, - - No scleral icterus or injection noted Oral: Moist Mucosa, No Gingival or Mucosal Lesions/ Ulcerations Neck: Supple, No JVD, No Nodes, Trachea Midline Lungs: No wheeze, Diminished, Rhonchi - Right base Cardiovascular: Regular rate, Regular Rhythm, Normal S1, Normal S2, No murmurs, No rub noted, No Gallop Abdomen: Bowel Sounds Present, Soft, Non Tender, Non-Distended, Obese Extremities: No clubbing, No cyanosis - Trace lower extremity, Edema Skin: No rashes, No breakdown Musculoskeletal: No Tenderness to Palpation of Joints or Extremities Lymphatic: No Cervical, Supraclavicular, or Inguinal Adenopathy Neurological: Cranial nerves II-XII grossly intact, Neuro grossly intact, Motor Exam 5/5 strength throughout Psych/Mental Status: Alert and oriented to time, place, person, mood and affect Microbiology Past 72 Hours 04/26/20 14:50 Fluid - Thoracentesis Fluid Gram Stain - Final 04/26/20 14:50 Fluid - Thoracentesis Fluid Body Fluid Culture - Final No growth aerobically. 04/26/20 14:50 Fluid - Thoracentesis Fluid Anaerobic Culture - Final No anaerobic bacteria isolated. 04/25/20 12:55 Blood Culture (Wb) #2 - Right Forearm Blood Culture - Final No growth in 5 days. 04/25/20 12:52 Blood Culture (Wb) - Left Forearm Blood Culture - Final No growth in 5 days. Current Medications Acetaminophen (Tylenol) 650 mg PO Q6H PRN PRN PRN Reason: Pain Score 1-10/Temp > 100.7 F Last Admin: 05/03/20 04:12 Dose: 650 mg Documented by: Al Hydroxide/Mg Hydroxide (Mylanta Ii) 30 ml PO Q6H PRN PRN PRN Reason: Gastric Burning Albuterol Sulfate (Ventolin Aerosols) 2.5 mg INHALATION Q2H PRN PRN PRN Reason: SOB/Wheezing Albuterol/Ipratropium (Duoneb) 3 ml INHALATION Q4H.RT [facility] Last Admin: 05/03/20 11:30 Dose: Not Given Documented by: Amlodipine Besylate (Norvasc) 5 mg PO DAILY@2200 [facility] Last Admin: 05/02/20 21:19 Dose: 5 mg Documented by: Atorvastatin Calcium (Lipitor) 10 mg PO QHS [facility] Last Admin: 05/02/20 21:19 Dose: 10 mg Documented by: Azelastine HCl (Astelin) 1 spray NASAL DAILY [facility] Last Admin: 05/02/20 09:13 Dose: Not Given Documented by: Dextrose (D50w Syringe) 0 gm IV X1 PRN; Protocol PRN Reason: Hypoglycemia Enoxaparin Sodium (Lovenox) 40 mg SC DAILY [facility] Last Admin: 05/02/20 09:15 Dose: 40 mg Documented by: Fluticasone Propionate (Flonase Nasal [place]) 2 spray NASAL QHS [facility] Last Admin: 05/02/20 21:19 Dose: Not Given Documented by: Glucagon () 1 mg IM .X1 PRN PRN Reason: Hypoglycemia Lactated Ringer's () 1,000 mls @ 100 mls/hr IV .Q10H [facility] Stop: 05/03/20 19:14 Last Infusion: 05/03/20 11:25 Dose: Infused Documented by: Indapamide (Lozol) 1.25 mg PO DAILYCM [facility] Last Admin: 05/02/20 09:15 Dose: 1.25 mg Documented by: Losartan Potassium (Cozaar) 100 mg PO QHS [facility] Last Admin: 05/02/20 21:18 Dose: 100 mg Documented by: Magnesium Oxide (Mag-Ox 400) 400 mg PO DAILY [facility] Last Admin: 05/02/20 09:15 Dose: 400 mg Documented by: Mesalamine (Lialda) 1.2 gm PO BID [facility] Last Admin: 05/02/20 21:18 Dose: 1.2 gm Documented by: Metoprolol Succinate (Toprol Xl (Beta Sukhi)) 100 mg PO DAILY [facility] Last Admin: 05/02/20 09:16 Dose: 100 mg Documented by: Montelukast Sodium (Singulair) 10 mg PO DAILY [facility] Last Admin: 05/02/20 09:16 Dose: 10 mg Documented by: Pantoprazole Sodium (Protonix) 20 mg PO DAILY [facility] Last Admin: 05/02/20 09:16 Dose: 20 mg Documented by: Polyethylene Glycol (Miralax) 17 gm PO DAILY [facility] Last Admin: 05/02/20 09:13 Dose: Not Given Documented by: Prednisone () 40 mg PO DAILY@0800 [facility] Last Admin: 05/02/20 09:15 Dose: 40 mg Documented by: Sertraline HCl (Zoloft) 100 mg PO DAILY [facility] Last Admin: 05/02/20 09:16 Dose: 100 mg Documented by: Sodium Chloride () 10 - 40 ml IV UD PRN PRN Reason: SALINE FLUSH Last Admin: 05/02/20 21:20 Dose: 10 ml Documented by: Sodium Chloride ([place] Nasal [place]) 2 spray NASAL TID PRN PRN PRN Reason: NASAL DRYNESS Last Admin: 05/01/20 21:42 Dose: 2 spray Documented by: Tamsulosin HCl (Flomax) 0.4 mg PO 2200 [facility] Last Admin: 05/02/20 21:18 Dose: 0.4 mg Documented by: Throat Lozenges (Cepacol Sore Throat Lozenge) 1 lozenge MUCOUS MEM Q2H PRN PRN PRN Reason: SORE THROAT Last Admin: 05/02/20 12:55 Dose: 1 lozenge Documented by: Medical Necessity - Tobacco Use Smoking Status: Former smoker Assessment/Plan All Active Problems (Last Reviewed 04/25/20 @ 17:[address] Margarita Higginbotham DO) Sepsis (Acute) Community acquired pneumonia (Acute) SOB (shortness of breath) (Acute) Carcinoma of unknown primary (Acute) RECOMMENDATIONS: 1. Continue empiric antimicrobial therapy to complete a 10-day course. 2. Continue scheduled bronchodilators and p.o. steroids. 3. Wean oxygen to maintain saturations at or above 90%. 4. Attempt empiric diuresis 5. Encourage incentive spirometer use and mobilize patient as tolerated. 6. Oncology work-up as reported IMPRESSIONS: 1. Acute on chronic hypoxemic respiratory failure secondary to malignant pleural effusion The patient typically has a baseline oxygen requirement of 2 to 3 L/min. Significant pleural effusion noted on original presentation. Thoracentesis with 1 L fluid removed is consistent with an exudate and cytology is come back po sitive with signet ring cells. Continues on empiric antimicrobials. Cultures have come back negative. Continue to wean oxygen as tolerated. On p.o. steroids, but continues to require significant amounts of oxygen. Patient continues to have significant oxygen tension. Patient's weight is down 3 kg since admission, but will attempt active diuresis to help with oxygenation status. Still unclear on the etiology of malignant cells given negative EGD. Would defer to surgery, but MRCP could be considered. 2. History of obstructive sleep apnea Continue nocturnal Pap therapy as ordered. 3. Heart failure with preserved ejection fraction The patient does not appear overtly volume overloaded at this time. Continue outpatient medication regimen. 4. Obesity/hyperlipidemia/GERD/allergic rhinitis/hypertension/chronic steroid dependency Complicates care, management, recovery and prognosis. Continue home medications as indicated. The patient will need to resume his baseline 10 mg prednisone dose on a daily basis upon discharge from the hospital. Inpatient E&M: 21422 Subs Hosp L3
[2020-05-03] MEDS: Enoxaparin 40 MG/0.4 ML Syringe SC (12:44)
[2020-05-03] MEDS: Furosemide 40 MG/4 ML Vial IV (14:03)
[2020-05-03] MEDS: 0.9% Saline Lock 10 ML Syringe IV (14:03)
[2020-05-03] MEDS: Losartan Potassium 100 MG Tablet PO (22:43)
[2020-05-03] MEDS: Atorvastatin Calcium 10 MG Tablet PO (22:44)
[2020-05-03] MEDS: Tamsulosin HCl 0.4 MG Capsule PO (22:44)
[2020-05-03] MEDS: amLODIPine 5 MG Tablet PO (22:44)
[2020-05-04] VITALS (22 sets, daily range): BP systolic 111–132; BP diastolic 53–68; PULSE 70–87; RESP 15–20; TEMP 36.4–37.1; O2SAT 90–92
[2020-05-04] MEDS: Ipratropium/Albuterol Sulfate 3 ML AMPUL.NEB INHALATION ×6 (03:45→23:02)
[2020-05-04 07:13] LABS: Anion Gap 8 (5-15); BUN 38 mg/dL (7-18); BUN/Creat Ratio 25.9 RATIO (10-20); Calcium,Total 9.3 mg/dL (8.5-10.1); Chloride 103 mmol/L (98-107); Creatinine, Serum 1.47 mg/dL (0.70-1.30); EST Glomerular Filtration Rate 49 mL/min (>60); Est Glom Filt Rate - Afr Amer 60 mL/min (>60); Estimated Creatinine Clearance 46.19 ml/min; Glucose 112 mg/dL (74-106); Potassium 3.4 mmol/L (3.5-5.1); Sodium Level 138 mmol/L (136-145)
--- NOTE | 2020-05-04 09:09 | PCM.PN.SRG ---
Patient Problems: Active and Suspected Problems (Last Reviewed 04/25/20 @ 17:[address] Margarita Higginbotham, DO) Sepsis (Acute) Community acquired pneumonia (Acute) SOB (shortness of breath) (Acute) Carcinoma of unknown primary (Acute) Subjective: Patient states that he is breathing easier. Objective: Currently is on 6 L nasal cannula. And is being weaned. - Physical Exam Vitals/I&O's: Vital Signs Temp Pulse Resp BP Pulse Ox 97.5 F L 78 18 114/57 L 90 05/04/20 05:00 05/04/20 07:31 05/04/20 07:31 05/04/20 05:00 05/04/20 07:31 Oxygen Flow Rate (L/min) [4] 6 Oxygen Flow Rate (L/min) [3] 6 Oxygen Flow Rate (L/min) [2] 6 Oxygen Flow Rate (L/min) [1 ( 6 Initial Baseline)] Oxygen Flow Rate (L/min) [ 7 AMBULATION with Oxygen] Oxygen Flow Rate (L/min) 6 Oxygen Delivery Method [4] Nasal Cannula Oxygen Delivery Method [3] Nasal Cannula Oxygen Delivery Method [2] Nasal Cannula Oxygen Delivery Method [1 ( Nasal Cannula Initial Baseline)] Oxygen Delivery Method Nasal Cannula Weight: 232 lb 2.348 oz Body Mass Index (BMI) 31.8 Intake and Output for Last 24 Hours 05/02/20 05/03/20 05/04/20 23:59 23:59 23:59 Intake Total 1550 / 1550 890 / 1040 150 / 150 Output Total 825 / 825 175 / 175 Balance 1550 / 1550 65 / 215 -25 / -25 Microbiology Past 72 Hours 04/26/20 14:50 Fluid - Thoracentesis Fluid Gram Stain - Final 04/26/20 14:50 Fluid - Thoracentesis Fluid Body Fluid Culture - Final No growth aerobically. 04/26/20 14:50 Fluid - Thoracentesis Fluid Anaerobic Culture - Final No anaerobic bacteria isolated. Laboratory Results 05/04/20 06:32: Sodium 138, Potassium 3.4 L, Chloride 103, Carbon Dioxide 27.0, Anion Gap 8, BUN 38 H, Creatinine 1.47 H, Estim Creat Clear Calc 46.19, Est GFR (MDRD) Af Amer 60, Est GFR (MDRD) Non-Af 49 L, BUN/Creatinine Ratio 25.9 H, Glucose 112 H, Calcium 9.3 Current Medications Acetaminophen (Tylenol) 650 mg PO Q6H PRN PRN PRN Reason: Pain Score 1-10/Temp > 100.7 F Last Admin: 05/03/20 04:12 Dose: 650 mg Documented by: Al Hydroxide/Mg Hydroxide (Mylanta Ii) 30 ml PO Q6H PRN PRN PRN Reason: Gastric Burning Albuterol Sulfate (Ventolin Aerosols) 2.5 mg INHALATION Q2H PRN PRN PRN Reason: SOB/Wheezing Albuterol/Ipratropium (Duoneb) 3 ml INHALATION Q4H.RT [facility] Last Admin: 05/04/20 07:31 Dose: 3 ml Documented by: Amlodipine Besylate (Norvasc) 5 mg PO DAILY@2200 [facility] Last Admin: 05/03/20 22:44 Dose: 5 mg Documented by: Atorvastatin Calcium (Lipitor) 10 mg PO QHS [facility] Last Admin: 05/03/20 22:44 Dose: 10 mg Documented by: Azelastine HCl (Astelin) 1 spray NASAL DAILY [facility] Last Admin: 05/03/20 12:10 Dose: 1 spray Documented by: Dextrose (D50w Syringe) 0 gm IV X1 PRN; Protocol PRN Reason: Hypoglycemia Enoxaparin Sodium (Lovenox) 40 mg SC DAILY [facility] Last Admin: 05/03/20 12:44 Dose: 40 mg Documented by: Fluticasone Propionate (Flonase Nasal [place]) 2 spray NASAL QHS [facility] Last Admin: 05/03/20 22:45 Dose: Not Given Documented by: Glucagon () 1 mg IM .X1 PRN PRN Reason: Hypoglycemia Indapamide (Lozol) 1.25 mg PO DAILYCM [facility] Last Admin: 05/03/20 12:12 Dose: 1.25 mg Documented by: Losartan Potassium (Cozaar) 100 mg PO QHS [facility] Last Admin: 05/03/20 22:43 Dose: 100 mg Documented by: Magnesium Oxide (Mag-Ox 400) 400 mg PO DAILY [facility] Last Admin: 05/03/20 12:34 Dose: 400 mg Documented by: Mesalamine (Lialda) 1.2 gm PO BID [facility] Last Admin: 05/03/20 22:44 Dose: 1.2 gm Documented by: Metoprolol Succinate (Toprol Xl (Beta Sukhi)) 100 mg PO DAILY [facility] Last Admin: 05/03/20 12:43 Dose: 100 mg Documented by: Montelukast Sodium (Singulair) 10 mg PO DAILY [facility] Last Admin: 05/03/20 12:11 Dose: 10 mg Documented by: Pantoprazole Sodium (Protonix) 20 mg PO DAILY [facility] Last Admin: 05/03/20 12:12 Dose: 20 mg Documented by: Polyethylene Glycol (Miralax) 17 gm PO DAILY [facility] Last Admin: 05/03/20 12:43 Dose: Not Given Documented by: Prednisone () 40 mg PO DAILY@0800 [facility] Last Admin: 05/03/20 12:12 Dose: 40 mg Documented by: Sertraline HCl (Zoloft) 100 mg PO DAILY [facility] Last Admin: 05/03/20 12:11 Dose: 100 mg Documented by: Sodium Chloride () 10 - 40 ml IV UD PRN PRN Reason: SALINE FLUSH Last Admin: 05/03/20 14:03 Dose: 10 ml Documented by: Sodium Chloride ([place] Nasal [place]) 2 spray NASAL TID PRN PRN PRN Reason: NASAL DRYNESS Last Admin: 05/01/20 21:42 Dose: 2 spray Documented by: Tamsulosin HCl (Flomax) 0.4 mg PO 2200 [facility] Last Admin: 05/03/20 22:44 Dose: 0.4 mg Documented by: Throat Lozenges (Cepacol Sore Throat Lozenge) 1 lozenge MUCOUS MEM Q2H PRN PRN PRN Reason: SORE THROAT Last Admin: 05/02/20 12:55 Dose: 1 lozenge Documented by: Medical Necessity - Tobacco Use Smoking Status: Former smoker Assessment/Plan All Active Problems (Last Reviewed 04/25/20 @ 17:[address] Margarita Higginbotham, DO) Sepsis (Acute) Community acquired pneumonia (Acute) SOB (shortness of breath) (Acute) Carcinoma of unknown primary (Acute) If the patient can get down to 2 L by tomorrow we will start him on a bowel prep so that he can undergo a colonoscopy on Wednesday.
--- NOTE | 2020-05-04 09:49 | PN_ITS ---
Patient Problems: Active and Suspected Problems (Last Reviewed 04/25/20 @ 17:[address] Margarita Higginbotham, DO) Sepsis (Acute) Community acquired pneumonia (Acute) SOB (shortness of breath) (Acute) Carcinoma of unknown primary (Acute) Reason for Visit: Acute on chronic hypoxic respiratory failure Subjective: Patient stated his 3 sisters have breast cancer out of which 2 . His 2 brothers have lung cancer. Pleural fluid positive for signet ring cells suggestive of NSCLC, favor adenocarcinoma. Still required 6 L of oxygen. No fever. Gets really short of breath even walking to bathroom. Baseline requirement, 3 L of home oxygen and BiPAP Vitals/I&O's: Vital Signs Temp Pulse Resp BP Pulse Ox 98.7 F 87 17 123/56 H 92 05/04/20 09:40 05/04/20 09:40 05/04/20 09:40 05/04/20 09:40 05/04/20 09:40 Oxygen Flow Rate (L/min) [4] 6 Oxygen Flow Rate (L/min) [3] 6 Oxygen Flow Rate (L/min) [2] 6 Oxygen Flow Rate (L/min) [1 ( 6 Initial Baseline)] Oxygen Flow Rate (L/min) [ 7 AMBULATION with Oxygen] Oxygen Flow Rate (L/min) 6 Oxygen Delivery Method [4] Nasal Cannula Oxygen Delivery Method [3] Nasal Cannula Oxygen Delivery Method [2] Nasal Cannula Oxygen Delivery Method [1 ( Nasal Cannula Initial Baseline)] Oxygen Delivery Method Nasal Cannula Weight: 232 lb 2.348 oz Body Mass Index (BMI) 31.8 Intake and Output for Last 24 Hours 05/02/20 05/03/20 05/04/20 23:59 23:59 23:59 Intake Total 1550 / 1550 890 / 1040 150 / 150 Output Total 825 / 825 175 / 175 Balance 1550 / 1550 65 / 215 -25 / -25 General: Alert, Oriented x3, Cooperative HEENT: Atraumatic, PERRLA, EOMI, Normocephalic Neck: Supple, No JVD, Negative Carotid Bruits Lungs: Clear to auscultation, No rhonchi, No wheeze, No rales, Diminished - Air entry decreased in right lung base. Cardiovascular: Regular rate, Regular Rhythm, Normal S1, Normal S2, No murmurs Abdomen: Bowel Sounds Present, Soft, Non Tender, Non-Distended Extremities: No edema, Capillary Refill Less than 3 Seconds Skin: No rashes, No breakdown Musculoskeletal: No Tenderness to Palpation of Joints or Extremities, Arthritic Changes Neurological: Cranial nerves II-XII grossly intact, Deep Tendon Reflexes 2+/4 and Symmetrical, Neuro grossly intact Psych/Mental Status: Normal Affect, Appropriate Microbiology Past 72 Hours 04/26/20 14:50 Fluid - Thoracentesis Fluid Gram Stain - Final 04/26/20 14:50 Fluid - Thoracentesis Fluid Body Fluid Culture - Final No growth aerobically. 04/26/20 14:50 Fluid - Thoracentesis Fluid Anaerobic Culture - Final No anaerobic bacteria isolated. Laboratory Results 05/04/20 06:32: Sodium 138, Potassium 3.4 L, Chloride 103, Carbon Dioxide 27.0, Anion Gap 8, BUN 38 H, Creatinine 1.47 H, Estim Creat Clear Calc 46.19, Est GFR (MDRD) Af Amer 60, Est GFR (MDRD) Non-Af 49 L, BUN/Creatinine Ratio 25.9 H, Glucose 112 H, Calcium 9.3 Current Medications Acetaminophen (Tylenol) 650 mg PO Q6H PRN PRN PRN Reason: Pain Score 1-10/Temp > 100.7 F Last Admin: 05/03/20 04:12 Dose: 650 mg Documented by: Al Hydroxide/Mg Hydroxide (Mylanta Ii) 30 ml PO Q6H PRN PRN PRN Reason: Gastric Burning Albuterol Sulfate (Ventolin Aerosols) 2.5 mg INHALATION Q2H PRN PRN PRN Reason: SOB/Wheezing Albuterol/Ipratropium (Duoneb) 3 ml INHALATION Q4H.RT [facility] Last Admin: 05/04/20 07:31 Dose: 3 ml Documented by: Amlodipine Besylate (Norvasc) 5 mg PO DAILY@2200 [facility] Last Admin: 05/03/20 22:44 Dose: 5 mg Documented by: Atorvastatin Calcium (Lipitor) 10 mg PO QHS [facility] Last Admin: 05/03/20 22:44 Dose: 10 mg Documented by: Azelastine HCl (Astelin) 1 spray NASAL DAILY [facility] Last Admin: 05/03/20 12:10 Dose: 1 spray Documented by: Dextrose (D50w Syringe) 0 gm IV X1 PRN; Protocol PRN Reason: Hypoglycemia Enoxaparin Sodium (Lovenox) 40 mg SC DAILY [facility] Last Admin: 05/03/20 12:44 Dose: 40 mg Documented by: Fluticasone Propionate (Flonase Nasal [place]) 2 spray NASAL QHS [facility] Last Admin: 05/03/20 22:45 Dose: Not Given Documented by: Glucagon () 1 mg IM .X1 PRN PRN Reason: Hypoglycemia Indapamide (Lozol) 1.25 mg PO DAILYCM [facility] Last Admin: 05/03/20 12:12 Dose: 1.25 mg Documented by: Losartan Potassium (Cozaar) 100 mg PO QHS [facility] Last Admin: 05/03/20 22:43 Dose: 100 mg Documented by: Magnesium Oxide (Mag-Ox 400) 400 mg PO DAILY [facility] Last Admin: 05/03/20 12:34 Dose: 400 mg Documented by: Mesalamine (Lialda) 1.2 gm PO BID [facility] Last Admin: 05/03/20 22:44 Dose: 1.2 gm Documented by: Metoprolol Succinate (Toprol Xl (Beta Sukhi)) 100 mg PO DAILY [facility] Last Admin: 05/03/20 12:43 Dose: 100 mg Documented by: Montelukast Sodium (Singulair) 10 mg PO DAILY [facility] Last Admin: 05/03/20 12:11 Dose: 10 mg Documented by: Pantoprazole Sodium (Protonix) 20 mg PO DAILY [facility] Last Admin: 05/03/20 12:12 Dose: 20 mg Documented by: Polyethylene Glycol (Miralax) 17 gm PO DAILY [facility] Last Admin: 05/03/20 12:43 Dose: Not Given Documented by: Prednisone () 40 mg PO DAILY@0800 [facility] Last Admin: 05/03/20 12:12 Dose: 40 mg Documented by: Sertraline HCl (Zoloft) 100 mg PO DAILY [facility] Last Admin: 05/03/20 12:11 Dose: 100 mg Documented by: Sodium Chloride () 10 - 40 ml IV UD PRN PRN Reason: SALINE FLUSH Last Admin: 05/03/20 14:03 Dose: 10 ml Documented by: Sodium Chloride ([place] Nasal [place]) 2 spray NASAL TID PRN PRN PRN Reason: NASAL DRYNESS Last Admin: 05/01/20 21:42 Dose: 2 spray Documented by: Tamsulosin HCl (Flomax) 0.4 mg PO 2200 [facility] Last Admin: 05/03/20 22:44 Dose: 0.4 mg Documented by: Throat Lozenges (Cepacol Sore Throat Lozenge) 1 lozenge MUCOUS MEM Q2H PRN PRN PRN Reason: SORE THROAT Last Admin: 05/02/20 12:55 Dose: 1 lozenge Documented by: STROKE Vital Signs/Narrative: Vital Signs Temp Pulse Resp BP Pulse Ox 05/04/20 09:40 98.7 F 87 17 123/56 H 92 05/04/20 07:31 78 18 90 05/04/20 07:18 82 Medical Necessity - Tobacco Use Smoking Status: Former smoker Assessment/Plan All Active Problems (Last Reviewed 04/25/20 @ 17:[address] Margarita Higginbotham, DO) Sepsis (Acute) Community acquired pneumonia (Acute) SOB (shortness of breath) (Acute) Carcinoma of unknown primary (Acute) This is a 75-year-old male with history of severe COPD, bronchiectasis with bronchomalacia, shortness sleep apnea on home BiPAP, chronic hypoxic respiratory failure on 2 L of oxygen and home BiPAP and vest therapy admitted with worsening of shortness of breath, nonproductive cough and decreasing functional capacity. 1. Acute on chronic hypoxic respiratory failure secondary to pneumonia, moderate malignant pleural effusion, COPD/bronchiectasis exacerbation: Patient was admitted in ICU on 6 L of oxygen, increased from 3 L of baseline requirement and increased to 9 L but currently on 6 L of oxygen. Significant dyspnea on mild exertion. Amiodarone changed to prednisone. Continue bronchodilator, incentive spirometry and pep. On BiPAP during naps and night. CT chest and chest x-ray shows moderate right pleural effusion, right lower lobe consolidation with underlying atelectasis, interstitial, cystic and nodular progression mainly in right upper lung. 2. Severe sepsis (tachypnea, hypoxia, increased creatinine and lactic acidosis 2.4) most probably from right lower lobe pneumonia: On IV cefepime and vancomycin. Urinary antigens are negative. Respiratory panel negative. Blood cultures x2 are negative for more than 5 days. 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 COVID-19 PCR negative and MRSA nasal screen negative. Repeat lactic acid normal. Blood pressure is controlled. 3. Mild dehydration with prerenal azotemia: Patient baseline creatinine is around 1.2 to 1.3 and admitted with creatinine 1.33. Creatinine went up to 1.47. BUN 38. Patient creatinine and urine output does not meet criteria for SWATI. Patient on indapamide and losartan. 4. Pulmonary conditions: COPD and bronchiectasis exacerbation, diffuse bronchomalacia, obstructive sleep apnea on BiPAP and right moderate malignant pleural effusion: Patient has BiPAP machine. Patient had thoracocentesis which showed signet ring cells suggestive of NSCLC favor adenocarcinoma. General surgery was consulted for EGD and colonoscopy for signet cell adenocarcinoma generally a GI primary. Had EGD on 05/03/2020 and reported normal with no signs of malignancy. Signet-ring cell cancer of: Extremely rare but patient will need colonoscopy once his respiratory status is improved. 5. Hypothyroidism and history of colitis: TSH low at 0.25. Treat empirically ordered. Most probably, TSH low secondary to euthyroid sick syndrome. 6. Chronic heart failure with preserved EF: Patient does not have edema/fluid overload. Other comorbidities include hypertension, dyslipidemia, GERD and history of colitis: Home medication reconciliation done. 7. DVT prophylaxis: On Lovenox 40 mg subcu daily. Total time of the visit including total time spent in counseling or coordination of care, (more than 50% of the total time, spent in obtaining medical informat ion from nurses and other ancillary care providers), discussion with chain sales consultant, review of labs and imaging is 30 minutes Microbiology Past 72 Hours 04/26/20 14:50 Fluid - Thoracentesis Fluid Gram Stain - Final 04/26/20 14:50 Fluid - Thoracentesis Fluid Body Fluid Culture - Final No growth aerobically. 04/26/20 14:50 Fluid - Thoracentesis Fluid Anaerobic Culture - Final No anaerobic bacteria isolated. Laboratory Results 05/04/20 06:32: Sodium 138, Potassium 3.4 L, Chloride 103, Carbon Dioxide 27.0, Anion Gap 8, BUN 38 H, Creatinine 1.47 H, Estim Creat Clear Calc 46.19, Est GFR (MDRD) Af Amer 60, Est GFR (MDRD) Non-Af 49 L, BUN/Creatinine Ratio 25.9 H, Glucose 112 H, Calcium 9.3 Clinical Impression(s) from Imaging Studies Chest X-Ray 04/25/20 13:38 IMPRESSION: Worsening of infiltrate of the mid and lower right lung. Worsening of small right pleural effusion. Atelectasis or infiltrate developing in the left lung base. Chest CT 04/25/20 17:20 IMPRESSION: Significant worsening. Moderate right pleural effusion. Almost complete consolidation of the right lower lobe. Prominent primarily interstitial infiltrate in the posterior segment of the right upper lobe. Cystic, nodular and interstitial changes in the posterior left lower lobe most consistent with inflammatory process. Inpatient E&M: 60567 Subs Hosp L3
[2020-05-04] MEDS: Indapamide 2.5 MG Tablet 1.25 MG PO (09:56)
[2020-05-04] MEDS: predniSONE 20 MG Tablet 40 MG PO (09:57)
[2020-05-04] MEDS: Mesalamine 1.2 GM Tablet PO ×2 (09:58→21:00)
[2020-05-04] MEDS: Magnesium Oxide 400 MG Tablet PO (09:58)
[2020-05-04] MEDS: Azelastine HCl NASAL.SRY 1 SPRAY NASAL (09:58)
[2020-05-04] MEDS: Pantoprazole Sodium 20 MG Tablet PO (09:59)
[2020-05-04] MEDS: Montelukast 10 MG Tablet PO (09:59)
[2020-05-04] MEDS: Metoprolol(XL)Succ 100 MG Tablet PO (10:00)
[2020-05-04] MEDS: Sertraline 100 MG Tablet PO (10:00)
[2020-05-04] MEDS: Enoxaparin 40 MG/0.4 ML Syringe SC (10:02)
--- NOTE | 2020-05-04 12:17 | PN_ITS ---
Patient Problems: Active and Suspected Problems (Last Reviewed 04/25/20 @ 17:[address] Margarita Higginbotham, DO) Sepsis (Acute) Community acquired pneumonia (Acute) SOB (shortness of breath) (Acute) Carcinoma of unknown primary (Acute) Subjective: Patient feels improved compared to yesterday. Coughing improved. Oxygen status is improving. - Physical Exam Vitals/I&O's: Vital Signs Temp Pulse Resp BP Pulse Ox 37.1 C 81 18 123/56 H 92 05/04/20 09:40 05/04/20 11:52 05/04/20 11:52 05/04/20 10:00 05/04/20 09:44 Oxygen Flow Rate (L/min) [4] 6 Oxygen Flow Rate (L/min) [3] 6 Oxygen Flow Rate (L/min) [2] 6 Oxygen Flow Rate (L/min) [1 ( 6 Initial Baseline)] Oxygen Flow Rate (L/min) [ 7 AMBULATION with Oxygen] Oxygen Flow Rate (L/min) 4 Oxygen Delivery Method [4] Nasal Cannula Oxygen Delivery Method [3] Nasal Cannula Oxygen Delivery Method [2] Nasal Cannula Oxygen Delivery Method [1 ( Nasal Cannula Initial Baseline)] Oxygen Delivery Method Nasal Cannula Weight: 105.3 kg Body Mass Index (BMI) 31.8 Intake and Output for Last 24 Hours 05/02/20 05/03/20 05/04/20 23:59 23:59 23:59 Intake Total 1550 / 1550 890 / 1040 150 / 150 Output Total 825 / 825 175 / 175 Balance 1550 / 1550 65 / 215 -25 / -25 General: Alert, Oriented x3, Cooperative, No apparent distress, Well developed, Well nourished, - - Obese HEENT: Atraumatic, PERRLA, EOMI, Normocephalic, - - No scleral icterus or injection Oral: Moist Mucosa, No Gingival or Mucosal Lesions/ Ulcerations Neck: Supple, No JVD, No Nodes, Trachea Midline Lungs: No rhonchi, No wheeze, Diminished, Rales Cardiovascular: Regular rate, Regular Rhythm, Normal S1, Normal S2, No murmurs, No rub noted, No Gallop Abdomen: Bowel Sounds Present, Soft, Non Tender, Non-Distended Extremities: No clubbing, No cyanosis Skin: No rashes, No breakdown Musculoskeletal: No Tenderness to Palpation of Joints or Extremities Lymphatic: No Cervical, Supraclavicular, or Inguinal Adenopathy Neurological: Cranial nerves II-XII grossly intact, Neuro grossly intact, Motor Exam 5/5 strength throughout Psych/Mental Status: Alert and oriented to time, place, person, mood and affect Microbiology Past 72 Hours 04/26/20 14:50 Fluid - Thoracentesis Fluid Gram Stain - Final 04/26/20 14:50 Fluid - Thoracentesis Fluid Body Fluid Culture - Final No growth aerobically. 04/26/20 14:50 Fluid - Thoracentesis Fluid Anaerobic Culture - Final No anaerobic bacteria isolated. Laboratory Results 05/04/20 06:32: Sodium 138, Potassium 3.4 L, Chloride 103, Carbon Dioxide 27.0, Anion Gap 8, BUN 38 H, Creatinine 1.47 H, Estim Creat Clear Calc 46.19, Est GFR (MDRD) Af Amer 60, Est GFR (MDRD) Non-Af 49 L, BUN/Creatinine Ratio 25.9 H, Glucose 112 H, Calcium 9.3 Current Medications Acetaminophen (Tylenol) 650 mg PO Q6H PRN PRN PRN Reason: Pain Score 1-10/Temp > 100.7 F Last Admin: 05/03/20 04:12 Dose: 650 mg Documented by: Al Hydroxide/Mg Hydroxide (Mylanta Ii) 30 ml PO Q6H PRN PRN PRN Reason: Gastric Burning Albuterol Sulfate (Ventolin Aerosols) 2.5 mg INHALATION Q2H PRN PRN PRN Reason: SOB/Wheezing Albuterol/Ipratropium (Duoneb) 3 ml INHALATION Q4H.RT [facility] Last Admin: 05/04/20 11:51 Dose: 3 ml Documented by: Amlodipine Besylate (Norvasc) 5 mg PO DAILY@2200 [facility] Last Admin: 05/03/20 22:44 Dose: 5 mg Documented by: Atorvastatin Calcium (Lipitor) 10 mg PO QHS [facility] Last Admin: 05/03/20 22:44 Dose: 10 mg Documented by: Azelastine HCl (Astelin) 1 spray NASAL DAILY [facility] Last Admin: 05/04/20 09:58 Dose: 1 spray Documented by: Dextrose (D50w Syringe) 0 gm IV X1 PRN; Protocol PRN Reason: Hypoglycemia Enoxaparin Sodium (Lovenox) 40 mg SC DAILY [facility] Last Admin: 05/04/20 10:02 Dose: 40 mg Documented by: Fluticasone Propionate (Flonase Nasal [place]) 2 spray NASAL QHS [facility] Last Admin: 05/03/20 22:45 Dose: Not Given Documented by: Glucagon () 1 mg IM .X1 PRN PRN Reason: Hypoglycemia Indapamide (Lozol) 1.25 mg PO DAILYCM [facility] Last Admin: 05/04/20 09:56 Dose: 1.25 mg Documented by: Losartan Potassium (Cozaar) 100 mg PO QHS [facility] Last Admin: 05/03/20 22:43 Dose: 100 mg Documented by: Magnesium Oxide (Mag-Ox 400) 400 mg PO DAILY [facility] Last Admin: 05/04/20 09:58 Dose: 400 mg Documented by: Mesalamine (Lialda) 1.2 gm PO BID [facility] Last Admin: 05/04/20 09:58 Dose: 1.2 gm Documented by: Metoprolol Succinate (Toprol Xl (Beta S[place]hi)) 100 mg PO DAILY [facility] Last Admin: 05/04/20 10:00 Dose: 100 mg Documented by: Montelukast Sodium (Singulair) 10 mg PO DAILY [facility] Last Admin: 05/04/20 09:59 Dose: 10 mg Documented by: Pantoprazole Sodium (Protonix) 20 mg PO DAILY [facility] Last Admin: 05/04/20 09:59 Dose: 20 mg Documented by: Polyethylene Glycol (Miralax) 17 gm PO DAILY [facility] Last Admin: 05/04/20 09:59 Dose: Not Given Documented by: Prednisone () 40 mg PO DAILY@0800 [facility] Last Admin: 05/04/20 09:57 Dose: 40 mg Documented by: Sertraline HCl (Zoloft) 100 mg PO DAILY [facility] Last Admin: 05/04/20 10:00 Dose: 100 mg Documented by: Sodium Chloride () 10 - 40 ml IV UD PRN PRN Reason: SALINE FLUSH Last Admin: 05/03/20 14:03 Dose: 10 ml Documented by: Sodium Chloride ([place] Nasal [place]) 2 spray NASAL TID PRN PRN PRN Reason: NASAL DRYNESS Last Admin: 05/01/20 21:42 Dose: 2 spray Documented by: Tamsulosin HCl (Flomax) 0.4 mg PO 2200 [facility] Last Admin: 05/03/20 22:44 Dose: 0.4 mg Documented by: Throat Lozenges (Cepacol Sore Throat Lozenge) 1 lozenge MUCOUS MEM Q2H PRN PRN PRN Reason: SORE THROAT Last Admin: 05/02/20 12:55 Dose: 1 lozenge Documented by: Medical Necessity - Tobacco Use Smoking Status: Former smoker Assessment/Plan All Active Problems (Last Reviewed 04/25/20 @ 17:[address] Margarita Higginbotham, DO) Sepsis (Acute) Community acquired pneumonia (Acute) SOB (shortness of breath) (Acute) Carcinoma of unknown primary (Acute) RECOMMENDATIONS: 1. Continue empiric antimicrobial therapy to complete a 10-day course. 2. Continue scheduled bronchodilators and p.o. steroids. 3. Wean oxygen to maintain saturations at or above 90%. 4. Continue diuresis 5. Encourage incentive spirometer use and mobilize patient as tolerated. 6. Oncology work-up as reported IMPRESSIONS: 1. Acute on chronic hypoxemic respiratory failure secondary to malignant pleural effusion The patient typically has a baseline oxygen requirement of 2 to 3 L/min. Significant pleural effusion noted on original presentation. Thoracentesis with 1 L fluid removed is consistent with an exudate and cytology is come back positive with signet ring cells. Continues on empiric antimicrobials. Cultures have come back negative. Continue to wean oxygen as tolerated. On p.o. steroids, but continues to require significant amounts of oxygen. Patient continues to have significant oxygen tension, but improved with diuresis. Patient's weight is down 4 kg since admission. Still unclear on the etiology of malignant cells given negative EGD. Would defer to surgery, but MRCP could be considered. 2. History of obstructive sleep apnea Continue nocturnal Pap therapy as ordered. 3. Heart failure with preserved ejection fraction The patient does not appear overtly volume overloaded at this time. Continue outpatient medication regimen. 4. Obesity/hyperlipidemia/GERD/allergic rhinitis/hypertension/chronic steroid dependency Complicates care, management, recovery and prognosis. Continue home medications as indicated. The patient will need to resume his baseline 10 mg prednisone dose on a daily basis upon discharge from the hospital. Inpatient E&M: [id number] [facility] Hosp L2
[2020-05-04] MEDS: Furosemide 40 MG/4 ML Vial IV (13:27)
[2020-05-04] MEDS: 0.9% Saline Lock 10 ML Syringe IV (13:27)
[2020-05-04] MEDS: Losartan Potassium 100 MG Tablet PO (20:59)
[2020-05-04] MEDS: Fluticasone 0.05% 1 SPRAY NASAL.SRY 2 SPRAY NASAL (20:59)
[2020-05-04] MEDS: Tamsulosin HCl 0.4 MG Capsule PO (20:59)
[2020-05-04] MEDS: amLODIPine 5 MG Tablet PO (21:00)
[2020-05-04] MEDS: Atorvastatin Calcium 10 MG Tablet PO (21:00)
[2020-05-05] VITALS (23 sets, daily range): BP systolic 111–145; BP diastolic 53–70; PULSE 67–86; RESP 16–20; TEMP 36.4–36.8; O2SAT 85–94
[2020-05-05 07:17] LABS: Anion Gap 8 (5-15); BUN 47 mg/dL (7-18); BUN/Creat Ratio 24.5 RATIO (10-20); Calcium,Total 9.1 mg/dL (8.5-10.1); Chloride 98 mmol/L (98-107); Creatinine, Serum 1.92 mg/dL (0.70-1.30); EST Glomerular Filtration Rate 36 mL/min (>60); Est Glom Filt Rate - Afr Amer 44 mL/min (>60); Estimated Creatinine Clearance 35.36 ml/min; Glucose 136 mg/dL (74-106); Potassium 3.2 mmol/L (3.5-5.1); Sodium Level 136 mmol/L (136-145)
[2020-05-05] MEDS: Ipratropium/Albuterol Sulfate 3 ML AMPUL.NEB INHALATION ×5 (07:25→22:52)
[2020-05-05] MEDS: Acetaminophen 325 MG Tablet 650 MG PO (07:54)
[2020-05-05] MEDS: Indapamide 2.5 MG Tablet 1.25 MG PO (07:55)
[2020-05-05] MEDS: predniSONE 20 MG Tablet 40 MG PO (07:55)
[2020-05-05] MEDS: Azelastine HCl NASAL.SRY 1 SPRAY NASAL (09:50)
[2020-05-05] MEDS: 0.9% Saline Lock 10 ML Syringe IV (09:50)
[2020-05-05] MEDS: Mesalamine 1.2 GM Tablet PO ×2 (09:51→21:49)
[2020-05-05] MEDS: Magnesium Oxide 400 MG Tablet PO (09:51)
[2020-05-05] MEDS: Pantoprazole Sodium 20 MG Tablet PO (09:51)
[2020-05-05] MEDS: Montelukast 10 MG Tablet PO (09:51)
[2020-05-05] MEDS: Metoprolol(XL)Succ 100 MG Tablet PO (09:51)
[2020-05-05] MEDS: Sertraline 100 MG Tablet PO (09:51)
[2020-05-05] MEDS: Enoxaparin 40 MG/0.4 ML Syringe SC (09:53)
--- NOTE | 2020-05-05 10:03 | PN_ITS ---
Patient Problems: Active and Suspected Problems (Last Reviewed 04/25/20 @ 17:[address] Margarita Higginbotham, DO) Sepsis (Acute) Community acquired pneumonia (Acute) SOB (shortness of breath) (Acute) Carcinoma of unknown primary (Acute) Subjective: Patient did well overnight. No acute issues were reported. Patient states he feels subjectively unchanged compared to previous. Patient's oxygen tension has improved somewhat, but patient still reports significant dyspnea with any exertion. No chest pain is reported. - Physical Exam Vitals/I&O's: Vital Signs Temp Pulse Resp BP Pulse Ox 36.6 C 79 18 113/53 L 88 05/05/20 09:30 05/05/20 09:51 05/05/20 09:30 05/05/20 09:51 05/05/20 09:30 Oxygen Flow Rate (L/min) [4] 6 Oxygen Flow Rate (L/min) [3] 6 Oxygen Flow Rate (L/min) [2] 6 Oxygen Flow Rate (L/min) [1 ( 6 Initial Baseline)] Oxygen Flow Rate (L/min) [ 7 AMBULATION with Oxygen] Oxygen Flow Rate (L/min) 4 Oxygen Delivery Method [4] Nasal Cannula Oxygen Delivery Method [3] Nasal Cannula Oxygen Delivery Method [2] Nasal Cannula Oxygen Delivery Method [1 ( Nasal Cannula Initial Baseline)] Oxygen Delivery Method Nasal Cannula Weight: 104.5 kg Body Mass Index (BMI) 31.8 Intake and Output for Last 24 Hours 05/03/20 05/04/20 05/05/20 23:59 23:59 23:59 Intake Total 890 / 1040 1780 / 1780 Output Total 825 / 825 175 / 175 600 / 600 Balance 65 / 215 1605 / 1605 -600 / -600 General: Alert, Oriented x3, Cooperative, - - Mild to moderate conversational dyspnea HEENT: Atraumatic, PERRLA, EOMI, Normocephalic, - - No scleral icterus or injection noted Oral: Moist Mucosa, No Gingival or Mucosal Lesions/ Ulcerations Neck: Supple, No JVD, No Nodes, Trachea Midline Lungs: No rhonchi, No wheeze, Diminished - Right base, - - Dullness to percussion at the right base Cardiovascular: Regular rate, Regular Rhythm, Normal S1, Normal S2, No murmurs, No rub noted, No Gallop Abdomen: Bowel Sounds Present, Soft, Non Tender, Non-Distended, Obese Extremities: No clubbing, No cyanosis, No edema, Capillary Refill Less than 3 Seconds Skin: - - No change compared to previous Musculoskeletal: No Tenderness to Palpation of Joints or Extremities Lymphatic: No Cervical, Supraclavicular, or Inguinal Adenopathy Neurological: Cranial nerves II-XII grossly intact, Neuro grossly intact, Motor Exam 5/5 strength throughout Psych/Mental Status: Alert and oriented to time, place, person, mood and affect Laboratory Results 05/05/20 06:15: Sodium 136, Potassium 3.2 L, Chloride 98, Carbon Dioxide 30.0, Anion Gap 8, BUN 47 H, Creatinine 1.92 H, Estim Creat Clear Calc 35.36, Est GFR (MDRD) Af Amer 44 L, Est GFR (MDRD) Non-Af 36 L, BUN/Creatinine Ratio 24.5 H, Glucose 136 H, Calcium 9.1 Current Medications Acetaminophen (Tylenol) 650 mg PO Q6H PRN PRN PRN Reason: Pain Score 1-10/Temp > 100.7 F Last Admin: 05/05/20 07:54 Dose: 650 mg Documented by: Al Hydroxide/Mg Hydroxide (Mylanta Ii) 30 ml PO Q6H PRN PRN PRN Reason: Gastric Burning Albuterol Sulfate (Ventolin Aerosols) 2.5 mg INHALATION Q2H PRN PRN PRN Reason: SOB/Wheezing Albuterol/Ipratropium (Duoneb) 3 ml INHALATION Q4H.RT [facility] Last Admin: 05/05/20 07:25 Dose: 3 ml Documented by: Amlodipine Besylate (Norvasc) 5 mg PO DAILY@2200 [facility] Last Admin: 05/04/20 21:00 Dose: 5 mg Documented by: Atorvastatin Calcium (Lipitor) 10 mg PO QHS [facility] Last Admin: 05/04/20 21:00 Dose: 10 mg Documented by: Azelastine HCl (Astelin) 1 spray NASAL DAILY [facility] Last Admin: 05/05/20 09:50 Dose: 1 spray Documented by: Dextrose (D50w Syringe) 0 gm IV X1 PRN; Protocol PRN Reason: Hypoglycemia Enoxaparin Sodium (Lovenox) 40 mg SC DAILY [facility] Last Admin: 06/28/20 09:53 Dose: 40 mg Documented by: Fluticasone Propionate (Flonase Nasal [place]) 2 spray NASAL QHS [facility] Last Admin: 05/04/20 20:59 Dose: 2 spray Documented by: Glucagon () 1 mg IM .X1 PRN PRN Reason: Hypoglycemia Indapamide (Lozol) 1.25 mg PO DAILYCM [facility] Last Admin: 05/05/20 07:55 Dose: 1.25 mg Documented by: Losartan Potassium (Cozaar) 100 mg PO QHS [facility] Last Admin: 05/04/20 20:59 Dose: 100 mg Documented by: Magnesium Oxide (Mag-Ox 400) 400 mg PO DAILY [facility] Last Admin: 05/05/20 09:51 Dose: 400 mg Documented by: Mesalamine (Lialda) 1.2 gm PO BID [facility] Last Admin: 05/05/20 09:51 Dose: 1.2 gm Documented by: Metoprolol Succinate (Toprol Xl (Beta Sukhi)) 100 mg PO DAILY [facility] Last Admin: 05/05/20 09:51 Dose: 100 mg Documented by: Montelukast Sodium (Singulair) 10 mg PO DAILY [facility] Last Admin: 05/05/20 09:51 Dose: 10 mg Documented by: Pantoprazole Sodium (Protonix) 20 mg PO DAILY [facility] Last Admin: 05/05/20 09:51 Dose: 20 mg Documented by: Polyethylene Glycol (Miralax) 17 gm PO DAILY [facility] Last Admin: 05/05/20 09:51 Dose: Not Given Documented by: Prednisone () 40 mg PO DAILY@0800 [facility] Last Admin: 05/05/20 07:55 Dose: 40 mg Documented by: Sertraline HCl (Zoloft) 100 mg PO DAILY [facility] Last Admin: 05/05/20 09:51 Dose: 100 mg Documented by: Sodium Chloride () 10 - 40 ml IV UD PRN PRN Reason: SALINE FLUSH Last Admin: 05/05/20 09:50 Dose: 10 ml Documented by: Sodium Chloride ([place] Nasal [place]) 2 spray NASAL TID PRN PRN PRN Reason: NASAL DRYNESS Last Admin: 05/01/20 21:42 Dose: 2 spray Documented by: Tamsulosin HCl (Flomax) 0.4 mg PO 2200 [facility] Last Admin: 05/04/20 20:59 Dose: 0.4 mg Documented by: Throat Lozenges (Cepacol Sore Throat Lozenge) 1 lozenge MUCOUS MEM Q2H PRN PRN PRN Reason: SORE THROAT Last Admin: 05/02/20 12:55 Dose: 1 lozenge Documented by: Medical Necessity - Tobacco Use Smoking Status: Former smoker Assessment/Plan All Active Problems (Last Reviewed 04/25/20 @ 17:[address] Margarita Higginbotham, DO) Sepsis (Acute) Community acquired pneumonia (Acute) SOB (shortness of breath) (Acute) Carcinoma of unknown primary (Acute) RECOMMENDATIONS: 1. Continue empiric antimicrobial therapy to complete a 10-day course. 2. Continue scheduled bronchodilators and p.o. steroids. 3. Wean oxygen to maintain saturations at or above 90%. 4. Hold on diuresis for today. Obtain chest x-ray tomorrow 5. Encourage incentive spirometer use and mobilize patient as tolerated. 6. If pleural effusion has recurred, consider Pleurx catheter placement IMPRESSIONS: 1. Acute on chronic hypoxemic respiratory failure secondary to malignant pleural effusion The patient typically has a baseline oxygen requirement of 2 to 3 L/min. Significant pleural effusion noted on original presentation. Thoracentesis with 1 L fluid removed is consistent with an exudate and cytology is come back positive with signet ring cells. Continues on empiric antimicrobials. Cultures have come back negative. Continue to wean oxygen as tolerated. On p.o. steroids, but continues to require significant amounts of oxygen. Patient with significant elevation in creatinine, so we will hold off on diuretic therapy today. We will repeat chest x-ray tomorrow morning. If pleural effusion has recurred, would consider Pleurx catheter given patient has had 2-1/2 L removed in the last 10 days already. Still unclear on the etiology of malignant cells given negative EGD. Would defer to surgery, but MRCP versus EUS could be considered. 2. History of obstructive sleep apnea Continue nocturnal Pap therapy as ordered. 3. Heart failure with preserved ejection fraction The patient does not appear overtly volume overloaded at this time. Continue outpatient medication regimen. 4. Obesity/hyperlipidemia/GERD/allergic rhinitis/hypertension/chronic steroid dependency Complicates care, management, recovery and prognosis. Continue home medications as indicated. The patient will need to resume his baseline 10 mg prednisone dose on a daily basis upon discharge from the hospital. Inpatient E&M: 20524 [facility] Hosp L2
--- NOTE | 2020-05-05 12:20 | PCM.PN.SRG ---
Patient Problems: Active and Suspected Problems (Last Reviewed 04/25/20 @ 17:[address] Margarita Higginbotham DO) Sepsis (Acute) Community acquired pneumonia (Acute) SOB (shortness of breath) (Acute) Carcinoma of unknown primary (Acute) Subjective: Patient is still currently on 5 L nasal cannula. He did not do well with his exercise test this morning. Objective: Abdomen is soft and nontender - Physical Exam Vitals/I&O's: Vital Signs Temp Pulse Resp BP Pulse Ox 97.8 F 72 20 H 113/53 L 93 05/05/20 09:30 05/05/20 11:20 05/05/20 11:20 05/05/20 09:51 05/05/20 10:50 Oxygen Flow Rate (L/min) [4] 6 Oxygen Flow Rate (L/min) [3] 6 Oxygen Flow Rate (L/min) [2] 6 Oxygen Flow Rate (L/min) [1 ( 6 Initial Baseline)] Oxygen Flow Rate (L/min) [ 7 AMBULATION with Oxygen] Oxygen Flow Rate (L/min) 6 Oxygen Delivery Method [4] Nasal Cannula Oxygen Delivery Method [3] Nasal Cannula Oxygen Delivery Method [2] Nasal Cannula Oxygen Delivery Method [1 ( Nasal Cannula Initial Baseline)] Oxygen Delivery Method Nasal Cannula Weight: 230 lb 6.129 oz Body Mass Index (BMI) 31.8 Intake and Output for Last 24 Hours 05/03/20 05/04/20 05/05/20 23:59 23:59 23:59 Intake Total 890 / 1040 1780 / 1780 Output Total 825 / 825 175 / 175 600 / 600 Balance 65 / 215 1605 / 1605 -600 / -600 Laboratory Results 05/05/20 06:15: Sodium 136, Potassium 3.2 L, Chloride 98, Carbon Dioxide 30.0, Anion Gap 8, BUN 47 H, Creatinine 1.92 H, Estim Creat Clear Calc 35.36, Est GFR (MDRD) Af Amer 44 L, Est GFR (MDRD) Non-Af 36 L, BUN/Creatinine Ratio 24.5 H, Glucose 136 H, Calcium 9.1 Current Medications Acetaminophen (Tylenol) 650 mg PO Q6H PRN PRN PRN Reason: Pain Score 1-10/Temp > 100.7 F Last Admin: 05/05/20 07:54 Dose: 650 mg Documented by: Al Hydroxide/Mg Hydroxide (Mylanta Ii) 30 ml PO Q6H PRN PRN PRN Reason: Gastric Burning Albuterol Sulfate (Ventolin Aerosols) 2.5 mg INHALATION Q2H PRN PRN PRN Reason: SOB/Wheezing Albuterol/Ipratropium (Duoneb) 3 ml INHALATION Q4H.RT [facility] Last Admin: 05/05/20 11:19 Dose: 3 ml Documented by: Amlodipine Besylate (Norvasc) 5 mg PO DAILY@2200 [facility] Last Admin: 05/04/20 21:00 Dose: 5 mg Documented by: Atorvastatin Calcium (Lipitor) 10 mg PO QHS [facility] Last Admin: 05/04/20 21:00 Dose: 10 mg Documented by: Azelastine HCl (Astelin) 1 spray NASAL DAILY [facility] Last Admin: 05/05/20 09:50 Dose: 1 spray Documented by: Dextrose (D50w Syringe) 0 gm IV X1 PRN; Protocol PRN Reason: Hypoglycemia Enoxaparin Sodium (Lovenox) 40 mg SC DAILY [facility] Last Admin: 05/05/20 09:53 Dose: 40 mg Documented by: Fluticasone Propionate (Flonase Nasal [place]) 2 spray NASAL QHS [facility] Last Admin: 05/04/20 20:59 Dose: 2 spray Documented by: Glucagon () 1 mg IM .X1 PRN PRN Reason: Hypoglycemia Indapamide (Lozol) 1.25 mg PO DAILYCM [facility] Last Admin: 05/05/20 07:55 Dose: 1.25 mg Documented by: Losartan Potassium (Cozaar) 100 mg PO QHS [facility] Last Admin: 05/04/20 20:59 Dose: 100 mg Documented by: Magnesium Oxide (Mag-Ox 400) 400 mg PO DAILY [facility] Last Admin: 05/05/20 09:51 Dose: 400 mg Documented by: Mesalamine (Lialda) 1.2 gm PO BID [facility] Last Admin: 05/05/20 09:51 Dose: 1.2 gm Documented by: Metoprolol Succinate (Toprol Xl (Beta Sukhi)) 100 mg PO DAILY [facility] Last Admin: 05/05/20 09:51 Dose: 100 mg Documented by: Montelukast Sodium (Singulair) 10 mg PO DAILY [facility] Last Admin: 05/05/20 09:51 Dose: 10 mg Documented by: Pantoprazole Sodium (Protonix) 20 mg PO DAILY [facility] Last Admin: 05/05/20 09:51 Dose: 20 mg Documented by: Polyethylene Glycol (Miralax) 17 gm PO DAILY [facility] Last Admin: 05/05/20 09:51 Dose: Not Given Documented by: Prednisone () 40 mg PO DAILY@0800 [facility] Last Admin: 05/05/20 07:55 Dose: 40 mg Documented by: Sertraline HCl (Zoloft) 100 mg PO DAILY [facility] Last Admin: 05/05/20 09:51 Dose: 100 mg Documented by: Sodium Chloride () 10 - 40 ml IV UD PRN PRN Reason: SALINE FLUSH Last Admin: 05/05/20 09:50 Dose: 10 ml Documented by: Sodium Chloride ([place] Nasal [place]) 2 spray NASAL TID PRN PRN PRN Reason: NASAL DRYNESS Last Admin: 05/01/20 21:42 Dose: 2 spray Documented by: Tamsulosin HCl (Flomax) 0.4 mg PO 2200 [facility] Last Admin: 05/04/20 20:59 Dose: 0.4 mg Documented by: Throat Lozenges (Cepacol Sore Throat Lozenge) 1 lozenge MUCOUS MEM Q2H PRN PRN PRN Reason: SORE THROAT Last Admin: 05/02/20 12:55 Dose: 1 lozenge Documented by: Medical Necessity - Tobacco Use Smoking Status: Former smoker Assessment/Plan All Active Problems (Last Reviewed 04/25/20 @ 17:[address] Margarita Higginbotham, DO) Sepsis (Acute) Community acquired pneumonia (Acute) SOB (shortness of breath) (Acute) Carcinoma of unknown primary (Acute) Will not start him on a bowel prep today. We will need to see some more improvement in his oxygenation prior to doing this. Inpatient E&M: 00173 Subs Hosp L2
--- NOTE | 2020-05-05 13:44 | PN_ITS ---
Patient Problems: Active and Suspected Problems (Last Reviewed 04/25/20 @ 17:[address] Margarita Higginbotham, DO) Sepsis (Acute) Community acquired pneumonia (Acute) SOB (shortness of breath) (Acute) Carcinoma of unknown primary (Acute) Reason for Visit: Acute on chronic hypoxic respiratory failure Objective: Patient is still on 4 L of oxygen. Baseline requirement is 3 L home oxygen with BiPAP at night. Discussed with Dr. Caceres. Still on high oxygen therefore colonoscopy for tomorrow is postponed. No fever or chills. Blood pressure is in normal range. On physical exam General: Alert, Oriented x3, Cooperative HEENT: Atraumatic, PERRLA, EOMI, Normocephalic Neck: Supple, No JVD, Negative Carotid Bruits Lungs: Clear to auscultation, No rhonchi, No wheeze, No rales, Air entry decreased in right lung base. Dyspnea on mild exertion Cardiovascular: Regular rate, Regular Rhythm, Normal S1, Normal S2, No murmurs Abdomen: Bowel Sounds Present, Soft, Non Tender, Non-Distended Extremities: No edema, Capillary Refill Less than 3 Seconds Skin: No rashes, No breakdown Musculoskeletal: No Tenderness to Palpation of Joints or Extremities, Arthritic Changes Neurological: Cranial nerves II-XII grossly intact, Deep Tendon Reflexes 2+/4 and Symmetrical, Neuro grossly intact Psych/Mental Status: Normal Affect, Appropriate Vitals/I&O's: Vital Signs Temp Pulse Resp BP Pulse Ox 98.0 F 81 17 134/60 H 91 05/05/20 12:25 05/05/20 12:48 05/05/20 12:25 05/05/20 12:25 05/05/20 12:25 Oxygen Flow Rate (L/min) [4] 6 Oxygen Flow Rate (L/min) [3] 6 Oxygen Flow Rate (L/min) [2] 6 Oxygen Flow Rate (L/min) [1 ( 6 Initial Baseline)] Oxygen Flow Rate (L/min) [ 7 AMBULATION with Oxygen] Oxygen Flow Rate (L/min) 5 Oxygen Delivery Method [4] Nasal Cannula Oxygen Delivery Method [3] Nasal Cannula Oxygen Delivery Method [2] Nasal Cannula Oxygen Delivery Method [1 ( Nasal Cannula Initial Baseline)] Oxygen Delivery Method Nasal Cannula Weight: 230 lb 6.129 oz Body Mass Index (BMI) 31.8 Intake and Output for Last 24 Hours 05/03/20 05/04/20 05/05/20 23:59 23:59 23:59 Intake Total 890 / 1040 1780 / 1780 890 / 890 Output Total 825 / 825 175 / 175 600 / 600 Balance 65 / 215 1605 / 1605 290 / 290 Laboratory Results 05/05/20 06:15: Sodium 136, Potassium 3.2 L, Chloride 98, Carbon Dioxide 30.0, Anion Gap 8, BUN 47 H, Creatinine 1.92 H, Estim Creat Clear Calc 35.36, Est GFR (MDRD) Af Amer 44 L, Est GFR (MDRD) Non-Af 36 L, BUN/Creatinine Ratio 24.5 H, Glucose 136 H, Calcium 9.1 Current Medications Acetaminophen (Tylenol) 650 mg PO Q6H PRN PRN PRN Reason: Pain Score 1-10/Temp > 100.7 F Last Admin: 05/05/20 07:54 Dose: 650 mg Documented by: Al Hydroxide/Mg Hydroxide (Mylanta Ii) 30 ml PO Q6H PRN PRN PRN Reason: Gastric Burning Albuterol Sulfate (Ventolin Aerosols) 2.5 mg INHALATION Q2H PRN PRN PRN Reason: SOB/Wheezing Albuterol/Ipratropium (Duoneb) 3 ml INHALATION Q4H.RT [facility] Last Admin: 05/05/20 11:19 Dose: 3 ml Documented by: Amlodipine Besylate (Norvasc) 5 mg PO DAILY@2200 [facility] Last Admin: 05/04/20 21:00 Dose: 5 mg Documented by: Atorvastatin Calcium (Lipitor) 10 mg PO QHS [facility] Last Admin: 05/04/20 21:00 Dose: 10 mg Documented by: Azelastine HCl (Astelin) 1 spray NASAL DAILY [facility] Last Admin: 05/05/20 09:50 Dose: 1 spray Documented by: Dextrose (D50w Syringe) 0 gm IV X1 PRN; Protocol PRN Reason: Hypoglycemia Enoxaparin Sodium (Lovenox) 40 mg SC DAILY [facility] Last Admin: 05/05/20 09:53 Dose: 40 mg Documented by: Fluticasone Propionate (Flonase Nasal [place]) 2 spray NASAL QHS [facility] Last Admin: 05/04/20 20:59 Dose: 2 spray Documented by: Glucagon () 1 mg IM .X1 PRN PRN Reason: Hypoglycemia Indapamide (Lozol) 1.25 mg PO DAILYCM [facility] Last Admin: 05/05/20 07:55 Dose: 1.25 mg Documented by: Losartan Potassium (Cozaar) 100 mg PO QHS [facility] Last Admin: 05/04/20 20:59 Dose: 100 mg Documented by: Magnesium Oxide (Mag-Ox 400) 400 mg PO DAILY [facility] Last Admin: 05/05/20 09:51 Dose: 400 mg Documented by: Mesalamine (Lialda) 1.2 gm PO BID [facility] Last Admin: 05/05/20 09:51 Dose: 1.2 gm Documented by: Metoprolol Succinate (Toprol Xl (Beta Sukhi)) 100 mg PO DAILY [facility] Last Admin: 05/05/20 09:51 Dose: 100 mg Documented by: Montelukast Sodium (Singulair) 10 mg PO DAILY [facility] Last Admin: 05/05/20 09:51 Dose: 10 mg Documented by: Pantoprazole Sodium (Protonix) 20 mg PO DAILY [facility] Last Admin: 05/05/20 09:51 Dose: 20 mg Documented by: Polyethylene Glycol (Miralax) 17 gm PO DAILY [facility] Last Admin: 05/05/20 09:51 Dose: Not Given Documented by: Prednisone () 40 mg PO DAILY@0800 [facility] Last Admin: 05/05/20 07:55 Dose: 40 mg Documented by: Sertraline HCl (Zoloft) 100 mg PO DAILY [facility] Last Admin: 05/05/20 09:51 Dose: 100 mg Documented by: Sodium Chloride () 10 - 40 ml IV UD PRN PRN Reason: SALINE FLUSH Last Admin: 05/05/20 09:50 Dose: 10 ml Documented by: Sodium Chloride ([place] Nasal [place]) 2 spray NASAL TID PRN PRN PRN Reason: NASAL DRYNESS Last Admin: 05/01/20 21:42 Dose: 2 spray Documented by: Tamsulosin HCl (Flomax) 0.4 mg PO 2200 [facility] Last Admin: 05/04/20 20:59 Dose: 0.4 mg Documented by: Throat Lozenges (Cepacol Sore Throat Lozenge) 1 lozenge MUCOUS MEM Q2H PRN PRN PRN Reason: SORE THROAT Last Admin: 05/02/20 12:55 Dose: 1 lozenge Documented by: STROKE Vital Signs/Narrative: Vital Signs Temp Pulse Resp BP Pulse Ox 05/05/20 12:48 81 05/05/20 12:25 98.0 F 86 17 134/60 H 91 05/05/20 11:20 72 20 H 05/05/20 10:50 93 05/05/20 09:51 79 113/53 L Medical Necessity - Tobacco Use Smoking Status: Former smoker Assessment/Plan All Active Problems (Last Reviewed 04/25/20 @ 17:[address] Margarita Higginbotham, DO) Sepsis (Acute) Community acquired pneumonia (Acute) SOB (shortness of breath) (Acute) Carcinoma of unknown primary (Acute) This is a 75-year-old male with history of severe COPD, bronchiectasis with bronchomalacia, shortness sleep apnea on home BiPAP, chronic hypoxic respiratory failure on 2 L of oxygen and home BiPAP and vest therapy admitted with worsening of shortness of breath, nonproductive cough and decreasing functional capacity. 1. Acute on chronic hypoxic respiratory failure secondary to pneumonia, moderate malignant pleural effusion, COPD/bronchiectasis exacerbation: Patient was admitted in ICU on 6 L of oxygen, increased from 3 L of baseline requirement and increased to 9 L but currently on 6 L of oxygen. Significant dyspnea on mild exertion. Solu-Medrol changed to prednisone. Continue bronchodilator, incentive spirometry and pep. On BiPAP during naps and night. CT chest and chest x-ray shows moderate right pleural effusion, right lower lobe consolidation with underlying atelectasis, interstitial, cystic and nodular progression mainly in right upper lung. 05/05: Slight improvement in oxygenation. On exam, it seems there is increase in the right lower pleural effusion. Chest x-ray tomorrow a.m. 2. Severe sepsis (tachypnea, hypoxia, increased creatinine and lactic acidosis 2.4) most probably from right lower lobe pneumonia: On IV cefepime and vancomycin. Urinary antigens are negative. Respiratory panel negative. Blood cultures x2 are negative for more than 5 days. 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 COVID-19 PCR negative and MRSA nasal screen negative. Repeat lactic acid normal. Blood pressure is controlled. 05/05 continue antibiotic for total of 10 days. 3. SWATI secondary to diuretic on baseline CKD G3 stage during hospital stay: Patient baseline creatinine is around 1.2 to 1.4 with estimated clearance about 52 mL/min. Patient was admitted with creatinine 1.33. Creatinine went up to 1.92 due to diuretic. Hold diuretic. Hold indapamide and losartan. Mild hypokalemia, potassium being replaced 4. Pulmonary conditions: COPD and bronchiectasis exacerbation, diffuse bronchomalacia, obstructive sleep apnea on BiPAP and right moderate malignant pleural effusion: Patient has BiPAP machine. Patient had thoracocentesis which showed signet ring cells suggestive of NSCLC favor adenocarcinoma. General surgery was consulted for EGD and colonoscopy for signet cell adenocarcinoma generally a GI primary. Had EGD on 05/03/2020 and reported normal with no signs of malignancy. Signet-ring cell cancer of: Extremely rare but patient will need colonoscopy once his respiratory status is improved. 5. Hypothyroidism and history of colitis: TSH low at 0.25. Free T4 normal. Most probably, TSH low secondary to euthyroid sick syndrome. 6. Chronic heart failure with preserved EF: Patient does not have edema/fluid overload. Other comorbidities include hypertension, dyslipidemia, GERD and history of colitis: Home medication reconciliation done. 7. DVT prophylaxis: On Lovenox 40 mg subcu daily. Total time of the visit including total time spent in counseling or coordination of care, (more than 50% of the total time, spent in obtaining medical information from nurses and other ancillary care providers), discussion with group segment consultant, review of labs and imaging is 30 minutes Laboratory Results 05/05/20 06:15: Sodium 136, Potassium 3.2 L, Chloride 98, Carbon Dioxide 30.0, Anion Gap 8, BUN 47 H, Creatinine 1.92 H, Estim Creat Clear Calc 35.36, Est GFR (MDRD) Af Amer 44 L, Est GFR (MDRD) Non-Af 36 L, BUN/Creatinine Ratio 24.5 H, Glucose 136 H, Calcium 9.1 Clinical Impression(s) from Imaging Studies Chest X-Ray 04/25/20 13:38 IMPRESSION: Worsening of infiltrate of the mid and lower right lung. Worsening of small right pleural effusion. Atelectasis or infiltrate developing in the left lung base. Chest CT 04/25/20 17:20 IMPRESSION: Significant worsening. Moderate right pleural effusion. Almost complete consolidation of the right lower lobe. Prominent primarily interstitial infiltrate in the posterior segment of the right upper lobe. Cystic, nodular and interstitial changes in the posterior left lower lobe most consistent with inflammatory process. Inpatient E&M: 75047 Subs Hosp L2
[2020-05-05 14:13] LABS: Magnesium 2.1 mg/dL (1.6-2.6)
[2020-05-05] MEDS: Atorvastatin Calcium 10 MG Tablet PO (21:49)
[2020-05-05] MEDS: Fluticasone 0.05% 1 SPRAY NASAL.SRY 2 SPRAY NASAL (21:49)
[2020-05-05] MEDS: Tamsulosin HCl 0.4 MG Capsule PO (21:49)
[2020-05-05] MEDS: amLODIPine 5 MG Tablet PO (21:49)
[2020-05-06] VITALS (21 sets, daily range): BP systolic 110–141; BP diastolic 47–88; PULSE 68–89; RESP 16–20; TEMP 36.4–37.1; O2SAT 87–97
--- NOTE | 2020-05-06 05:55 | RAD_ITS ---
STUDY: X-RAY CHEST REASON FOR EXAM: Male, 75 years old. Right pleural effusion. TECHNIQUE: PA and lateral views of the chest. COMPARISON: Comparison is made with prior examination dated May 02, 2020. FINDINGS: EKG electrodes are seen. Since prior study, there has been an increase in the right pleural effusion with right basilar infiltration and/or atelectasis. Hyperinflation. Normal size heart. Normal mediastinum and rick. Normal visualized pulmonary arteries. There is atherosclerotic tortuosity of the aortic arch and descending thoracic aorta. There are diffuse degenerative changes of the visualized thoracic spine. Normal visualized ribs, clavicles, and shoulders. There is no demonstrated abnormality of the visualized soft tissue structures of the upper abdomen. RAD/Chest PA and Lateral IMPRESSION: Increasing right pleural effusion with underlying infiltration and/or atelectasis. Electronically Signed: Dereck Crum, at 8:42 EDT , Service support ,
[2020-05-06 06:11] LABS: Absolute Lymphocyte Count 1.65 X10^3/uL (0.83-4.51); Absolute Neutrophil Count 8.5 X10^3/uL (2.0-7.7); Basophil# 0.02 X10^3/uL; Basophil% 0.2 % (0-1); Eosinophil# 0.35 X10^3/uL; Eosinophils% 2.8 % (0-5); Hematocrit 34.4 % (40-54); Hemoglobin 11.1 g/dL (13.0-16.5); Lymphocyte # 1.65 X10^3/ul (4.0); Lymphocyte % 13.4 % (19-41); Mean Corp Hgb Conc 32.3 g/dL (32-36); Mean Corpuscular Hgb 30.7 pg (27.0-32.0); Mean Corpuscular Volume 95.3 fL (80-94); Mean Platelet Vol. 9.5 fl (6.2-12.0); Monocyte# 1.39 X10^3/uL; Monocyte% 11.3 % (0-10); NRBC Flagged by Analyzer 0 % (0-5); Neutrophil # 8.46 X10^3/uL (2.7-7.7); Neutrophil % 68.5 % (47-70); Platelet Count 183 K/mm3 (150-450); RBC Distribution Width SD 48.5 fl (35.1-43.9); Red Blood Count 3.61 M/mm3 (4.6-6.2); White Blood Count 12.3 K/mm3 (4.4-11.0)
[2020-05-06 06:31] LABS: ALB/GLOB Ratio 0.9 RATIO (0.9-2.4); AST(SGOT) 27 U/L (15-37); Alanine Aminotransfer ALT/SGPT 55 U/L (16-61); Albumin, Serum 2.7 g/dL (3.2-5.0); Alkaline Phosphatase 51 U/L (45-117); Anion Gap 7 (5-15); BUN 47 mg/dL (7-18); BUN/Creat Ratio 25.8 RATIO (10-20); Calcium,Total 9.3 mg/dL (8.5-10.1); Chloride 101 mmol/L (98-107); Creatinine, Serum 1.82 mg/dL (0.70-1.30); EST Glomerular Filtration Rate 39 mL/min (>60); Est Glom Filt Rate - Afr Amer 47 mL/min (>60); Estimated Creatinine Clearance 37.31 ml/min; Globulin 3.1 g/dL (2.2-4.2); Glucose 127 mg/dL (74-106); Potassium 3.8 mmol/L (3.5-5.1); Protein, Total 5.8 g/dL (6.4-8.2); Sodium Level 137 mmol/L (136-145)
[2020-05-06] MEDS: Ipratropium/Albuterol Sulfate 3 ML AMPUL.NEB INHALATION ×5 (07:10→22:39)
--- NOTE | 2020-05-06 07:36 | CPS ---
pt increased to 6 lpm....nurse aware of change
[2020-05-06] MEDS: predniSONE 20 MG Tablet 40 MG PO (08:00)
--- NOTE | 2020-05-06 08:10 | PN.SURG_ITS ---
Patient Problems: Active and Suspected Problems (Last Reviewed 04/25/20 @ 17:[address] Margarita Higginbotham DO) Sepsis (Acute) Community acquired pneumonia (Acute) SOB (shortness of breath) (Acute) Carcinoma of unknown primary (Acute) Subjective: Patient is having no complaints this morning - Physical Exam Vitals/I&O's: Vital Signs Temp Pulse Resp BP Pulse Ox 97.8 F 77 16 111/47 L 90 05/06/20 04:40 05/06/20 07:15 05/06/20 07:10 05/06/20 04:40 05/06/20 08:00 Oxygen Flow Rate (L/min) [4] 6 Oxygen Flow Rate (L/min) [3] 6 Oxygen Flow Rate (L/min) [2] 6 Oxygen Flow Rate (L/min) [1 ( 6 Initial Baseline)] Oxygen Flow Rate (L/min) [ 7 AMBULATION with Oxygen] Oxygen Flow Rate (L/min) 6 Oxygen Delivery Method [4] Nasal Cannula Oxygen Delivery Method [3] Nasal Cannula Oxygen Delivery Method [2] Nasal Cannula Oxygen Delivery Method [1 ( Nasal Cannula Initial Baseline)] Oxygen Delivery Method Nasal Cannula Weight: 229 lb 8.019 oz Body Mass Index (BMI) 31.8 Intake and Output for Last 24 Hours 05/04/20 05/05/20 05/06/20 23:59 23:59 23:59 Intake Total 1780 / 1780 1950 / 1950 Output Total 175 / 175 600 / 600 400 / 400 Balance 1605 / 1605 1350 / 1350 -400 / -400 General: Alert, Oriented x3 Lungs: Short of Breath Cardiovascular: Regular rate, Regular Rhythm Abdomen: Soft, Non Tender, Non-Distended Musculoskeletal: No Muscle Wasting Laboratory Results 05/05/20 06:15: Magnesium 2.1 05/06/20 05:40: Sodium 137, Potassium 3.8, Chloride 101, Carbon Dioxide 29.0, Anion Gap 7, BUN 47 H, Creatinine 1.82 H, Estim Creat Clear Calc 37.31, Est GFR (MDRD) Af Amer 47 L, Est GFR (MDRD) Non-Af 39 L, BUN/Creatinine Ratio 25.8 H, Glucose 127 H, Calcium 9.3, Total Bilirubin 0.50, AST 27, ALT 55, Alkaline Phosphatase 51, Total Protein 5.8 L, Albumin 2.7 L, Globulin 3.1, Albumin/Globulin Ratio 0.9 05/06/20 05:40: WBC 12.3 H, RBC 3.61 L, Hgb 11.1 L, Hct 34.4 L, MCV 95.3 H, MCH 30.7, MCHC 32.3, RDW Std Deviation 48.5 H, RDW Coeff of Eliecer 14.0, Plt Count 183, MPV 9.5, Immature Gran % (Auto) 3.800 H, Neut % (Auto) 68.5, Lymph % (Auto) 13.4 L, [place] % (Auto) 11.3 H, Eos % (Auto) 2.8, Baso % (Auto) 0.2, Absolute Neuts (auto) 8.5 H, Absolute Lymphs (auto) 1.65, Nucleated RBC % 0 Current Medications Acetaminophen (Tylenol) 650 mg PO Q6H PRN PRN PRN Reason: Pain Score 1-10/Temp > 100.7 F Last Admin: 05/05/20 07:54 Dose: 650 mg Documented by: Albuterol Sulfate (Ventolin Aerosols) 2.5 mg INHALATION Q2H PRN PRN PRN Reason: SOB/Wheezing Albuterol/Ipratropium (Duoneb) 3 ml INHALATION Q4H.RT [facility] Last Admin: 05/06/20 07:10 Dose: 3 ml Documented by: Amlodipine Besylate (Norvasc) 5 mg PO DAILY@2200 [facility] Last Admin: 05/05/20 21:49 Dose: 5 mg Documented by: Atorvastatin Calcium (Lipitor) 10 mg PO QHS [facility] Last Admin: 05/05/20 21:49 Dose: 10 mg Documented by: Azelastine HCl (Astelin) 1 spray NASAL DAILY [facility] Last Admin: 05/05/20 09:50 Dose: 1 spray Documented by: Dextrose (D50w Syringe) 0 gm IV X1 PRN; Protocol PRN Reason: Hypoglycemia Enoxaparin Sodium (Lovenox) 40 mg SC DAILY [facility] Last Admin: 05/05/20 09:53 Dose: 40 mg Documented by: Fluticasone Propionate (Flonase Nasal [place]) 2 spray NASAL QHS [facility] Last Admin: 05/05/20 21:49 Dose: 2 spray Documented by: Glucagon () 1 mg IM .X1 PRN PRN Reason: Hypoglycemia Magnesium Oxide (Mag-Ox 400) 400 mg PO DAILY [facility] Last Admin: 05/05/20 09:51 Dose: 400 mg Documented by: Mesalamine (Lialda) 1.2 gm PO BID [facility] Last Admin: 05/05/20 21:49 Dose: 1.2 gm Documented by: Metoprolol Succinate (Toprol Xl (Beta Sukhi)) 100 mg PO DAILY [facility] Last Admin: 05/05/20 09:51 Dose: 100 mg Documented by: Montelukast Sodium (Singulair) 10 mg PO DAILY [facility] Last Admin: 05/05/20 09:51 Dose: 10 mg Documented by: Pantoprazole Sodium (Protonix) 20 mg PO DAILY [facility] Last Admin: 05/05/20 09:51 Dose: 20 mg Documented by: Polyethylene Glycol (Miralax) 17 gm PO DAILY [facility] Last Admin: 05/05/20 09:51 Dose: Not Given Documented by: Prednisone () 40 mg PO DAILY@0800 [facility] Last Admin: 05/06/20 08:00 Dose: 40 mg Documented by: Sertraline HCl (Zoloft) 100 mg PO DAILY [facility] Last Admin: 05/05/20 09:51 Dose: 100 mg Documented by: Sodium Chloride () 10 - 40 ml IV UD PRN PRN Reason: SALINE FLUSH Last Admin: 05/05/20 09:50 Dose: 10 ml Documented by: Sodium Chloride ([place] Nasal [place]) 2 spray NASAL TID PRN PRN PRN Reason: NASAL DRYNESS Last Admin: 05/01/20 21:42 Dose: 2 spray Documented by: Tamsulosin HCl (Flomax) 0.4 mg PO 2200 [facility] Last Admin: 05/05/20 21:49 Dose: 0.4 mg Documented by: Throat Lozenges (Cepacol Sore Throat Lozenge) 1 lozenge MUCOUS MEM Q2H PRN PRN PRN Reason: SORE THROAT Last Admin: 05/02/20 12:55 Dose: 1 lozenge Documented by: Medical Necessity - Tobacco Use Smoking Status: Former smoker Assessment/Plan All Active Problems (Last Reviewed 04/25/20 @ 17:[address] Margarita Higginbotham DO) Sepsis (Acute) Community acquired pneumonia (Acute) SOB (shortness of breath) (Acute) Carcinoma of unknown primary (Acute) 75-year-old male with malignant effusion 1. Patient had EGD which was normal on Wednesday. Patient had malignant effusion and he is still on 6 L of O2. X-ray this morning obtained shows a large pleural effusion. He has been tapped twice. I discussed Pleurx catheter with the patient's hospitalist today. Before placing Pleurx I would recommend consultation with oncology to see if this is okay with him. Either way he needs the pleural fluid drained by thoracentesis versus Pleurx before colonoscopy can be performed due to hypoxia. Wayne Boogie MD Pager: [facility] [address] [place] [address], [address] [place] [address] Office:
--- NOTE | 2020-05-06 09:27 | US_ITS ---
PROCEDURE: ULTRASOUND GUIDED THORACENTESIS. DATE: May 06, 2020. INDICATION: Male, 75 years old. Right pleural effusion. PHYSICIAN: Dereck Crum M.D. PROCEDURE: The risks, benefits, and alternatives to the procedure were explained to the patient. The specific risks of bleeding, infection, and pneumothorax requiring chest tube insertion were discussed and accepted. Written informed consent was obtained. Ultrasonographic evaluation of the right lower pleural space was carried out. An adequate pocket was identified. The patient was placed in the sitting, upright position. The overlying skin was prepped and draped in sterile fashion. 1% lidocaine was administered subcutaneously for local anesthesia. Under ultrasound guidance, a 5 [place] thoracentesis needle/catheter system was advanced into the right posterior lower pleural fluid collection. Approximately 700 mL of bloody fluid was drained. The catheter was removed, and a sterile dressing was applied. A specimen was collected and sent to the laboratory for analysis, as requested by the referring clinician. The patient tolerated the procedure well. A chest x-ray was ordered. US/Thoracentesis W US IMPRESSION: Ultrasound-guided right thoracentesis. Electronically Signed: Dereck Crum, at 14:30 EDT , Service support ,
--- NOTE | 2020-05-06 09:28 | PCM.PN.PUL ---
Patient Problems: Active and Suspected Problems (Last Reviewed 04/25/20 @ 17:[address] Margarita Higginbotham DO) Sepsis (Acute) Community acquired pneumonia (Acute) SOB (shortness of breath) (Acute) Carcinoma of unknown primary (Acute) Subjective: The patient was seen and examined at the bedside this morning. Events from the last 24 hours have been reviewed. The patient is currently afebrile, hemodynamically stable and maintaining appropriate oxygen saturations on 6 L/min via nasal cannula. Repeat x-ray from this morning revealed worsening right-sided effusion which appears to be tracking up the lateral chest wall. Objective: The patient's most recent lab work, culture data and imaging studies have all been personally reviewed. Infectious work-up has been unrevealing to date. - Physical Exam Vitals/I&O's: Vital Signs Temp Pulse Resp BP Pulse Ox 97.7 F L 70 16 115/62 90 05/06/20 09:26 05/06/20 09:26 05/06/20 09:26 05/06/20 09:26 05/06/20 09:26 Oxygen Flow Rate (L/min) [4] 6 Oxygen Flow Rate (L/min) [3] 6 Oxygen Flow Rate (L/min) [2] 6 Oxygen Flow Rate (L/min) [1 ( 6 Initial Baseline)] Oxygen Flow Rate (L/min) [ 7 AMBULATION with Oxygen] Oxygen Flow Rate (L/min) 6 Oxygen Delivery Method [4] Nasal Cannula Oxygen Delivery Method [3] Nasal Cannula Oxygen Delivery Method [2] Nasal Cannula Oxygen Delivery Method [1 ( Nasal Cannula Initial Baseline)] Oxygen Delivery Method Nasal Cannula Weight: 229 lb 8.019 oz Body Mass Index (BMI) 31.8 Intake and Output for Last 24 Hours 05/04/20 05/05/20 05/06/20 23:59 23:59 23:59 Intake Total 1780 / 1780 1950 / 1950 Output Total 175 / 175 600 / 600 400 / 400 Balance 1605 / 1605 1350 / 1350 -400 / -400 General: Alert, Cooperative, No apparent distress HEENT: Atraumatic, Normocephalic Oral: No Gingival or Mucosal Lesions/ Ulcerations Neck: Supple, No Nodes, Trachea Midline Lungs: Diminished Cardiovascular: Regular rate, Regular Rhythm Abdomen: Bowel Sounds Present, Soft, Non Tender, Obese Extremities: No clubbing, No cyanosis, No edema Skin: No breakdown, - Musculoskeletal: No Tenderness to Palpation of Joints or Extremities Lymphatic: No Cervical, Supraclavicular, or Inguinal Adenopathy Neurological: Neuro grossly intact Psych/Mental Status: Normal Affect, Appropriate Labs (Last 48 Hours) 05/05/20 05/05/20 05/06/20 06:15 06:15 05:40 WBC RBC Hgb Hct MCV MCH MCHC RDW Std Deviation RDW Coeff of Eliecer Plt Count MPV Immature Gran % (Auto) Neut % (Auto) Lymph % (Auto) [place] % (Auto) Eos % (Auto) Baso % (Auto) Absolute Neuts (auto) Absolute Lymphs (auto) Nucleated RBC % Sodium 136 137 Potassium 3.2 L 3.8 Chloride 98 101 Carbon Dioxide 30.0 29.0 Anion Gap 8 7 BUN 47 H 47 H Creatinine 1.92 H 1.82 H Estim Creat Clear Calc 35.36 37.31 Est GFR (MDRD) Af Amer 44 L 47 L Est GFR (MDRD) Non-Af 36 L 39 L BUN/Creatinine Ratio 24.5 H 25.8 H Glucose 136 H 127 H Calcium 9.1 9.3 Magnesium 2.1 Total Bilirubin 0.50 AST 27 ALT 55 Alkaline Phosphatase 51 Total Protein 5.8 L Albumin 2.7 L Globulin 3.1 Albumin/Globulin Ratio 0.9 05/06/20 05:40 WBC 12.3 H RBC 3.61 L Hgb 11.1 L Hct 34.4 L MCV 95.3 H MCH 30.7 MCHC 32.3 RDW Std Deviation 48.5 H RDW Coeff of Eliecer 14.0 Plt Count 183 MPV 9.5 Immature Gran % (Auto) 3.800 H Neut % (Auto) 68.5 Lymph % (Auto) 13.4 L [place] % (Auto) 11.3 H Eos % (Auto) 2.8 Baso % (Auto) 0.2 Absolute Neuts (auto) 8.5 H Absolute Lymphs (auto) 1.65 Nucleated RBC % 0 Sodium Potassium Chloride Carbon Dioxide Anion Gap BUN Creatinine Estim Creat Clear Calc Est GFR (MDRD) Af Amer Est GFR (MDRD) Non-Af BUN/Creatinine Ratio Glucose Calcium Magnesium Total Bilirubin AST ALT Alkaline Phosphatase Total Protein Albumin Globulin Albumin/Globulin Ratio Clinical Impression(s) from Imaging Studies Chest X-Ray 04/25/20 13:38 IMPRESSION: Worsening of infiltrate of the mid and lower right lung. Worsening of small right pleural effusion. Atelectasis or infiltrate developing in the left lung base. Electronically Signed: Dale Mendoza MD at 14:27 EDT , Service support , Chest CT 04/25/20 17:20 IMPRESSION: Significant worsening. Moderate right pleural effusion. Almost complete consolidation of the right lower lobe. Prominent primarily interstitial infiltrate in the posterior segment of the right upper lobe. Cystic, nodular and interstitial changes in the posterior left lower lobe most consistent with inflammatory process. Electronically Signed: Dale Mendoza MD at 19:03 EDT , Service support , Thoracentesis Ultrasound 04/26/20 06:46 IMPRESSION: Ultrasound-guided right thoracentesis. Electronically Signed: Dereck Crum, at 14:57 EDT , Service support , Chest X-Ray 04/26/20 14:00 IMPRESSION: Status post right thoracentesis. No evidence of pneumothorax. Electronically Signed: Dereck Crum, at 14:41 EDT , Service support , Chest CT 04/27/20 07:14 IMPRESSION: 1. Essentially unchanged appearance to right lower lobe airspace consolidation possibly representing a pneumonia and pleural effusion. 2. Mild patchy left basilar airspace disease appears unchanged. 3. Hepatic cyst and left-sided pararenal cyst. Electronically Signed: Fernanda London MD at 9:46 EDT , Service support , Chest X-Ray 05/01/20 10:00 IMPRESSION: Significant change in the right hemithorax since the previous study with reaccumulation of a likely loculated right pleural effusion and development of airspace opacification the right infrahilar region. Follow-up recommended to assure resolution Left lung shows chronic interstitial changes without a superimposed acute pulmonary process Electronically Signed: Roverto Flores MD at 10:16 EDT , Service support , Thoracentesis Ultrasound 05/01/20 12:38 IMPRESSION: Successful sonographically guided thoracentesis Electronically Signed: Roverto Flores MD at 14:33 EDT , Service support , Chest X-Ray 05/01/20 13:50 IMPRESSION: No postprocedural pneumothorax Significant decrease in size of a previously noted right pleural effusion after thoracentesis small right pleural effusion remains. Previously noted opacification in the right cardiophrenic angle has decreased since the previous study and likely representing atelectasis Left lung is free of a superimposed acute process Electronically Signed: Roverto Flores MD at 14:30 EDT , Service support , Abdomen/Pelvis CT 05/01/20 15:43 IMPRESSION: Right pleural effusion associated with dependent consolidation within the lung base most pronounced within the right lower lobe. Colonic diverticulosis. Moderate amount of stool throughout the colon. Bilateral renal cysts. Indeterminate 9 mm rounded focus arising from the right kidney that likely reflects a proteinaceous cyst. Scattered tree-in-bud opacities within the left lower lobe. Atherosclerosis. Electronically Signed: Michell Kim MD at 19:14 EDT Tel , Service support , Chest X-Ray 05/02/20 07:40 IMPRESSION: Stable loculated right pleural effusion Slight increase in airspace opacification in the inferior half of the right lung since the previous study Left lung is free of a superimposed process and shows no change since the previous study Degenerative bony changes Electronically Signed: Roverto Flores MD at 9:48 EDT , Service support , Chest CTA 05/02/20 11:17 IMPRESSION: No demonstrated PE, or thoracic aortic aneurysm or dissection Prominent loculated right pleural effusions with associated atelectasis Tree in bud opacifications in the left lung base consistent with small airways inflammation. There are subcentimeter noncalcified nodules in the left lung base as well suspicious for metastasis. Calcified coronary vessels Degenerative bony changes Electronically Signed: Roverto Flores MD at 12:38 EDT , Service support , Current Medications Acetaminophen (Tylenol) 650 mg PO Q6H PRN PRN PRN Reason: Pain Score 1-10/Temp > 100.7 F Last Admin: 05/05/20 07:54 Dose: 650 mg Documented by: Albuterol Sulfate (Ventolin Aerosols) 2.5 mg INHALATION Q2H PRN PRN PRN Reason: SOB/Wheezing Albuterol/Ipratropium (Duoneb) 3 ml INHALATION Q4H.RT [facility] Last Admin: 05/06/20 07:10 Dose: 3 ml Documented by: Amlodipine Besylate (Norvasc) 5 mg PO DAILY@2200 [facility] Last Admin: 05/05/20 21:49 Dose: 5 mg Documented by: Atorvastatin Calcium (Lipitor) 10 mg PO QHS [facility] Last Admin: 05/05/20 21:49 Dose: 10 mg Documented by: Azelastine HCl (Astelin) 1 spray NASAL DAILY [facility] Last Admin: 05/05/20 09:50 Dose: 1 spray Documented by: Dextrose (D50w Syringe) 0 gm IV X1 PRN; Protocol PRN Reason: Hypoglycemia Enoxaparin Sodium (Lovenox) 40 mg SC DAILY [facility] Last Admin: 05/05/20 09:53 Dose: 40 mg Documented by: Fluticasone Propionate (Flonase Nasal [place]) 2 spray NASAL QHS [facility] Last Admin: 05/05/20 21:49 Dose: 2 spray Documented by: Glucagon () 1 mg IM .X1 PRN PRN Reason: Hypoglycemia Magnesium Oxide (Mag-Ox 400) 400 mg PO DAILY [facility] Last Admin: 05/05/20 09:51 Dose: 400 mg Documented by: Mesalamine (Lialda) 1.2 gm PO BID [facility] Last Admin: 05/05/20 21:49 Dose: 1.2 gm Documented by: Metoprolol Succinate (Toprol Xl (Beta Sukhi)) 100 mg PO DAILY [facility] Last Admin: 05/05/20 09:51 Dose: 100 mg Documented by: Montelukast Sodium (Singulair) 10 mg PO DAILY [facility] Last Admin: 05/05/20 09:51 Dose: 10 mg Documented by: Pantoprazole Sodium (Protonix) 20 mg PO DAILY [facility] Last Admin: 05/05/20 09:51 Dose: 20 mg Documented by: Polyethylene Glycol (Miralax) 17 gm PO DAILY [facility] Last Admin: 05/05/20 09:51 Dose: Not Given Documented by: Prednisone () 40 mg PO DAILY@0800 [facility] Last Admin: 05/06/20 08:00 Dose: 40 mg Documented by: Sertraline HCl (Zoloft) 100 mg PO DAILY [facility] Last Admin: 05/05/20 09:51 Dose: 100 mg Documented by: Sodium Chloride () 10 - 40 ml IV UD PRN PRN Reason: SALINE FLUSH Last Admin: 05/05/20 09:50 Dose: 10 ml Documented by: Sodium Chloride ([place] Nasal [place]) 2 spray NASAL TID PRN PRN PRN Reason: NASAL DRYNESS Last Admin: 05/01/20 21:42 Dose: 2 spray Documented by: Tamsulosin HCl (Flomax) 0.4 mg PO 2200 [facility] Last Admin: 05/05/20 21:49 Dose: 0.4 mg Documented by: Throat Lozenges (Cepacol Sore Throat Lozenge) 1 lozenge MUCOUS MEM Q2H PRN PRN PRN Reason: SORE THROAT Last Admin: 05/02/20 12:55 Dose: 1 lozenge Documented by: Medical Necessity - Tobacco Use Smoking Status: Former smoker Assessment/Plan All Active Problems (Last Reviewed 04/25/20 @ 17:[address] Margarita Higginbotham DO) Sepsis (Acute) Community acquired pneumonia (Acute) SOB (shortness of breath) (Acute) Carcinoma of unknown primary (Acute) RECOMMENDATIONS: 1. Continue scheduled bronchodilators and steroids. 2. Wean oxygen to maintain saturations at or above 90%. 3. Encourage incentive spirometer use and mobilize patient as tolerated. 4. Plan for repeat thoracentesis. Send pleural fluid for cell count and culture. IMPRESSIONS: 1. Acute on chronic hypoxemic respiratory failure Appears to be secondary to malignant pleural effusion. Although the patient has undergone thoracentesis, his most recent x-ray from this morning did reveal reaccumulation of the fluid. Accordingly, recommend repeat thoracentesis for symptom relief and to facilitate weaning from supplemental oxygen. It is highly likely that the patient will require frequent thoracenteses on an outpatient basis, as Pleurx catheter insertion is contraindicated from oncology's perspective. 2. History of obstructive sleep apnea Continue nocturnal Pap therapy as ordered. 3. Heart failure with preserved ejection fraction The patient does not appear overtly volume overloaded at this time. Continue outpatient medication regimen. 4. Obesity/hyperlipidemia/GERD/allergic rhinitis/hypertension/chronic steroid dependency Complicates care, management, recovery and prognosis. Continue home medications as indicated. The patient will need to resume his baseline 10 mg prednisone dose on a daily basis upon discharge from the hospital. This note was generated with [employer] dictation software. It may contain incorrect words, spelling, and punctuation that were not noted in checking the note before signing. Inpatient E&M: 88048 Subs Hosp L2
[2020-05-06] MEDS: Azelastine HCl NASAL.SRY 1 SPRAY NASAL (11:03)
[2020-05-06] MEDS: Pantoprazole Sodium 20 MG Tablet PO (11:03)
[2020-05-06] MEDS: Sertraline 100 MG Tablet PO (11:04)
[2020-05-06] MEDS: Montelukast 10 MG Tablet PO (11:04)
[2020-05-06] MEDS: Magnesium Oxide 400 MG Tablet PO (11:04)
[2020-05-06] MEDS: Metoprolol(XL)Succ 100 MG Tablet PO (11:04)
[2020-05-06] MEDS: Mesalamine 1.2 GM Tablet PO ×2 (11:05→22:00)
--- NOTE | 2020-05-06 11:50 | FLU_PTH ---
PATIENT: THERESA HALL LOC: PCU U#:[id number] AGE/SX: 75/M ROOM: [facility] RE04/25/[address]: Dr. Enmanuel Spencer MD : 1945 BED: 1 DIS: 05/10/2020 SPEC #: [id number] RECD: 05/06/20 14:16 STATUS: FRED REQ #: [id number] SILVA: 05/06/20 11:[address]: Enmanuel Spencer DEPT: CYTOLOGY RECD BY: Daniel Lane ENTERED: 05/07/20 09:28 SP TYPE: Fluid OTHR DR: MD Dr. Russell Harrington DO Dr. Eric Smith, MD Dr. Kathryn Lee, DO Dr. Mansour Isckarus, MD Tissues: THORACIC FLUID Procedures: Special Stain Group II Surgery Specimen Level IV Cytospin Fluid HEADER OPERATION: Right thoracentesis PRE-OP DIAGNOSIS: Pleural effusion TISSUE SUBMITTED: Thoracentesis fluid for cytology DIAGNOSIS CYTOLOGY Thoracentesis fluid for cytology (cytospin and cell block): Rare atypical cells noted. Bloody specimen. See comment. ADRIANA:ulices 05/08/20 COMMENT Correlation with clinical, radiologic findings and appropriate follow up are necessary. 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 This case has been reviewed in consultation with Dr. Alvarez who concurs with the above diagnosis. CYTOLOGY STUDY Slides are reviewed. CYTOLOGY GROSS Received is 185 ml of dark red turbid fluid labeled with the patient's name and and designated per the requisition as thoracentesis. Submitted for cytology preparation including cell block. / ulices 05/07/20 TC:5 CPT: 13457, 12065
--- NOTE | 2020-05-06 14:00 | RAD_ITS ---
STUDY: X-RAY CHEST REASON FOR EXAM: Male, 75 years old. POST R SIDE THORACENTESIS TECHNIQUE: AP inspiration and expiration views. COMPARISON: Comparison is made with prior examination dated May 06, 2020 at 6:03 AM. FINDINGS: EKG electrodes are seen. The patient is status post right thoracentesis. Mild residual pleural-parenchymal changes at the right lung base . RAD/Chest Insp/Exp 2 View IMPRESSION: Status post right thoracentesis. Residual pleural parenchymal changes at the right lung base. Electronically Signed: Dereck Crum, at 15:31 EDT , Service support ,
--- NOTE | 2020-05-06 15:23 | PCM.PN.HOSP ---
Patient Problems: Active and Suspected Problems (Last Reviewed 04/25/20 @ 17:[address] Margarita Higginbotham, DO) Sepsis (Acute) Community acquired pneumonia (Acute) SOB (shortness of breath) (Acute) Carcinoma of unknown primary (Acute) Reason for Visit: Acute on chronic hypoxic respiratory failure. Objective: Seen and examined. Patient oxygen requirement went up from 4 L to 6 L in the morning with more shortness of breath mainly due to refilling of right pleural effusion. No fever. Blood pressure is controlled. Physical exam General: Alert, Oriented x3, Cooperative HEENT: Atraumatic, PERRLA, EOMI, Normocephalic Neck: Supple, No JVD, Negative Carotid Bruits Lungs: Air entry decreased in right posterior chest. Dyspnea on mild exertion, moderate to large right-sided pleural effusion. No crepitation. Cardiovascular: Regular rate, Regular Rhythm, Normal S1, Normal S2, No murmurs Abdomen: Bowel Sounds Present, Soft, Non Tender, Non-Distended Extremities: No edema, Capillary Refill Less than 3 Seconds Skin: No rashes, No breakdown Musculoskeletal: No Tenderness to Palpation of Joints or Extremities, Arthritic Changes Neurological: Cranial nerves II-XII grossly intact, Deep Tendon Reflexes 2+/4 and Symmetrical, Neuro grossly intact Psych/Mental Status: Normal Affect, Appropriate Vitals/I&O's: Vital Signs Temp Pulse Resp BP Pulse Ox 97.8 F 80 16 125/69 H 92 05/06/20 14:42 05/06/20 14:42 05/06/20 14:42 05/06/20 14:42 05/06/20 14:42 Oxygen Flow Rate (L/min) [4] 6 Oxygen Flow Rate (L/min) [3] 6 Oxygen Flow Rate (L/min) [2] 6 Oxygen Flow Rate (L/min) [1 ( 6 Initial Baseline)] Oxygen Flow Rate (L/min) [ 7 AMBULATION with Oxygen] Oxygen Flow Rate (L/min) 8 Oxygen Delivery Method [4] Room Air Oxygen Delivery Method [3] Nasal Cannula Oxygen Delivery Method [2] Room Air Oxygen Delivery Method [1 ( Room Air Initial Baseline)] Oxygen Delivery Method Nasal Cannula Weight: 229 lb 8.019 oz Body Mass Index (BMI) 31.8 Intake and Output for Last 24 Hours 05/04/20 05/05/20 05/06/20 23:59 23:59 23:59 Intake Total 1780 / 1780 1950 / 1950 Output Total 175 / 175 600 / 600 1100 / 1100 Balance 1605 / 1605 1350 / 1350 -1100 / -1100 Laboratory Results 05/06/20 05:40: Sodium 137, Potassium 3.8, Chloride 101, Carbon Dioxide 29.0, Anion Gap 7, BUN 47 H, Creatinine 1.82 H, Estim Creat Clear Calc 37.31, Est GFR (MDRD) Af Amer 47 L, Est GFR (MDRD) Non-Af 39 L, BUN/Creatinine Ratio 25.8 H, Glucose 127 H, Calcium 9.3, Total Bilirubin 0.50, AST 27, ALT 55, Alkaline Phosphatase 51, Total Protein 5.8 L, Albumin 2.7 L, Globulin 3.1, Albumin/Globulin Ratio 0.9 05/06/20 05:40: WBC 12.3 H, RBC 3.61 L, Hgb 11.1 L, Hct 34.4 L, MCV 95.3 H, MCH 30.7, MCHC 32.3, RDW Std Deviation 48.5 H, RDW Coeff of Eliecer 14.0, Plt Count 183, MPV 9.5, Immature Gran % (Auto) 3.800 H, Neut % (Auto) 68.5, Lymph % (Auto) 13.4 L, [place]oll[place] % (Auto) 11.3 H, Eos % (Auto) 2.8, Baso % (Auto) 0.2, Absolute Neuts (auto) 8.5 H, Absolute Lymphs (auto) 1.65, Nucleated RBC % 0 05/06/20 13:50: Fluid Source Pending, Fluid Color Pending, Fluid Appearance Pending, Fluid WBC Pending, Fluid RBC Pending, Fluid Tot Cell Count Pending, Fl Pathologist Comment Pending, Fluid Comment 2 Pending Current Medications Acetaminophen (Tylenol) 650 mg PO Q6H PRN PRN PRN Reason: Pain Score 1-10/Temp > 100.7 F Last Admin: 05/05/20 07:54 Dose: 650 mg Documented by: Albuterol Sulfate (Ventolin Aerosols) 2.5 mg INHALATION Q2H PRN PRN PRN Reason: SOB/Wheezing Albuterol/Ipratropium (Duoneb) 3 ml INHALATION Q4H.RT [facility] Last Admin: 05/06/20 14:21 Dose: 3 ml Documented by: Amlodipine Besylate (Norvasc) 5 mg PO DAILY@2200 [facility] Last Admin: 05/05/20 21:49 Dose: 5 mg Documented by: Atorvastatin Calcium (Lipitor) 10 mg PO QHS [facility] Last Admin: 05/05/20 21:49 Dose: 10 mg Documented by: Azelastine HCl (Astelin) 1 spray NASAL DAILY [facility] Last Admin: 05/06/20 11:03 Dose: 1 spray Documented by: Dextrose (D50w Syringe) 0 gm IV X1 PRN; Protocol PRN Reason: Hypoglycemia Enoxaparin Sodium (Lovenox) 40 mg SC DAILY [facility] Last Admin: 05/06/20 11:02 Dose: Not Given Documented by: Fluticasone Propionate (Flonase Nasal [place]) 2 spray NASAL QHS [facility] Last Admin: 05/05/20 21:49 Dose: 2 spray Documented by: Glucagon () 1 mg IM .X1 PRN PRN Reason: Hypoglycemia Magnesium Oxide (Mag-Ox 400) 400 mg PO DAILY [facility] Last Admin: 05/06/20 11:04 Dose: 400 mg Documented by: Mesalamine (Lialda) 1.2 gm PO BID [facility] Last Admin: 05/06/20 11:05 Dose: 1.2 gm Documented by: Metoprolol Succinate (Toprol Xl (Beta Sukhi)) 100 mg PO DAILY [facility] Last Admin: 05/06/20 11:04 Dose: 100 mg Documented by: Montelukast Sodium (Singulair) 10 mg PO DAILY [facility] Last Admin: 05/06/20 11:04 Dose: 10 mg Documented by: Pantoprazole Sodium (Protonix) 20 mg PO DAILY [facility] Last Admin: 05/06/20 11:03 Dose: 20 mg Documented by: Polyethylene Glycol (Miralax) 17 gm PO DAILY [facility] Last Admin: 05/06/20 11:02 Dose: Not Given Documented by: Prednisone () 40 mg PO DAILY@0800 [facility] Last Admin: 05/06/20 08:00 Dose: 40 mg Documented by: Sertraline HCl (Zoloft) 100 mg PO DAILY [facility] Last Admin: 05/06/20 11:04 Dose: 100 mg Documented by: Sodium Chloride () 10 - 40 ml IV UD PRN PRN Reason: SALINE FLUSH Last Admin: 05/05/20 09:50 Dose: 10 ml Documented by: Sodium Chloride ([place] Nasal [place]) 2 spray NASAL TID PRN PRN PRN Reason: NASAL DRYNESS Last Admin: 05/01/20 21:42 Dose: 2 spray Documented by: Tamsulosin HCl (Flomax) 0.4 mg PO 2200 [facility] Last Admin: 05/05/20 21:49 Dose: 0.4 mg Documented by: Throat Lozenges (Cepacol Sore Throat Lozenge) 1 lozenge MUCOUS MEM Q2H PRN PRN PRN Reason: SORE THROAT Last Admin: 05/02/20 12:55 Dose: 1 lozenge Documented by: STROKE Vital Signs/Narrative: Vital Signs Temp Temp Pulse Pulse Pulse Pulse Pulse 05/06/20 14:42 97.8 F 80 05/06/20 14:21 86 05/06/20 14:15 98.7 F 77 79 79 79 05/06/20 14:00 Resp Resp Resp Resp Resp BP BP 05/06/20 14:42 16 125/69 H 05/06/20 14:21 20 H 05/06/20 14:15 18 18 18 18 123/79 H 05/06/20 14:00 BP BP BP Pulse Ox 05/06/20 14:42 92 05/06/20 14:21 92 05/06/20 14:15 110/82 H 115/61 141/88 H 05/06/20 14:00 92 Medical Necessity - Tobacco Use Smoking Status: Former smoker Assessment/Plan All Active Problems (Last Reviewed 04/25/20 @ 17:[address] Margarita Higginbotham, DO) Sepsis (Acute) Community acquired pneumonia (Acute) SOB (shortness of breath) (Acute) Carcinoma of unknown primary (Acute) This is a 75-year-old male with history of severe COPD, bronchiectasis with bronchomalacia, shortness sleep apnea on home BiPAP, chronic hypoxic respiratory failure on 2 L of oxygen and home BiPAP and vest therapy admitted with worsening of shortness of breath, nonproductive cough and decreasing functional capacity. 1. Acute on chronic hypoxic respiratory failure secondary to pneumonia, moderate malignant pleural effusion, COPD/bronchiectasis exacerbation: Patient was admitted in ICU on 6 L of oxygen, increased from 3 L of baseline requirement and increased to 9 L but currently on 6 L of oxygen. Significant dyspnea on mild exertion. Solu-Medrol changed to prednisone. Continue bronchodilator, incentive spirometry and pep. On BiPAP during naps and night. CT chest and chest x-ray shows moderate right pleural effusion, right lower lobe consolidation with underlying atelectasis, interstitial, cystic and nodular progression mainly in right upper lung. 05/05: Slight improvement in oxygenation. On exam, it seems there is increase in the right lower pleural effusion. 05/06: Worsening shortness of breath and hypoxia secondary to early filling of right pleural effusion. Chest x-ray reviewed with slate worker. Pleural effusion tracking up to right lateral chest wall. Patient has exudative recurrent pleural effusion due to malignancy. Had repeat thoracocentesis of 700 mL bloody fluid drained. Cell count shows 80% polynuclear and 20% mononuclear. Fluid culture ordered. 2. Severe sepsis (tachypnea, hypoxia, increased creatinine and lactic acidosis 2.4) most probably from right lower lobe pneumonia: On IV cefepime and vancomycin. Urinary antigens are negative. Respiratory panel negative. Blood cultures x2 are negative for more than 5 days. 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 COVID-19 PCR negative and MRSA nasal screen negative. Repeat lactic acid normal. Blood pressure is controlled. 05/05 continue antibiotic for total of 10 days. 05/06: No fever. Blood pressure is good. 3. SWATI secondary to diuretic on baseline CKD G3 stage during hospital stay: Patient baseline creatinine is around 1.2 to 1.4 with estimated clearance about 52 mL/min. Patient was admitted with creatinine 1.33. Creatinine went up to 1.92 due to diuretic. Hold diuretic. Hold indapamide and losartan. Mild hypokalemia, potassium being replaced 05/06: Improvement in creatinine profile. 4. Pulmonary conditions: COPD and bronchiectasis exacerbation, diffuse bronchomalacia, obstructive sleep apnea on BiPAP and right moderate malignant pleural effusion: Patient has BiPAP machine. Patient had thoracocentesis which showed signet ring cells suggestive of NSCLC favor adenocarcinoma. General surgery was consulted for EGD and colonoscopy for signet cell adenocarcinoma generally a GI primary. Had EGD on 05/03/2020 and reported normal with no signs of malignancy. 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 05/06: Discussed with oncologist. He advised against Pleurx catheter therefore will need repeated thoracocentesis probably every week and then pleurodesis and chemotherapy after further work-up 5. Hypothyroidism and history of colitis: TSH low at 0.25. Free T4 normal. Most probably, TSH low secondary to euthyroid sick syndrome. 6. Chronic heart failure with preserved EF: Patient does not have edema/fluid overload. Other comorbidities include hypertension, dyslipidemia, GERD and history of colitis: Home medication reconciliation done. 7. DVT prophylaxis: On Lovenox 40 mg subcu daily. Total time of the visit including total time spent in counseling or coordination of care, (more than 50% of the total time, spent in obtaining medical information from nurses and other ancillary care providers), discussion with communications consultant, review of labs and imaging is 30 minutes Microbiology Past 72 Hours 05/06/20 13:50 Fluid - Thoracentesis Fluid Gram Stain - Final Laboratory Results 05/06/20 05:40: Sodium 137, Potassium 3.8, Chloride 101, Carbon Dioxide 29.0, Anion Gap 7, BUN 47 H, Creatinine 1.82 H, Estim Creat Clear Calc 37.31, Est GFR (MDRD) Af Amer 47 L, Est GFR (MDRD) Non-Af 39 L, BUN/Creatinine Ratio 25.8 H, Glucose 127 H, Calcium 9.3, Total Bilirubin 0.50, AST 27, ALT 55, Alkaline Phosphatase 51, Total Protein 5.8 L, Albumin 2.7 L, Globulin 3.1, Albumin/Globulin Ratio 0.9 05/06/20 05:40: WBC 12.3 H, RBC 3.61 L, Hgb 11.1 L, Hct 34.4 L, MCV 95.3 H, MCH 30.7, MCHC 32.3, RDW Std Deviation 48.5 H, RDW Coeff of Eliecer 14.0, Plt Count 183, MPV 9.5, Immature Gran % (Auto) 3.800 H, Neut % (Auto) 68.5, Lymph % (Auto) 13.4 L, Nuckolls % (Auto) 11.3 H, Eos % (Auto) 2.8, Baso % (Auto) 0.2, Absolute Neuts (auto) 8.5 H, Absolute Lymphs (auto) 1.65, Nucleated RBC % 0 05/06/20 13:50: Fluid Source Pending, Fluid Color Pending, Fluid Appearance Pending, Fluid WBC 2.811, Fluid RBC 1.758, Fluid Tot Cell Count 2.829, Fld Polynuclear WBCs # 2.271, Fld Polynuclear WBCs % 80.8, Fluid Mononuclear WBCs 0.540, Fld Mononuclear WBCs % 19.2, Fl Pathologist Comment Pending, Fluid Comment 2 Pending Chest X-Ray 04/25/20 13:38 IMPRESSION: Worsening of infiltrate of the mid and lower right lung. Worsening of small right pleural effusion. Atelectasis or infiltrate developing in the left lung base. Chest CT 04/25/20 17:20 IMPRESSION: Significant worsening. Moderate right pleural effusion. Almost complete consolidation of the right lower lobe. Prominent primarily interstitial infiltrate in the posterior segment of the right upper lobe. Cystic, nodular and interstitial changes in the posterior left lower lobe most consistent with inflammatory process. Inpatient E&M: [id number] [facility] L3
[2020-05-06 15:25] LABS: Body Fluid Mononuclear WBC % 19.2 %; Body Fluid Polynuclear WBC # 2.271 10^3/uL; Body Fluid Polynuclear WBC % 80.8 %; Body Fluid Total Cells Counted 2.829 10^3/ul; Red Cell Count/Body Fluid 1.758 10^6/ul; White Blood Count/Body Fluid 2.811 10^3/uL
[2020-05-06 19:23] LABS: Appearance/Body Fluid TURBID; Auto B Fluid Analyzer BKGD Ct COUNTS W/IN LIMITS (W/IN LIMITS); Color/Body Fluid RED; Source- Body Fluid PLEURAL FLUID
[2020-05-06 19:24] LABS: Lymphocytes 8 %; Monocytes 6 %; Neutrophil (Segs) 83 %; Other Cell Type/BF 3 %
[2020-05-06 19:25] LABS: Body Fluid QC Type(s) BF1Q
[2020-05-06] MEDS: amLODIPine 5 MG Tablet PO (22:00)
[2020-05-06] MEDS: Tamsulosin HCl 0.4 MG Capsule PO (22:00)
[2020-05-06] MEDS: Atorvastatin Calcium 10 MG Tablet PO (22:00)
[2020-05-07] VITALS (19 sets, daily range): BP systolic 114–131; BP diastolic 55–86; PULSE 66–86; RESP 16–20; TEMP 36.4–36.9; O2SAT 86–92
[2020-05-07 06:41] LABS: Absolute Lymphocyte Count 1.57 X10^3/uL (0.83-4.51); Absolute Neutrophil Count 8.3 X10^3/uL (2.0-7.7); Basophil# 0.03 X10^3/uL; Basophil% 0.3 % (0-1); Eosinophil# 0.24 X10^3/uL; Hematocrit 32.6 % (40-54); Hemoglobin 10.7 g/dL (13.0-16.5); Lymphocyte # 1.57 X10^3/ul (4.0); Lymphocyte % 13.3 % (19-41); Mean Corp Hgb Conc 32.8 g/dL (32-36); Mean Corpuscular Hgb 31.4 pg (27.0-32.0); Mean Corpuscular Volume 95.6 fL (80-94); Mean Platelet Vol. 9.5 fl (6.2-12.0); Monocyte# 1.22 X10^3/uL; Monocyte% 10.3 % (0-10); NRBC Flagged by Analyzer 0 % (0-5); Neutrophil # 8.29 X10^3/uL (2.7-7.7); Neutrophil % 70.1 % (47-70); Platelet Count 171 K/mm3 (150-450); RBC Distribution Width CV 13.7 % (11.6-14.6); RBC Distribution Width SD 47.8 fl (35.1-43.9); Red Blood Count 3.41 M/mm3 (4.6-6.2); White Blood Count 11.8 K/mm3 (4.4-11.0)
[2020-05-07] MEDS: Ipratropium/Albuterol Sulfate 3 ML AMPUL.NEB INHALATION ×5 (07:09→23:16)
--- NOTE | 2020-05-07 07:52 | PN.SURG_ITS ---
Patient Problems: Active and Suspected Problems (Last Reviewed 04/25/20 @ 17:[address] Margarita Higginbotham DO) Sepsis (Acute) Community acquired pneumonia (Acute) SOB (shortness of breath) (Acute) Carcinoma of unknown primary (Acute) Subjective: Patient is short of breath this morning - Physical Exam Vitals/I&O's: Vital Signs Temp Pulse Resp BP Pulse Ox 98.0 F 75 16 117/55 L 86 05/07/20 03:55 05/07/20 07:10 05/07/20 07:10 05/07/20 03:55 05/07/20 07:36 Oxygen Flow Rate (L/min) [4] 6 Oxygen Flow Rate (L/min) [3] 6 Oxygen Flow Rate (L/min) [2] 6 Oxygen Flow Rate (L/min) [1 ( 6 Initial Baseline)] Oxygen Flow Rate (L/min) [ 9 AMBULATION with Oxygen] Oxygen Flow Rate (L/min) 9 Oxygen Delivery Method [4] Room Air Oxygen Delivery Method [3] Nasal Cannula Oxygen Delivery Method [2] Room Air Oxygen Delivery Method [1 ( Room Air Initial Baseline)] Oxygen Delivery Method Nasal Cannula Weight: 230 lb 13.184 oz Body Mass Index (BMI) 31.8 Intake and Output for Last 24 Hours 05/05/20 05/06/20 05/07/20 23:59 23:59 23:59 Intake Total 1950 / 1950 240 / 240 Output Total 600 / 600 1100 / 1100 600 / 600 Balance 1350 / 1350 -860 / -860 -600 / -600 General: Alert, Oriented x3 Neck: No JVD Lungs: Short of Breath Abdomen: Soft, Non Tender, Non-Distended Microbiology Past 72 Hours 05/06/20 13:50 Fluid - Thoracentesis Fluid Gram Stain - Final Laboratory Results 05/06/20 13:50: Fluid Source PLEURAL FLUID, Fluid Color RED, Fluid Appearance TURBID, Fluid WBC 2.811, Fluid RBC 1.758, Fluid Tot Cell Count 2.829, Fld Polynuclear WBCs # 2.271, Fld Polynuclear WBCs % 80.8, Fluid Mononuclear WBCs 0.540, Fld Mononuclear WBCs % 19.2, Fluid Neutrophils 83, Fluid Lymphocytes 8, Fluid Monocytes 6, Fluid Other Cells 3, Fl Pathologist Comment May follow, Fluid Comment 2 SEE COMMENT 05/07/20 06:15: WBC 11.8 H, RBC 3.41 L, Hgb 10.7 L, Hct 32.6 L, MCV 95.6 H, MCH 31.4, MCHC 32.8, RDW Std Deviation 47.8 H, RDW Coeff of Eliecer 13.7, Plt Count 171, MPV 9.5, Immature Gran % (Auto) 4.000 H, Neut % (Auto) 70.1 H, Lymph % (Auto) 13.3 L, [place] % (Auto) 10.3 H, Eos % (Auto) 2.0, Baso % (Auto) 0.3, Absolute Neuts (auto) 8.3 H, Absolute Lymphs (auto) 1.57, Nucleated RBC % 0 Current Medications Acetaminophen (Tylenol) 650 mg PO Q6H PRN PRN PRN Reason: Pain Score 1-10/Temp > 100.7 F Last Admin: 05/05/20 07:54 Dose: 650 mg Documented by: Albuterol Sulfate (Ventolin Aerosols) 2.5 mg INHALATION Q2H PRN PRN PRN Reason: SOB/Wheezing Albuterol/Ipratropium (Duoneb) 3 ml INHALATION Q4H.RT [facility] Last Admin: 05/07/20 07:09 Dose: 3 ml Documented by: Amlodipine Besylate (Norvasc) 5 mg PO DAILY@2200 [facility] Last Admin: 05/06/20 22:00 Dose: 5 mg Documented by: Atorvastatin Calcium (Lipitor) 10 mg PO QHS [facility] Last Admin: 05/06/20 22:00 Dose: 10 mg Documented by: Azelastine HCl (Astelin) 1 spray NASAL DAILY [facility] Last Admin: 05/06/20 11:03 Dose: 1 spray Documented by: Dextrose (D50w Syringe) 0 gm IV X1 PRN; Protocol PRN Reason: Hypoglycemia Enoxaparin Sodium (Lovenox) 40 mg SC DAILY [facility] Last Admin: 05/06/20 11:02 Dose: Not Given Documented by: Fluticasone Propionate (Flonase Nasal [place]) 2 spray NASAL QHS [facility] Last Admin: 05/06/20 22:00 Dose: Not Given Documented by: Glucagon () 1 mg IM .X1 PRN PRN Reason: Hypoglycemia Magnesium Oxide (Mag-Ox 400) 400 mg PO DAILY [facility] Last Admin: 05/06/20 11:04 Dose: 400 mg Documented by: Mesalamine (Lialda) 1.2 gm PO BID [facility] Last Admin: 05/06/20 22:00 Dose: 1.2 gm Documented by: Metoprolol Succinate (Toprol Xl (Beta Sukhi)) 100 mg PO DAILY [facility] Last Admin: 05/06/20 11:04 Dose: 100 mg Documented by: Montelukast Sodium (Singulair) 10 mg PO DAILY [facility] Last Admin: 05/06/20 11:04 Dose: 10 mg Documented by: Pantoprazole Sodium (Protonix) 20 mg PO DAILY [facility] Last Admin: 05/06/20 11:03 Dose: 20 mg Documented by: Polyethylene Glycol (Miralax) 17 gm PO DAILY [facility] Last Admin: 05/06/20 11:02 Dose: Not Given Documented by: Prednisone () 40 mg PO DAILY@0800 [facility] Last Admin: 05/06/20 08:00 Dose: 40 mg Documented by: Sertraline HCl (Zoloft) 100 mg PO DAILY [facility] Last Admin: 05/06/20 11:04 Dose: 100 mg Documented by: Sodium Chloride () 10 - 40 ml IV UD PRN PRN Reason: SALINE FLUSH Last Admin: 05/05/20 09:50 Dose: 10 ml Documented by: Sodium Chloride ([place] Nasal [place]) 2 spray NASAL TID PRN PRN PRN Reason: NASAL DRYNESS Last Admin: 05/01/20 21:42 Dose: 2 spray Documented by: Tamsulosin HCl (Flomax) 0.4 mg PO 2200 [facility] Last Admin: 05/06/20 22:00 Dose: 0.4 mg Documented by: Throat Lozenges (Cepacol Sore Throat Lozenge) 1 lozenge MUCOUS MEM Q2H PRN PRN PRN Reason: SORE THROAT Last Admin: 05/02/20 12:55 Dose: 1 lozenge Documented by: Medical Necessity - Tobacco Use Smoking Status: Former smoker Assessment/Plan All Active Problems (Last Reviewed 04/25/20 @ 17:[address] Margarita Higginbotham DO) Sepsis (Acute) Community acquired pneumonia (Acute) SOB (shortness of breath) (Acute) Carcinoma of unknown primary (Acute) 75-year-old male with metastatic pleural effusion 1. Patient has signet ring adenocarcinoma. He had EGD which did not show primary in the stomach or duodenum. Patient needs colonoscopy but is unable to proceed due to his hypoxia. The patient had a colonoscopy 4 to 5 years ago which was normal. The patient was saturating 89% on the bedside and with ambulation his saturations dropped into the lower 80s. I do not believe the patient would tolerate sedation for colonoscopy. PET scan may be of use. I discussed this with Dr. Martinez, he will discussed with the patient his options . As far as I can tell his options would be treatment and thoracentesis with possible talc pleurodesis versus Pleurx catheter and hospice. Wayne Boogie MD Pager: [facility] [address] [place] [address], [address] [place] [address] Office:
[2020-05-07] MEDS: Mesalamine 1.2 GM Tablet PO ×2 (08:42→21:54)
[2020-05-07] MEDS: predniSONE 20 MG Tablet 40 MG PO (08:42)
[2020-05-07] MEDS: Pantoprazole Sodium 20 MG Tablet PO (08:42)
[2020-05-07] MEDS: Magnesium Oxide 400 MG Tablet PO (08:42)
[2020-05-07] MEDS: Enoxaparin 40 MG/0.4 ML Syringe SC (08:43)
[2020-05-07] MEDS: Montelukast 10 MG Tablet PO (08:43)
[2020-05-07] MEDS: Polyethylene Glycol 3350 17 GM PACKET PO (08:43)
[2020-05-07] MEDS: Metoprolol(XL)Succ 100 MG Tablet PO (08:43)
[2020-05-07] MEDS: Sertraline 100 MG Tablet PO (08:43)
[2020-05-07 09:11] LABS: Ferritin 188 ng/mL (26-388); Iron 58 ug/dL (65-175); Iron Binding Capacity,Total 241 ug/dL (250-450); PERCENT IRON SATURATION 24.1 % (15.0-55.0)
--- NOTE | 2020-05-07 10:39 | PN_ITS ---
- Problem List (1) Malignant pleural effusion Status: Acute (2) Carcinoma of unknown primary Status: Acute (3) Acute and chronic respiratory failure Status: Acute Qualifiers: Respiratory failure complication: hypoxia Qualified Code(s): J96.21 - Acute and chronic respiratory failure with hypoxia Subjective Date of Service:: 05/07/20 Shortness of breath Mr. Jeff is a 75-year-old gentleman with a PMH significant for COPD, bronchiectasis, hypertension, hyperlipidemia, GERD and a remote history of ulcerative colitis () who presented to [facility] emergency department on 04/25/2020 with complaints of acute shortness of breath. COVID-19 negative . Chest x-ray followed by a CT scan of the chest showed no right pleural effusion and worsening right lower lobe infiltrate and atelectasis. CT scan of the abdomen and pelvis showed a chronic stable cyst behind the left kidney, cyst in the liver and another in the spleen, evidence for diverticulosis but no visible malignant appearing masses in the abdomen or pelvis. Patient underwent diagnostic thoracentesis on 04/26/20. 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 A primary GI or pancreas was favored. He had EGD which did not show primary in the stomach or duodenum. He has not been able to undergo a colonoscopy due to hypoxia despite the 3 tabs of his pleural fluid. Past Medical History: Chronic Problems (Last Reviewed 04/25/20 @ 17:[address] Margarita Higginbotham, DO) Bronchomalacia, acquired (Chronic) Bronchiectasis (Chronic) Hypercholesterolemia (Chronic) Colitis (Chronic) Arthritis (Chronic) Hypothyroidism (Chronic) Asthma (Chronic) Back pain (Chronic) Hemorrhoids (Chronic) BRADY (obstructive sleep apnea) (Chronic) bipap 19/12 cm H20 Asbestos exposure (Chronic) Tuberculosis exposure (Chronic) Stage 2 moderate COPD by GOLD classification (Chronic) FEV1 55% Acid reflux (Chronic) Chronic hypoxemic respiratory failure (Chronic) Past Medical History - Most Recent Inpatient Visit Past Medical History Start: 04/25/20 16:17 Text: Status: Complete Freq: ONCE Protocol: Document 04/25/20 16:17 LW (Rec: 04/25/20 16:36 LW [id number]) BMI Required to complete PMH What is Patient's BMI 32.7 Past Medical History Unable History Recalled Yes Query Text:Pt Unable/Family Not Present Neurologic Medical History Hx Stroke/TIA No Hx Dementia/Alzheimer's No Hx Parkinson's Disease No Hx Seizures No Hx Multiple Sclerosis No Hx Migraines No Cardiac Medical History VTE Present on Admission No Hx of Deep Vein Thrombosis/VTE/PE No Hx Hypertension Yes Hx Chest Pain/Angina No Hx Heart Attack No Hx Cardiac Surgery/Stents/Etc. No Hx Heart Failure No Hx Pacemaker/AICD No Hx Irregular Heartbeat and/or Afib No Hx Anticoagulant Therapy No Query Text:(Coumadin, Aspirin, Plavix, Xarelto, etc.) Hx Pain in Legs when Walking/Leg Cramps No Respiratory Medical History Hx COPD Yes Hx Emphysema No Hx Smoking Yes: QUIT 1993 Smoking Status Former smoker Hx Smoking Cessation Date 11/08/93 Hx Tobacco Use in last 12 months No Hx Sleep Apnea Yes: BIPAP CPAP No BIPAP No STOP Results Positive GI Medical History Hx Ulcer No Hx Hepatitis No Hx Cirrhosis No Hx GI Bleed No Hx Unplanned Weight Loss No Genitourinary Medical History Indwelling Catheter in Place on Arrival/ No Admission Hx Renal Disease No Hx Dialysis No Musculoskeletal History Hx Arthritis Yes Hx Rheumatoid Arthritis No Endocrine Medical History Hx Diabetes No Hx Thyroid Disease No Hematologic Medical History Hx of Blood Transfusion No Hx of Transfusion in last 3 Months No Ever experience any problems with No transfusion(s)? Hx of Preganancy in last 3 Months N/A Nurse Filling Out Transfusion & LWOHLFORD Questions: Date: 04/25/20 Time: 16:25 Psycho/Social Medical History Hx Depression Yes Hx Anxiety No Hx Behavior Disorder No Hx Alcohol Use No Hx Substance Use No Other Medical History Hx Blood Disorders No Hx Anemia Yes: 1969 Hx Cancer No Hx Drug Resistant Organism No Wound/Pressure Injury Present on Arrival No /Admission Query Text:If yes, chart assessment in Shift/Clinical Findings Central Line/PICC/VAD Present on Arrival No /Admission Risk for Readmission Number of Risk Factors 4 At Risk for Readmission Patient is At Risk For Readmission Patient is eligible for Call Back Y Past Medical History (Last Reviewed 04/25/20 @ 17:[address] Margarita Higginbotham DO) Bronchomalacia, acquired (Chronic) Bronchiectasis (Chronic) Hypercholesterolemia (Chronic) Colitis (Chronic) Arthritis (Chronic) Hypothyroidism (Chronic) Asthma (Chronic) Back pain (Chronic) Hemorrhoids (Chronic) BRADY (obstructive sleep apnea) (Chronic) Asbestos exposure (Chronic) Tuberculosis exposure (Chronic) Stage 2 moderate COPD by GOLD classification (Chronic) Acid reflux (Chronic) Chronic hypoxemic respiratory failure (Chronic) Laceration without foreign body of left index finger with damage to nail, initial encounter (Inactive) Past Surgical History (Last Reviewed 05/02/20 @ 09:28 by Sveta Bedoya PA-C) History of appendectomy (Inactive) History of hernia repair (Inactive) History of left knee replacement (Inactive) History of tonsillectomy (Inactive) S/P TURP (Inactive) Maternal Family History: Family History (Last Reviewed 05/02/20 @ 09:28 by Sveta Bedoya PA-C) Mother Heart disease Brother Cancer COPD (chronic obstructive pulmonary disease) Family History: No pertinent history Paternal Family History: Family History (Last Reviewed 05/02/20 @ 09:28 by Sveta Bedoya PA-C) Mother Heart disease Brother Cancer COPD (chronic obstructive pulmonary disease) Family History: No pertinent history - Social History Smoking Status: Former smoker Review of Systems Constitutional:: Reports: Weakness, Fatigue, Weight loss - Patient has been actively trying to lose weight. Denies: Fever, Sweats, Appetite change, Chills Cardiovascular:: Reports: Dyspnea on exertion, Shortness of breath. Denies: Chest pain, Palpitations, Orthopnea, PND Respiratory: Reports: Cough, Shortness of breath at rest, Shortness of breath upon exertion, Sputum production - Clear. Denies: Hemoptysis, Shortness of Breath, Wheezing Gastrointestinal:: Reports: Abdominal pain - Occasional bouts not severe enough to take analgesics. Denies: Nausea, Vomiting, Diarrhea, Constipation, Hematochezia Genitourinary: Denies: Dysuria, Hematuria, 15, Flank pain Musculoskeletal:: Denies: Back pain, Myalgia, Arthralgia Skin: Reports: - - Bruises related to venipuncture. Denies: Rash, Skin Changes, Wounds Neurological:: Denies: Headache, Dizziness, Visual changes, Tinnitus, Hearing loss Psychiatric: Denies: Anxiety, Depression, Homicidal Ideations, Suicidal Ideations Vital Signs Temperature 97.6 F L 05/07/20 08:40 Temperature Source Oral 05/07/20 08:40 Pulse Rate 77 05/07/20 08:43 Pulse Strength Normal (2+) 05/07/20 07:29 Respiratory Rate 18 05/07/20 08:40 Respiratory Effort Non-Labored 05/07/20 07:29 Respiratory Depth Normal 05/07/20 07:29 Respiratory Pattern Normal 05/07/20 07:29 Blood Pressure 114/62 05/07/20 08:40 Blood Pressure Mean 79 05/07/20 08:40 Blood Pressure Source Monitor 05/07/20 08:40 Blood Pressure Position Sitting 05/07/20 08:40 Blood Pressure Location Left Arm 05/07/20 08:40 Baseline BP 115/86 05/03/20 11:20 Pulse Ox 90 05/07/20 08:40 Oxygen Delivery Method Nasal Cannula 05/07/20 08:40 Oxygen Flow Rate (L/min) 9 05/07/20 08:40 - Physical Exam General: Alert, Oriented x3, No apparent distress, - - ECOG 2, on oxygen HEENT: Atraumatic, PERRLA, EOMI, Normocephalic Oropharynx:: Dry mucosa Neck:: Supple, Trachea midline. Negative for: JVD, bilateral Cardiac:: Regular rate, Regular rhythm, Normal S1, Normal S2. Negative for: Murmur Lungs: Clear to auscultation, Diminished - Over the lower right lung zone consistent with residual pleural effusion, Shortness of breath, Excusion symmetrical. Negative for: Rhonchi, Wheezes Extremities:: Negative for: Cyanosis, Edema Neurological: Neuro grossly intact Skin:: Ecchymosis - Venipuncture, extremities. Negative for: Lesions, Rash, Petechiae Psychiatric:: Anxious Lymphatics:: Negative for: Cervical lymphadenopathy, Supraclavicular lymphade nopathy Laboratory Data: Microbiology 05/06/20 13:50 Gram Stain - Final Fluid - Thoracentesis Fluid Body Fluid Culture - Preliminary No growth-Final to follow Laboratory Tests 05/07/20 05/07/20 05/06/20 Range/Units 06:15 06:15 13:50 WBC 11.8 H (4.4-11.0) K/mm3 RBC 3.41 L (4.6-6.2) M/mm3 Hgb 10.7 L (13.0-16.5) g/dL Hct 32.6 L (40-54) % MCV 95.6 H (80-94) fL MCH 31.4 (27.0-32.0) pg MCHC 32.8 (32-36) g/dL RDW Std Deviation 47.8 H (35.1-43.9) fl RDW Coeff of Eliecer 13.7 (11.6-14.6) % Plt Count 171 (150-450) K/mm3 MPV 9.5 (6.2-12.0) fl Immature Gran % (Auto) 4.000 H (0.0-0.9) % Neut % (Auto) 70.1 H (47-70) % Lymph % (Auto) 13.3 L (19-41) % Lake % (Auto) 10.3 H (0-10) % Eos % (Auto) 2.0 (0-5) % Baso % (Auto) 0.3 (0-1) % Absolute Neuts (auto) 8.3 H (2.0-7.7) X10^3/uL Absolute Lymphs (auto) 1.57 (0.83-4.51) X10^3/uL Nucleated RBC % 0 (0-5) % Iron 58 L (65-175) ug/dL TIBC 241 L (250-450) ug/dL Iron Saturation 24.1 (15.0-55.0) % Ferritin 188 (26-388) ng/mL Fluid Source PLEURAL FLUID Fluid Color RED Fluid Appearance TURBID Fluid WBC 2.811 10^3/uL Fluid RBC 1.758 10^6/ul Fluid Tot Cell Count 2.829 10^3/ul Fld Polynuclear WBCs # 2.271 10^3/uL Fld Polynuclear WBCs % 80.8 % Fluid Mononuclear WBCs 0.540 10^3/uL Fld Mononuclear WBCs % 19.2 % Fluid Neutrophils 83 % Fluid Lymphocytes 8 % Fluid Monocytes 6 % Fluid Other Cells 3 % Fl Pathologist Comment May follow Fluid Comment 2 SEE COMMENT Diagnostic Data: Diagnostic Data I personally reviewed patient's CT scan of the chest, abdomen and pelvis images together with Dr. Crum. And concur with the reported findings. In summary there is a moderate size right pleural effusion, infiltrative changes in the right lower lung zone but a hidden mass cannot be ruled out, there was no significant hilar or mediastinal adenopathy. The abdomen did not show any suspicious masses he has cystic lesions in the left kidney pancreas and liver and evidence for diverticular disease without diverticulitis. Chest CT 04/27/20 07:14 IMPRESSION: 1. Essentially unchanged appearance to right lower lobe airspace consolidation possibly representing a pneumonia and pleural effusion. 2. Mild patchy left basilar airspace disease appears unchanged. 3. Hepatic cyst and left-sided pararenal cyst. Electronically Signed: Fernanda London MD at 9:46 EDT , Service support , Abdomen/Pelvis CT 05/01/20 15:43 IMPRESSION: Right pleural effusion associated with dependent consolidation within the lung base most pronounced within the right lower lobe. Colonic diverticulosis. Moderate amount of stool throughout the colon. Bilateral renal cysts. Indeterminate 9 mm rounded focus arising from the right kidney that likely reflects a proteinaceous cyst. Scattered tree-in-bud opacities within the left lower lobe. Atherosclerosis. Electronically Signed: Michell Kim MD at 19:14 EDT Tel , Service support , Chest CTA 05/02/20 11:17 IMPRESSION: No demonstrated PE, or thoracic aortic aneurysm or dissection Prominent loculated right pleural effusions with associated atelectasis Tree in bud opacifications in the left lung base consistent with small airways inflammation. There are subcentimeter noncalcified nodules in the left lung base as well suspicious for metastasis. Calcified coronary vessels Degenerative bony changes Electronically Signed: Roverto Flores MD at 12:38 EDT , Service support , Thoracentesis Ultrasound 05/06/20 09:27 IMPRESSION: Ultrasound-guided right thoracentesis. Electronically Signed: Dereck Crum at 14:30 EDT , Service support , Chest X-Ray 05/06/20 14:00 IMPRESSION: Status post right thoracentesis. Residual pleural parenchymal changes at the right lung base. Electronically Signed: Dereck Crum, at 15:31 EDT , Service support , Assessment and Plan 75-year-old gentleman remote history of cigarette smoking and asbestos exposure has chronic lung disease and bronchiectasis presenting with a new malignant right-sided pleural effusion cytology consistent with a non-small cell adenocarcinoma with signet cell features. 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 EGD did not show a primary, colonoscopy has been unable due to hypoxia despite repeated taps of the pleural fluid (3 occasions over the course of the past 10 days). I met with the patient earlier in the day then again at 1:30 PM with his and daughter. Discussed the diagnostic dilemma, prognosis and goal of therapy (metastatic stage IV adenocarcinoma is not curable and treatment is palliative plus or minus a modest survival advantage) treatment will have to be systemic likely chemotherapy plus or minus other (such as immune therapy, targeted therapy). His performance status needs to improve prior to starting systemic chemotherapy. Discussed the option of palliative care transitioning into hospice. He wishes to pursue an active anticancer therapy if possible and understanding the goal of therapy. I discussed his case with Drs. An and Chuyita and at this time management plan entails: 1. Patient will need to be intubated to allow for safe procedures. 2. Plan bronchoscopy and colonoscopy at the same time. If able to identify a primary this will direct therapy further. 3. In event diagnosis remains unknown primary I will advise systemic therapy directed against primary lung cancer with metastases. 4. It is conceivable that he may need a palliative chest tube thoracocentesis and talc pleurodesis for his rapidly recurring malignant infusion before any systemic therapy will have an effect on his disease. 5. Discussed advanced directives in event complications happened during procedures or he would become vent dependent and cannot be extubated. 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 Impression and management plan summarized discussed with patient and family at bedside. Loretta Martinez MD Income Tax Auditor, [facility] Divisions of Medical Oncology & Hematology Department of Internal Medicine [facility] [place] [id number] This note was generated using a voice recognition system software. Although it was reviewed by the author prior to finalization, it may still contain incorrect words, spelling, and punctuation that were not noted when reviewing prior to saving. If a clinically significant typo or inaccurately typed phrase is noted, please notify the author. Medications: Prescriptions This Visit Medication Instructions Recorded Albuterol IH (ProAir) [Proair Hfa 1 - 2 puff INHALATION Q4H PRN PRN 04/25/20 (SP)Vent Pts] Azithromycin 250 mg PO MOWEFR 04/25/20 Budesonide/Formoterol 160/4.5 2 puff INHALATION BID 04/25/20 [Symbicort 160/4.5 Mcg Inhaler (SP)] Losartan Potassium 100 mg PO QHS 04/25/20 Magnesium Oxide 400 mg PO DAILY 04/25/20 Mesalamine 1.2 gm PO BID 04/25/20 Potassium Citrate [Potassium 10 meq PO BID 04/25/20 Citrate ER] Prednisone 10 mg PO QDAY 04/25/20 Primary Care Provider: Dr. Hung Hummel MD Referring Provider:
[2020-05-07 11:34] LABS: Pathologist Comment/Body Fluid Reviewed
--- NOTE | 2020-05-07 11:38 | PCM.PN.PUL ---
Patient Problems: Active and Suspected Problems (Last Reviewed 04/25/20 @ 17:[address] Margarita Higginbotham, DO) Sepsis (Acute) Acute and chronic respiratory failure (Acute) Community acquired pneumonia (Acute) SOB (shortness of breath) (Acute) Carcinoma of unknown primary (Acute) Subjective: The patient was seen and examined at the bedside this morning. Events from the last 24 hours have been reviewed. The patient is currently afebrile, hemodynamically stable and maintaining appropriate oxygen saturations on 10 L/min. The patient underwent yet another thoracentesis yesterday with an additional 700 mL's of fluid removed from his right hemithorax. The patient is in need of a colonoscopy, but would be unable to tolerate the procedure due to his degree of hypoxemia. Objective: The patient's most recent lab work, culture data and imaging studies have all been personally reviewed. Infectious work-up has been unrevealing to date. - Physical Exam Vitals/I&O's: Vital Signs Temp Pulse Resp BP Pulse Ox 97.5 F L 83 18 131/86 H 89 05/07/20 10:40 05/07/20 11:00 05/07/20 11:00 05/07/20 10:40 05/07/20 10:40 Oxygen Flow Rate (L/min) [4] 6 Oxygen Flow Rate (L/min) [3] 6 Oxygen Flow Rate (L/min) [2] 6 Oxygen Flow Rate (L/min) [1 ( 6 Initial Baseline)] Oxygen Flow Rate (L/min) [ 9 AMBULATION with Oxygen] Oxygen Flow Rate (L/min) 10 Oxygen Delivery Method [4] Room Air Oxygen Delivery Method [3] Nasal Cannula Oxygen Delivery Method [2] Room Air Oxygen Delivery Method [1 ( Room Air Initial Baseline)] Oxygen Delivery Method Nasal Cannula Weight: 230 lb 13.184 oz Body Mass Index (BMI) 31.8 Intake and Output for Last 24 Hours 05/05/20 05/06/20 05/07/20 23:59 23:59 23:59 Intake Total 1950 / 1950 240 / 240 Output Total 600 / 600 1100 / 1100 600 / 600 Balance 1350 / 1350 -860 / -860 -600 / -600 General: Alert, Cooperative, - - Sitting on the bedside. HEENT: Atraumatic, Normocephalic Oral: No Gingival or Mucosal Lesions/ Ulcerations Neck: Supple, No Nodes, Trachea Midline Lungs: No rhonchi, No wheeze, No rales, Diminished, - - Able to speak in complete sentences Cardiovascular: Regular rate, Regular Rhythm Abdomen: Bowel Sounds Present, Soft, Non Tender, Obese Extremities: No clubbing, No cyanosis, No edema Skin: No breakdown Musculoskeletal: No Tenderness to Palpation of Joints or Extremities Lymphatic: No Cervical, Supraclavicular, or Inguinal Adenopathy Neurological: Cranial nerves II-XII grossly intact, Neuro grossly intact Psych/Mental Status: Alert and oriented to time, place, person, mood and affect Labs (Last 48 Hours) 05/05/20 05/06/20 05/06/20 06:15 05:40 05:40 WBC 12.3 H RBC 3.61 L Hgb 11.1 L Hct 34.4 L MCV 95.3 H MCH 30.7 MCHC 32.3 RDW Std Deviation 48.5 H RDW Coeff of Eliecer 14.0 Plt Count 183 MPV 9.5 Immature Gran % (Auto) 3.800 H Neut % (Auto) 68.5 Lymph % (Auto) 13.4 L Cedar % (Auto) 11.3 H Eos % (Auto) 2.8 Baso % (Auto) 0.2 Absolute Neuts (auto) 8.5 H Absolute Lymphs (auto) 1.65 Nucleated RBC % 0 Sodium 137 Potassium 3.8 Chloride 101 Carbon Dioxide 29.0 Anion Gap 7 BUN 47 H Creatinine 1.82 H Estim Creat Clear Calc 37.31 Est GFR (MDRD) Af Amer 47 L Est GFR (MDRD) Non-Af 39 L BUN/Creatinine Ratio 25.8 H Glucose 127 H Calcium 9.3 Magnesium 2.1 Iron TIBC Iron Saturation Transferrin Ferritin Total Bilirubin 0.50 AST 27 ALT 55 Alkaline Phosphatase 51 Total Protein 5.8 L Albumin 2.7 L Globulin 3.1 Albumin/Globulin Ratio 0.9 Fluid Source Fluid Color Fluid Appearance Fluid WBC Fluid RBC Fluid Tot Cell Count Fld Polynuclear WBCs # Fld Polynuclear WBCs % Fluid Mononuclear WBCs Fld Mononuclear WBCs % Fluid Neutrophils Fluid Lymphocytes Fluid Monocytes Fluid Other Cells Fl Pathologist Comment Fluid Comment 2 05/06/20 05/07/20 05/07/20 13:50 06:15 06:15 WBC 11.8 H RBC 3.41 L Hgb 10.7 L Hct 32.6 L MCV 95.6 H MCH 31.4 MCHC 32.8 RDW Std Deviation 47.8 H RDW Coeff of Eliecer 13.7 Plt Count 171 MPV 9.5 Immature Gran % (Auto) 4.000 H Neut % (Auto) 70.1 H Lymph % (Auto) 13.3 L Cedar % (Auto) 10.3 H Eos % (Auto) 2.0 Baso % (Auto) 0.3 Absolute Neuts (auto) 8.3 H Absolute Lymphs (auto) 1.57 Nucleated RBC % 0 Sodium Potassium Chloride Carbon Dioxide Anion Gap BUN Creatinine Estim Creat Clear Calc Est GFR (MDRD) Af Amer Est GFR (MDRD) Non-Af BUN/Creatinine Ratio Glucose Calcium Magnesium Iron 58 L TIBC 241 L Iron Saturation 24.1 Transferrin Ferritin 188 Total Bilirubin AST ALT Alkaline Phosphatase Total Protein Albumin Globulin Albumin/Globulin Ratio Fluid Source PLEURAL FLUID Fluid Color RED Fluid Appearance TURBID Fluid WBC 2.811 Fluid RBC 1.758 Fluid Tot Cell Count 2.829 Fld Polynuclear WBCs # 2.271 Fld Polynuclear WBCs % 80.8 Fluid Mononuclear WBCs 0.540 Fld Mononuclear WBCs % 19.2 Fluid Neutrophils 83 Fluid Lymphocytes 8 Fluid Monocytes 6 Fluid Other Cells 3 Fl Pathologist Comment Reviewed Fluid Comment 2 SEE COMMENT 05/07/20 06:15 WBC RBC Hgb Hct MCV MCH MCHC RDW Std Deviation RDW Coeff of Eliecer Plt Count MPV Immature Gran % (Auto) Neut % (Auto) Lymph % (Auto) Cedar % (Auto) Eos % (Auto) Baso % (Auto) Absolute Neuts (auto) Absolute Lymphs (auto) Nucleated RBC % Sodium Potassium Chloride Carbon Dioxide Anion Gap BUN Creatinine Estim Creat Clear Calc Est GFR (MDRD) Af Amer Est GFR (MDRD) Non-Af BUN/Creatinine Ratio Glucose Calcium Magnesium Iron TIBC Iron Saturation Transferrin Pending Ferritin Total Bilirubin AST ALT Alkaline Phosphatase Total Protein Albumin Globulin Albumin/Globulin Ratio Fluid Source Fluid Color Fluid Appearance Fluid WBC Fluid RBC Fluid Tot Cell Count Fld Polynuclear WBCs # Fld Polynuclear WBCs % Fluid Mononuclear WBCs Fld Mononuclear WBCs % Fluid Neutrophils Fluid Lymphocytes Fluid Monocytes Fluid Other Cells Fl Pathologist Comment Fluid Comment 2 Microbiology 05/06/20 13:50 Fluid - Thoracentesis Fluid Gram Stain - Final 05/06/20 13:50 Fluid - Thoracentesis Fluid Body Fluid Culture - Preliminary No growth-Final to follow Clinical Impression(s) from Imaging Studies Chest X-Ray 04/25/20 13:38 IMPRESSION: Worsening of infiltrate of the mid and lower right lung. Worsening of small right pleural effusion. Atelectasis or infiltrate developing in the left lung base. Electronically Signed: Dale Mendoza MD at 14:27 EDT , Service support , Chest CT 04/25/20 17:20 IMPRESSION: Significant worsening. Moderate right pleural effusion. Almost complete consolidation of the right lower lobe. Prominent primarily interstitial infiltrate in the posterior segment of the right upper lobe. Cystic, nodular and interstitial changes in the posterior left lower lobe most consistent with inflammatory process. Electronically Signed: Dale Mendoza MD at 19:03 EDT , Service support , Thoracentesis Ultrasound 04/26/20 06:46 IMPRESSION: Ultrasound-guided right thoracentesis. Electronically Signed: Dereck Crum at 14:57 EDT , Service support , Chest X-Ray 04/26/20 14:00 IMPRESSION: Status post right thoracentesis. No evidence of pneumothorax. Electronically Signed: Dereck Crum at 14:41 EDT , Service support , Chest CT 04/27/20 07:14 IMPRESSION: 1. Essentially unchanged appearance to right lower lobe airspace consolidation possibly representing a pneumonia and pleural effusion. 2. Mild patchy left basilar airspace disease appears unchanged. 3. Hepatic cyst and left-sided pararenal cyst. Electronically Signed: Fernanda London MD at 9:46 EDT , Service support , Chest X-Ray 05/01/20 10:00 IMPRESSION: Significant change in the right hemithorax since the previous study with reaccumulation of a likely loculated right pleural effusion and development of airspace opacification the right infrahilar region. Follow-up recommended to assure resolution Left lung shows chronic interstitial changes without a superimposed acute pulmonary process Electronically Signed: Roverto Flores MD at 10:16 EDT , Service support , Thoracentesis Ultrasound 05/01/20 12:38 IMPRESSION: Successful sonographically guided thoracentesis Electronically Signed: Roverto Flores MD at 14:33 EDT , Service support , Chest X-Ray 05/01/20 13:50 IMPRESSION: No postprocedural pneumothorax Significant decrease in size of a previously noted right pleural effusion after thoracentesis small right pleural effusion remains. Previously noted opacification in the right cardiophrenic angle has decreased since the previous study and likely representing atelectasis Left lung is free of a superimposed acute process Electronically Signed: Roverto Flores MD at 14:30 EDT , Service support , Abdomen/Pelvis CT 05/01/20 15:43 IMPRESSION: Right pleural effusion associated with dependent consolidation within the lung base most pronounced within the right lower lobe. Colonic diverticulosis. Moderate amount of stool throughout the colon. Bilateral renal cysts. Indeterminate 9 mm rounded focus arising from the right kidney that likely reflects a proteinaceous cyst. Scattered tree-in-bud opacities within the left lower lobe. Atherosclerosis. Electronically Signed: Michell Kim MD at 19:14 EDT Tel , Service support , Chest X-Ray 05/02/20 07:40 IMPRESSION: Stable loculated right pleural effusion Slight increase in airspace opacification in the inferior half of the right lung since the previous study Left lung is free of a superimposed process and shows no change since the previous study Degenerative bony changes Electronically Signed: Roverto Flores MD at 9:48 EDT , Service support , Chest CTA 05/02/20 11:17 IMPRESSION: No demonstrated PE, or thoracic aortic aneurysm or dissection Prominent loculated right pleural effusions with associated atelectasis Tree in bud opacifications in the left lung base consistent with small airways inflammation. There are subcentimeter noncalcified nodules in the left lung base as well suspicious for metastasis. Calcified coronary vessels Degenerative bony changes Electronically Signed: Roverto Flores MD at 12:38 EDT , Service support , Chest X-Ray 05/06/20 05:55 IMPRESSION: Increasing right pleural effusion with underlying infiltration and/or atelectasis. Electronically Signed: Dereck Crum, at 8:42 EDT , Service support , Thoracentesis Ultrasound 05/06/20 09:27 IMPRESSION: Ultrasound-guided right thoracentesis. Electronically Signed: Dereck Crum, at 14:30 EDT , Service support , Chest X-Ray 05/06/20 14:00 IMPRESSION: Status post right thoracentesis. Residual pleural parenchymal changes at the right lung base. Electronically Signed: Dereck Crum, at 15:31 EDT , Service support , Current Medications Acetaminophen (Tylenol) 650 mg PO Q6H PRN PRN PRN Reason: Pain Score 1-10/Temp > 100.7 F Last Admin: 05/05/20 07:54 Dose: 650 mg Documented by: Albuterol Sulfate (Ventolin Aerosols) 2.5 mg INHALATION Q2H PRN PRN PRN Reason: SOB/Wheezing Albuterol/Ipratropium (Duoneb) 3 ml INHALATION Q4H.RT [facility] Last Admin: 05/07/20 11:00 Dose: 3 ml Documented by: Amlodipine Besylate (Norvasc) 5 mg PO DAILY@2200 [facility] Last Admin: 05/06/20 22:00 Dose: 5 mg Documented by: Atorvastatin Calcium (Lipitor) 10 mg PO QHS [facility] Last Admin: 05/06/20 22:00 Dose: 10 mg Documented by: Azelastine HCl (Astelin) 1 spray NASAL DAILY [facility] Last Admin: 05/07/20 08:42 Dose: Not Given Documented by: Dextrose (D50w Syringe) 0 gm IV X1 PRN; Protocol PRN Reason: Hypoglycemia Enoxaparin Sodium (Lovenox) 40 mg SC DAILY [facility] Last Admin: 05/07/20 08:43 Dose: 40 mg Documented by: Fluticasone Propionate (Flonase Nasal Yolyn) 2 spray NASAL QHS [facility] Last Admin: 05/06/20 22:00 Dose: Not Given Documented by: Glucagon () 1 mg IM .X1 PRN PRN Reason: Hypoglycemia Magnesium Oxide (Mag-Ox 400) 400 mg PO DAILY [facility] Last Admin: 05/07/20 08:42 Dose: 400 mg Documented by: Mesalamine (Lialda) 1.2 gm PO BID [facility] Last Admin: 05/07/20 08:42 Dose: 1.2 gm Documented by: Metoprolol Succinate (Toprol Xl (Beta Sukhi)) 100 mg PO DAILY [facility] Last Admin: 05/07/20 08:43 Dose: 100 mg Documented by: Montelukast Sodium (Singulair) 10 mg PO DAILY [facility] Last Admin: 05/07/20 08:43 Dose: 10 mg Documented by: Pantoprazole Sodium (Protonix) 20 mg PO DAILY [facility] Last Admin: 05/07/20 08:42 Dose: 20 mg Documented by: Polyethylene Glycol (Miralax) 17 gm PO DAILY [facility] Last Admin: 05/07/20 08:43 Dose: 17 gm Documented by: Prednisone () 40 mg PO DAILY@0800 [facility] Last Admin: 05/07/20 08:42 Dose: 40 mg Documented by: Sertraline HCl (Zoloft) 100 mg PO DAILY [facility] Last Admin: 05/07/20 08:43 Dose: 100 mg Documented by: Sodium Chloride () 10 - 40 ml IV UD PRN PRN Reason: SALINE FLUSH Last Admin: 05/05/20 09:50 Dose: 10 ml Documented by: Sodium Chloride (Pettis Nasal Yolyn) 2 spray NASAL TID PRN PRN PRN Reason: NASAL DRYNESS Last Admin: 05/01/20 21:42 Dose: 2 spray Documented by: Tamsulosin HCl (Flomax) 0.4 mg PO 2200 [facility] Last Admin: 05/06/20 22:00 Dose: 0.4 mg Documented by: Throat Lozenges (Cepacol Sore Throat Lozenge) 1 lozenge MUCOUS MEM Q2H PRN PRN PRN Reason: SORE THROAT Last Admin: 05/02/20 12:55 Dose: 1 lozenge Documented by: Medical Necessity - Tobacco Use Smoking Status: Former smoker Assessment/Plan All Active Problems (Last Reviewed 04/25/20 @ 17:[address] Margarita Higginbotham, DO) Malignant pleural effusion (Acute) Sepsis (Acute) Acute and chronic respiratory failure (Acute) Community acquired pneumonia (Acute) SOB (shortness of breath) (Acute) Carcinoma of unknown primary (Acute) RECOMMENDATIONS: 1. Continue scheduled bronchodilators and steroids. 2. Wean oxygen to maintain saturations at or above 90%. 3. Encourage incentive spirometer use and mobilize patient as tolerated. 4. Family meeting this afternoon with oncology to discuss options moving forward. 5. The patient may need to be transferred for chemical pleurodesis prior to moving forward with additional work-up. IMPRESSIONS: 1. Acute on chronic hypoxemic respiratory failure Appears to be secondary to malignant pleural effusion. The effusion itself is recurrent in nature and has required multiple thoracenteses during this hospital admission. It is unclear whether the patient's malignancy is of GI primary, as lower endoscopy has unable to be completed due to the patient's degree of hypoxemia. In order to proceed with further diagnostic work-up, consideration may need to be given to transferring the patient to a tertiary care facility for consideration of pleurodesis. Oncology is planning to have a meeting this afternoon with the patient and his family to discuss future goals of care. 2. History of obstructive sleep apnea Continue nocturnal Pap therapy as ordered. 3. Heart failure with preserved ejection fraction The patient does not appear overtly volume overloaded at this time. Continue outpatient medication regimen. 4. Obesity/hyperlipidemia/GERD/allergic rhinitis/hypertension/chronic steroid dependency Complicates care, management, recovery and prognosis. Continue home medications as indicated. The patient will need to resume his baseline 10 mg prednisone dose on a daily basis upon discharge from the hospital. This note was generated with [employer] dictation software. It may contain incorrect words, spelling, and punctuation that were not noted in checking the note before signing. Inpatient E&M: 21748 Subs Hosp L2
--- NOTE | 2020-05-07 15:40 | PN_ITS ---
Patient Problems: Active and Suspected Problems (Last Reviewed 04/25/20 @ 17:[address] Margarita Higginbotham, DO) Sepsis (Acute) Acute and chronic respiratory failure (Acute) Community acquired pneumonia (Acute) SOB (shortness of breath) (Acute) Carcinoma of unknown primary (Acute) Reason for Visit: Acute on chronic hypoxic respiratory failure, right-sided recurrent malignant effusion Objective: Patient is still on high oxygen 8 to 9 L. Gets easily short of breath even on standing. General: Alert, Oriented x3, Cooperative HEENT: Atraumatic, PERRLA, EOMI, Normocephalic Neck: Supple, No JVD, Negative Carotid Bruits Lungs: Air entry decreased in right posterior chest. Dyspnea on mild exertion, right-sided pleural effusion. No crepitation. Had thoracocentesis of 700 mL on 05/06. Cardiovascular: Regular rate, Regular Rhythm, Normal S1, Normal S2, No murmurs Abdomen: Bowel Sounds Present, Soft, Non Tender, Non-Distended Extremities: No edema, Capillary Refill Less than 3 Seconds Skin: No rashes, No breakdown Musculoskeletal: No Tenderness to Palpation of Joints or Extremities, Arthritic Changes Neurological: Cranial nerves II-XII grossly intact, Deep Tendon Reflexes 2+/4 and Symmetrical, Neuro grossly intact Psych/Mental Status: Normal Affect, Appropriate Vitals/I&O's: Vital Signs Temp Pulse Resp BP Pulse Ox 98.0 F 73 16 114/71 92 05/07/20 12:45 05/07/20 14:36 05/07/20 14:36 05/07/20 12:45 05/07/20 12:45 Oxygen Flow Rate (L/min) [4] 6 Oxygen Flow Rate (L/min) [3] 6 Oxygen Flow Rate (L/min) [2] 6 Oxygen Flow Rate (L/min) [1 ( 6 Initial Baseline)] Oxygen Flow Rate (L/min) [ 9 AMBULATION with Oxygen] Oxygen Flow Rate (L/min) 9 Oxygen Delivery Method [4] Room Air Oxygen Delivery Method [3] Nasal Cannula Oxygen Delivery Method [2] Room Air Oxygen Delivery Method [1 ( Room Air Initial Baseline)] Oxygen Delivery Method Nasal Cannula Weight: 230 lb 13.184 oz Body Mass Index (BMI) 31.8 Intake and Output for Last 24 Hours 05/05/20 05/06/20 05/07/20 23:59 23:59 23:59 Intake Total 1950 / 1950 240 / 240 240 / 240 Output Total 600 / 600 1100 / 1100 600 / 600 Balance 1350 / 1350 -860 / -860 -360 / -360 Microbiology Past 72 Hours 05/06/20 13:50 Fluid - Thoracentesis Fluid Gram Stain - Final 05/06/20 13:50 Fluid - Thoracentesis Fluid Body Fluid Culture - Preliminary No growth-Final to follow Laboratory Results 05/06/20 13:50: Fluid Source PLEURAL FLUID, Fluid Color RED, Fluid Appearance TURBID, Fluid WBC 2.811, Fluid RBC 1.758, Fluid Tot Cell Count 2.829, Fld Polynuclear WBCs # 2.271, Fld Polynuclear WBCs % 80.8, Fluid Mononuclear WBCs 0.540, Fld Mononuclear WBCs % 19.2, Fluid Neutrophils 83, Fluid Lymphocytes 8, Fluid Monocytes 6, Fluid Other Cells 3, Fl Pathologist Comment Reviewed, Fluid Comment 2 SEE COMMENT 05/07/20 06:15: WBC 11.8 H, RBC 3.41 L, Hgb 10.7 L, Hct 32.6 L, MCV 95.6 H, MCH 31.4, MCHC 32.8, RDW Std Deviation 47.8 H, RDW Coeff of Eliecer 13.7, Plt Count 171, MPV 9.5, Immature Gran % (Auto) 4.000 H, Neut % (Auto) 70.1 H, Lymph % (Auto) 13.3 L, [place] % (Auto) 10.3 H, Eos % (Auto) 2.0, Baso % (Auto) 0.3, Absolute Neuts (auto) 8.3 H, Absolute Lymphs (auto) 1.57, Nucleated RBC % 0 05/07/20 06:15: Iron 58 L, TIBC 241 L, Iron Saturation 24.1, Ferritin 188 05/07/20 06:15: Transferrin Pending Current Medications Acetaminophen (Tylenol) 650 mg PO Q6H PRN PRN PRN Reason: Pain Score 1-10/Temp > 100.7 F Last Admin: 05/05/20 07:54 Dose: 650 mg Documented by: Albuterol Sulfate (Ventolin Aerosols) 2.5 mg INHALATION Q2H PRN PRN PRN Reason: SOB/Wheezing Albuterol/Ipratropium (Duoneb) 3 ml INHALATION Q4H.RT [facility] Last Admin: 05/07/20 14:36 Dose: 3 ml Documented by: Amlodipine Besylate (Norvasc) 5 mg PO DAILY@2200 [facility] Last Admin: 05/06/20 22:00 Dose: 5 mg Documented by: Atorvastatin Calcium (Lipitor) 10 mg PO QHS [facility] Last Admin: 05/06/20 22:00 Dose: 10 mg Documented by: Azelastine HCl (Astelin) 1 spray NASAL DAILY [facility] Last Admin: 05/07/20 08:42 Dose: Not Given Documented by: Dextrose (D50w Syringe) 0 gm IV X1 PRN; Protocol PRN Reason: Hypoglycemia Enoxaparin Sodium (Lovenox) 40 mg SC DAILY [facility] Last Admin: 05/07/20 08:43 Dose: 40 mg Documented by: Fluticasone Propionate (Flonase Nasal [place]) 2 spray NASAL QHS [facility] Last Admin: 05/06/20 22:00 Dose: Not Given Documented by: Glucagon () 1 mg IM .X1 PRN PRN Reason: Hypoglycemia Magnesium Oxide (Mag-Ox 400) 400 mg PO DAILY [facility] Last Admin: 05/07/20 08:42 Dose: 400 mg Documented by: Mesalamine (Lialda) 1.2 gm PO BID [facility] Last Admin: 05/07/20 08:42 Dose: 1.2 gm Documented by: Metoprolol Succinate (Toprol Xl (Beta Sukhi)) 100 mg PO DAILY [facility] Last Admin: 05/07/20 08:43 Dose: 100 mg Documented by: Montelukast Sodium (Singulair) 10 mg PO DAILY [facility] Last Admin: 05/07/20 08:43 Dose: 10 mg Documented by: Pantoprazole Sodium (Protonix) 20 mg PO DAILY [facility] Last Admin: 05/07/20 08:42 Dose: 20 mg Documented by: Polyethylene Glycol (Miralax) 17 gm PO DAILY [facility] Last Admin: 05/07/20 08:43 Dose: 17 gm Documented by: Prednisone () 40 mg PO DAILY@0800 [facility] Last Admin: 05/07/20 08:42 Dose: 40 mg Documented by: Sertraline HCl (Zoloft) 100 mg PO DAILY [facility] Last Admin: 05/07/20 08:43 Dose: 100 mg Documented by: Sodium Chloride () 10 - 40 ml IV UD PRN PRN Reason: SALINE FLUSH Last Admin: 05/05/20 09:50 Dose: 10 ml Documented by: Sodium Chloride ([place] Nasal [place]) 2 spray NASAL TID PRN PRN PRN Reason: NASAL DRYNESS Last Admin: 05/01/20 21:42 Dose: 2 spray Documented by: Sodium Chloride/Electrolytes (Nulytely) 4,000 ml PO X1 ONE Stop: 05/08/20 14:01 Tamsulosin HCl (Flomax) 0.4 mg PO 2200 [facility] Last Admin: 05/06/20 22:00 Dose: 0.4 mg Documented by: Throat Lozenges (Cepacol Sore Throat Lozenge) 1 lozenge MUCOUS MEM Q2H PRN PRN PRN Reason: SORE THROAT Last Admin: 05/02/20 12:55 Dose: 1 lozenge Documented by: STROKE Vital Signs/Narrative: Vital Signs Temp Pulse Resp BP Pulse Ox 05/07/20 14:36 73 16 05/07/20 12:45 98.0 F 83 18 114/71 92 Medical Necessity - Tobacco Use Smoking Status: Former smoker Assessment/Plan All Active Problems (Last Reviewed 04/25/20 @ 17:[address] Margarita Higginbotham, DO) Malignant pleural effusion (Acute) Sepsis (Acute) Acute and chronic respiratory failure (Acute) Community acquired pneumonia (Acute) SOB (shortness of breath) (Acute) Carcinoma of unknown primary (Acute) This is a 75-year-old male with history of severe COPD, bronchiectasis with bronchomalacia, shortness sleep apnea on home BiPAP, chronic hypoxic respiratory failure on 2 L of oxygen and home BiPAP and vest therapy admitted with worsening of shortness of breath, nonproductive cough and decreasing functional capacity. 1. Acute on chronic hypoxic respiratory failure secondary to pneumonia, moderate malignant pleural effusion, COPD/bronchiectasis exacerbation: Patient was admitted in ICU on 6 L of oxygen, increased from 3 L of baseline requirement and increased to 9 L but currently on 6 L of oxygen. Significant dyspnea on mild exertion. Solu-Medrol changed to prednisone. Continue bronchodilator, incentive spirometry and pep. On BiPAP during naps and night. CT chest and chest x-ray shows moderate right pleural effusion, right lower lobe consolidation with underlying atelectasis, interstitial, cystic and nodular progression mainly in right upper lung. 05/05: Slight improvement in oxygenation. On exam, it seems there is increase in the right lower pleural effusion. 05/06: Worsening shortness of breath and hypoxia secondary to early filling of right pleural effusion. Chest x-ray reviewed with wet pan operator. Pleural effusion tracking up to right lateral chest wall. Patient has exudative recurrent pleural effusion due to malignancy. Had repeat thoracocentesis of 700 mL bloody fluid drained. Cell count shows 80% polynuclear and 20% mononuclear. Fluid culture ordered. 05/07: Cell count shows total 2811 WBC, 80% polymorphs and 20% mononuclear cells. Neutrophils 83, lymphocyte 8, monocytes 6. Pathologist review shows malignant cells, bloody specimen. Discussed with oncologist. If patient gets better in regard to decreased oxygen need, about 2 L can consider for chemotherapy, talc- pleurodesis after he gets bronchoscopy and colonoscopy to look for primary for signet ring cells. Another option is hospice care with Pleurx catheter. Family meeting about 1:30 PM between oncologist and the family member. 2. Severe sepsis (tachypnea, hypoxia, increased creatinine and lactic acidosis 2.4) most probably from right lower lobe pneumonia: On IV cefepime and vancomycin. Urinary antigens are negative. Respiratory panel negative. Blood cultures x2 are negative for more than 5 days. 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 COVID-19 PCR negative and MRSA nasal screen negative. Repeat lactic acid normal. Blood pressure is controlled. 05/06: No fever. Blood pressure is good. 05/07: Antibiotics cefepime and vancomycin discontinued on 05/02. Infectious work-up came back negative except sputum culture shows presumptive Reba albicans which may be colonization. 3. SWATI secondary to diuretic on baseline CKD G3 stage during hospital stay: Patient baseline creatinine is around 1.2 to 1.4 with estimated clearance about 52 mL/min. Patient was admitted with creatinine 1.33. Creatinine went up to 1.92 due to diuretic. Hold diuretic. Hold indapamide and losartan. Mild hy pokalemia, potassium being replaced 05/06: Improvement in creatinine profile. 05/07: BUN/creatinine still elevated. Lasix on hold. 4. Pulmonary conditions: COPD and bronchiectasis exacerbation, diffuse bronchomalacia, obstructive sleep apnea on BiPAP and right moderate malignant pleural effusion: Patient has BiPAP machine. Patient had thoracocentesis which showed signet ring cells suggestive of NSCLC favor adenocarcinoma. General surgery was consulted for EGD and colonoscopy for signet cell adenocarcinoma generally a GI primary. Had EGD on 05/03/2020 and reported normal with no signs of malignancy. 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 05/06: Discussed with oncologist. He advised against Pleurx catheter therefore will need repeated thoracocentesis probably every week and then pleurodesis and chemotherapy after further work-up 5. Hypothyroidism and history of colitis: TSH low at 0.25. Free T4 normal. Most probably, TSH low secondary to euthyroid sick syndrome. 6. Chronic heart failure with preserved EF: Patient does not have edema/fluid overload. Other comorbidities include hypertension, dyslipidemia, GERD and history of colitis: Home medication reconciliation done. 7. DVT prophylaxis: On Lovenox 40 mg subcu daily. Total time of the visit including total time spent in counseling or coordination of care, (more than 50% of the total time, spent in obtaining medical information from nurses and other ancillary care providers), discussion with consultants intern, review of labs and imaging is 30 minutes Microbiology Past 72 Hours 05/06/20 13:50 Fluid - Thoracentesis Fluid Gram Stain - Final Laboratory Results 05/06/20 05:40: Sodium 137, Potassium 3.8, Chloride 101, Carbon Dioxide 29.0, Anion Gap 7, BUN 47 H, Creatinine 1.82 H, Estim Creat Clear Calc 37.31, Est GFR (MDRD) Af Amer 47 L, Est GFR (MDRD) Non-Af 39 L, BUN/Creatinine Ratio 25.8 H, Glucose 127 H, Calcium 9.3, Total Bilirubin 0.50, AST 27, ALT 55, Alkaline Phosphatase 51, Total Protein 5.8 L, Albumin 2.7 L, Globulin 3.1, Albumin/Globulin Ratio 0.9 05/06/20 05:40: WBC 12.3 H, RBC 3.61 L, Hgb 11.1 L, Hct 34.4 L, MCV 95.3 H, MCH 30.7, MCHC 32.3, RDW Std Deviation 48.5 H, RDW Coeff of Eliecer 14.0, Plt Count 183, MPV 9.5, Immature Gran % (Auto) 3.800 H, Neut % (Auto) 68.5, Lymph % (Auto) 13.4 L, [place] % (Auto) 11.3 H, Eos % (Auto) 2.8, Baso % (Auto) 0.2, Absolute Neuts (auto) 8.5 H, Absolute Lymphs (auto) 1.65, Nucleated RBC % 0 05/06/20 13:50: Fluid Source Pending, Fluid Color Pending, Fluid Appearance Pending, Fluid WBC 2.811, Fluid RBC 1.758, Fluid Tot Cell Count 2.829, Fld Polynuclear WBCs # 2.271, Fld Polynuclear WBCs % 80.8, Fluid Mononuclear WBCs 0.540, Fld Mononuclear WBCs % 19.2, Fl Pathologist Comment Pending, Fluid Comment 2 Pending Chest X-Ray 04/25/20 13:38 IMPRESSION: Worsening of infiltrate of the mid and lower right lung. Worsening of small right pleural effusion. Atelectasis or infiltrate developing in the left lung base. Chest CT 04/25/20 17:20 IMPRESSION: Significant worsening. Moderate right pleural effusion. Almost complete consolidation of the right lower lobe. Prominent primarily interstitial infiltrate in the posterior segment of the right upper lobe. Cystic, nodular and interstitial changes in the posterior left lower lobe most consistent with inflammatory process. Inpatient E&M: 43180 Subs Hosp L3
[2020-05-07] MEDS: Atorvastatin Calcium 10 MG Tablet PO (21:54)
[2020-05-07] MEDS: Tamsulosin HCl 0.4 MG Capsule PO (21:54)
[2020-05-07] MEDS: Fluticasone 0.05% 1 SPRAY NASAL.SRY 2 SPRAY NASAL (21:54)
[2020-05-07] MEDS: amLODIPine 5 MG Tablet PO (21:54)
[2020-05-08] VITALS (17 sets, daily range): BP systolic 121–154; BP diastolic 58–69; PULSE 66–91; RESP 16–22; TEMP 36.3–36.8; O2SAT 92–95
[2020-05-08] MEDS: Ipratropium/Albuterol Sulfate 3 ML AMPUL.NEB INHALATION ×6 (03:16→22:46)
[2020-05-08 06:03] LABS: Absolute Lymphocyte Count 1.54 X10^3/uL (0.83-4.51); Absolute Neutrophil Count 9.6 X10^3/uL (2.0-7.7); Basophil# 0.02 X10^3/uL; Basophil% 0.2 % (0-1); Eosinophil# 0.23 X10^3/uL; Eosinophils% 1.8 % (0-5); Hemoglobin 10.7 g/dL (13.0-16.5); Lymphocyte # 1.54 X10^3/ul (4.0); Lymphocyte % 11.8 % (19-41); Mean Corp Hgb Conc 32.4 g/dL (32-36); Mean Corpuscular Hgb 31.3 pg (27.0-32.0); Mean Corpuscular Volume 96.5 fL (80-94); Mean Platelet Vol. 9.5 fl (6.2-12.0); Monocyte# 1.26 X10^3/uL; Monocyte% 9.6 % (0-10); NRBC Flagged by Analyzer 0 % (0-5); Neutrophil # 9.62 X10^3/uL (2.7-7.7); Neutrophil % 73.3 % (47-70); Platelet Count 166 K/mm3 (150-450); RBC Distribution Width CV 13.8 % (11.6-14.6); RBC Distribution Width SD 48.8 fl (35.1-43.9); Red Blood Count 3.42 M/mm3 (4.6-6.2); White Blood Count 13.1 K/mm3 (4.4-11.0)
[2020-05-08] MEDS: Acetaminophen 325 MG Tablet 650 MG PO (06:49)
[2020-05-08 06:57] LABS: AST(SGOT) 31 U/L (15-37); Alanine Aminotransfer ALT/SGPT 58 U/L (16-61); Albumin, Serum 2.6 g/dL (3.2-5.0); Alkaline Phosphatase 55 U/L (45-117); Anion Gap 8 (5-15); BUN 39 mg/dL (7-18); BUN/Creat Ratio 25.2 RATIO (10-20); Bilirubin, Direct 0.16 mg/dL (0.00-0.30); Calcium,Total 9.1 mg/dL (8.5-10.1); Chloride 102 mmol/L (98-107); Creatinine, Serum 1.55 mg/dL (0.70-1.30); EST Glomerular Filtration Rate 46 mL/min (>60); Est Glom Filt Rate - Afr Amer 56 mL/min (>60); Estimated Creatinine Clearance 43.81 ml/min; Globulin 3.2 g/dL (2.2-4.2); Glucose 128 mg/dL (74-106); Potassium 3.4 mmol/L (3.5-5.1); Protein, Total 5.8 g/dL (6.4-8.2); Sodium Level 138 mmol/L (136-145)
--- NOTE | 2020-05-08 08:01 | PN.SURG_ITS ---
Patient Problems: Active and Suspected Problems (Last Reviewed 04/25/20 @ 17:[address] Margarita Higginbotham DO) Sepsis (Acute) Acute and chronic respiratory failure (Acute) Community acquired pneumonia (Acute) SOB (shortness of breath) (Acute) Carcinoma of unknown primary (Acute) Subjective: Patient having no changes or issues overnight - Physical Exam Vitals/I&O's: Vital Signs Temp Pulse Resp BP Pulse Ox 98.0 F 72 18 121/65 H 92 05/08/20 05:20 05/08/20 05:20 05/08/20 05:20 05/08/20 05:20 05/08/20 05:20 Oxygen Flow Rate (L/min) [4] 6 Oxygen Flow Rate (L/min) [3] 6 Oxygen Flow Rate (L/min) [2] 6 Oxygen Flow Rate (L/min) [1 ( 6 Initial Baseline)] Oxygen Flow Rate (L/min) [ 9 AMBULATION with Oxygen] Oxygen Flow Rate (L/min) 9 Oxygen Delivery Method [4] Room Air Oxygen Delivery Method [3] Nasal Cannula Oxygen Delivery Method [2] Room Air Oxygen Delivery Method [1 ( Room Air Initial Baseline)] Oxygen Delivery Method CPAP Weight: 231 lb 7.766 oz Body Mass Index (BMI) 31.8 Intake and Output for Last 24 Hours 05/06/20 05/07/20 05/08/20 23:59 23:59 23:59 Intake Total 240 / 240 880 / 880 100 / 100 Output Total 1100 / 1100 600 / 600 Balance -860 / -860 280 / 280 100 / 100 General: Alert, Oriented x3 Neck: No JVD Lungs: Short of Breath Abdomen: Soft, Non Tender, Non-Distended Microbiology Past 72 Hours 05/06/20 13:50 Fluid - Thoracentesis Fluid Gram Stain - Final 05/06/20 13:50 Fluid - Thoracentesis Fluid Body Fluid Culture - Preliminary No growth-Final to follow Laboratory Results 05/06/20 13:50: Fl Pathologist Comment Reviewed 05/07/20 06:15: Iron 58 L, TIBC 241 L, Iron Saturation 24.1, Ferritin 188 05/07/20 06:15: Transferrin Pending 05/07/20 19:36: COVID-19 ([facility]) Pending 05/07/20 19:36: COVID-19 ([facility]) Pending 05/08/20 05:36: WBC 13.1 H, RBC 3.42 L, Hgb 10.7 L, Hct 33.0 L, MCV 96.5 H, MCH 31.3, MCHC 32.4, RDW Std Deviation 48.8 H, RDW Coeff of Eliecer 13.8, Plt Count 166, MPV 9.5, Immature Gran % (Auto) 3.300 H, Neut % (Auto) 73.3 H, Lymph % (Auto) 11.8 L, [place] % (Auto) 9.6, Eos % (Auto) 1.8, Baso % (Auto) 0.2, Absolute Neuts (auto) 9.6 H, Absolute Lymphs (auto) 1.54, Nucleated RBC % 0 05/08/20 05:36: Sodium 138, Potassium 3.4 L, Chloride 102, Carbon Dioxide 28.0, Anion Gap 8, BUN 39 H, Creatinine 1.55 H, Estim Creat Clear Calc 43.81, Est GFR (MDRD) Af Amer 56 L, Est GFR (MDRD) Non-Af 46 L, BUN/Creatinine Ratio 25.2 H, Glucose 128 H, Calcium 9.1, Total Bilirubin 0.40, Direct Bilirubin 0.16, AST 31, ALT 58, Alkaline Phosphatase 55, Total Protein 5.8 L, Albumin 2.6 L, Globulin 3.2 Current Medications Acetaminophen (Tylenol) 650 mg PO Q6H PRN PRN PRN Reason: Pain Score 1-10/Temp > 100.7 F Last Admin: 05/08/20 06:49 Dose: 650 mg Documented by: Albuterol Sulfate (Ventolin Aerosols) 2.5 mg INHALATION Q2H PRN PRN PRN Reason: SOB/Wheezing Albuterol/Ipratropium (Duoneb) 3 ml INHALATION Q4H.RT [facility] Last Admin: 05/08/20 07:08 Dose: 3 ml Documented by: Amlodipine Besylate (Norvasc) 5 mg PO DAILY@2200 [facility] Last Admin: 05/07/20 21:54 Dose: 5 mg Documented by: Atorvastatin Calcium (Lipitor) 10 mg PO QHS [facility] Last Admin: 05/07/20 21:54 Dose: 10 mg Documented by: Azelastine HCl (Astelin) 1 spray NASAL DAILY [facility] Last Admin: 05/07/20 08:42 Dose: Not Given Documented by: Dextrose (D50w Syringe) 0 gm IV X1 PRN; Protocol PRN Reason: Hypoglycemia Enoxaparin Sodium (Lovenox) 40 mg SC DAILY [facility] Last Admin: 05/07/20 08:43 Dose: 40 mg Documented by: Fluticasone Propionate (Flonase Nasal [place]) 2 spray NASAL QHS [facility] Last Admin: 05/07/20 21:54 Dose: 2 spray Documented by: Glucagon () 1 mg IM .X1 PRN PRN Reason: Hypoglycemia Magnesium Oxide (Mag-Ox 400) 400 mg PO DAILY [facility] Last Admin: 05/07/20 08:42 Dose: 400 mg Documented by: Mesalamine (Lialda) 1.2 gm PO BID [facility] Last Admin: 05/07/20 21:54 Dose: 1.2 gm Documented by: Metoprolol Succinate (Toprol Xl (Beta Sukhi)) 100 mg PO DAILY [facility] Last Admin: 05/07/20 08:43 Dose: 100 mg Documented by: Montelukast Sodium (Singulair) 10 mg PO DAILY [facility] Last Admin: 05/07/20 08:43 Dose: 10 mg Documented by: Pantoprazole Sodium (Protonix) 20 mg PO DAILY [facility] Last Admin: 05/07/20 08:42 Dose: 20 mg Documented by: Polyethylene Glycol (Miralax) 17 gm PO DAILY [facility] Last Admin: 05/07/20 08:43 Dose: 17 gm Documented by: Prednisone () 40 mg PO DAILY@0800 [facility] Last Admin: 05/07/20 08:42 Dose: 40 mg Documented by: Sertraline HCl (Zoloft) 100 mg PO DAILY [facility] Last Admin: 05/07/20 08:43 Dose: 100 mg Documented by: Sodium Chloride () 10 - 40 ml IV UD PRN PRN Reason: SALINE FLUSH Last Admin: 05/05/20 09:50 Dose: 10 ml Documented by: Sodium Chloride ([place] Nasal [place]) 2 spray NASAL TID PRN PRN PRN Reason: NASAL DRYNESS Last Admin: 05/01/20 21:42 Dose: 2 spray Documented by: Sodium Chloride/Electrolytes (Nulytely) 4,000 ml PO X1 ONE Stop: 05/08/20 14:01 Tamsulosin HCl (Flomax) 0.4 mg PO 2200 [facility] Last Admin: 05/07/20 21:54 Dose: 0.4 mg Documented by: Throat Lozenges (Cepacol Sore Throat Lozenge) 1 lozenge MUCOUS MEM Q2H PRN PRN PRN Reason: SORE THROAT Last Admin: 05/02/20 12:55 Dose: 1 lozenge Documented by: Medical Necessity - Tobacco Use Smoking Status: Former smoker Assessment/Plan All Active Problems (Last Reviewed 04/25/20 @ 17:[address] Margarita Higginbotham, DO) Malignant pleural effusion (Acute) Sepsis (Acute) Acute and chronic respiratory failure (Acute) Community acquired pneumonia (Acute) SOB (shortness of breath) (Acute) Carcinoma of unknown primary (Acute) 75-year-old male with malignant effusion 1. I discussed the case with the partition notcher as well as his oncologist. Patient needs identification of primary tumor. He is unable to undergo moderate sedation due to his hypoxia. I discussed this with Dr. An and the plan is to move him to the ICU tomorrow morning and plan for intubation with colonoscopy. If I am unable to find primary he will perform a bronchoscopy. I or Dr. An will also perform a thoracentesis to attempt a get the patient off the ventilator. 2. I explained endoscopy in detail to the patient. I explained the risks including but not limited to stroke or heart attack with anesthesia, perforation of the GI tract, bleeding, infection. I explained that any of these could necessitate further emergency surgery. The patient understands and all questions were answered sufficiently. The patient wishes to proceed with procedure. Wayne Boogie MD Pager: [phone] [address] [place] [address] [address] [place] [address] Office:
[2020-05-08] MEDS: predniSONE 20 MG Tablet 40 MG PO (08:52)
[2020-05-08] MEDS: Magnesium Oxide 400 MG Tablet PO (09:06)
[2020-05-08] MEDS: Pantoprazole Sodium 20 MG Tablet PO (09:06)
[2020-05-08] MEDS: Azelastine HCl NASAL.SRY 1 SPRAY NASAL (09:06)
[2020-05-08] MEDS: Sertraline 100 MG Tablet PO (09:06)
[2020-05-08] MEDS: Mesalamine 1.2 GM Tablet PO ×2 (09:06→21:31)
[2020-05-08] MEDS: Montelukast 10 MG Tablet PO (09:07)
[2020-05-08] MEDS: Metoprolol(XL)Succ 100 MG Tablet PO (09:08)
[2020-05-08] MEDS: Enoxaparin 40 MG/0.4 ML Syringe SC (09:09)
--- NOTE | 2020-05-08 11:33 | PN_ITS ---
Patient Problems: Active and Suspected Problems (Last Reviewed 04/25/20 @ 17:[address] Margarita Higginbotham, DO) Sepsis (Acute) Acute and chronic respiratory failure (Acute) Community acquired pneumonia (Acute) SOB (shortness of breath) (Acute) Carcinoma of unknown primary (Acute) Subjective: The patient was seen and examined at the bedside this morning. Events from the last 24 hours have been reviewed. The patient is currently afebrile, hemodynamically stable and maintaining appropriate oxygen saturations on 9 L/min via nasal cannula. Objective: The patient's most recent lab work, culture data and imaging studies have all been personally reviewed. Infectious work-up has been unrevealing to date. - Physical Exam Vitals/I&O's: Vital Signs Temp Pulse Resp BP Pulse Ox 98.3 F 74 20 H 134/58 H 94 05/08/20 09:05 05/08/20 10:24 05/08/20 10:24 05/08/20 09:08 05/08/20 09:05 Oxygen Flow Rate (L/min) [4] 6 Oxygen Flow Rate (L/min) [3] 6 Oxygen Flow Rate (L/min) [2] 6 Oxygen Flow Rate (L/min) [1 ( 6 Initial Baseline)] Oxygen Flow Rate (L/min) [ 9 AMBULATION with Oxygen] Oxygen Flow Rate (L/min) 9 Oxygen Delivery Method [4] Room Air Oxygen Delivery Method [3] Nasal Cannula Oxygen Delivery Method [2] Room Air Oxygen Delivery Method [1 ( Room Air Initial Baseline)] Oxygen Delivery Method Nasal Cannula Weight: 231 lb 7.766 oz Body Mass Index (BMI) 31.8 Intake and Output for Last 24 Hours 05/06/20 05/07/20 05/08/20 23:59 23:59 23:59 Intake Total 240 / 240 880 / 880 100 / 100 Output Total 1100 / 1100 600 / 600 Balance -860 / -860 280 / 280 100 / 100 General: Alert, Cooperative, No apparent distress HEENT: Atraumatic, Normocephalic Oral: No Gingival or Mucosal Lesions/ Ulcerations Neck: Supple, No Nodes, Trachea Midline Lungs: No rhonchi, No wheeze, No rales, Diminished Cardiovascular: Regular rate, Regular Rhythm Abdomen: Bowel Sounds Present, Soft, Non Tender Extremities: No clubbing, No cyanosis, No edema Skin: No breakdown Musculoskeletal: No Tenderness to Palpation of Joints or Extremities Lymphatic: No Cervical, Supraclavicular, or Inguinal Adenopathy Neurological: Cranial nerves II-XII grossly intact, Neuro grossly intact Psych/Mental Status: Normal Affect, Appropriate Labs (Last 48 Hours) 05/06/20 05/07/20 05/07/20 13:50 06:15 06:15 WBC 11.8 H RBC 3.41 L Hgb 10.7 L Hct 32.6 L MCV 95.6 H MCH 31.4 MCHC 32.8 RDW Std Deviation 47.8 H RDW Coeff of Eliecer 13.7 Plt Count 171 MPV 9.5 Immature Gran % (Auto) 4.000 H Neut % (Auto) 70.1 H Lymph % (Auto) 13.3 L Branch % (Auto) 10.3 H Eos % (Auto) 2.0 Baso % (Auto) 0.3 Absolute Neuts (auto) 8.3 H Absolute Lymphs (auto) 1.57 Nucleated RBC % 0 Sodium Potassium Chloride Carbon Dioxide Anion Gap BUN Creatinine Estim Creat Clear Calc Est GFR (MDRD) Af Amer Est GFR (MDRD) Non-Af BUN/Creatinine Ratio Glucose Calcium Iron 58 L TIBC 241 L Iron Saturation 24.1 Transferrin Ferritin 188 Total Bilirubin Direct Bilirubin AST ALT Alkaline Phosphatase Total Protein Albumin Globulin Fluid Source PLEURAL FLUID Fluid Color RED Fluid Appearance TURBID Fluid WBC 2.811 Fluid RBC 1.758 Fluid Tot Cell Count 2.829 Fld Polynuclear WBCs # 2.271 Fld Polynuclear WBCs % 80.8 Fluid Mononuclear WBCs 0.540 Fld Mononuclear WBCs % 19.2 Fluid Neutrophils 83 Fluid Lymphocytes 8 Fluid Monocytes 6 Fluid Other Cells 3 Fl Pathologist Comment Reviewed Fluid Comment 2 SEE COMMENT COVID-19 ([facility]) 05/07/20 05/07/20 05/07/20 06:15 19:36 19:36 WBC RBC Hgb Hct MCV MCH MCHC RDW Std Deviation RDW Coeff of Eliecer Plt Count MPV Immature Gran % (Auto) Neut % (Auto) Lymph % (Auto) Branch % (Auto) Eos % (Auto) Baso % (Auto) Absolute Neuts (auto) Absolute Lymphs (auto) Nucleated RBC % Sodium Potassium Chloride Carbon Dioxide Anion Gap BUN Creatinine Estim Creat Clear Calc Est GFR (MDRD) Af Amer Est GFR (MDRD) Non-Af BUN/Creatinine Ratio Glucose Calcium Iron TIBC Iron Saturation Transferrin Pending Ferritin Total Bilirubin Direct Bilirubin AST ALT Alkaline Phosphatase Total Protein Albumin Globulin Fluid Source Fluid Color Fluid Appearance Fluid WBC Fluid RBC Fluid Tot Cell Count Fld Polynuclear WBCs # Fld Polynuclear WBCs % Fluid Mononuclear WBCs Fld Mononuclear WBCs % Fluid Neutrophils Fluid Lymphocytes Fluid Monocytes Fluid Other Cells Fl Pathologist Comment Fluid Comment 2 COVID-19 ([facility]) Pending Pending 05/08/20 05/08/20 05:36 05:36 WBC 13.1 H RBC 3.42 L Hgb 10.7 L Hct 33.0 L MCV 96.5 H MCH 31.3 MCHC 32.4 RDW Std Deviation 48.8 H RDW Coeff of Eliecer 13.8 Plt Count 166 MPV 9.5 Immature Gran % (Auto) 3.300 H Neut % (Auto) 73.3 H Lymph % (Auto) 11.8 L Branch % (Auto) 9.6 Eos % (Auto) 1.8 Baso % (Auto) 0.2 Absolute Neuts (auto) 9.6 H Absolute Lymphs (auto) 1.54 Nucleated RBC % 0 Sodium 138 Potassium 3.4 L Chloride 102 Carbon Dioxide 28.0 Anion Gap 8 BUN 39 H Creatinine 1.55 H Estim Creat Clear Calc 43.81 Est GFR (MDRD) Af Amer 56 L Est GFR (MDRD) Non-Af 46 L BUN/Creatinine Ratio 25.2 H Glucose 128 H Calcium 9.1 Iron TIBC Iron Saturation Transferrin Ferritin Total Bilirubin 0.40 Direct Bilirubin 0.16 AST 31 ALT 58 Alkaline Phosphatase 55 Total Protein 5.8 L Albumin 2.6 L Globulin 3.2 Fluid Source Fluid Color Fluid Appearance Fluid WBC Fluid RBC Fluid Tot Cell Count Fld Polynuclear WBCs # Fld Polynuclear WBCs % Fluid Mononuclear WBCs Fld Mononuclear WBCs % Fluid Neutrophils Fluid Lymphocytes Fluid Monocytes Fluid Other Cells Fl Pathologist Comment Fluid Comment 2 COVID-19 ([facility]) Microbiology 05/06/20 13:50 Fluid - Thoracentesis Fluid Gram Stain - Final 05/06/20 13:50 Fluid - Thoracentesis Fluid Body Fluid Culture - Preliminary No growth-Final to follow 05/06/20 13:50 Fluid - Thoracentesis Fluid Anaerobic Culture - Preliminary No growth in 48 hours. Clinical Impression(s) from Imaging Studies Chest X-Ray 04/25/20 13:38 IMPRESSION: Worsening of infiltrate of the mid and lower right lung. Worsening of small right pleural effusion. Atelectasis or infiltrate developing in the left lung base. Electronically Signed: Dale Mendoza MD at 14:27 EDT , Service support , Chest CT 04/25/20 17:20 IMPRESSION: Significant worsening. Moderate right pleural effusion. Almost complete consolidation of the right lower lobe. Prominent primarily interstitial infiltrate in the posterior segment of the right upper lobe. Cystic, nodular and interstitial changes in the posterior left lower lobe most consistent with inflammatory process. Electronically Signed: Dale Mendoza MD at 19:03 EDT , Service support , Thoracentesis Ultrasound 04/26/20 06:46 IMPRESSION: Ultrasound-guided right thoracentesis. Electronically Signed: Dereck Crum, at 14:57 EDT , Service support , Chest X-Ray 04/26/20 14:00 IMPRESSION: Status post right thoracentesis. No evidence of pneumothorax. Electronically Signed: Dereck Crum, at 14:41 EDT , Service support , Chest CT 04/27/20 07:14 IMPRESSION: 1. Essentially unchanged appearance to right lower lobe airspace consolidation possibly representing a pneumonia and pleural effusion. 2. Mild patchy left basilar airspace disease appears unchanged. 3. Hepatic cyst and left-sided pararenal cyst. Electronically Signed: Fernanda London MD at 9:46 EDT , Service support , Chest X-Ray 05/01/20 10:00 IMPRESSION: Significant change in the right hemithorax since the previous study with reaccumulation of a likely loculated right pleural effusion and development of airspace opacification the right infrahilar region. Follow-up recommended to assure resolution Left lung shows chronic interstitial changes without a superimposed acute pulmonary process Electronically Signed: Roverto Flores MD at 10:16 EDT , Service support , Thoracentesis Ultrasound 05/01/20 12:38 IMPRESSION: Successful sonographically guided thoracentesis Electronically Signed: Roverto Flores MD at 14:33 EDT , Service support , Chest X-Ray 05/01/20 13:50 IMPRESSION: No postprocedural pneumothorax Significant decrease in size of a previously noted right pleural effusion after thoracentesis small right pleural effusion remains. Previously noted opacification in the right cardiophrenic angle has decreased since the previous study and likely representing atelectasis Left lung is free of a superimposed acute process Electronically Signed: Roverto Flores MD at 14:30 EDT , Service support , Abdomen/Pelvis CT 05/01/20 15:43 IMPRESSION: Right pleural effusion associated with dependent consolidation within the lung base most pronounced within the right lower lobe. Colonic diverticulosis. Moderate amount of stool throughout the colon. Bilateral renal cysts. Indeterminate 9 mm rounded focus arising from the right kidney that likely reflects a proteinaceous cyst. Scattered tree-in-bud opacities within the left lower lobe. Atherosclerosis. Electronically Signed: Michell Kim MD at 19:14 EDT Tel , Service support , Chest X-Ray 05/02/20 07:40 IMPRESSION: Stable loculated right pleural effusion Slight increase in airspace opacification in the inferior half of the right lung since the previous study Left lung is free of a superimposed process and shows no change since the previous study Degenerative bony changes Electronically Signed: Roverto Flores MD at 9:48 EDT , Service support , Chest CTA 05/02/20 11:17 IMPRESSION: No demonstrated PE, or thoracic aortic aneurysm or dissection Prominent loculated right pleural effusions with associated atelectasis Tree in bud opacifications in the left lung base consistent with small airways inflammation. There are subcentimeter noncalcified nodules in the left lung base as well suspicious for metastasis. Calcified coronary vessels Degenerative bony changes Electronically Signed: Roverto Flores MD at 12:38 EDT , Service support , Chest X-Ray 05/06/20 05:55 IMPRESSION: Increasing right pleural effusion with underlying infiltration and/or atelectasis. Electronically Signed: Dereck Crum, at 8:42 EDT , Service support , Thoracentesis Ultrasound 05/06/20 09:27 IMPRESSION: Ultrasound-guided right thoracentesis. Electronically Signed: Dereck Crum at 14:30 EDT , Service support , Chest X-Ray 05/06/20 14:00 IMPRESSION: Status post right thoracentesis. Residual pleural parenchymal changes at the right lung base. Electronically Signed: Dereck Crum, at 15:31 EDT , Service support , Current Medications Acetaminophen (Tylenol) 650 mg PO Q6H PRN PRN PRN Reason: Pain Score 1-10/Temp > 100.7 F Last Admin: 05/08/20 06:49 Dose: 650 mg Documented by: Albuterol Sulfate (Ventolin Aerosols) 2.5 mg INHALATION Q2H PRN PRN PRN Reason: SOB/Wheezing Albuterol/Ipratropium (Duoneb) 3 ml INHALATION Q4H.RT [facility] Last Admin: 05/08/20 10:24 Dose: 3 ml Documented by: Amlodipine Besylate (Norvasc) 5 mg PO DAILY@2200 [facility] Last Admin: 05/07/20 21:54 Dose: 5 mg Documented by: Atorvastatin Calcium (Lipitor) 10 mg PO QHS [facility] Last Admin: 05/07/20 21:54 Dose: 10 mg Documented by: Azelastine HCl (Astelin) 1 spray NASAL DAILY [facility] Last Admin: 05/08/20 09:06 Dose: 1 spray Documented by: Dextrose (D50w Syringe) 0 gm IV X1 PRN; Protocol PRN Reason: Hypoglycemia Enoxaparin Sodium (Lovenox) 40 mg SC DAILY [facility] Last Admin: 05/08/20 09:09 Dose: 40 mg Documented by: Fluticasone Propionate (Flonase Nasal [place]) 2 spray NASAL QHS [facility] Last Admin: 05/07/20 21:54 Dose: 2 spray Documented by: Glucagon () 1 mg IM .X1 PRN PRN Reason: Hypoglycemia Magnesium Oxide (Mag-Ox 400) 400 mg PO DAILY [facility] Last Admin: 05/08/20 09:06 Dose: 400 mg Documented by: Mesalamine (Lialda) 1.2 gm PO BID [facility] Last Admin: 05/08/20 09:06 Dose: 1.2 gm Documented by: Metoprolol Succinate (Toprol Xl (Beta Sukhi)) 100 mg PO DAILY [facility] Last Admin: 05/08/20 09:08 Dose: 100 mg Documented by: Montelukast Sodium (Singulair) 10 mg PO DAILY [facility] Last Admin: 05/08/20 09:07 Dose: 10 mg Documented by: Pantoprazole Sodium (Protonix) 20 mg PO DAILY [facility] Last Admin: 05/08/20 09:06 Dose: 20 mg Documented by: Polyethylene Glycol (Miralax) 17 gm PO DAILY [facility] Last Admin: 05/08/20 09:09 Dose: Not Given Documented by: Prednisone () 40 mg PO DAILY@0800 [facility] Last Admin: 05/08/20 08:52 Dose: 40 mg Documented by: Sertraline HCl (Zoloft) 100 mg PO DAILY [facility] Last Admin: 05/08/20 09:06 Dose: 100 mg Documented by: Sodium Chloride () 10 - 40 ml IV UD PRN PRN Reason: SALINE FLUSH Last Admin: 05/05/20 09:50 Dose: 10 ml Documented by: Sodium Chloride (Trimble Nasal [place]) 2 spray NASAL TID PRN PRN PRN Reason: NASAL DRYNESS Last Admin: 05/01/20 21:42 Dose: 2 spray Documented by: Sodium Chloride/Electrolytes (Nulytely) 4,000 ml PO X1 ONE Stop: 05/08/20 14:01 Tamsulosin HCl (Flomax) 0.4 mg PO 2200 [facility] Last Admin: 05/07/20 21:54 Dose: 0.4 mg Documented by: Throat Lozenges (Cepacol Sore Throat Lozenge) 1 lozenge MUCOUS MEM Q2H PRN PRN PRN Reason: SORE THROAT Last Admin: 05/02/20 12:55 Dose: 1 lozenge Documented by: Medical Necessity - Tobacco Use Smoking Status: Former smoker Assessment/Plan All Active Problems (Last Reviewed 04/25/20 @ 17:[address] Margarita Higginbotham, DO) Malignant pleural effusion (Acute) Sepsis (Acute) Acute and chronic respiratory failure (Acute) Community acquired pneumonia (Acute) SOB (shortness of breath) (Acute) Carcinoma of unknown primary (Acute) RECOMMENDATIONS: 1. Continue scheduled bronchodilators and steroids. 2. Wean oxygen to maintain saturations at or above 90%. 3. Encourage incentive spirometer use and mobilize patient as tolerated. 4. Plan for ICU transfer in the morning to facilitate colonoscopy being completed. Depending on the results of his lower endoscopy, the patient may require bronchoscopic evaluation as well. IMPRESSIONS: 1. Acute on chronic hypoxemic respiratory failure Appears to be secondary to malignant pleural effusion. The effusion itself is recurrent in nature and has required multiple thoracenteses during this hospital admission. It is unclear whether the patient's malignancy is of GI primary, as lower endoscopy has unable to be completed due to the patient's degree of hypoxemia. In order to proceed with further diagnostic work-up, consideration may need to be given to transferring the patient to a tertiary care facility for consideration of pleurodesis. For now, the plan is to transfer the patient to the ICU in the morning, where he will undergo elective intubation to facilitate colonoscopy being completed. If his lower endoscopy is unrevealing, will perform bronchoscopic evaluation as well. 2. History of obstructive sleep apnea Continue nocturnal Pap therapy as ordered. 3. Heart failure with preserved ejection fraction The patient does not appear overtly volume overloaded at this time. Continue outpatient medication regimen. 4. Obesity/hyperlipidemia/GERD/allergic rhinitis/hypertension/chronic steroid dependency Complicates care, management, recovery and prognosis. Continue home medications as indicated. The patient will need to resume his baseline 10 mg prednisone dose on a daily basis upon discharge from the hospital. This note was generated with [employer] dictation software. It may contain incorrect words, spelling, and punctuation that were not noted in checking the note before signing. Inpatient E&M: 21546 Subs Hosp L2
[2020-05-08] MEDS: Electrolyte Solution/Peg's 4000 ML PO (13:46)
--- NOTE | 2020-05-08 14:17 | PN_ITS ---
Patient Problems: Active and Suspected Problems (Last Reviewed 04/25/20 @ 17:[address] Margarita Higginbotham, DO) Sepsis (Acute) Acute and chronic respiratory failure (Acute) Community acquired pneumonia (Acute) SOB (shortness of breath) (Acute) Carcinoma of unknown primary (Acute) Reason for Visit: Acute on chronic hypoxic respiratory failure, malignant effusion, on high 9 L of oxygen Objective: Patient is afebrile. Blood pressure is maintaining good. Denies chest pain. On high oxygen requirement; 9 L of oxygen On physical exam General: Alert, Oriented x3, Cooperative HEENT: Atraumatic, PERRLA, EOMI, Normocephalic Neck: Supple, No JVD, Negative Carotid Bruits Lungs: Air entry decreased in right posterior chest. Dyspnea on mild exertion, right-sided pleural effusion. No crepitation. Had thoracocentesis of 700 mL on 05/06. Cardiovascular: Regular rate, Regular Rhythm, Normal S1, Normal S2, No murmurs Abdomen: Bowel Sounds Present, Soft, Non Tender, Non-Distended Extremities: No edema, Capillary Refill Less than 3 Seconds Skin: No rashes, No breakdown Musculoskeletal: No Tenderness to Palpation of Joints or Extremities, Arthritic Changes Neurological: Cranial nerves II-XII grossly intact, Deep Tendon Reflexes 2+/4 and Symmetrical, Neuro grossly intact Psych/Mental Status: Normal Affect, Appropriate Vitals/I&O's: Vital Signs Temp Pulse Resp BP Pulse Ox 98.3 F 83 20 H 134/58 H 94 05/08/20 09:05 05/08/20 10:58 05/08/20 10:24 05/08/20 09:08 05/08/20 09:05 Oxygen Flow Rate (L/min) [4] 6 Oxygen Flow Rate (L/min) [3] 6 Oxygen Flow Rate (L/min) [2] 6 Oxygen Flow Rate (L/min) [1 ( 6 Initial Baseline)] Oxygen Flow Rate (L/min) [ 9 AMBULATION with Oxygen] Oxygen Flow Rate (L/min) 9 Oxygen Delivery Method [4] Room Air Oxygen Delivery Method [3] Nasal Cannula Oxygen Delivery Method [2] Room Air Oxygen Delivery Method [1 ( Room Air Initial Baseline)] Oxygen Delivery Method Nasal Cannula Weight: 231 lb 7.766 oz Body Mass Index (BMI) 31.8 Intake and Output for Last 24 Hours 05/06/20 05/07/20 05/08/20 23:59 23:59 23:59 Intake Total 240 / 240 880 / 880 340 / 340 Output Total 1100 / 1100 600 / 600 Balance -860 / -860 280 / 280 340 / 340 Microbiology Past 72 Hours 05/06/20 13:50 Fluid - Thoracentesis Fluid Gram Stain - Final 05/06/20 13:50 Fluid - Thoracentesis Fluid Body Fluid Culture - Preliminary No growth-Final to follow 05/06/20 13:50 Fluid - Thoracentesis Fluid Anaerobic Culture - Preliminary No growth in 48 hours. Laboratory Results 05/07/20 19:36: COVID-19 ([facility]) Pending 05/07/20 19:36: COVID-19 ([facility]) Pending 05/08/20 05:36: WBC 13.1 H, RBC 3.42 L, Hgb 10.7 L, Hct 33.0 L, MCV 96.5 H, MCH 31.3, MCHC 32.4, RDW Std Deviation 48.8 H, RDW Coeff of Eliecer 13.8, Plt Count 166, MPV 9.5, Immature Gran % (Auto) 3.300 H, Neut % (Auto) 73.3 H, Lymph % (Auto) 11.8 L, [place] % (Auto) 9.6, Eos % (Auto) 1.8, Baso % (Auto) 0.2, Absolute Neuts (auto) 9.6 H, Absolute Lymphs (auto) 1.54, Nucleated RBC % 0 05/08/20 05:36: Sodium 138, Potassium 3.4 L, Chloride 102, Carbon Dioxide 28.0, Anion Gap 8, BUN 39 H, Creatinine 1.55 H, Estim Creat Clear Calc 43.81, Est GFR (MDRD) Af Amer 56 L, Est GFR (MDRD) Non-Af 46 L, BUN/Creatinine Ratio 25.2 H, Glucose 128 H, Calcium 9.1, Total Bilirubin 0.40, Direct Bilirubin 0.16, AST 31, ALT 58, Alkaline Phosphatase 55, Total Protein 5.8 L, Albumin 2.6 L, Globulin 3.2 Current Medications Acetaminophen (Tylenol) 650 mg PO Q6H PRN PRN PRN Reason: Pain Score 1-10/Temp > 100.7 F Last Admin: 05/08/20 06:49 Dose: 650 mg Documented by: Albuterol Sulfate (Ventolin Aerosols) 2.5 mg INHALATION Q2H PRN PRN PRN Reason: SOB/Wheezing Albuterol/Ipratropium (Duoneb) 3 ml INHALATION Q4H.RT [facility] Last Admin: 05/08/20 10:24 Dose: 3 ml Documented by: Amlodipine Besylate (Norvasc) 5 mg PO DAILY@2200 [facility] Last Admin: 05/07/20 21:54 Dose: 5 mg Documented by: Atorvastatin Calcium (Lipitor) 10 mg PO QHS [facility] Last Admin: 05/07/20 21:54 Dose: 10 mg Documented by: Azelastine HCl (Astelin) 1 spray NASAL DAILY [facility] Last Admin: 05/08/20 09:06 Dose: 1 spray Documented by: Dextrose (D50w Syringe) 0 gm IV X1 PRN; Protocol PRN Reason: Hypoglycemia Enoxaparin Sodium (Lovenox) 40 mg SC DAILY [facility] Last Admin: 05/08/20 09:09 Dose: 40 mg Documented by: Fluticasone Propionate (Flonase Nasal [place]) 2 spray NASAL QHS [facility] Last Admin: 05/07/20 21:54 Dose: 2 spray Documented by: Glucagon () 1 mg IM .X1 PRN PRN Reason: Hypoglycemia Magnesium Oxide (Mag-Ox 400) 400 mg PO DAILY [facility] Last Admin: 05/08/20 09:06 Dose: 400 mg Documented by: Mesalamine (Lialda) 1.2 gm PO BID [facility] Last Admin: 05/08/20 09:06 Dose: 1.2 gm Documented by: Metoprolol Succinate (Toprol Xl (Beta Sukhi)) 100 mg PO DAILY [facility] Last Admin: 05/08/20 09:08 Dose: 100 mg Documented by: Montelukast Sodium (Singulair) 10 mg PO DAILY [facility] Last Admin: 05/08/20 09:07 Dose: 10 mg Documented by: Pantoprazole Sodium (Protonix) 20 mg PO DAILY [facility] Last Admin: 05/08/20 09:06 Dose: 20 mg Documented by: Polyethylene Glycol (Miralax) 17 gm PO DAILY [facility] Last Admin: 05/08/20 09:09 Dose: Not Given Documented by: Prednisone () 40 mg PO DAILY@0800 [facility] Last Admin: 05/08/20 08:52 Dose: 40 mg Documented by: Sertraline HCl (Zoloft) 100 mg PO DAILY [facility] Last Admin: 05/08/20 09:06 Dose: 100 mg Documented by: Sodium Chloride () 10 - 40 ml IV UD PRN PRN Reason: SALINE FLUSH Last Admin: 05/05/20 09:50 Dose: 10 ml Documented by: Sodium Chloride ([place] Nasal [place]) 2 spray NASAL TID PRN PRN PRN Reason: NASAL DRYNESS Last Admin: 05/01/20 21:42 Dose: 2 spray Documented by: Tamsulosin HCl (Flomax) 0.4 mg PO 2199 [facility] Last Admin: 05/07/20 21:54 Dose: 0.4 mg Documented by: Throat Lozenges (Cepacol Sore Throat Lozenge) 1 lozenge MUCOUS MEM Q2H PRN PRN PRN Reason: SORE THROAT Last Admin: 05/02/20 12:55 Dose: 1 lozenge Documented by: STROKE Vital Signs/Narrative: Vital Signs Pulse Resp 05/08/20 10:58 83 05/08/20 10:24 74 20 H Medical Necessity - Tobacco Use Smoking Status: Former smoker Assessment/Plan All Active Problems (Last Reviewed 04/25/20 @ 17:[address] Margarita Higginbotham, DO) Malignant pleural effusion (Acute) Sepsis (Acute) Acute and chronic respiratory failure (Acute) Community acquired pneumonia (Acute) SOB (shortness of breath) (Acute) Carcinoma of unknown primary (Acute) This is a 75-year-old male with history of severe COPD, bronchiectasis with bronchomalacia, shortness sleep apnea on home BiPAP, chronic hypoxic respiratory failure on 2 L of oxygen and home BiPAP and vest therapy admitted with worsening of shortness of breath, nonproductive cough and decreasing functional capacity. 1. Acute on chronic hypoxic respiratory failure secondary to pneumonia, moderate malignant pleural effusion, COPD/bronchiectasis exacerbation: Patient was admitted in ICU on 6 L of oxygen, increased from 3 L of baseline requirement and increased to 9 L but currently on 6 L of oxygen. Significant dyspnea on mild exertion. Solu-Medrol changed to prednisone. Continue bronchodilator, incentive spirometry and pep. On BiPAP during naps and night. CT chest and chest x-ray shows moderate right pleural effusion, right lower lobe consolidation with underlying atelectasis, interstitial, cystic and nodular progression mainly in right upper lung. 05/05: Slight improvement in oxygenation. On exam, it seems there is increase in the right lower pleural effusion. 05/06: Worsening shortness of breath and hypoxia secondary to early filling of right pleural effusion. Chest x-ray reviewed with polishing machine operator helper. Pleural effusion tracking up to right lateral chest wall. Patient has exudative recurrent pleural effusion due to malignancy. Had repeat thoracocentesis of 700 mL bloody fluid drained. Cell count shows 80% polynuclear and 20% mononuclear. Fluid culture ordered. 05/07: Cell count shows total 2811 WBC, 80% polymorphs and 20% mononuclear cells. Neutrophils 83, lymphocyte 8, monocytes 6. Pathologist review shows malignant cells, bloody specimen. Discussed with oncologist. 05/08: At the family discussion about 1:30 PM on 05/07, oncologist and family member agreed for proceeding for colonoscopy and bronchoscopy to look for primary for signet ring cells. Then possible pleurodesis with talc powder most probably in tertiary care center. They refused for hospice care for now. Plan: Transfer to ICU tomorrow a.m. for colonoscopy and then bronchoscopy if needed depending on result of colonoscopy. 2. Severe sepsis (tachypnea, hypoxia, increased creatinine and lactic acidosis 2.4) most probably from right lower lobe pneumonia: On IV cefepime and vancomycin. Urinary antigens are negative. Respiratory panel negative. Blood cultures x2 are negative for more than 5 days. 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 COVID-19 PCR negative and MRSA nasal screen negative. Repeat lactic acid normal. Blood pressure is controlled. 05/06: No fever. Blood pressure is good. 05/07: Antibiotics cefepime and vancomycin discontinued on 05/02. Infectious work-up came back negative except sputum culture shows presumptive Reba albicans which may be colonization. 3. SWATI secondary to diuretic on baseline CKD G3 stage during hospital stay: Patient baseline creatinine is around 1.2 to 1.4 with estimated clearance about 52 mL/min. Patient was admitted with creatinine 1.33. Creatinine went up to 1.92 due to diuretic. Hold diuretic. Hold indapamide and losartan. Mild hypokalemia, potassium being replaced 05/06: Improvement in creatinine profile. 05/07: BUN/creatinine still elevated. Lasix on hold. 05/16: Lasix resumed. 4. Pulmonary conditions: COPD and bronchiectasis exacerbation, diffuse bronchomalacia, obstructive sleep apnea on BiPAP and right moderate malignant pleural effusion: Patient has BiPAP machine. Patient had thoracocentesis which showed signet ring cells suggestive of NSCLC favor adenocarcinoma. General surgery was consulted for EGD and colonoscopy for signet cell adenocarcinoma generally a GI primary. Had EGD on 05/03/2020 and reported normal with no signs of malignancy. 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 05/06: Discussed with oncologist. 05/08: Pleural fluid no growth for last 48 hours. Pleural fluid cell count 83% neutrophils, 8% lymphocytes, 6% monocytes. 5. Hypothyroidism and history of colitis: TSH low at 0.25. Free T4 normal. Most probably, TSH low secondary to euthyroid sick syndrome. 6. Chronic heart failure with preserved EF: Patient does not have edema/fluid overload. Other comorbidities include hypertension, dyslipidemia, GERD and history of colitis: Home medication reconciliation done. 7. DVT prophylaxis: On Lovenox 40 mg subcu daily. Total time of the visit including total time spent in counseling or coordination of care, (more than 50% of the total time, spent in obtaining medical information from nurses and other ancillary care providers), discussion with beauty sales consultant, review of labs and imaging is 30 minutes Microbiology Past 72 Hours 05/06/20 13:50 Fluid - Thoracentesis Fluid Gram Stain - Final 05/06/20 13:50 Fluid - Thoracentesis Fluid Body Fluid Culture - Preliminary No growth-Final to follow 05/06/20 13:50 Fluid - Thoracentesis Fluid Anaerobic Culture - Preliminary No growth in 48 hours. Laboratory Results 05/07/20 19:36: COVID-19 ([facility]) Pending 05/07/20 19:36: COVID-19 ([facility]) Pending 05/08/20 05:36: WBC 13.1 H, RBC 3.42 L, Hgb 10.7 L, Hct 33.0 L, MCV 96.5 H, MCH 31.3, MCHC 32.4, RDW Std Deviation 48.8 H, RDW Coeff of Eliecer 13.8, Plt Count 166, MPV 9.5, Immature Gran % (Auto) 3.300 H, Neut % (Auto) 73.3 H, Lymph % (Auto) 11.8 L, [place] % (Auto) 9.6, Eos % (Auto) 1.8, Baso % (Auto) 0.2, Absolute Neuts (auto) 9.6 H, Absolute Lymphs (auto) 1.54, Nucleated RBC % 0 05/08/20 05:36: Sodium 138, Potassium 3.4 L, Chloride 102, Carbon Dioxide 28.0, Anion Gap 8, BUN 39 H, Creatinine 1.55 H, Estim Creat Clear Calc 43.81, Est GFR (MDRD) Af Amer 56 L, Est GFR (MDRD) Non-Af 46 L, BUN/Creatinine Ratio 25.2 H, Glucose 128 H, Calcium 9.1, Total Bilirubin 0.40, Direct Bilirubin 0.16, AST 31, ALT 58, Alkaline Phosphatase 55, Total Protein 5.8 L, Albumin 2.6 L, Globulin 3.2 Chest X-Ray 04/25/20 13:38 IMPRESSION: Worsening of infiltrate of the mid and lower right lung. Worsening of small right pleural effusion. Atelectasis or infiltrate developing in the left lung base. Chest CT 04/25/20 17:20 IMPRESSION: Significant worsening. Moderate right pleural effusion. Almost complete consolidation of the right lower lobe. Prominent primarily interstitial infiltrate in the posterior segment of the right upper lobe. Cystic, nodular and interstitial changes in the posterior left lower lobe most consistent with inflammatory process. Inpatient E&M: 55253 Subs Hosp L2
[2020-05-08 16:33] LABS: Transferrin 186 mg/dL (177-329)
[2020-05-08] MEDS: Furosemide 40 MG/4 ML Vial IV (17:05)
[2020-05-08] MEDS: 0.9% Saline Lock 10 ML Syringe IV (17:05)
[2020-05-08] MEDS: Atorvastatin Calcium 10 MG Tablet PO (21:31)
[2020-05-08] MEDS: Tamsulosin HCl 0.4 MG Capsule PO (21:31)
[2020-05-08] MEDS: amLODIPine 5 MG Tablet PO (21:32)
[2020-05-09] VITALS (39 sets, daily range): BP systolic 79–180; BP diastolic 50–97; PULSE 67–95; RESP 14–83; TEMP 36.3–37.1; O2SAT 90–98; BMI 31.3
--- NOTE | 2020-05-09 | FLU_PTH ---
PATIENT: THERESA HALL LOC: PCU U#:[id number] AGE/SX: 75/M ROOM: [facility] RE04/25/[address]: Dr. Enmanuel Spencer MD : 1945 BED: 1 DIS: 05/10/2020 SPEC #: [id number] RECD: 05/09/20 12:40 STATUS: FRED REQ #: [id number] SILVA: 05/09/20 00:[address]: Russell An DEPT: CYTOLOGY RECD BY: Daniel Lane ENTERED: 05/13/20 09:20 SP TYPE: Fluid OTHR DR: MD Dr. Hung Harrington MD Dr. Kathryn Lee, DO Dr. Mansour Isckarus, MD Dr. 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 See comment. ADRIANA:ulices 05/14/20 COMMENT Immunohistochemistry ([id number]) supports the above diagnosis and consistent with lung primary. Mucin stain with matched control is used in the evaluation of the specimen. 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 Case has been reviewed in consultation with Dr. Alvarez who concurs with the above diagnosis. IDC:AM CYTOLOGY STUDY Slides are reviewed. CYTOLOGY GROSS Received is 20 ml of pale pink turbid fluid labeled with the patient's name and and designated per the requisition as bronchoscopy. Submitted for cytology preparation including cell block. / ulices 05/13/20 TC:0 CPT: 96371, 28147, 40551
--- NOTE | 2020-05-09 | IMM_PTH ---
PATIENT: THERESA HALL LOC: PCU U#:[id number] AGE/SX: 75/M ROOM: [facility] RE04/25/[address]: Dr. Enmanuel Spencer MD : 1945 BED: 1 DIS: 05/10/2020 SPEC #: [id number] RECD: 05/14/20 12:09 STATUS: FRED REQ #: [id number] SILVA: 05/09/20 00:[address]: Russell An DEPT: IMMUNOHISTOCHEMISTRY RECD BY: Sandra Worthington ENTERED: 05/14/20 12:11 SP TYPE: IMMUNO OTHR DR: MD Dr. Hung Harrington MD Dr. Kathryn Lee, DO Dr. Mansour Isckarus, MD Dr. Prakash Chand, MD Tissues: Bronchus, NOS Procedures: RCC (add) NAPSIN A (add) CK20 (add) CK5-6 (add) CK7 (add) CK8 (add) HEP PAR (add) MACRO (add) TTF1 (add) Pankeratin (initial) P40 (add) PSAP (add) PHYSICIAN & INSTITUTION [place] [id number] SPECIMEN INFORMATION: Tissue Source: Bronchoscopy fluid Clinical Info: Cancer Specimen Number: [id number] CPT code: 88867, 57796 x11 METHODOLOGY: Deparaffinized sections of prefer/formalin-fixed tissue or PAP/DQ stained slides are incubated with monoclonal/polyclonal antibodies/oligonucleotide probes. Localization is made via biotin free immunoperoxidase method. Appropriate controls are performed and reacted as expected. Results on target cell population are indicated in the following table: RESULTS: ANTIBODY / CLONE RESULT AE1-3 (AE1/AE3/PCK26) positive CK7 (OV-TL12/30) positive CK8 (88bwbdN82) positive CK20 (KS20.8) negative Macro (HAM-56) negative TTF-1 (8G7G3/1) positive Napsin A (Rabbit Polyclonal) positive HepPar (OCh1E5) negative RCC (PN-15) negative PSAP (PASE/4LJ) negative CK5-6 (D5 & 1684) positive P40 (BC28) negative These tests were developed and their performance characteristics determined by [facility]. They may not have been cleared or approved by the U.S. Food and Drug Administration. The FDA has determined that such clearance or approval is not necessary. The above immunohistochemical/dualISH markers are ordered and reviewed by the Pathologist. INTERPRETATION: Bronchoscopy fluid: Malignant cells present derived from non-small cell carcinoma, favor adenocarcinoma with mucinous differentiation consistent with lung primary. SJ:ulices 05/15/20 Clinical correlation necessary. Case has been reviewed in consultation with Dr. Alvarez who concurs with the above diagnosis. IDC:[id number]
--- NOTE | 2020-05-09 05:55 | EKG12_ITS ---
Test Reason : AM EKG Blood Pressure : / mmHG Vent. Rate : 068 BPM Atrial Rate : 068 BPM P-R Int : 146 ms QRS Dur : 110 ms QT Int : 432 ms P-R-T Axes : -09 041 043 degrees QTc Int : 459 ms Sinus rhythm with Premature atrial complexes Low Voltage QRS (Limb Leads) Confirmed by DEMETRIUS KIRKPATRICK, JAMESON ([id number]), clinical editor NORBERT JEAN ([id number]) on 05/15/2020 10:44:13 AM Referred By: NAYI Confirmed By:JAMESON ROMO MD
[2020-05-09 06:03] LABS: Absolute Lymphocyte Count 1.29 X10^3/uL (0.83-4.51); Absolute Neutrophil Count 7.5 X10^3/uL (2.0-7.7); Basophil# 0.03 X10^3/uL; Basophil% 0.3 % (0-1); Eosinophil# 0.22 X10^3/uL; Eosinophils% 2.1 % (0-5); Hemoglobin 10.4 g/dL (13.0-16.5); Lymphocyte # 1.29 X10^3/ul (4.0); Lymphocyte % 12.3 % (19-41); Mean Corp Hgb Conc 32.5 g/dL (32-36); Mean Corpuscular Hgb 31.3 pg (27.0-32.0); Mean Corpuscular Volume 96.4 fL (80-94); Mean Platelet Vol. 9.3 fl (6.2-12.0); Monocyte# 1.09 X10^3/uL; Monocyte% 10.4 % (0-10); NRBC Flagged by Analyzer 0 % (0-5); Neutrophil # 7.47 X10^3/uL (2.7-7.7); Neutrophil % 71.3 % (47-70); Platelet Count 152 K/mm3 (150-450); RBC Distribution Width CV 13.8 % (11.6-14.6); Red Blood Count 3.32 M/mm3 (4.6-6.2); White Blood Count 10.5 K/mm3 (4.4-11.0)
[2020-05-09 06:23] LABS: Anion Gap 6 (5-15); BUN 30 mg/dL (7-18); BUN/Creat Ratio 20.3 RATIO (10-20); Calcium,Total 8.5 mg/dL (8.5-10.1); Chloride 102 mmol/L (98-107); Creatinine, Serum 1.48 mg/dL (0.70-1.30); EST Glomerular Filtration Rate 49 mL/min (>60); Est Glom Filt Rate - Afr Amer 59 mL/min (>60); Estimated Creatinine Clearance 45.88 ml/min; Glucose 93 mg/dL (74-106); Potassium 3.3 mmol/L (3.5-5.1); Sodium Level 139 mmol/L (136-145)
[2020-05-09 06:31] LABS: International Normalized Ratio 1.1; Prothrombin Time (Protime)PT. 13.3 SECONDS (11.7-14.9)
[2020-05-09 06:32] LABS: Partial Thromboplast Time 27.1 Seconds (24.1-36.2)
--- NOTE | 2020-05-09 06:56 | PCM.PN.SRG ---
Patient Problems: Active and Suspected Problems (Last Reviewed 04/25/20 @ 17:[address] Margarita Higginbotham, DO) Sepsis (Acute) Acute and chronic respiratory failure (Acute) Community acquired pneumonia (Acute) SOB (shortness of breath) (Acute) Carcinoma of unknown primary (Acute) Subjective: Patient is doing well this morning and did well with a bowel prep. No issues overnight. - Physical Exam Vitals/I&O's: Vital Signs Temp Pulse Resp BP Pulse Ox 97.3 F L 67 15 115/54 L 92 05/09/20 03:33 05/09/20 03:33 05/09/20 03:33 05/09/20 03:33 05/09/20 03:33 Oxygen Flow Rate (L/min) [4] 6 Oxygen Flow Rate (L/min) [3] 6 Oxygen Flow Rate (L/min) [2] 6 Oxygen Flow Rate (L/min) [1 ( 6 Initial Baseline)] Oxygen Flow Rate (L/min) [ 9 AMBULATION with Oxygen] Oxygen Flow Rate (L/min) 6 Oxygen Delivery Method [4] Room Air Oxygen Delivery Method [3] Nasal Cannula Oxygen Delivery Method [2] Room Air Oxygen Delivery Method [1 ( Room Air Initial Baseline)] Oxygen Delivery Method CPAP Weight: 231 lb 0.711 oz Body Mass Index (BMI) 31.8 Intake and Output for Last 24 Hours 05/07/20 05/08/20 05/09/20 23:59 23:59 23:59 Intake Total 880 / 880 3350 / 3350 0 / 0 Output Total 600 / 600 0 / 0 Balance 280 / 280 3350 / 3350 0 / 0 General: Alert, Oriented x3 Neck: No JVD Cardiovascular: Regular rate, Regular Rhythm Abdomen: Soft, Non Tender, Non-Distended Microbiology Past 72 Hours 05/06/20 13:50 Fluid - Thoracentesis Fluid Gram Stain - Final 05/06/20 13:50 Fluid - Thoracentesis Fluid Body Fluid Culture - Preliminary No growth-Final to follow 05/06/20 13:50 Fluid - Thoracentesis Fluid Anaerobic Culture - Preliminary No growth in 48 hours. Laboratory Results 05/07/20 06:15: Transferrin 186 05/08/20 05:36: Sodium 138, Potassium 3.4 L, Chloride 102, Carbon Dioxide 28.0, Anion Gap 8, BUN 39 H, Creatinine 1.55 H, Estim Creat Clear Calc 43.81, Est GFR (MDRD) Af Amer 56 L, Est GFR (MDRD) Non-Af 46 L, BUN/Creatinine Ratio 25.2 H, Glucose 128 H, Calcium 9.1, Total Bilirubin 0.40, Direct Bilirubin 0.16, AST 31, ALT 58, Alkaline Phosphatase 55, Total Protein 5.8 L, Albumin 2.6 L, Globulin 3.2 05/09/20 05:45: WBC 10.5, RBC 3.32 L, Hgb 10.4 L, Hct 32.0 L, MCV 96.4 H, MCH 31.3, MCHC 32.5, RDW Std Deviation 48.0 H, RDW Coeff of Eliecer 13.8, Plt Count 152, MPV 9.3, Immature Gran % (Auto) 3.600 H, Neut % (Auto) 71.3 H, Lymph % (Auto) 12.3 L, [place] % (Auto) 10.4 H, Eos % (Auto) 2.1, Baso % (Auto) 0.3, Absolute Neuts (auto) 7.5, Absolute Lymphs (auto) 1.29, Nucleated RBC % 0 05/09/20 05:45: Sodium 139, Potassium 3.3 L, Chloride 102, Carbon Dioxide 31.0, Anion Gap 6, BUN 30 H, Creatinine 1.48 H, Estim Creat Clear Calc 45.88, Est GFR (MDRD) Af Amer 59 L, Est GFR (MDRD) Non-Af 49 L, BUN/Creatinine Ratio 20.3 H, Glucose 93, Calcium 8.5 05/09/20 05:45: PT 13.3, INR 1.1, APTT 27.1 05/09/20 05:45: Total Bilirubin Pending, Direct Bilirubin Pending, AST Pending, ALT Pending, Alkaline Phosphatase Pending, Total Protein Pending, Albumin Pending, TSH Pending Current Medications Acetaminophen (Tylenol) 650 mg PO Q6H PRN PRN PRN Reason: Pain Score 1-10/Temp > 100.7 F Last Admin: 05/08/20 06:49 Dose: 650 mg Documented by: Albuterol Sulfate (Ventolin Aerosols) 2.5 mg INHALATION Q2H PRN PRN PRN Reason: SOB/Wheezing Albuterol/Ipratropium (Duoneb) 3 ml INHALATION Q4H.RT [facility] Last Admin: 05/08/20 22:46 Dose: 3 ml Documented by: Amlodipine Besylate (Norvasc) 5 mg PO DAILY@2200 [facility] Last Admin: 05/08/20 21:32 Dose: 5 mg Documented by: Atorvastatin Calcium (Lipitor) 10 mg PO QHS [facility] Last Admin: 05/08/20 21:31 Dose: 10 mg Documented by: Azelastine HCl (Astelin) 1 spray NASAL DAILY [facility] Last Admin: 05/08/20 09:06 Dose: 1 spray Documented by: Dextrose (D50w Syringe) 0 gm IV X1 PRN; Protocol PRN Reason: Hypoglycemia Enoxaparin Sodium (Lovenox) 40 mg SC DAILY [facility] Last Admin: 05/08/20 09:09 Dose: 40 mg Documented by: Fluticasone Propionate (Flonase Nasal Coleman) 2 spray NASAL QHS [facility] Last Admin: 05/08/20 21:31 Dose: Not Given Documented by: Glucagon () 1 mg IM .X1 PRN PRN Reason: Hypoglycemia Magnesium Oxide (Mag-Ox 400) 400 mg PO DAILY [facility] Last Admin: 05/08/20 09:06 Dose: 400 mg Documented by: Mesalamine (Lialda) 1.2 gm PO BID [facility] Last Admin: 05/08/20 21:31 Dose: 1.2 gm Documented by: Metoprolol Succinate (Toprol Xl (Beta Sukhi)) 100 mg PO DAILY [facility] Last Admin: 05/08/20 09:08 Dose: 100 mg Documented by: Montelukast Sodium (Singulair) 10 mg PO DAILY [facility] Last Admin: 05/08/20 09:07 Dose: 10 mg Documented by: Pantoprazole Sodium (Protonix) 20 mg PO DAILY [facility] Last Admin: 05/08/20 09:06 Dose: 20 mg Documented by: Polyethylene Glycol (Miralax) 17 gm PO DAILY [facility] Last Admin: 05/08/20 09:09 Dose: Not Given Documented by: Prednisone () 40 mg PO DAILY@0800 [facility] Last Admin: 05/08/20 08:52 Dose: 40 mg Documented by: Sertraline HCl (Zoloft) 100 mg PO DAILY [facility] Last Admin: 05/08/20 09:06 Dose: 100 mg Documented by: Sodium Chloride () 10 - 40 ml IV UD PRN PRN Reason: SALINE FLUSH Last Admin: 05/08/20 17:05 Dose: 10 ml Documented by: Sodium Chloride (Bennett Nasal Coleman) 2 spray NASAL TID PRN PRN PRN Reason: NASAL DRYNESS Last Admin: 05/01/20 21:42 Dose: 2 spray Documented by: Tamsulosin HCl (Flomax) 0.4 mg PO 2200 [facility] Last Admin: 05/08/20 21:31 Dose: 0.4 mg Documented by: Throat Lozenges (Cepacol Sore Throat Lozenge) 1 lozenge MUCOUS MEM Q2H PRN PRN PRN Reason: SORE THROAT Last Admin: 05/02/20 12:55 Dose: 1 lozenge Documented by: Medical Necessity - Tobacco Use Smoking Status: Former smoker Assessment/Plan All Active Problems (Last Reviewed 04/25/20 @ 17:[address] Margarita Higginbotham, DO) Malignant pleural effusion (Acute) Sepsis (Acute) Acute and chronic respiratory failure (Acute) Community acquired pneumonia (Acute) SOB (shortness of breath) (Acute) Carcinoma of unknown primary (Acute) 75-year-old male with malignant effusion 1. Plan for today is to move the patient to the ICU and intubate the patient and perform colonoscopy at the bedside. If no malignancy is identified the patient will have bronchoscopy by Dr. An. Patient will also have thoracentesis to assist in extubation. I discussed all of these procedures with the patient in detail this morning. I discussed the risks including but not limited to bleeding, infection, perforation of the GI tract, injury to lung, pneumothorax. The patient understands all the risks and is well to proceed. Wayne Boogie MD Pager: [facility] [address] [place] [address], [address] [place] [address] Office:
[2020-05-09] MEDS: Ipratropium/Albuterol Sulfate 3 ML AMPUL.NEB INHALATION ×5 (07:39→22:37)
--- NOTE | 2020-05-09 07:54 | PN_ITS ---
Subjective: The patient was seen and examined at the bedside this morning. Events from the last 24 hours have been reviewed. The patient was transferred from the PCU to the ICU this morning with plans for elective intubation to facilitate further cancer work-up, including colonoscopy and possible bronchoscopy. The patient appears in good spirits. I once again explained the plan to him, including the need for intubation to facilitate the aforementioned testing due to his tenuous respiratory status. I also explained in no uncertain terms that there is a possibility that the patient may be unable to be weaned from invasive mechanical ventilatory support. Despite this, the patient wishes to proceed. Bedside Intubation Indication: Respiratory failure Consent was obtained from: Patient The patient was placed in the appropriate sniffing position. Preoxygenated sedation via BVM was provided for a minimum of 3 minutes. The patient had continuous cardiac as well as pulse oximetry monitoring during the procedure. Procedure sedation was provided by the administration of 4 mg of Versed and 20 mg of etomidate. Direct laryngoscopy was then performed using a number 4 MAC blade, which revealed a grade 1 view. A 8.0 mm endotracheal tube was visualized advancing between the cords to the level of 24 cm at the lip. The stylette was then removed and discarded. Tube placement was confirmed by fogging in the tube along with equal and bilateral breath sounds. Colorimetric change was visualized on the CO2 meter. The cuff was then inflated and the tube secured using a commercially available device. A good pulse oximetry waveform was seen on the monitor throughout the procedure. A portable chest x-ray has been order ed to confirm appropriate placement. The patient tolerated the procedure well. Bedside Thoracentesis Indication: Pleural Effusion Consent was obtained from: Patient Ultrasonographic evaluation of the right lower pleural space was carried out. An adequate pocket was identified. The overlying skin was prepped and draped in sterile fashion. 1% lidocaine was administered subcutaneously for local anesthesia. Under ultrasound guidance, a 5 Mongolian thoracentesis needle/catheter system was advanced into the right lateral lower pleural fluid collection. Approximately 400 mL of bloody fluid was drained. The catheter was removed, and a sterile dressing was applied. Objective: The patient's most recent lab work, culture data and imaging studies have all been personally reviewed. Infectious work-up has been unrevealing to date. General: Alert, Oriented x3, Cooperative HEENT: Atraumatic, PERRLA, Normocephalic Oral: No Gingival or Mucosal Lesions/ Ulcerations Neck: Supple, No Nodes, Trachea Midline Lungs: No rhonchi, No wheeze, No rales, Diminished Cardiovascular: Regular rate, Regular Rhythm, Normal S1, Normal S2 Abdomen: Bowel Sounds Present, Soft, Non Tender, Obese Extremities: No clubbing, No cyanosis, No edema Skin: No breakdown Musculoskeletal: No Tenderness to Palpation of Joints or Extremities Lymphatic: No Cervical, Supraclavicular, or Inguinal Adenopathy Neurological: Cranial nerves II-XII grossly intact, Neuro grossly intact Psych/Mental Status: Alert and oriented to time, place, person, mood and affect Vital Signs Temp Pulse Resp BP Pulse Ox 97.3 F L 78 20 H 115/54 L 90 05/09/20 03:33 05/09/20 07:39 05/09/20 07:39 05/09/20 03:33 05/09/20 07:39 Oxygen Flow Rate (L/min) [4] 6 Oxygen Flow Rate (L/min) [3] 6 Oxygen Flow Rate (L/min) [2] 6 Oxygen Flow Rate (L/min) [1 ( 6 Initial Baseline)] Oxygen Flow Rate (L/min) [ 9 AMBULATION with Oxygen] Oxygen Flow Rate (L/min) 9 Oxygen Delivery Method [4] Room Air Oxygen Delivery Method [3] Nasal Cannula Oxygen Delivery Method [2] Room Air Oxygen Delivery Method [1 ( Room Air Initial Baseline)] Oxygen Delivery Method Nasal Cannula Weight: 231 lb 0.711 oz Body Mass Index (BMI) 31.8 Intake and Output for Last 24 Hours 05/07/20 05/08/20 05/09/20 23:59 23:59 23:59 Intake Total 880 / 880 3350 / 3350 0 / 0 Output Total 600 / 600 0 / 0 Balance 280 / 280 3350 / 3350 0 / 0 Labs (Last 48 Hours) 05/06/20 05/07/20 05/07/20 13:50 06:15 06:15 WBC RBC Hgb Hct MCV MCH MCHC RDW Std Deviation RDW Coeff of Eliecer Plt Count MPV Immature Gran % (Auto) Neut % (Auto) Lymph % (Auto) [place] % (Auto) Eos % (Auto) Baso % (Auto) Absolute Neuts (auto) Absolute Lymphs (auto) Nucleated RBC % PT INR APTT Sodium Potassium Chloride Carbon Dioxide Anion Gap BUN Creatinine Estim Creat Clear Calc Est GFR (MDRD) Af Amer Est GFR (MDRD) Non-Af BUN/Creatinine Ratio Glucose Calcium Iron 58 L TIBC 241 L Iron Saturation 24.1 Transferrin 186 Ferritin 188 Total Bilirubin Direct Bilirubin AST ALT Alkaline Phosphatase Total Protein Albumin Globulin TSH Fl Pathologist Comment Reviewed COVID-19 ([facility]) 05/07/20 05/07/20 05/08/20 19:36 19:36 05:36 WBC 13.1 H RBC 3.42 L Hgb 10.7 L Hct 33.0 L MCV 96.5 H MCH 31.3 MCHC 32.4 RDW Std Deviation 48.8 H RDW Coeff of Eliecer 13.8 Plt Count 166 MPV 9.5 Immature Gran % (Auto) 3.300 H Neut % (Auto) 73.3 H Lymph % (Auto) 11.8 L [place] % (Auto) 9.6 Eos % (Auto) 1.8 Baso % (Auto) 0.2 Absolute Neuts (auto) 9.6 H Absolute Lymphs (auto) 1.54 Nucleated RBC % 0 PT INR APTT Sodium Potassium Chloride Carbon Dioxide Anion Gap BUN Creatinine Estim Creat Clear Calc Est GFR (MDRD) Af Amer Est GFR (MDRD) Non-Af BUN/Creatinine Ratio Glucose Calcium Iron TIBC Iron Saturation Transferrin Ferritin Total Bilirubin Direct Bilirubin AST ALT Alkaline Phosphatase Total Protein Albumin Globulin TSH Fl Pathologist Comment COVID-19 ([facility]) Pending Pending 05/08/20 05/09/20 05/09/20 05:36 05:45 05:45 WBC 10.5 RBC 3.32 L Hgb 10.4 L Hct 32.0 L MCV 96.4 H MCH 31.3 MCHC 32.5 RDW Std Deviation 48.0 H RDW Coeff of Eliecer 13.8 Plt Count 152 MPV 9.3 Immature Gran % (Auto) 3.600 H Neut % (Auto) 71.3 H Lymph % (Auto) 12.3 L [place] % (Auto) 10.4 H Eos % (Auto) 2.1 Baso % (Auto) 0.3 Absolute Neuts (auto) 7.5 Absolute Lymphs (auto) 1.29 Nucleated RBC % 0 PT INR APTT Sodium 138 139 Potassium 3.4 L 3.3 L Chloride 102 102 Carbon Dioxide 28.0 31.0 Anion Gap 8 6 BUN 39 H 30 H Creatinine 1.55 H 1.48 H Estim Creat Clear Calc 43.81 45.88 Est GFR (MDRD) Af Amer 56 L 59 L Est GFR (MDRD) Non-Af 46 L 49 L BUN/Creatinine Ratio 25.2 H 20.3 H Glucose 128 H 93 Calcium 9.1 8.5 Iron TIBC Iron Saturation Transferrin Ferritin Total Bilirubin 0.40 Direct Bilirubin 0.16 AST 31 ALT 58 Alkaline Phosphatase 55 Total Protein 5.8 L Albumin 2.6 L Globulin 3.2 TSH Fl Pathologist Comment COVID-19 ([facility]) 05/09/20 05/09/20 05:45 05:45 WBC RBC Hgb Hct MCV MCH MCHC RDW Std Deviation RDW Coeff of Eliecer Plt Count MPV Immature Gran % (Auto) Neut % (Auto) Lymph % (Auto) [place] % (Auto) Eos % (Auto) Baso % (Auto) Absolute Neuts (auto) Absolute Lymphs (auto) Nucleated RBC % PT 13.3 INR 1.1 APTT 27.1 Sodium Potassium Chloride Carbon Dioxide Anion Gap BUN Creatinine Estim Creat Clear Calc Est GFR (MDRD) Af Amer Est GFR (MDRD) Non-Af BUN/Creatinine Ratio Glucose Calcium Iron TIBC Iron Saturation Transferrin Ferritin Total Bilirubin Pending Direct Bilirubin Pending AST Pending ALT Pending Alkaline Phosphatase Pending Total Protein Pending Albumin Pending Globulin TSH Pending Fl Pathologist Comment COVID-19 ([facility]) Microbiology 05/06/20 13:50 Fluid - Thoracentesis Fluid Gram Stain - Final 05/06/20 13:50 Fluid - Thoracentesis Fluid Body Fluid Culture - Preliminary No growth-Final to follow 05/06/20 13:50 Fluid - Thoracentesis Fluid Anaerobic Culture - Preliminary No growth in 48 hours. Clinical Impression(s) from Imaging Studies Chest X-Ray 04/25/20 13:38 IMPRESSION: Worsening of infiltrate of the mid and lower right lung. Worsening of small right pleural effusion. Atelectasis or infiltrate developing in the left lung base. Electronically Signed: Dale Mendoza MD at 14:27 EDT , Service support , Chest CT 04/25/20 17:20 IMPRESSION: Significant worsening. Moderate right pleural effusion. Almost complete consolidation of the right lower lobe. Prominent primarily interstitial infiltrate in the posterior segment of the right upper lobe. Cystic, nodular and interstitial changes in the posterior left lower lobe most consistent with inflammatory process. Electronically Signed: Dale Mendoza MD at 19:03 EDT , Service support , Thoracentesis Ultrasound 04/26/20 06:46 IMPRESSION: Ultrasound-guided right thoracentesis. Electronically Signed: Dereck Crum, at 14:57 EDT , Service support , Chest X-Ray 04/26/20 14:00 IMPRESSION: Status post right thoracentesis. No evidence of pneumothorax. Electronically Signed: Dereck Crum, at 14:41 EDT , Service support , Chest CT 04/27/20 07:14 IMPRESSION: 1. Essentially unchanged appearance to right lower lobe airspace consolidation possibly representing a pneumonia and pleural effusion. 2. Mild patchy left basilar airspace disease appears unchanged. 3. Hepatic cyst and left-sided pararenal cyst. Electronically Signed: Fernanda London MD at 9:46 EDT , Service support , Chest X-Ray 05/01/20 10:00 IMPRESSION: Significant change in the right hemithorax since the previous study with reaccumulation of a likely loculated right pleural effusion and development of airspace opacification the right infrahilar region. Follow-up recommended to assure resolution Left lung shows chronic interstitial changes without a superimposed acute pulmonary process Electronically Signed: Roverto Flores MD at 10:16 EDT , Service support , Thoracentesis Ultrasound 05/01/20 12:38 IMPRESSION: Successful sonographically guided thoracentesis Electronically Signed: Roverto Flores MD at 14:33 EDT , Service support , Chest X-Ray 05/01/20 13:50 IMPRESSION: No postprocedural pneumothorax Significant decrease in size of a previously noted right pleural effusion after thoracentesis small right pleural effusion remains. Previously noted opacification in the right cardiophrenic angle has decreased since the previous study and likely representing atelectasis Left lung is free of a superimposed acute process Electronically Signed: Roverto Flores MD at 14:30 EDT , Service support , Abdomen/Pelvis CT 05/01/20 15:43 IMPRESSION: Right pleural effusion associated with dependent consolidation within the lung base most pronounced within the right lower lobe. Colonic diverticulosis. Moderate amount of stool throughout the colon. Bilateral renal cysts. Indeterminate 9 mm rounded focus arising from the right kidney that likely reflects a proteinaceous cyst. Scattered tree-in-bud opacities within the left lower lobe. Atherosclerosis. Electronically Signed: Michell Kim MD at 19:14 EDT Tel , Service support , Chest X-Ray 05/02/20 07:40 IMPRESSION: Stable loculated right pleural effusion Slight increase in airspace opacification in the inferior half of the right lung since the previous study Left lung is free of a superimposed process and shows no change since the previous study Degenerative bony changes Electronically Signed: Roverto Flores MD at 9:48 EDT , Service support , Chest CTA 05/02/20 11:17 IMPRESSION: No demonstrated PE, or thoracic aortic aneurysm or dissection Prominent loculated right pleural effusions with associated atelectasis Tree in bud opacifications in the left lung base consistent with small airways inflammation. There are subcentimeter noncalcified nodules in the left lung base as well suspicious for metastasis. Calcified coronary vessels Degenerative bony changes Electronically Signed: Roverto Flores MD at 12:38 EDT , Service support , Chest X-Ray 05/06/20 05:55 IMPRESSION: Increasing right pleural effusion with underlying infiltration and/or atelectasis. Electronically Signed: Dereck Crum, at 8:42 EDT , Service support , Thoracentesis Ultrasound 05/06/20 09:27 IMPRESSION: Ultrasound-guided right thoracentesis. Electronically Signed: Dereck Crum, at 14:30 EDT , Service support , Chest X-Ray 05/06/20 14:00 IMPRESSION: Status post right thoracentesis. Residual pleural parenchymal changes at the right lung base. Electronically Signed: Dereck Crum, at 15:31 EDT , Service support , Medical Necessity - Tobacco Use Smoking Status: Former smoker Assessment/Plan All Active Problems (Last Reviewed 04/25/20 @ 17:[address] Margarita Higginbotham, DO) Malignant pleural effusion (Acute) Sepsis (Acute) Acute and chronic respiratory failure (Acute) Community acquired pneumonia (Acute) SOB (shortness of breath) (Acute) Carcinoma of unknown primary (Acute) RECOMMENDATIONS: 1. Proceed with elective intubation to facilitate further diagnostic work-up including colonoscopy and bronchoscopy. 2. We will perform bedside thoracentesis. 3. Upon completion of lower endoscopy and bronchoscopy, will attempt to extubate patient. 4. Continue scheduled bronchodilators and steroids. 5. Depending on the patient's clinical course, he may require transfer for thoracic surgery evaluation and possible pleurodesis. IMPRESSIONS: 1. Acute on chronic hypoxemic respiratory failure Appears to be secondary to malignant pleural effusion. The effusion itself is recurrent in nature and has required multiple thoracenteses during this hospital admission. It is unclear whether the patient's malignancy is of GI or lung primary. The patient's hypoxemia has limited the ability of surgery to complete a lower endoscopic work-up. Therefore, in order to facilitate further cancer work-up, the patient was moved to the intensive care unit where he underwent elective intubation. There are plans for bronchoscopy to be performed if the patient's lower endoscopic work-up is unrevealing. In addition, bedside thoracentesis will be completed. At the conclusion of his diagnostic work-up, the patient will be placed on a spontaneous breathing trial in hopes of being liberated from invasive mechanical ventilatory support. 2. History of obstructive sleep apnea Continue nocturnal Pap therapy as ordered. 3. Heart failure with preserved ejection fraction The patient does not appear overtly volume overloaded at this time. Continue outpatient medication regimen. 4. Obesity/hyperlipidemia/GERD/allergic rhinitis/hypertension/chronic steroid dependency Complicates care, management, recovery and prognosis. Continue home medications as indicated. The patient will need to resume his baseline 10 mg prednisone dose on a daily basis upon discharge from the hospital. UPDATE: Following the completion of the patient's procedures, all forms of sedation were discontinued. The patient was then placed on a spontaneous breathing trial, which she completed without complication. I reevaluated the patient at 2 PM, at which time, the patient was alert, appropriately interactive and able to follow commands. Therefore, under my direct supervision, he was extubated to nasal cannula supplemental oxygen. If the patient does well from a respiratory perspective over the next 2 to 3 hours, he can be transferred back to the PCU. TIME: 82 minutes of critical care time, inclusive of bedside procedures, was spent addressing the patient's acute on chronic respiratory failure, recurrent pleural effusion, malignancy of unclear primary, heart failure with preserved ejection fraction, review of all data and collaboration with the care team. ([id number]) Procedures: 51240 Critial Care Addl 30 Min 9xxxx: [id number] Critical care first hour
[2020-05-09] MEDS: Potassium Chloride 10mEq/100mL 10 MEQ/100 ML IV.SOLN. 100 MEQ IV BOLUS ×4 (09:43→13:07)
[2020-05-09 09:47] LABS: AST(SGOT) 25 U/L (15-37); Alanine Aminotransfer ALT/SGPT 54 U/L (16-61); Albumin, Serum 2.6 g/dL (3.2-5.0); Alkaline Phosphatase 49 U/L (45-117); Bilirubin, Direct 0.21 mg/dL (0.00-0.30); Protein, Total 5.6 g/dL (6.4-8.2); Thyroid Stim Hormone (TSH) 1.95 uIU/mL (0.358-3.74)
[2020-05-09] MEDS: Midazolam 2 MG/2 ML Syringe 4 MG IV (10:05)
[2020-05-09] MEDS: Etomidate 20 MG/10 ML Vial IV (10:05)
[2020-05-09] MEDS: Propofol 10MG/Ml 1,000 MG/100 ML Bottle 6.3 MG CONT INF (10:15)
--- NOTE | 2020-05-09 10:15 | EGD_PTH ---
PATIENT: THERESA HALL LOC: PCU U#:[id number] AGE/SX: 75/M ROOM: [facility] RE04/25/[address]: Dr. Enmanuel Spencer MD : 1945 BED: 1 DIS: 05/10/2020 SPEC #: [id number] RECD: 05/09/20 13:18 STATUS: FRED REQ #: [id number] SILVA: 05/09/20 10:[address]: Wayne Boogie DEPT: SURGICAL PATHOLOGY RECD BY: Daniel Lane ENTERED: 05/13/20 09:33 SP TYPE: EGD BIOPSY [facility] DR: DO Dr. Hung Rojas MD Dr. Kathryn Lee, DO Dr. Mansour Isckarus, MD Dr. Prakash Chand, MD Tissues: Descending colon Procedures: Surgery Specimen Level IV HEADER OPERATION: EGD (MAC) PRE-OP DIAGNOSIS: Find primary source of cancer TISSUE SUBMITTED: Descending colon polyp MICROSCOPIC DIAGNOSIS Descending colon polyp, biopsy: Fragments of tubular adenoma. Fragments of fecal material. Negative for malignancy. See comment. ADRIANA:ulices 05/14/20 COMMENT Please make reference to corresponding cytology specimen ([id number]) bronchoscopy fluid for cytology with diagnosis of malignant cells present derived from non-small cell carcinoma, favor adenocarcinoma. 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 MICROSCOPIC DESCRIPTION Slides are reviewed. GROSS DESCRIPTION Received in fixative is one container labeled with the patient's name and designated descending colon polyp. The specimen consists of multiple irregular fragments of escamilla soft tissue mixed with fecal material that in aggregate measure 2 x 0.5 x 0.1 cm. The specimen is totally submitted in one cassette. / ADRIANA:ulices 05/13/20 TC:1 CPT: 23865
--- NOTE | 2020-05-09 10:15 | RAD_ITS ---
STUDY: X-RAY CHEST REASON FOR EXAM: Male, 75 years old. INTUBATION TECHNIQUE: Single AP portable view of the chest. COMPARISON: Comparison is made with prior examination dated May 06, 2020. FINDINGS: An endotracheal tube has been placed. The tip is at 5.3 cm proximal to the melony. EKG electrodes are seen. There now is evidence of a moderate-sized right pleural effusion with underlying infiltration and/or atelectasis. Blunting of the left costophrenic angle. Normal size heart. Normal mediastinum and rick. Normal visualized pulmonary arteries. There is atherosclerotic calcification of the aortic arch with tortuosity. There are diffuse degenerative changes of the visualized thoracic spine. Normal visualized ribs, clavicles, and shoulders. There is no demonstrated abnormality of the visualized soft tissue structures of the upper abdomen. RAD/Chest 1 View (Portable) IMPRESSION: The tip of the endotracheal tube is at 5.3 cm proximal to the melony. Progressive right pleural effusion with underlying infiltration and/or atelectasis. Electronically Signed: Dereck Crum, at 10:50 EDT , Service support ,
--- NOTE | 2020-05-09 11:25 | RAD_ITS ---
STUDY: X-RAY CHEST REASON FOR EXAM: Male, 75 years old. POST THORACENTESIS TECHNIQUE: Single frontal view of the chest. COMPARISON: May 09, 2020. FINDINGS: Endotracheal tube tip is in the midthoracic trachea. Similar-appearing large right effusion and patchy airspace opacity. Left lung is grossly clear. No definite large pneumothorax. Cardiac silhouette prominent. Pulmonary vascularity unremarkable. Aorta atherosclerotic. Upper abdomen unremarkable. Osseous structures intact. RAD/Chest 1 View (Portable) IMPRESSION: Similar-appearing large right effusion and pulmonary parenchymal opacity. Pneumonia should be excluded clinically. No large right pneumothorax is identified. Electronically Signed: Alvino Sanchez, at 12:50 EDT Tel , Service support ,
[2020-05-09 11:40] LABS: Base Excess 5 mmol/L (-2 to +2); Bicarbonate 29.2 mmol/L (22-26); PO2 66 mmHG (75-100); SO2 93 % (95-99); Total Carbon Dioxide 31 mmol/L; pCO2 43.6 mmHg (35-45); pH 7.43 (7.35-7.45)
--- NOTE | 2020-05-09 11:45 | NURSING ---
Endo on floor for colonoscopy and bronchoscopy
[2020-05-09] MEDS: Propofol 10MG/Ml 1,000 MG/100 ML Bottle 25.2 MG CONT INF (12:25)
--- NOTE | 2020-05-09 12:42 | OP.COLON_ITS ---
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 Complications: No immediate complications. Procedure: Pre-Anesthesia Assessment: - Prior to the procedure, a History and Physical was performed, and patient medications and allergies were reviewed. The patient's tolerance of previous anesthesia was also reviewed. The risks and benefits of the procedure and the sedation options and risks were discussed with the patient. All questions were answered, and informed consent was obtained. Prior Anticoagulants: The patient has taken no previous anticoagulant or antiplatelet agents. After reviewing the risks and benefits, the patient was deemed in satisfactory condition to undergo the procedure. After I obtained informed consent, the scope was passed under direct vision. Throughout the procedure, the patient's blood pressure, pulse, and oxygen saturations were monitored continuously. The Colonoscope was introduced through the anus and advanced to the cecum, identified by appendiceal orifice and ileocecal valve. The colonoscopy was performed without difficulty. The patient tolerated the procedure well. The quality of the bowel preparation was good. Scope In: 11:48:33 AM Scope Withdrawal Time 0 hours 6 minutes 58 seconds Scope Out: 12:05:35 PM Total Procedure Duration Time 0 hours 17 minutes 2 seconds Findings: A polyp was found in the descending colon. The polyp was removed with a hot snare. Resection and retrieval were complete. The exam was otherwise without abnormality on direct and retroflexion views. Impression: - One polyp in the descending colon, removed with a hot snare. Resected and retrieved. - The examination was otherwise normal on direct and retroflexion views. Recommendation: - Return patient to ICU for ongoing care. - Advance diet as tolerated. - Continue present medications. - Repeat colonoscopy is not recommended due to current age (66 years or older) for screening purposes. Procedure Code(s): --- Professional --- 66259, Colonoscopy, flexible; with removal of tumor(s), polyp(s), or other lesion(s) by snare technique Diagnosis Code(s): --- Professional --- D12.4, Benign neoplasm of descending colon CPT copyright 2017 [employer]. All rights reserved. The codes documented in this report are preliminary and upon remote inpatient coder review may be revised to meet current compliance requirements. Wayne Boogie MD 05/09/2020 12:41:40 PM This report has been signed electronically. Number of Addenda: 0 Note Initiated On: 05/09/2020 11:42 AM
--- NOTE | 2020-05-09 12:42 | OP.CCLET_ITS ---
05/09/2020 Hung Hummel [address] [place] [address] Re : Colonoscopy procedure for Jens Mendoza Dear Dr. Hummel This procedure was performed on May. My impressions and recommendations are as follows: Impressions : - One polyp in the descending colon, removed with a hot snare. Resected and retrieved. - The examination was otherwise normal on direct and retroflexion views. Recommendations : - Return patient to ICU for ongoing care. - Advance diet as tolerated. - Continue present medications. - Repeat colonoscopy is not recommended due to current age (66 years or older) for screening purposes. My findings are described in the full procedure note, which is enclosed. If I can be of further assistance, please feel free to contact me at Doctor phone number(s): , Work: . Sincerely, Wayne Boogie MD 05/09/2020 12:41:40 PM This report has been signed electronically.
--- NOTE | 2020-05-09 12:45 | OP.BRONCH_ITS ---
Patient Name: Jens Mendoza Procedure Date: 05/09/2020 12:10 PM Date of : 1945 Age: 75 Procedure: Bronchoscopy Indications: Lung mass suspicious for cancer Providers: Russell An MD Requesting Physician: Loretta Martinez Medicines: Monitored Anesthesia Care Complications: No immediate complications Procedure: Pre-Anesthesia Assessment: - A History and Physical has been performed. Patient meds and allergies have been reviewed. The risks and benefits of the procedure and the sedation options and risks were discussed with the patient. All questions were answered and informed consent was obtained. Patient identification and proposed procedure were verified prior to the procedure by the physician and the nurse in the procedure room. Mental Status Examination: sedated. Airway Examination: orotracheal intubation. Respiratory Examination: poor air movement. CV Examination: normal. ASA Grade Assessment: III - A patient with severe systemic disease. After reviewing the risks and benefits, the patient was deemed in satisfactory condition to undergo the procedure. The anesthesia plan was to use monitored anesthesia care (MAC). Immediately prior to administration of medications, the patient was re-assessed for adequacy to receive sedatives. The heart rate, respiratory rate, oxygen saturations, blood pressure, adequacy of pulmonary ventilation, and response to care were monitored throughout the procedure. The physical status of the patient was re-assessed after the procedure. After I obtained informed consent, the scope was passed under direct vision. Throughout the procedure, the patient's blood pressure, pulse, and oxygen saturations were monitored continuously. The bronchoscope was introduced through the mouth, via the endotracheal tube (the patient was intubated for the procedure) and advanced to the tracheobronchial tree. The procedure was accomplished without difficulty. The patient tolerated the procedure well. Findings: The endotracheal tube is in good position. The visualized portion of the trachea is of normal caliber. The melony is sharp. The tracheobronchial tree was examined to at least the first subsegmental level. Bronchial mucosa and anatomy are normal; there are no endobronchial lesions, and no secretions. 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 BAL was performed in the RLL lateral basal segment (B9) of the lung and sent for cell count, bacterial culture, viral smears & culture, and fungal & AFB analysis and cytology. 80 mL of fluid were instilled. 40 mL were returned. The return was cloudy. There were no mucoid plugs in the return fluid. Impression: - The airway examination was normal. - Bronchomalacia was visualized throughout the tracheobronchial tree. - Bronchoalveolar lavage was performed. Recommendation: - Await BAL and cytology results. Procedure Code(s): --- Professional --- 78416, Bronchoscopy, rigid or flexible, including fluoroscopic guidance, when performed; with bronchial alveolar lavage Diagnosis Code(s): --- Professional --- R91.8, Other nonspecific abnormal finding of lung field J98.09, Other diseases of bronchus, not elsewhere classified CPT copyright 2017 [employer]. All rights reserved. The codes documented in this report are preliminary and upon dye colorist formulator review may be revised to meet current compliance requirements. DO Russell Nguyễn MD 05/09/2020 12:44:35 PM This report has been signed electronically. Number of Addenda: 0 Note Initiated On: 05/09/2020 12:10 PM
--- NOTE | 2020-05-09 12:53 | SUR.OPER ---
DM GARCIA AND DR. ESQUIVEL AT BEDSIDE.
--- NOTE | 2020-05-09 12:54 | SUR.OPER ---
DM GARCIA AND DR. ESQUIVEL AT BEDSIDE.
--- NOTE | 2020-05-09 13:04 | SUR.OPER ---
DM GARCIA AND DR. ESQUIVEL AT BEDSIDE.
[2020-05-09] MEDS: Lidocaine 2% Jelly 1 APPLIC Tube TOPICAL (13:20)
[2020-05-09 13:25] LABS: Cytology, Body Fluid / CSF SEE PATHOLOGY REPORT
--- NOTE | 2020-05-09 14:14 | PCM.PN.HOSP ---
Patient Problems: Active and Suspected Problems (Last Reviewed 04/25/20 @ 17:[address] Margarita Higginbotham, DO) Sepsis (Acute) Acute and chronic respiratory failure (Acute) Community acquired pneumonia (Acute) SOB (shortness of breath) (Acute) Carcinoma of unknown primary (Acute) Reason for Visit: Multiple problems including recurrent malignant pleural effusion Had colonoscopy and bronchoscopy today. Objective: Patient is still on 9 to 10 L of oxygen per minute. The patient was intubated for colonoscopy and bronchoscopy procedures and then extubated. Seen in ICU. General: Alert, Oriented x3, Cooperative HEENT: Atraumatic, PERRLA, EOMI, Normocephalic Neck: Supple, No JVD, Negative Carotid Bruits Lungs: Air entry decreased in right posterior chest. Dyspnea on mild exertion, right-sided pleural effusion. No crepitation. Patient had repeat thoracocentesis bedside about 400 mL bloody fluid was drained. Patient was intubated for procedure and then extubated. Cardiovascular: Regular rate, Regular Rhythm, Normal S1, Normal S2, No murmurs Abdomen: Bowel Sounds Present, Soft, Non Tender, Non-Distended Extremities: No edema, Capillary Refill Less than 3 Seconds Skin: No rashes, No breakdown Musculoskeletal: No Tenderness to Palpation of Joints or Extremities, Arthritic Changes Neurological: Cranial nerves II-XII grossly intact, Deep Tendon Reflexes 2+/4 and Symmetrical, Neuro grossly intact Psych/Mental Status: Normal Affect, Appropriate Vitals/I&O's: Vital Signs Temp Pulse Resp BP Pulse Ox 98.7 F 84 16 136/68 H 94 05/09/20 12:00 05/09/20 13:15 05/09/20 13:25 05/09/20 13:15 05/09/20 13:15 Oxygen Flow Rate (L/min) [4] 6 Oxygen Flow Rate (L/min) [3] 6 Oxygen Flow Rate (L/min) [2] 6 Oxygen Flow Rate (L/min) [1 ( 6 Initial Baseline)] Oxygen Flow Rate (L/min) [ 9 AMBULATION with Oxygen] Oxygen Flow Rate (L/min) 9 Oxygen Delivery Method [4] Room Air Oxygen Delivery Method [3] Nasal Cannula Oxygen Delivery Method [2] Room Air Oxygen Delivery Method [1 ( Room Air Initial Baseline)] Oxygen Delivery Method Mechanical Ventilator Weight: 231 lb 0.711 oz Body Mass Index (BMI) 31.3 Intake and Output for Last 24 Hours 05/07/20 05/08/20 05/09/20 23:59 23:59 23:59 Intake Total 880 / 880 3350 / 3350 363.10 / 363.10 Output Total 600 / 600 400 / 400 Balance 280 / 280 3350 / 3350 -36.90 / -36.90 Microbiology Past 72 Hours 05/06/20 13:50 Fluid - Thoracentesis Fluid Gram Stain - Final 05/06/20 13:50 Fluid - Thoracentesis Fluid Body Fluid Culture - Preliminary No growth-Final to follow 05/06/20 13:50 Fluid - Thoracentesis Fluid Anaerobic Culture - Preliminary No growth in 48 hours. Laboratory Results 05/07/20 06:15: Transferrin 186 05/09/20 05:45: WBC 10.5, RBC 3.32 L, Hgb 10.4 L, Hct 32.0 L, MCV 96.4 H, MCH 31.3, MCHC 32.5, RDW Std Deviation 48.0 H, RDW Coeff of Eliecer 13.8, Plt Count 152, MPV 9.3, Immature Gran % (Auto) 3.600 H, Neut % (Auto) 71.3 H, Lymph % (Auto) 12.3 L, [place] % (Auto) 10.4 H, Eos % (Auto) 2.1, Baso % (Auto) 0.3, Absolute Neuts (auto) 7.5, Absolute Lymphs (auto) 1.29, Nucleated RBC % 0 05/09/20 05:45: Sodium 139, Potassium 3.3 L, Chloride 102, Carbon Dioxide 31.0, Anion Gap 6, BUN 30 H, Creatinine 1.48 H, Estim Creat Clear Calc 45.88, Est GFR (MDRD) Af Amer 59 L, Est GFR (MDRD) Non-Af 49 L, BUN/Creatinine Ratio 20.3 H, Glucose 93, Calcium 8.5 05/09/20 05:45: PT 13.3, INR 1.1, APTT 27.1 05/09/20 05:45: Total Bilirubin 0.50, Direct Bilirubin 0.21, AST 25, ALT 54, Alkaline Phosphatase 49, Total Protein 5.6 L, Albumin 2.6 L, Globulin 3.0, TSH 1.95 05/09/20 08:32: COVID-19 ([facility]) Not Detected 05/09/20 08:40: COVID-19 ([facility]) Cancelled 05/09/20 11:18: pH 7.43, Bicarbonate Actual 29.2 H, POC Total CO2 31, Base Excess 5 H, O2 Saturation 93 L, ABG pCO2 43.6, ABG pO2 66 L 05/09/20 13:24: Miscellaneous Cytology Pending Current Medications Acetaminophen (Tylenol) 650 mg PO Q6H PRN PRN PRN Reason: Pain Score 1-10/Temp > 100.7 F Last Admin: 05/08/20 06:49 Dose: 650 mg Documented by: Albuterol Sulfate (Ventolin Aerosols) 2.5 mg INHALATION Q2H PRN PRN PRN Reason: SOB/Wheezing Albuterol/Ipratropium (Duoneb) 3 ml INHALATION Q4H.RT [facility] Last Admin: 05/09/20 10:24 Dose: 3 ml Documented by: Amlodipine Besylate (Norvasc) 5 mg PO DAILY@2200 [facility] Last Admin: 05/08/20 21:32 Dose: 5 mg Documented by: Atorvastatin Calcium (Lipitor) 10 mg PO QHS [facility] Last Admin: 05/08/20 21:31 Dose: 10 mg Documented by: Azelastine HCl (Astelin) 1 spray NASAL DAILY [facility] Last Admin: 05/08/20 09:06 Dose: 1 spray Documented by: Dextrose (D50w Syringe) 0 gm IV X1 PRN; Protocol PRN Reason: Hypoglycemia Enoxaparin Sodium (Lovenox) 40 mg SC DAILY [facility] Last Admin: 05/08/20 09:09 Dose: 40 mg Documented by: Fluticasone Propionate (Flonase Nasal [place]) 2 spray NASAL QHS [facility] Last Admin: 05/08/20 21:31 Dose: Not Given Documented by: Glucagon () 1 mg IM .X1 PRN PRN Reason: Hypoglycemia Magnesium Oxide (Mag-Ox 400) 400 mg PO DAILY [facility] Last Admin: 05/08/20 09:06 Dose: 400 mg Documented by: Mesalamine (Lialda) 1.2 gm PO BID [facility] Last Admin: 05/08/20 21:31 Dose: 1.2 gm Documented by: Metoprolol Succinate (Toprol Xl (Beta Sukhi)) 100 mg PO DAILY [facility] Last Admin: 05/08/20 09:08 Dose: 100 mg Documented by: Montelukast Sodium (Singulair) 10 mg PO DAILY [facility] Last Admin: 05/08/20 09:07 Dose: 10 mg Documented by: Pantoprazole Sodium (Protonix) 20 mg PO DAILY [facility] Last Admin: 05/08/20 09:06 Dose: 20 mg Documented by: Polyethylene Glycol (Miralax) 17 gm PO DAILY [facility] Last Admin: 05/08/20 09:09 Dose: Not Given Documented by: Prednisone () 40 mg PO DAILY@0800 [facility] Last Admin: 05/08/20 08:52 Dose: 40 mg Documented by: Sertraline HCl (Zoloft) 100 mg PO DAILY [facility] Last Admin: 05/08/20 09:06 Dose: 100 mg Documented by: Sodium Chloride () 10 - 40 ml IV UD PRN PRN Reason: SALINE FLUSH Last Admin: 05/08/20 17:05 Dose: 10 ml Documented by: Sodium Chloride ([place] Nasal [place]) 2 spray NASAL TID PRN PRN PRN Reason: NASAL DRYNESS Last Admin: 05/01/20 21:42 Dose: 2 spray Documented by: Tamsulosin HCl (Flomax) 0.4 mg PO 2200 [facility] Last Admin: 05/08/20 21:31 Dose: 0.4 mg Documented by: Throat Lozenges (Cepacol Sore Throat Lozenge) 1 lozenge MUCOUS MEM Q2H PRN PRN PRN Reason: SORE THROAT Last Admin: 05/02/20 12:55 Dose: 1 lozenge Documented by: STROKE Vital Signs/Narrative: Vital Signs Temp Pulse Resp BP BP Pulse Ox 05/09/20 13:25 16 05/09/20 13:15 84 15 136/68 H 94 05/09/20 13:00 95 25 H 145/69 H 93 05/09/20 12:45 82 15 120/62 92 05/09/20 12:30 81 21 H 112/65 92 05/09/20 12:25 74 17 111/56 L 95 05/09/20 12:20 93 20 H 135/64 H 95 05/09/20 12:15 92 15 98/54 L 92 05/09/20 12:10 73 18 98/57 L 94 05/09/20 12:05 70 14 93/53 L 94 05/09/20 12:00 98.7 F 69 14 99/57 L 96 05/09/20 11:55 70 22 H 95/57 L 98 05/09/20 11:50 74 14 111/61 97 05/09/20 11:00 74 83 H 108/55 L 93 05/09/20 10:45 81 19 H 127/61 H 94 05/09/20 10:30 81 19 H 121/63 H 94 05/09/20 10:29 78 25 H 93 05/09/20 10:25 82 17 117/61 94 05/09/20 10:15 75 19 H 114/59 L 92 Medical Necessity - Tobacco Use Smoking Status: Former smoker Assessment/Plan All Active Problems (Last Reviewed 04/25/20 @ 17:[address] Margarita Higginbotham, DO) Malignant pleural effusion (Acute) Sepsis (Acute) Acute and chronic respiratory failure (Acute) Community acquired pneumonia (Acute) SOB (shortness of breath) (Acute) Carcinoma of unknown primary (Acute) This is a 75-year-old male with history of severe COPD, bronchiectasis with bronchomalacia, shortness sleep apnea on home BiPAP, chronic hypoxic respiratory failure on 2 L of oxygen and home BiPAP and vest therapy admitted with worsening of shortness of breath, nonproductive cough and decreasing functional capacity. 1. Acute on chronic hypoxic respiratory failure secondary to pneumonia, moderate malignant pleural effusion, COPD/bronchiectasis exacerbation: Patient was admitted in ICU on 6 L of oxygen, increased from 3 L of baseline requirement and increased to 9 L but currently on 6 L of oxygen. Significant dyspnea on mild exertion. Solu-Medrol changed to prednisone. Continue bronchodilator, incentive spirometry and pep. On BiPAP during naps and night. CT chest and chest x-ray shows moderate right pleural effusion, right lower lobe consolidation with underlying atelectasis, interstitial, cystic and nodular progression mainly in right upper lung. 05/05: Slight improvement in oxygenation. On exam, it seems there is increase in the right lower pleural effusion. 05/06: Worsening shortness of breath and hypoxia secondary to early filling of right pleural effusion. Chest x-ray reviewed with waiter/waitress head. Pleural effusion tracking up to right lateral chest wall. Patient has exudative recurrent pleural effusion due to malignancy. Had repeat thoracocentesis of 700 mL bloody fluid drained. Cell count shows 80% polynuclear and 20% mononuclear. Fluid culture ordered. 05/07: Cell count shows total 2811 WBC, 80% polymorphs and 20% mononuclear cells. Neutrophils 83, lymphocyte 8, monocytes 6. Pathologist review shows malignant cells, bloody specimen. Discussed with oncologist. 05/08: At the family discussion about 1:30 PM on 05/07, oncologist and family member agreed for proceeding for colonoscopy and bronchoscopy to look for primary for signet ring cells. Then possible pleurodesis with talc powder most probably in tertiary care center. They refused for hospice care for now. Plan: Transfer to ICU tomorrow a.m. for colonoscopy and then bronchoscopy if needed depending on result of colonoscopy. 05/09: Colonoscopy showed 1 polyp in descending colon which was removed with hot snare. Repeat colonoscopy not recommended due to advanced age for screening purposes. Bronchoscopy showed bronchomalacia throughout the tracheobronchial tree. BAL was done and sent for culture and cytology. Had 400 mL of thoracocentesis bloody nature was drained from right lung. Gram stain of BAL shows no organism. 2. Severe sepsis (tachypnea, hypoxia, increased creatinine and lactic acidosis 2.4) most probably from right lower lobe pneumonia: On IV cefepime and vancomycin. Urinary antigens are negative. Respiratory panel negative. Blood cultures x2 are negative for more than 5 days. 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 COVID-19 PCR negative and MRSA nasal screen negative. Repeat lactic acid normal. Blood pressure is controlled. 05/06: No fever. Blood pressure is good. 05/07: Antibiotics cefepime and vancomycin discontinued on 05/02. Infectious work-up came back negative except sputum culture shows presumptive Reba albicans which may be colonization. 05/09: Leukocytosis resolving 3. SWATI secondary to diuretic on baseline CKD G3 stage during hospital stay: Patient baseline creatinine is around 1.2 to 1.4 with estimated clearance about 52 mL/min. Patient was admitted with creatinine 1.33. Creatinine went up to 1.92 due to diuretic. Hold diuretic. Hold indapamide and losartan. Mild hypokalemia, potassium being replaced 05/06: Improvement in creatinine profile. 05/07: BUN/creatinine still elevated. Lasix on hold. 05/08: Lasix resumed. 05/09: Mild hypokalemia: Potassium replaced. 4. Pulmonary conditions: COPD and bronchiectasis exacerbation, diffuse bronchomalacia, obstructive sleep apnea on BiPAP and right moderate malignant pleural effusion: Patient has BiPAP machine. Patient had thoracocentesis which showed signet ring cells suggestive of NSCLC favor adenocarcinoma. General surgery was consulted for EGD and colonoscopy for signet cell adenocarcinoma generally a GI primary. Had EGD on 05/03/2020 and reported normal with no signs of malignancy. 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 05/06: Discussed with oncologist. 05/08: Pleural fluid no growth for last 48 hours. Pleural fluid cell count 83% neutrophils, 8% lymphocytes, 6% monocytes. 5. Hypothyroidism and history of colitis: TSH low at 0.25. Free T4 normal. Most probably, TSH low secondary to euthyroid sick syndrome. 6. Chronic heart failure with preserved EF: Patient does not have edema/fluid overload. Other comorbidities include hypertension, dyslipidemia, GERD and history of colitis: Home medication reconciliation done. 7. DVT prophylaxis: On Lovenox 40 mg subcu daily. Total time of the visit including total time spent in counseling or coordination of care, (more than 50% of the total time, spent in obtaining medical information from nurses and other ancillary care providers), discussion with clinical documentation consultant, review of labs and imaging is 30 minutes Microbiology Past 72 Hours Microbiology Past 72 Hours 05/09/20 13:33 Bronchial Lavage - Right Lower Lobe Gram Stain - Final 05/06/20 13:50 Fluid - Thoracentesis Fluid Gram Stain - Final 05/06/20 13:50 Fluid - Thoracentesis Fluid Body Fluid Culture - Preliminary No growth-Final to follow 05/06/20 13:50 Fluid - Thoracentesis Fluid Anaerobic Culture - Preliminary No growth in 48 hours. Laboratory Results 05/07/20 06:15: Transferrin 186 05/09/20 05:45: WBC 10.5, RBC 3.32 L, Hgb 10.4 L, Hct 32.0 L, MCV 96.4 H, MCH 31.3, MCHC 32.5, RDW Std Deviation 48.0 H, RDW Coeff of Eliecer 13.8, Plt Count 152, MPV 9.3, Immature Gran % (Auto) 3.600 H, Neut % (Auto) 71.3 H, Lymph % (Auto) 12.3 L, [place] % (Auto) 10.4 H, Eos % (Auto) 2.1, Baso % (Auto) 0.3, Absolute Neuts (auto) 7.5, Absolute Lymphs (auto) 1.29, Nucleated RBC % 0 05/09/20 05:45: Sodium 139, Potassium 3.3 L, Chloride 102, Carbon Dioxide 31.0, Anion Gap 6, BUN 30 H, Creatinine 1.48 H, Estim Creat Clear Calc 45.88, Est GFR (MDRD) Af Amer 59 L, Est GFR (MDRD) Non-Af 49 L, BUN/Creatinine Ratio 20.3 H, Glucose 93, Calcium 8.5 05/09/20 05:45: PT 13.3, INR 1.1, APTT 27.1 05/09/20 05:45: Total Bilirubin 0.50, Direct Bilirubin 0.21, AST 25, ALT 54, Alkaline Phosphatase 49, Total Protein 5.6 L, Albumin 2.6 L, Globulin 3.0, TSH 1.95 05/09/20 08:32: COVID-19 ([facility]) Not Detected 05/09/20 08:40: COVID-19 ([facility]) Cancelled 05/09/20 11:18: pH 7.43, Bicarbonate Actual 29.2 H, POC Total CO2 31, Base Excess 5 H, O2 Saturation 93 L, ABG pCO2 43.6, ABG pO2 66 L 05/09/20 13:24: Miscellaneous Cytology Pending Chest X-Ray 04/25/20 13:38 IMPRESSION: Worsening of infiltrate of the mid and lower right lung. Worsening of small right pleural effusion. Atelectasis or infiltrate developing in the left lung base. Chest CT 04/25/20 17:20 IMPRESSION: Significant worsening. Moderate right pleural effusion. Almost complete consolidation of the right lower lobe. Prominent primarily interstitial infiltrate in the posterior segment of the right upper lobe. Cystic, nodular and interstitial changes in the posterior left lower lobe most consistent with inflammatory process. Inpatient E&M: 52620 Subs Hosp L3
[2020-05-09] MEDS: Mesalamine 1.2 GM Tablet PO ×2 (15:10→22:45)
[2020-05-09] MEDS: Sertraline 100 MG Tablet PO (15:10)
[2020-05-09] MEDS: Montelukast 10 MG Tablet PO (15:10)
[2020-05-09] MEDS: Acetaminophen 325 MG Tablet 650 MG PO (15:10)
[2020-05-09] MEDS: predniSONE 20 MG Tablet 40 MG PO (15:10)
[2020-05-09] MEDS: Magnesium Oxide 400 MG Tablet PO (15:11)
[2020-05-09] MEDS: Pantoprazole Sodium 20 MG Tablet PO (15:11)
[2020-05-09] MEDS: Metoprolol(XL)Succ 100 MG Tablet PO (15:12)
[2020-05-09 18:16] LABS: Blood Gas Specimen Type ART
[2020-05-09 18:17] LABS: Allen Test POS; FI02 30; Mode A-C; O2 Delivery Device Vent; PEEP 5; RR 14; SITE L RADIAL; Vt 450
[2020-05-09] MEDS: Tamsulosin HCl 0.4 MG Capsule PO (22:44)
[2020-05-09] MEDS: Atorvastatin Calcium 10 MG Tablet PO (22:45)
[2020-05-09] MEDS: amLODIPine 5 MG Tablet PO (22:45)
[2020-05-10] VITALS (11 sets, daily range): BP systolic 123–145; BP diastolic 55–71; PULSE 74–88; RESP 15–20; TEMP 36.4–36.9; O2SAT 92–96
[2020-05-10] MEDS: Ipratropium/Albuterol Sulfate 3 ML AMPUL.NEB INHALATION ×4 (02:38→15:02)
[2020-05-10] MEDS: Acetaminophen 325 MG Tablet 650 MG PO ×2 (05:34→14:08)
--- NOTE | 2020-05-10 08:21 | PN_ITS ---
Subjective: The patient was seen and examined at the bedside this morning. Events from the last 24 hours have been reviewed. The patient is currently afebrile, hemodynamically stable and maintaining appropriate oxygen saturations on 9 L/min via nasal cannula. The patient is resting comfortably at the bedside without any acute complaints. Objective: The patient's most recent lab work, culture data and imaging studies have all been personally reviewed. Infectious work-up has been unrevealing to date. - Physical Exam Vitals/I&O's: Vital Signs Temp Pulse Resp BP Pulse Ox 97.5 F L 76 15 125/55 H 93 05/10/20 04:41 05/10/20 07:00 05/10/20 04:41 05/10/20 04:41 05/10/20 04:41 Oxygen Flow Rate (L/min) [4] 6 Oxygen Flow Rate (L/min) [3] 6 Oxygen Flow Rate (L/min) [2] 6 Oxygen Flow Rate (L/min) [1 ( 6 Initial Baseline)] Oxygen Flow Rate (L/min) [ 9 AMBULATION with Oxygen] Oxygen Flow Rate (L/min) 9 Oxygen Delivery Method [4] Room Air Oxygen Delivery Method [3] Nasal Cannula Oxygen Delivery Method [2] Room Air Oxygen Delivery Method [1 ( Room Air Initial Baseline)] Oxygen Delivery Method Nasal Cannula Weight: 229 lb 15.074 oz Body Mass Index (BMI) 31.3 Intake and Output for Last 24 Hours 05/08/20 05/09/20 05/10/20 23:59 23:59 23:59 Intake Total 3350 / 3350 823.10 / 823.10 Output Total 750 / 750 175 / 175 Balance 3350 / 3350 73.10 / 73.10 -155 / -155 General: Alert, Cooperative, No apparent distress HEENT: Atraumatic, PERRLA, Normocephalic Oral: Moist Mucosa, No Gingival or Mucosal Lesions/ Ulcerations Neck: Supple, No Nodes, Trachea Midline Lungs: Diminished Cardiovascular: Regular rate, Regular Rhythm Abdomen: Bowel Sounds Present, Soft, Non Tender, Obese Extremities: No clubbing, No cyanosis, No edema Skin: No breakdown Musculoskeletal: No Tenderness to Palpation of Joints or Extremities Lymphatic: No Cervical, Supraclavicular, or Inguinal Adenopathy Neurological: Cranial nerves II-XII grossly intact, Neuro grossly intact Psych/Mental Status: Alert and oriented to time, place, person, mood and affect Labs (Last 48 Hours) 05/07/20 05/09/20 05/09/20 06:15 05:45 05:45 WBC 10.5 RBC 3.32 L Hgb 10.4 L Hct 32.0 L MCV 96.4 H MCH 31.3 MCHC 32.5 RDW Std Deviation 48.0 H RDW Coeff of Eliecer 13.8 Plt Count 152 MPV 9.3 Immature Gran % (Auto) 3.600 H Neut % (Auto) 71.3 H Lymph % (Auto) 12.3 L Garza % (Auto) 10.4 H Eos % (Auto) 2.1 Baso % (Auto) 0.3 Absolute Neuts (auto) 7.5 Absolute Lymphs (auto) 1.29 Nucleated RBC % 0 PT INR APTT Specimen Type Sample Site pH Bicarbonate Actual POC Total CO2 Base Excess O2 Saturation O2 % ABG pCO2 ABG pO2 Chandu Test Respiration Rate O2 Delivery Device Vent Mode Tidal Volume POC PEEP Blood Gas Notified Whom Sodium 139 Potassium 3.3 L Chloride 102 Carbon Dioxide 31.0 Anion Gap 6 BUN 30 H Creatinine 1.48 H Estim Creat Clear Calc 45.88 Est GFR (MDRD) Af Amer 59 L Est GFR (MDRD) Non-Af 49 L BUN/Creatinine Ratio 20.3 H Glucose 93 Calcium 8.5 Transferrin 186 Total Bilirubin Direct Bilirubin AST ALT Alkaline Phosphatase Total Protein Albumin Globulin TSH COVID-19 ([facility]) Miscellaneous Cytology 05/09/20 05/09/20 05/09/20 05:45 05:45 08:32 WBC RBC Hgb Hct MCV MCH MCHC RDW Std Deviation RDW Coeff of Eliecer Plt Count MPV Immature Gran % (Auto) Neut % (Auto) Lymph % (Auto) Garza % (Auto) Eos % (Auto) Baso % (Auto) Absolute Neuts (auto) Absolute Lymphs (auto) Nucleated RBC % PT 13.3 INR 1.1 APTT 27.1 Specimen Type Sample Site pH Bicarbonate Actual POC Total CO2 Base Excess O2 Saturation O2 % ABG pCO2 ABG pO2 Chandu Test Respiration Rate O2 Delivery Device Vent Mode Tidal Volume POC PEEP Blood Gas Notified Whom Sodium Potassium Chloride Carbon Dioxide Anion Gap BUN Creatinine Estim Creat Clear Calc Est GFR (MDRD) Af Amer Est GFR (MDRD) Non-Af BUN/Creatinine Ratio Glucose Calcium Transferrin Total Bilirubin 0.50 Direct Bilirubin 0.21 AST 25 ALT 54 Alkaline Phosphatase 49 Total Protein 5.6 L Albumin 2.6 L Globulin 3.0 TSH 1.95 COVID-19 ([facility]) Not Detected Miscellaneous Cytology 05/09/20 05/09/20 05/09/20 08:40 11:18 13:24 WBC RBC Hgb Hct MCV MCH MCHC RDW Std Deviation RDW Coeff of Eliecer Plt Count MPV Immature Gran % (Auto) Neut % (Auto) Lymph % (Auto) Garza % (Auto) Eos % (Auto) Baso % (Auto) Absolute Neuts (auto) Absolute Lymphs (auto) Nucleated RBC % PT INR APTT Specimen Type ART Sample Site L RADIAL pH 7.43 Bicarbonate Actual 29.2 H POC Total CO2 31 Base Excess 5 H O2 Saturation 93 L O2 % 30 ABG pCO2 43.6 ABG pO2 66 L Chandu Test POS Respiration Rate 14 O2 Delivery Device Vent Vent Mode A-C Tidal Volume 450 POC PEEP 5 Blood Gas Notified Whom ICU Sodium Potassium Chloride Carbon Dioxide Anion Gap BUN Creatinine Estim Creat Clear Calc Est GFR (MDRD) Af Amer Est GFR (MDRD) Non-Af BUN/Creatinine Ratio Glucose Calcium Transferrin Total Bilirubin Direct Bilirubin AST ALT Alkaline Phosphatase Total Protein Albumin Globulin TSH COVID-19 ([facility]) Cancelled Miscellaneous Cytology Pending Microbiology 05/09/20 13:33 Bronchial Lavage - Right Lower Lobe Gram Stain - Final 05/06/20 13:50 Fluid - Thoracentesis Fluid Gram Stain - Final 05/06/20 13:50 Fluid - Thoracentesis Fluid Body Fluid Culture - Preliminary No growth-Final to follow 05/06/20 13:50 Fluid - Thoracentesis Fluid Anaerobic Culture - Preliminary No growth in 48 hours. Clinical Impression(s) from Imaging Studies Chest X-Ray 04/25/20 13:38 IMPRESSION: Worsening of infiltrate of the mid and lower right lung. Worsening of small right pleural effusion. Atelectasis or infiltrate developing in the left lung base. Electronically Signed: Dale Mendoza MD at 14:27 EDT , Service support , Chest CT 04/25/20 17:20 IMPRESSION: Significant worsening. Moderate right pleural effusion. Almost complete consolidation of the right lower lobe. Prominent primarily interstitial infiltrate in the posterior segment of the right upper lobe. Cystic, nodular and interstitial changes in the posterior left lower lobe most consistent with inflammatory process. Electronically Signed: Dale Mendoza MD at 19:03 EDT , Service support , Thoracentesis Ultrasound 04/26/20 06:46 IMPRESSION: Ultrasound-guided right thoracentesis. Electronically Signed: Dereck Crum, at 14:57 EDT , Service support , Chest X-Ray 04/26/20 14:00 IMPRESSION: Status post right thoracentesis. No evidence of pneumothorax. Electronically Signed: Dereck Crum, at 14:41 EDT , Service support , Chest CT 04/27/20 07:14 IMPRESSION: 1. Essentially unchanged appearance to right lower lobe airspace consolidation possibly representing a pneumonia and pleural effusion. 2. Mild patchy left basilar airspace disease appears unchanged. 3. Hepatic cyst and left-sided pararenal cyst. Electronically Signed: Fernanda London MD at 9:46 EDT , Service support , Chest X-Ray 05/01/20 10:00 IMPRESSION: Significant change in the right hemithorax since the previous study with reaccumulation of a likely loculated right pleural effusion and development of airspace opacification the right infrahilar region. Follow-up recommended to assure resolution Left lung shows chronic interstitial changes without a superimposed acute pulmonary process Electronically Signed: Roverto Flores MD at 10:16 EDT , Service support , Thoracentesis Ultrasound 05/01/20 12:38 IMPRESSION: Successful sonographically guided thoracentesis Electronically Signed: Roverto Flores MD at 14:33 EDT , Service support , Chest X-Ray 05/01/20 13:50 IMPRESSION: No postprocedural pneumothorax Significant decrease in size of a previously noted right pleural effusion after thoracentesis small right pleural effusion remains. Previously noted opacification in the right cardiophrenic angle has decreased since the previous study and likely representing atelectasis Left lung is free of a superimposed acute process Electronically Signed: Roverto Flores MD at 14:30 EDT , Service support , Abdomen/Pelvis CT 05/01/20 15:43 IMPRESSION: Right pleural effusion associated with dependent consolidation within the lung base most pronounced within the right lower lobe. Colonic diverticulosis. Moderate amount of stool throughout the colon. Bilateral renal cysts. Indeterminate 9 mm rounded focus arising from the right kidney that likely reflects a proteinaceous cyst. Scattered tree-in-bud opacities within the left lower lobe. Atherosclerosis. Electronically Signed: Michell Kim MD at 19:14 EDT Tel , Service support , Chest X-Ray 05/02/20 07:40 IMPRESSION: Stable loculated right pleural effusion Slight increase in airspace opacification in the inferior half of the right lung since the previous study Left lung is free of a superimposed process and shows no change since the previous study Degenerative bony changes Electronically Signed: Roverto Flores MD at 9:48 EDT , Service support , Chest CTA 05/02/20 11:17 IMPRESSION: No demonstrated PE, or thoracic aortic aneurysm or dissection Prominent loculated right pleural effusions with associated atelectasis Tree in bud opacifications in the left lung base consistent with small airways inflammation. There are subcentimeter noncalcified nodules in the left lung base as well suspicious for metastasis. Calcified coronary vessels Degenerative bony changes Electronically Signed: Roverto Flores MD at 12:38 EDT , Service support , Chest X-Ray 05/06/20 05:55 IMPRESSION: Increasing right pleural effusion with underlying infiltration and/or atelectasis. Electronically Signed: Dreeck Crum, at 8:42 EDT , Service support , Thoracentesis Ultrasound 05/06/20 09:27 IMPRESSION: Ultrasound-guided right thoracentesis. Electronically Signed: Dereck Crum, at 14:30 EDT , Service support , Chest X-Ray 05/06/20 14:00 IMPRESSION: Status post right thoracentesis. Residual pleural parenchymal changes at the right lung base. Electronically Signed: Dereck Crum, at 15:31 EDT , Service support , Chest X-Ray 05/09/20 10:15 IMPRESSION: The tip of the endotracheal tube is at 5.3 cm proximal to the melony. Progressive right pleural effusion with underlying infiltration and/or atelectasis. Electronically Signed: Dereck Crum, at 10:50 EDT , Service support , Chest X-Ray 05/09/20 11:25 IMPRESSION: Similar-appearing large right effusion and pulmonary parenchymal opacity. Pneumonia should be excluded clinically. No large right pneumothorax is identified. Electronically Signed: Alvino Sanchez, at 12:50 EDT Tel , Service support , Current Medications Acetaminophen (Tylenol) 650 mg PO Q6H PRN PRN PRN Reason: Pain Score 1-10/Temp > 100.7 F Last Admin: 05/10/20 05:34 Dose: 650 mg Documented by: Albuterol Sulfate (Ventolin Aerosols) 2.5 mg INHALATION Q2H PRN PRN PRN Reason: SOB/Wheezing Albuterol/Ipratropium (Duoneb) 3 ml INHALATION Q4H.RT [facility] Last Admin: 05/10/20 07:16 Dose: 3 ml Documented by: Amlodipine Besylate (Norvasc) 5 mg PO DAILY@2200 [facility] Last Admin: 05/09/20 22:45 Dose: 5 mg Documented by: Atorvastatin Calcium (Lipitor) 10 mg PO QHS [facility] Last Admin: 05/09/20 22:45 Dose: 10 mg Documented by: Azelastine HCl (Astelin) 1 spray NASAL DAILY [facility] Last Admin: 05/09/20 15:09 Dose: Not Given Documented by: Dextrose (D50w Syringe) 0 gm IV X1 PRN; Protocol PRN Reason: Hypoglycemia Enoxaparin Sodium (Lovenox) 40 mg SC DAILY [facility] Last Admin: 05/08/20 09:09 Dose: 40 mg Documented by: Fluticasone Propionate (Flonase Nasal [place]) 2 spray NASAL QHS [facility] Last Admin: 05/09/20 22:45 Dose: Not Given Documented by: Glucagon () 1 mg IM .X1 PRN PRN Reason: Hypoglycemia Magnesium Oxide (Mag-Ox 400) 400 mg PO DAILY [facility] Last Admin: 05/09/20 15:11 Dose: 400 mg Documented by: Mesalamine (Lialda) 1.2 gm PO BID [facility] Last Admin: 05/09/20 22:45 Dose: 1.2 gm Documented by: Metoprolol Succinate (Toprol Xl (Beta Sukhi)) 100 mg PO DAILY [facility] Last Admin: 05/09/20 15:12 Dose: 100 mg Documented by: Montelukast Sodium (Singulair) 10 mg PO DAILY [facility] Last Admin: 05/09/20 15:10 Dose: 10 mg Documented by: Pantoprazole Sodium (Protonix) 20 mg PO DAILY [facility] Last Admin: 05/09/20 15:11 Dose: 20 mg Documented by: Polyethylene Glycol (Miralax) 17 gm PO DAILY [facility] Last Admin: 05/09/20 15:10 Dose: Not Given Documented by: Potassium Chloride (K-Dur) 40 meq PO DAILYCM [facility] Stop: 05/12/20 08:01 Prednisone () 40 mg PO DAILY@0800 [facility] Last Admin: 05/09/20 15:10 Dose: 40 mg Documented by: Sertraline HCl (Zoloft) 100 mg PO DAILY [facility] Last Admin: 05/09/20 15:10 Dose: 100 mg Documented by: Sodium Chloride () 10 - 40 ml IV UD PRN PRN Reason: SALINE FLUSH Last Admin: 05/08/20 17:05 Dose: 10 ml Documented by: Sodium Chloride ([place] Nasal Bishop) 2 spray NASAL TID PRN PRN PRN Reason: NASAL DRYNESS Last Admin: 05/01/20 21:42 Dose: 2 spray Documented by: Tamsulosin HCl (Flomax) 0.4 mg PO 2200 [facility] Last Admin: 05/09/20 22:44 Dose: 0.4 mg Documented by: Throat Lozenges (Cepacol Sore Throat Lozenge) 1 lozenge MUCOUS MEM Q2H PRN PRN PRN Reason: SORE THROAT Last Admin: 05/02/20 12:55 Dose: 1 lozenge Documented by: Medical Necessity - Tobacco Use Smoking Status: Former smoker Assessment/Plan All Active Problems (Last Reviewed 04/25/20 @ 17:[address] Margarita Higginbotham, DO) Malignant pleural effusion (Acute) Sepsis (Acute) Acute and chronic respiratory failure (Acute) Community acquired pneumonia (Acute) SOB (shortness of breath) (Acute) Carcinoma of unknown primary (Acute) RECOMMENDATIONS: 1. Continue to wean supplemental oxygen as tolerated. 2. Given recurrent nature of pleural effusion, recommend transfer to tertiary care facility for thoracic surgery evaluation. 3. Continue scheduled bronchodilators and steroids. 4. Encourage incentive spirometer use and mobilize patient as tolerated. IMPRESSIONS: 1. 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 The patient has required frequent thoracenteses while admitted to the hospital due to the recurrent nature of his effusion. Although there has been concern for a possible GI primary, upper and lower endoscopy has been unrevealing. The patient also underwent bronchoscopic airway evaluation without any abnormalities or endobronchial lesions identified. Per oncology, Pleurx catheter placement is contraindicated from their perspective. Given the patient's significant ongoing need for supplemental oxygen and the recurrent nature of his effusion, I would therefore recommend that he be referred to a tertiary care facility for thoracic surgery evaluation and potential pleurodesis. 2. History of obstructive sleep apnea Continue nocturnal Pap therapy as ordered. 3. Heart failure with preserved ejection fraction The patient does not appear overtly volume overloaded at this time. Continue outpatient medication regimen. 4. Obesity/hyperlipidemia/GERD/allergic rhinitis/hypertension/chronic steroid dependency Complicates care, management, recovery and prognosis. Continue home medications as indicated. The patient will need to resume his baseline 10 mg prednisone dose on a daily basis upon discharge from the hospital. This note was generated with [employer] dictation software. It may contain incorrect words, spelling, and punctuation that were not noted in checking the note before signing. Inpatient E&M: 45595 Subs Hosp L2
[2020-05-10] MEDS: predniSONE 20 MG Tablet 40 MG PO (10:14)
[2020-05-10] MEDS: Sertraline 100 MG Tablet PO (10:14)
[2020-05-10] MEDS: Enoxaparin 40 MG/0.4 ML Syringe SC (10:14)
[2020-05-10] MEDS: Mesalamine 1.2 GM Tablet PO (10:14)
[2020-05-10] MEDS: Pantoprazole Sodium 20 MG Tablet PO (10:14)
[2020-05-10] MEDS: Magnesium Oxide 400 MG Tablet PO (10:14)
[2020-05-10] MEDS: Montelukast 10 MG Tablet PO (10:14)
[2020-05-10] MEDS: Azelastine HCl NASAL.SRY 1 SPRAY NASAL (10:15)
[2020-05-10] MEDS: 0.9% Saline Lock 10 ML Syringe IV (10:19)
[2020-05-10] MEDS: Metoprolol(XL)Succ 100 MG Tablet PO (10:37)
[2020-05-10 12:52] LABS: Absolute Lymphocyte Count 1.09 X10^3/uL (0.83-4.51); Absolute Neutrophil Count 11.8 X10^3/uL (2.0-7.7); Basophil# 0.04 X10^3/uL; Basophil% 0.3 % (0-1); Eosinophils% 1.4 % (0-5); Hematocrit 32.4 % (40-54); Hemoglobin 10.6 g/dL (13.0-16.5); Lymphocyte # 1.09 X10^3/ul (4.0); Lymphocyte % 7.4 % (19-41); Mean Corp Hgb Conc 32.7 g/dL (32-36); Mean Corpuscular Hgb 31.4 pg (27.0-32.0); Mean Corpuscular Volume 95.9 fL (80-94); Mean Platelet Vol. 9.4 fl (6.2-12.0); Monocyte# 1.42 X10^3/uL; Monocyte% 9.6 % (0-10); NRBC Flagged by Analyzer 0 % (0-5); Neutrophil # 11.76 X10^3/uL (2.7-7.7); Neutrophil % 79.3 % (47-70); Platelet Count 173 K/mm3 (150-450); RBC Distribution Width CV 13.9 % (11.6-14.6); RBC Distribution Width SD 48.2 fl (35.1-43.9); Red Blood Count 3.38 M/mm3 (4.6-6.2); White Blood Count 14.8 K/mm3 (4.4-11.0)
[2020-05-10 13:12] LABS: Anion Gap 8 (5-15); BUN 27 mg/dL (7-18); BUN/Creat Ratio 17.6 RATIO (10-20); Calcium,Total 8.5 mg/dL (8.5-10.1); Chloride 104 mmol/L (98-107); Creatinine, Serum 1.53 mg/dL (0.70-1.30); EST Glomerular Filtration Rate 47 mL/min (>60); Est Glom Filt Rate - Afr Amer 57 mL/min (>60); Estimated Creatinine Clearance 44.38 ml/min; Glucose 124 mg/dL (74-106); Potassium 3.9 mmol/L (3.5-5.1); Sodium Level 137 mmol/L (136-145)
[2020-05-10] MEDS: Sodium Chloride 0.65% 1 SPRAY SPRAY.BTL 2 SPRAY NASAL (14:09)
--- NOTE | 2020-05-10 14:46 | NURSING ---
Report called to Ridgealeyda Wilson to DM [place] at [phone]
--- NOTE | 2020-05-10 14:56 | PCM.DC.SUM ---
Discharge Date and Diagnosis - Problem List Patient Problems: Active and Suspected Problems (Last Reviewed 04/25/20 @ 17:[address] Margarita Higginbotham DO) Sepsis (Acute) Acute and chronic respiratory failure (Acute) Community acquired pneumonia (Acute) SOB (shortness of breath) (Acute) Carcinoma of unknown primary (Acute) Date of Admission: 04/25/20 Date of Discharge: 05/10/20 - Primary Discharge Diagnosis Acute Problems: Active Problems (Last Reviewed 04/25/20 @ 17:[address] Margarita Higginbotham DO) Sepsis (Acute) Acute and chronic respiratory failure (Acute) Community acquired pneumonia (Acute) SOB (shortness of breath) (Acute) Carcinoma of unknown primary (Acute) - Secondary Discharge Diagnosis Chronic Problems: Chronic Problems (Last Reviewed 04/25/20 @ 17:[address] Margarita Higginbotham DO) Bronchomalacia, acquired (Chronic) Bronchiectasis (Chronic) Hypercholesterolemia (Chronic) Colitis (Chronic) Arthritis (Chronic) Hypothyroidism (Chronic) Asthma (Chronic) Back pain (Chronic) Hemorrhoids (Chronic) BRADY (obstructive sleep apnea) (Chronic) bipap 19/12 cm H20 Asbestos exposure (Chronic) Tuberculosis exposure (Chronic) Stage 2 moderate COPD by GOLD classification (Chronic) FEV1 55% Acid reflux (Chronic) Chronic hypoxemic respiratory failure (Chronic) Hospital Course and Treatment Operations: None Summary of Care Provided: [] This is a 75-year-old male with history of severe COPD, bronchiectasis with bronchomalacia, shortness sleep apnea on home BiPAP, chronic hypoxic respiratory failure on 2 L of oxygen and home BiPAP and vest therapy admitted with worsening of shortness of breath, nonproductive cough and decreasing functional capacity. 1. Acute on chronic hypoxic respiratory failure secondary to pneumonia, moderate malignant pleural effusion, COPD/bronchiectasis exacerbation: Patient was admitted in ICU on 6 L of oxygen, increased from 3 L of baseline requirement and increased to 9 L but currently on 6 L of oxygen. Significant dyspnea on mild exertion. Solu-Medrol changed to prednisone. Continue bronchodilator, incentive spirometry and pep. On BiPAP during naps and night. CT chest and chest x-ray shows moderate right pleural effusion, right lower lobe consolidation with underlying atelectasis, interstitial, cystic and nodular progression mainly in right upper lung. Patient had multiple thoracocentesis ,4 times. It was all exudative with malignant effusion, requiring thoracocentesis every 4 to 5 days. Pleural fluid cytology shows malignant cells, adenocarcinoma with signet ring cell type. Patient had EGD and colonoscopy for unknown primary but no suspicious lesion found. Patient had transient bedside intubation in in the context of for procedure on 05/09/2020 for colonoscopy and bronchoscopy and was extubated afterwards. Patient also had colonoscopy which showed 1 small polyp in descending colon which was removed by hot snare. Patient had bronchoscopy which showed bronchomalacia throughout tracheobronchial tree. BAL was done and sent for cytology and culture. He was transferred to PCU after the procedure on the same day. 2. Severe sepsis (tachypnea, hypoxia, increased creatinine and lactic acidosis 2.4) most probably from right lower lobe pneumonia: On IV cefepime and vancomycin. Urinary antigens are negative. Respiratory panel negative. Blood cultures x2 are negative for more than 5 days. 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 COVID-19 PCR negative and MRSA nasal screen negative. Repeat lactic acid normal. Blood pressure is controlled. Patient did not had fever or chills. Antibiotics was discontinued on 05/02. Infectious work-up came back negative except sputum culture shows presumptive Reba albicans which may be colonization. 3. SWATI secondary to diuretic on baseline CKD G3 stage during hospital stay: Patient baseline creatinine is around 1.2 to 1.4 with estimated clearance about 52 mL/min. Patient was admitted with creatinine 1.33. Creatinine went up to 1.92 due to diuretic. Hold diuretic. Hold indapamide and losartan. Mild hypokalemia, potassium being replaced. There is improvement in creatinine profile. 4. Pulmonary conditions: COPD and bronchiectasis exacerbation, diffuse bronchomalacia, obstructive sleep apnea on BiPAP and right moderate malignant pleural effusion: Patient has BiPAP machine. Patient had thoracocentesis which showed signet ring cells suggestive of NSCLC favor adenocarcinoma. Had EGD on 05/03/2020 and reported normal with no signs of malignancy. 05/08: Pleural fluid no growth for last 48 hours. Pleural fluid cell count 83% neutrophils, 8% lymphocytes, 6% monocytes. Patient was seen by oncologist, Dr Martinez and opted for talc pleurodesis. He wants to continue chemotherapy after pleurodesis. Patient is being transferred to [facility] for total pleurodesis and further management. 5. Hypothyroidism and history of colitis: TSH low at 0.25. Free T4 normal. Most probably, TSH low secondary to euthyroid sick syndrome. 6. Chronic heart failure with preserved EF: Patient does not have edema/fluid overload. Other comorbidities include hypertension, dyslipidemia, GERD and history of colitis: Home medication reconciliation done. 7. DVT prophylaxis: On Lovenox 40 mg subcu daily. Discharge medication reconciliation done. Discharge follow-up instructions completed. Discharge process discussed with the patient and all questions were answered to patient's satisfaction. Requirement for transfer discussed with the patient for palpatory disease and he agreed. [facility] transfer line called and clinical findings discussed with Dr. Bright. She accepted the patient. Patient is being transferred to the [facility]. Total time spent, exact 35 minutes on discharge meds reconciliation, examination, coordination of care with nurses and ancillary staff, review of imaging and blood test and discussion with the patient on follow-up instructions Patient Problems: Active and Suspected Problems (Last Reviewed 04/25/20 @ 17:[address] Margarita Higginbotham, DO) Sepsis (Acute) Acute and chronic respiratory failure (Acute) Community acquired pneumonia (Acute) SOB (shortness of breath) (Acute) Carcinoma of unknown primary (Acute) Objective: Seen and examined. Heart rate and blood pressure is controlled Patient is still on high requirement of oxygen 9 L but is not short of breath on conversation. Dyspnea on exertion on mild exertion. On physical exam General: Alert, Oriented x3, Cooperative HEENT: Atraumatic, PERRLA, EOMI, Normocephalic Neck: Supple, No JVD, Negative Carotid Bruits Lungs: Air entry decreased in right posterior chest. Dyspnea on mild exertion, right-sided pleural effusion. No crepitation. Patient had repeat thoracocentesis bedside about 400 mL bloody fluid was drained on 05/09/2020. Patient was intubated for procedure and then extubated. Cardiovascular: Regular rate, Regular Rhythm, Normal S1, Normal S2, No murmurs. Abdomen: Bowel Sounds Present, Soft, Non Tender, Non-Distended Extremities: No edema, Capillary Refill Less than 3 Seconds Skin: No rashes, No breakdown Musculoskeletal: No Tenderness to Palpation of Joints or Extremities, Arthritic Changes Neurological: Cranial nerves II-XII grossly intact, Deep Tendon Reflexes 2+/4 and Symmetrical, Neuro grossly intact Psych/Mental Status: Normal Affect, Appropriate - Physical Exam Vitals/I&O's: Vital Signs Temp Pulse Resp BP Pulse Ox 98.5 F 88 16 145/71 H 92 05/10/20 14:15 05/10/20 14:15 05/10/20 14:15 05/10/20 14:15 05/10/20 14:15 Oxygen Flow Rate (L/min) [4] 6 Oxygen Flow Rate (L/min) [3] 6 Oxygen Flow Rate (L/min) [2] 6 Oxygen Flow Rate (L/min) [1 ( 6 Initial Baseline)] Oxygen Flow Rate (L/min) [ 9 AMBULATION with Oxygen] Oxygen Flow Rate (L/min) 9 Oxygen Delivery Method [4] Room Air Oxygen Delivery Method [3] Nasal Cannula Oxygen Delivery Method [2] Room Air Oxygen Delivery Method [1 ( Room Air Initial Baseline)] Oxygen Delivery Method Nasal Cannula Weight: 229 lb 15.074 oz Body Mass Index (BMI) 31.3 Intake and Output for Last 24 Hours 05/08/20 05/09/20 05/10/20 23:59 23:59 23:59 Intake Total 3350 / 3350 823.10 / 823.10 840 / 840 Output Total 750 / 750 175 / 175 Balance 3350 / 3350 73.10 / 73.10 665 / 665 Microbiology Past 72 Hours 05/06/20 13:50 Fluid - Thoracentesis Fluid Gram Stain - Final 05/06/20 13:50 Fluid - Thoracentesis Fluid Body Fluid Culture - Final No growth aerobically. 05/06/20 13:50 Fluid - Thoracentesis Fluid Anaerobic Culture - Preliminary No growth in 48 hours. 05/09/20 13:33 Bronchial Lavage - Right Lower Lobe Gram Stain - Final Laboratory Results 05/07/20 19:36: COVID-19 ([facility]ALL) Not Detected 05/09/20 11:18: Specimen Type ART, Sample Site L RADIAL, O2 % 30, Chandu Test POS, Respiration Rate 14, O2 Delivery Device Vent, Vent Mode A-C, Tidal Volume 450, POC PEEP 5, Blood Gas Notified Whom ICU 05/10/20 12:44: WBC 14.8 H, RBC 3.38 L, Hgb 10.6 L, Hct 32.4 L, MCV 95.9 H, MCH 31.4, MCHC 32.7, RDW Std Deviation 48.2 H, RDW Coeff of Eliecer 13.9, Plt Count 173, MPV 9.4, Immature Gran % (Auto) 2.000 H, Neut % (Auto) 79.3 H, Lymph % (Auto) 7.4 L, [place] % (Auto) 9.6, Eos % (Auto) 1.4, Baso % (Auto) 0.3, Absolute Neuts (auto) 11.8 H, Absolute Lymphs (auto) 1.09, Nucleated RBC % 0 05/10/20 12:44: Sodium 137, Potassium 3.9, Chloride 104, Carbon Dioxide 25.0, Anion Gap 8, BUN 27 H, Creatinine 1.53 H, Estim Creat Clear Calc 44.38, Est GFR (MDRD) Af Amer 57 L, Est GFR (MDRD) Non-Af 47 L, BUN/Creatinine Ratio 17.6, Glucose 124 H, Calcium 8.5, Magnesium 2.0 Current Medications Acetaminophen (Tylenol) 650 mg PO Q6H PRN PRN PRN Reason: Pain Score 1-10/Temp > 100.7 F Last Admin: 05/10/20 14:08 Dose: 650 mg Documented by: Albuterol Sulfate (Ventolin Aerosols) 2.5 mg INHALATION Q2H PRN PRN PRN Reason: SOB/Wheezing Albuterol/Ipratropium (Duoneb) 3 ml INHALATION Q4H.RT [facility] Last Admin: 05/10/20 10:58 Dose: 3 ml Documented by: Amlodipine Besylate (Norvasc) 5 mg PO DAILY@2200 [facility] Last Admin: 05/09/20 22:45 Dose: 5 mg Documented by: Atorvastatin Calcium (Lipitor) 10 mg PO QHS [facility] Last Admin: 05/09/20 22:45 Dose: 10 mg Documented by: Azelastine HCl (Astelin) 1 spray NASAL DAILY [facility] Last Admin: 05/10/20 10:15 Dose: 1 spray Documented by: Dextrose (D50w Syringe) 0 gm IV X1 PRN; Protocol PRN Reason: Hypoglycemia Enoxaparin Sodium (Lovenox) 40 mg SC DAILY [facility] Last Admin: 05/10/20 10:14 Dose: 40 mg Documented by: Fluticasone Propionate (Flonase Nasal [place]) 2 spray NASAL QHS [facility] Last Admin: 05/09/20 22:45 Dose: Not Given Documented by: Glucagon () 1 mg IM .X1 PRN PRN Reason: Hypoglycemia Magnesium Oxide (Mag-Ox 400) 400 mg PO DAILY [facility] Last Admin: 05/10/20 10:14 Dose: 400 mg Documented by: Mesalamine (Lialda) 1.2 gm PO BID [facility] Last Admin: 05/10/20 10:14 Dose: 1.2 gm Documented by: Metoprolol Succinate (Toprol Xl (Beta Sukhi)) 100 mg PO DAILY [facility] Last Admin: 05/10/20 10:37 Dose: 100 mg Documented by: Montelukast Sodium (Singulair) 10 mg PO DAILY [facility] Last Admin: 05/10/20 10:14 Dose: 10 mg Documented by: Pantoprazole Sodium (Protonix) 20 mg PO DAILY [facility] Last Admin: 05/10/20 10:14 Dose: 20 mg Documented by: Polyethylene Glycol (Miralax) 17 gm PO DAILY [facility] Last Admin: 05/10/20 10:10 Dose: Not Given Documented by: Potassium Chloride (K-Dur) 40 meq PO DAILYCM [facility] Stop: 05/12/20 08:01 Last Admin: 05/10/20 10:14 Dose: 40 meq Documented by: Prednisone () 40 mg PO DAILY@0800 [facility] Last Admin: 05/10/20 10:14 Dose: 40 mg Documented by: Sertraline HCl (Zoloft) 100 mg PO DAILY [facility] Last Admin: 05/10/20 10:14 Dose: 100 mg Documented by: Sodium Chloride () 10 - 40 ml IV UD PRN PRN Reason: SALINE FLUSH Last Admin: 05/10/20 10:19 Dose: 20 ml Documented by: Sodium Chloride ([place] Nasal [place]) 2 spray NASAL TID PRN PRN PRN Reason: NASAL DRYNESS Last Admin: 05/10/20 14:09 Dose: 2 spray Documented by: Tamsulosin HCl (Flomax) 0.4 mg PO 2200 [facility] Last Admin: 05/09/20 22:44 Dose: 0.4 mg Documented by: Throat Lozenges (Cepacol Sore Throat Lozenge) 1 lozenge MUCOUS MEM Q2H PRN PRN PRN Reason: SORE THROAT Last Admin: 05/02/20 12:55 Dose: 1 lozenge Documented by: Home Medications: Medications to take at Discharge Metoprolol(XL)Succ [Toprol Xl (Beta Sukhi)] 100 mg PO DAILY 01/03/14 Omeprazole [Prilosec] 20 mg PO DAILY 01/03/14 Simvastatin [Zocor] 20 mg PO QHS 01/03/14 Tamsulosin HCl [Flomax] 0.4 mg PO DINNER 01/03/14 indapamide 1.25 mg tablet 1.25 mg PO QAM 11/15/17 fluticasone propionate 50 mcg/actuation nasal spray,suspension 2 spray INTRANASAL QHS 02/16/18 Montelukast Sodium [Singulair] 10 mg PO DAILY 09/11/19 Sertraline HCl 100 mg PO DAILY 09/11/19 amlodipine 5 mg tablet 5 mg PO DAILY 10/02/19 azelastine 137 mcg (0.1 %) nasal spray aerosol 1 spray INTRANASAL DAILY 10/02/19 albuterol sulfate 2.5 mg INHALATION Q6H PRN PRN #180 ml 04/02/20 Albuterol IH (ProAir) [Proair Hfa (SP)Vent Pts] 1 - 2 puff INHALATION Q4H PRN PRN 04/25/20 Azithromycin 250 mg PO MOWEFR 04/25/20 Budesonide/Formoterol 160/4.5 [Symbicort 160/4.5 Mcg Inhaler (SP)] 2 puff INHALATION BID 04/25/20 Losartan Potassium 100 mg PO QHS 04/25/20 Magnesium Oxide 400 mg PO DAILY 04/25/20 Mesalamine 1.2 gm PO BID 04/25/20 Potassium Citrate [Potassium Citrate ER] 10 meq PO BID 04/25/20 Prednisone 10 mg PO QDAY 04/25/20 Primary Care Physician: Hung Hummel MD [Primary Care Provider] - Please Follow Up With: Hung Hummel MD Please Follow Up With: Loretta Martinez MD Patient Instructions: Thoracentesis Medical Necessity - Tobacco Use Smoking Status: Former smoker Meaningful Use Info Meaningful Use Diagnoses (Choose all that apply): None applicable Inpatient E&M: [id number] [facility] Hosp
== END 2020-05-10 15:33 | disposition short-term general hospital (02) | DRG 871 ==
LOC: ED 13:52 → ICU 04-26 06:24 → PCU 04-28 21:52 → ICU 05-09 08:52 → PCU 05-09 14:31
PROVIDERS: Anesthesiology; Family Medicine; Internal Medicine Critical Care Medicine; Internal Medicine Hematology & Oncology; Physician Assistant; Surgery; Admitting Provider Internal Medicine; Emergency Provider Emergency Medicine; PCP Family Medicine; Visit Provider Internal Medicine
PROC: 0DJ08ZZ Inspection of Upper Intestinal Tract, Via Natural or Artificial Opening Endoscopic (ICD-10-PCS; CPT 43235; principal; 2020-05-03 10:10)
PROC: 0BJ08ZZ Inspection of Tracheobronchial Tree, Via Natural or Artificial Opening Endoscopic (ICD-10-PCS; CPT 31622; principal; 2020-05-09 11:15)
PROC: 0DJD8ZZ Inspection of Lower Intestinal Tract, Via Natural or Artificial Opening Endoscopic (ICD-10-PCS; CPT 45378; principal; 2020-05-09 12:15)
DX: A41.9 Sepsis, unspecified organism (principal); J18.9 Pneumonia, unspecified organism; J96.21 Acute and chronic respiratory failure with hypoxia; J98.11 Atelectasis; I50.32 Chronic diastolic (congestive) heart failure; E87.2 Acidosis; J91.0 Malignant pleural effusion; I13.0 Hypertensive heart and chronic kidney disease with heart failure and stage 1 through stage 4 chronic kidney disease, or unspecified chronic kidney disease; C77.2 Secondary and unspecified malignant neoplasm of intra-abdominal lymph nodes; K51.90 Ulcerative colitis, unspecified, without complications; C78.00 Secondary malignant neoplasm of unspecified lung; J47.0 Bronchiectasis with acute lower respiratory infection; J47.1 Bronchiectasis with (acute) exacerbation; C18.9 Malignant neoplasm of colon, unspecified; R65.20 Severe sepsis without septic shock; M19.90 Unspecified osteoarthritis, unspecified site; E03.9 Hypothyroidism, unspecified; G47.33 Obstructive sleep apnea (adult) (pediatric); K21.9 Gastro-esophageal reflux disease without esophagitis; E78.00 Pure hypercholesterolemia, unspecified; N18.3 Chronic kidney disease, stage 3 (moderate); J98.09 Other diseases of bronchus, not elsewhere classified; T50.2X5A Adverse effect of carbonic-anhydrase inhibitors, benzothiadiazides and other diuretics, initial encounter; E07.81 Sick-euthyroid syndrome; E78.5 Hyperlipidemia, unspecified; F32.9 Major depressive disorder, single episode, unspecified; F41.9 Anxiety disorder, unspecified; E66.9 Obesity, unspecified; E87.6 Hypokalemia; Z79.51 Long term (current) use of inhaled steroids; Z79.52 Long term (current) use of systemic steroids; Z68.32 Body mass index [BMI] 32.0-32.9, adult; Z71.3 Dietary counseling and surveillance; K57.90 Diverticulosis of intestine, part unspecified, without perforation or abscess without bleeding; K76.89 Other specified diseases of liver; N40.0 Benign prostatic hyperplasia without lower urinary tract symptoms; Z77.090 Contact with and (suspected) exposure to asbestos; Z87.891 Personal history of nicotine dependence; M54.9 Dorsalgia, unspecified; G89.29 Other chronic pain; Z20.1 Contact with and (suspected) exposure to tuberculosis; D12.4 Benign neoplasm of descending colon; Z80.0 Family history of malignant neoplasm of digestive organs; E86.0 Dehydration; K64.9 Unspecified hemorrhoids; Z82.5 Family history of asthma and other chronic lower respiratory diseases; Z80.3 Family history of malignant neoplasm of breast; Z80.1 Family history of malignant neoplasm of trachea, bronchus and lung; Z96.659 Presence of unspecified artificial knee joint; Z96.649 Presence of unspecified artificial hip joint
CPT/HCPCS: 31500; 31502; 31720; 32555; 36415; 36600; 71045; 71046; 71250; 71260; 71275; 74177; 80048; 80053; 80076; 80202; 82728; 82803; 82945; 83540; 83550; 83605; 83615; 83735; 83880; 84100; 84156; 84157; 84439; 84443; 84466; 84484; 85025; 85610; 85730; 86038; 86200; 86225; 86235; 86431; 87040; 87070; 87075; 87205; 87449; 87633; 87635; 87641; 88108; 88305; 88313; 88341; 88342; 89050; 93005; 94002; 94640; 94660; 97110; 97116; 97162; 97166; 97530; 97535; 99251; 99285; G2023; J7030; J7040; J7120; Q9967; A4216; G0463; J1940; J3010; J3490; U0003

== ENCOUNTER 2020-06-02 18:34 | Emergency (ER) | payer MEDICARE, OTHER, SELFPAY ==
[2020-05-21 13:13] VITALS: BMI 31.1
[2020-06-02 18:36] VITALS: BP 160/66; PULSE 80; RESP 21; TEMP 36.7; O2SAT 91; BMI 31.9
[2020-06-02 18:41] VITALS: O2SAT 92
--- NOTE | 2020-06-02 18:59 | EKG12_ITS ---
Test Reason : SOB Blood Pressure : / mmHG Vent. Rate : 070 BPM Atrial Rate : 070 BPM P-R Int : 158 ms QRS Dur : 102 ms QT Int : 406 ms P-R-T Axes : 064 042 047 degrees QTc Int : 438 ms Normal sinus rhythm Normal ECG Confirmed by AHRDIK ANDERS MD ([id number]), restaurant expeditor DARON SANTOS ([id number]) on 06/03/2020 1:25:05 PM Referred By: DEONTE Confirmed By:HARDIK ANDERS MD
--- NOTE | 2020-06-02 19:01 | ED.DCSUM_ITS ---
History of Present Illness Chief Complaint: Shortness of Breath Informant: Patient, Family Onset: Days Current Severity: Moderate Maximum Severity: Moderate Narrative: Patient presents with increasing shortness of breath. Patient had history of pulmonary fibrosis, recent diagnosis of lung cancer, recurrent pleural effusions. He underwent pleurodesis this past Wednesday at [facility]. He was discharged home that same night. Family states he had increasing shortness of breath since that time. With any exertion he will drop his sats into the 70s and 80s. He does seem to recover to 90% rather quickly. He denies chest pain. - Past Medical History (1) Acute and chronic respiratory failure Status: Chronic (2) Cancer of right lung Status: Chronic (3) Malignant pleural effusion Status: Chronic (4) Acid reflux Status: Chronic (5) Arthritis Status: Chronic (6) Asthma Status: Chronic (7) Hypercholesterolemia Status: Chronic (8) Hypothyroidism Status: Chronic (9) BRADY (obstructive sleep apnea) Status: Chronic Comment: bipap 19/12 cm H20 (10) Stage 2 moderate COPD by GOLD classification Status: Chronic Comment: FEV1 55% (11) Pulmonary fibrosis Status: Suspected Past Medical History - Allergies and Home Meds Allergies/Adverse Reactions: Allergies cefaclor [From Ceclor] Allergy (Severe, Verified 05/21/20 13:13) Rash Sulfa (Sulfonamide Antibiotics) Allergy (Severe, Verified 05/21/20 13:13) Rash codeine Allergy (Mild, Verified 05/21/20 13:13) Itching amoxicillin trihydrate [From Augmentin] Adverse Reaction (Severe, Verified 05/21/20 13:13) Upset Stomach STOMACH PAIN clarithromycin [From Biaxin] Adverse Reaction (Severe, Verified 05/21/20 13:13) Upset Stomach diphenhydramine HCl [From Benadryl] Adverse Reaction (Severe, Verified 05/21/20 13:13) DRIES MOUTH AND THROAT OUT lactose Adverse Reaction (Severe, Verified 05/21/20 13:13) Abd cramps/diarrhea LACTOSE INTOLERANCE potassium clavulanate [From Augmentin] Adverse Reaction (Severe, Verified 05/21/20 13:13) STOMACH PAIN hydrocodone Adverse Reaction (Intermediate, Verified 05/21/20 13:13) Itching Primary Care Physician: Hung Hummel MD [Primary Care Provider] - Prior records reviewed: Yes Surgical History: appendectomy, herniorrhaphy - umbilical incisional hernia, total hip arthroplasty, total knee arthroplasty Lives: Spouse/ Significant Other Smoking Status: Former smoker - Family History Maternal Family History: Family History (Last Updated 05/21/20 @ 13:16 by Martha Edwards) Mother Heart disease Brother Cancer COPD (chronic obstructive pulmonary disease) Sister Breast cancer Pancreatic cancer Family History: Reports: No pertinent history Paternal Family History: Family History (Last Updated 05/21/20 @ 13:16 by Martha Edwards) Mother Heart disease Brother Cancer COPD (chronic obstructive pulmonary disease) Sister Breast cancer Pancreatic cancer Family History: Reports: No pertinent history Review of Systems General: Denies: Chills, Fever Eyes: Denies: Visual changes - bilaterally ENT: Denies: Bilateral ear pain Cardiovascular: Denies: Chest pain Respiratory: Reports: Dyspnea Gastrointestinal: Denies: Abdominal pain, Nausea, Vomiting, Diarrhea Musculoskeletal: Denies: Swelling, Extremity Pain Neurological: Denies: Headache Hematologic: Denies: Easy bruising, Easy bleeding Allergy: Denies: Uticaria Physical Exam Vital Signs/Narrative: Vital Signs Temp Pulse Resp BP Pulse Ox 06/02/20 18:36 98.1 F 80 21 H 160/66 H 91 Inital Vital Signs reviewed: Yes General: Well nourished, Well developed ENT: Moist mucous membranes Neck: Supple Cardiovascular: Regular rate, Regular rhythm Respiratory: - - Tachypnea. Decreased breath sounds right base. Abdomen: Soft, Nontender Skin: Normal color Neurological: Alert, Oriented x3 Psychological: - - Anxious Diagnostic/Tx/Re-eval Impressions Chest X-Ray 06/02/20 19:04 IMPRESSION: Increasing right pleural effusion and right lung compressive atelectasis. Electronically Signed: Annalisa Mantilla, at 19:54 EDT Tel , Service support , 06/02/20 19:04 Chest 1 View (Portable) [RAD] Stat Laboratory Results 06/02/20 06/02/20 06/02/20 19:10 19:10 19:10 WBC 7.4 RBC 3.24 L Hgb 10.1 L Hct 30.8 L MCV 95.1 H MCH 31.2 MCHC 32.8 RDW Std Deviation 47.5 H RDW Coeff of Eliecer 13.9 Plt Count 165 MPV 8.9 Immature Gran % (Auto) 1.300 H Neut % (Auto) 72.0 H Lymph % (Auto) 12.1 L [place] % (Auto) 12.1 H Eos % (Auto) 2.0 Baso % (Auto) 0.5 Absolute Neuts (auto) 5.4 Absolute Lymphs (auto) 0.90 Nucleated RBC % 0 Sodium 136 Potassium 3.3 L Chloride 100 Carbon Dioxide 33.0 H Anion Gap 3 L BUN 17 Creatinine 1.02 Estim Creat Clear Calc 66.57 Est GFR (MDRD) Af Amer 91 Est GFR (MDRD) Non-Af 75 BUN/Creatinine Ratio 16.7 Glucose 111 H Calcium 9.2 Troponin I < 0.015 B-Natriuretic Peptide 38.9 - EKG Initial EKG Interpretation: Sinus Rhythm - Sinus at 70 with no acute ischemia. - Medical Decision Making Patient was on 6 L nasal cannula and satting between 90 to 92% at rest. Patient did get up to use a urinal and dropped his sats into the 70s. He was placed on BiPAP for a short time, but had difficulty tolerating this secondary to the facial pressure. He was only requiring 35% FiO2 at that time. Test results are discussed with patient and at bedside. He has recurrent right-sided pleural effusion. Patient was not happy with his care at [facility] and would prefer to go to a different facility. His oncologist is associate with [facility] so I spoke with them. Patient has been accepted to the ER at [facility] and we will arrange transport. Family has been updated. ED Disposition - Plan for ED Patient: Disposition: [facility] Diagnosis: Recurrent right pleural effusion Referrals: Hung Hummel MD [Primary Care Provider] -
--- NOTE | 2020-06-02 19:04 | RAD_ITS ---
STUDY: X-RAY CHEST REASON FOR EXAM: Male, 75 years old. INCREASED SOB WITH EXERTION. RECENTLY DX WITH LUNG CA. TREATEMENT NOT STARTED YET TECHNIQUE: Frontal view of the chest COMPARISON: May 09, 2020 FINDINGS: Endotracheal tube has been removed. There is increasing right pleural effusion, now moderate to large with increasing right lung opacity, likely aggressive collapse. There is known underlying lung disease. Left lung is clear with increased interstitial markings, mild atelectasis and pulmonary edema. Cardiac size is likely normal. There is no pneumothorax. Osseous structures are intact. RAD/Chest 1 View (Portable) IMPRESSION: Increasing right pleural effusion and right lung compressive atelectasis. Electronically Signed: Annalisa Mantilla, at 19:54 EDT Tel , Service support ,
[2020-06-02 19:27] LABS: Absolute Neutrophil Count 5.4 X10^3/uL (2.0-7.7); Basophil# 0.04 X10^3/uL; Basophil% 0.5 % (0-1); Eosinophil# 0.15 X10^3/uL; Hematocrit 30.8 % (40-54); Hemoglobin 10.1 g/dL (13.0-16.5); Lymphocyte % 12.1 % (19-41); Mean Corp Hgb Conc 32.8 g/dL (32-36); Mean Corpuscular Hgb 31.2 pg (27.0-32.0); Mean Corpuscular Volume 95.1 fL (80-94); Mean Platelet Vol. 8.9 fl (6.2-12.0); Monocyte% 12.1 % (0-10); NRBC Flagged by Analyzer 0 % (0-5); Neutrophil # 5.35 X10^3/uL (2.7-7.7); Platelet Count 165 K/mm3 (150-450); RBC Distribution Width CV 13.9 % (11.6-14.6); RBC Distribution Width SD 47.5 fl (35.1-43.9); Red Blood Count 3.24 M/mm3 (4.6-6.2); White Blood Count 7.4 K/mm3 (4.4-11.0)
[2020-06-02 19:45] LABS: BNP,B-Type NATRIURETIC PEPTIDE 38.9 pg/mL (0-100)
[2020-06-02 19:49] LABS: Anion Gap 3 (5-15); BUN 17 mg/dL (7-18); BUN/Creat Ratio 16.7 RATIO (10-20); Calcium,Total 9.2 mg/dL (8.5-10.1); Chloride 100 mmol/L (98-107); Creatinine, Serum 1.02 mg/dL (0.70-1.30); EST Glomerular Filtration Rate 75 mL/min (>60); Est Glom Filt Rate - Afr Amer 91 mL/min (>60); Estimated Creatinine Clearance 66.57 ml/min; Glucose 111 mg/dL (74-106); Potassium 3.3 mmol/L (3.5-5.1); Sodium Level 136 mmol/L (136-145)
[2020-06-02 20:40] VITALS: PULSE 78; RESP 12; RESP 24; O2SAT 96
--- NOTE | 2020-06-02 20:40 | CPS ---
Pt wears BIPAP at home HS and refused ours earlier. He stated he didn't feel like he needed it and denied SOB while sitting. Pt got up to use the urinal and sats dropped in the high 70's. This has been normal per and pt. Pt placed on home BIPAP settings per pt.
[2020-06-02 21:29] VITALS: PULSE 76; RESP 21; O2SAT 95
[2020-06-02] MEDS: Acetaminophen 500 MG Tablet 1000 MG PO (21:32)
[2020-06-02 22:32] VITALS: BP 146/78; PULSE 73; RESP 24; O2SAT 96
== END 2020-06-02 22:45 | disposition short-term general hospital (02) ==
PROVIDERS: Emergency Provider Emergency Medicine; PCP Family Medicine
DX: J90 Pleural effusion, not elsewhere classified (principal); C34.90 Malignant neoplasm of unspecified part of unspecified bronchus or lung; J84.10 Pulmonary fibrosis, unspecified; K21.9 Gastro-esophageal reflux disease without esophagitis; M19.90 Unspecified osteoarthritis, unspecified site; E78.00 Pure hypercholesterolemia, unspecified; E03.9 Hypothyroidism, unspecified; G47.33 Obstructive sleep apnea (adult) (pediatric); J44.9 Chronic obstructive pulmonary disease, unspecified; Z87.09 Personal history of other diseases of the respiratory system; Z79.899 Other long term (current) drug therapy; Z87.891 Personal history of nicotine dependence
CPT/HCPCS: 71045; 80048; 83880; 84484; 85025; 93005; 94002; 99285